=== PATIENT | male | born 1975 | race Caucasian/White ===

== ENCOUNTER 2016-12-04 21:19 | Observation (INO) | payer BC ==
[2016-12-04] MEDS ORDERED: Sodium Chloride 0.9% 1,000 ML IV ONE (21:44)
[2016-12-04 22:15] LABS: BASO % 0.3 % (0.0-2.0); EOS % 0.1 % (0.0-4.0); HEMATOCRIT 35.4 % (35.0-51.0); LYMPH # 1.4 K/uL (1.0-4.3); LYMPH % 8.7 % (20.0-40.0); MEAN CELL VOLUME 106.9 fL (80.0-94.0); MEAN CORPUSCULAR HEMOGLOBIN 36.3 pg (27.0-31.0); MEAN PLATELET VOLUME 7.5 fL (7.2-11.7); MONO # 1.3 K/uL (0.0-0.8); MONO % 7.7 % (0.0-10.0); PLATELET COUNT 269 K/uL (130-400); RED CELL DISTRIBUTION WIDTH 13.7 % (11.5-14.5); WHITE BLOOD COUNT 16.2 K/uL (4.8-10.8)
[2016-12-04 22:22] LABS: CHLORIDE 96 mmol/L (98-107)
[2016-12-04 22:23] LABS: POTASSIUM 3.8 mmol/L (3.6-5.2); SODIUM 132 mmol/L (132-148)
[2016-12-04 22:25] LABS: ALB/GLOB RATIO 1.5 (1.0-2.1); ALKALINE PHOSPHATASE 55 U/L (38-126); ALT/SGPT 31 U/L (21-72); AST/SGOT 21 U/L (17-59); BLOOD UREA NITROGEN 9 mg/dL (9-20); CARBON DIOXIDE 23 mmol/L (22-30); GFR AFRICAN-AMERICAN > 60; GLUCOSE,RANDOM 100 mg/dL (75-110); TOTAL PROTEIN 7.1 g/dL (6.3-8.3)
[2016-12-04 22:26] LABS: CALCIUM 8.9 mg/dl (8.6-10.4)
[2016-12-04 22:51] LABS: NEUTROPHIL 85 % (50-75); TOTAL CELLS COUNTED 100
[2016-12-05] MEDS: cefTRIAXone IV 1 gm in Dextros 1 GM in Dextrose 5% In Water 50 ML IVPB SCH ×2 (00:45→14:20)
--- NOTE | 2016-12-05 03:02 | C.PDOC ---
History Of Present Illness Patient is a 41 y/o male who presents to the ED with a complaint of substernal sharp CP. Patient admits to productive cough with yellow-kendal phlegm and a tactile fever. Denies nausea, vomiting, or recent travel. Patient has a PMHx of HIV and has a CD4 count > 200. Currently on Haart therapy. No other physical complaints at this time. Chief Complaint (Nursing): Chest Pain History Per: Patient History/Exam Limitations: no limitations Current Symptoms Are (Timing): Still Present Quality: Sharp Recent travel outside of the [place]: No Additional History Per: Patient Past Medical History Reviewed: Historical Data, Nursing Documentation, Vital Signs Vital Signs: Last Vital Signs Temp 99.0 F 12/05/16 04:49 Pulse 123 H 12/05/16 04:49 Resp 20 12/05/16 04:49 BP 111/66 12/05/16 04:49 Pulse Ox 95 12/05/16 04:49 - Medical History PMH: Anxiety, HIV, HTN, Hypercholesterolemia Surgical History: Appendectomy Family History: States: No Known Family Hx - Social History Hx Alcohol Use: No Hx Substance Use: No - Immunization History Hx Tetanus Toxoid Vaccination: Yes Hx Influenza Vaccination: Yes Hx Pneumococcal Vaccination: Yes Review Of Systems Constitutional: Positive for: Fever (tactile) Cardiovascular: Positive for: Chest Pain (substernal) Respiratory: Positive for: Cough (productive), Sputum (yellow-kendal) Gastrointestinal: Negative for: Nausea, Vomiting Physical Exam - Physical Exam Appears: Well, Non-toxic Skin: Normal Color, Warm, Dry Head: Atraumatic, Normacephalic Oral Mucosa: Moist Chest: Symmetrical Cardiovascular: Rhythm Regular, No Murmur Respiratory: No Rales, Rhonchi (bilateral on basees of lungs ), No Wheezing Gastrointestinal/Abdominal: Soft, No Tenderness Extremity: Normal ROM Neurological/Psych: Oriented x3, Normal Speech, Normal Cognition ED Course And Treatment - Laboratory Results Result Diagrams: 12/04/16 22:08 12/04/16 22:08 ECG: Interpreted By Me, Viewed By Me ECG Rhythm: Sinus Tachycardia, R BBB Rate From EC (bpm) O2 Sat by Pulse Oximetry: 98 - Physician Consult Information Time Consulting Physician Contacted: 02:30 Physician Contacted: Jennifer Vallecillo Outcome Of Conversation: agrees upon plan and admission of patient. Medical Decision Making Medical Decision Making: Plan: EKG, CXR, and blood work ordered. Tylenol, Zithromax, and IV fluids administered. Patient is to be admitted. Disposition - Disposition Disposition Time: 23:00 Condition: IMPROVED - Clinical Impression Clinical Impression: Pneumonia, HIV (human immunodeficiency virus infection) - Scribe Statement The provider has reviewed the documentation as recorded by the Scribe Ana Rosa Baldwin All medical record entries made by the Scribe were at my direction and personally dictated by me. I have reviewed the chart and agree that the record accurately reflects my personal performance of the history, physical exam, medical decision making, and the department course for this patient. I have also personally directed, reviewed, and agree with the discharge instructions and disposition.
[2016-12-05] MEDS ORDERED: HYDROmorphone 1 mg/ml ISec IVP PRN (06:28)
--- NOTE | 2016-12-05 08:30 | RAD ---
PROCEDURE: CHEST RADIOGRAPH, 1 VIEW HISTORY: chest pain COMPARISON: None available. FINDINGS: LUNGS: Mild venous congestion. Elevated left hemidiaphragm. Right hilar prominence. PLEURA: No pneumothorax or pleural fluid seen. CARDIOVASCULAR: Normal. OSSEOUS STRUCTURES: No significant abnormalities. VISUALIZED UPPER ABDOMEN: Normal. OTHER FINDINGS: None. IMPRESSION: Mild venous congestion. Elevated left hemidiaphragm. Right hilar prominence.
[2016-12-05] MEDS ORDERED: Pantoprazole 40 mg EC Tab PO SCH (10:00)
[2016-12-05] MEDS ORDERED: Divalproex 500 mg ER Tab PO SCH (10:00)
[2016-12-05] MEDS ORDERED: Home Med 1 UNIT (Emtricitabine/Tenofovir (Tdf) [Truvada 100 Mg-150 Mg Tablet] 1 EACH) PO SCH (10:00)
[2016-12-05] MEDS ORDERED: Multivitamin With Minerals Tab PO SCH (10:00)
[2016-12-05] MEDS ORDERED: Azithromycin 500 MG in Sodium Chloride 0.9% 250 ML IVPB SCH (10:00)
[2016-12-05] MEDS ORDERED: Venlafaxine 150 mg ER Cap PO SCH (14:30)
[2016-12-05 15:44] VITALS: RESP 20
[2016-12-05] MEDS ORDERED: Abacavir/Lamivudine/Zidovudine 300 mg-150mg- 300 mg Tab PO SCH (18:00)
[2016-12-05] MEDS ORDERED: Abacavir/Lamivudine/Zidovudine 300 mg-150mg- 300 mg Tab PO ONE (18:00)
--- NOTE | 2016-12-05 18:44 | CP.PCM.HP ---
History of Present Illness - History of Present Illness History of Present Illness: 41-year-old male with PMHanxiety, HIV, HTN and hypercholesterolemia presents to the ER with C/Ochest pain for 3 days. C/Ochest pain for 3 days, insidious in onset, progressive, sharp, right-sided, aggravated with coughing, partly relieved by oral medications. C/Ocough since 3-4 days, productive of yellowish expectoration, intermittent C/Ofever for 3-4 days, high-grade, with chills and rigors, 3-4 spikes per day. No C/Ovomiting, chest pain, palpitation, PND, orthopnea. Past Patient History - Infectious Disease Hx of Infectious Diseases: None - Past Social History Smoking Status: Heavy Smoker > 10 Cigarettes Daily - CARDIAC Hx Hypercholesterolemia: Yes Hx Hypertension: Yes - HEMATOLOGICAL/ONCOLOGICAL Hx Human Immunodeficiency Virus (HIV): Yes - MUSCULOSKELETAL/RHEUMATOLOGICAL Hx Falls: No - PSYCHIATRIC Hx Anxiety: Yes Hx Bipolar Disorder: Yes Hx Substance Use: No - SURGICAL HISTORY Hx Appendectomy: No Other/Comment: Tonsils taken out - ANESTHESIA Hx Anesthesia: Yes Hx Anesthesia Reactions: No Meds Allergies/Adverse Reactions: Allergies Allergy/AdvReac Type Severity Reaction Status Date / Time sulfamethoxazole Allergy Verified 12/04/16 21:37 [From Bactrim] trimethoprim [From Bactrim] Allergy Verified 12/04/16 21:37 Physical Exam - Constitutional Appears: Well - Head Exam Head Exam: ATRAUMATIC, NORMAL INSPECTION, NORMOCEPHALIC - Eye Exam Eye Exam: EOMI, Normal appearance, PERRL Pupil Exam: NORMAL ACCOMODATION, PERRL - ENT Exam ENT Exam: Mucous Membranes Moist, Normal Exam - Neck Exam Neck exam: Positive for: Normal Inspection - Respiratory Exam Respiratory Exam: Decreased Breath Sounds - Cardiovascular Exam Cardiovascular Exam: REGULAR RHYTHM, +S1, +S2 - GI/Abdominal Exam GI & Abdominal Exam: Diminished Bowel Sounds, Soft - Rectal Exam Rectal Exam: Deferred Results - Vital Signs Recent Vital Signs: Last Vital Signs Temp 97.9 F 12/05/16 15:41 Pulse 96 H 12/05/16 15:41 Resp 20 12/05/16 15:41 BP 111/74 12/05/16 15:41 Pulse Ox 95 12/05/16 15:41 - Labs Result Diagrams: 12/04/16 22:08 12/04/16 22:08 Labs: Laboratory Results - last 24 hr 12/04/16 12/04/16 12/04/16 22:08 22:08 23:55 WBC 16.2 H RBC 3.32 L Hgb 12.1 Hct 35.4 MCV 106.9 H MCH 36.3 H MCHC 34.0 RDW 13.7 Plt Count 269 MPV 7.5 Neut % (Auto) 83.2 H Lymph % (Auto) 8.7 L [place] % (Auto) 7.7 Eos % (Auto) 0.1 Baso % (Auto) 0.3 Neut # 13.5 H Lymph # 1.4 [place] # 1.3 H Eos # 0.0 Baso # 0.0 Neutrophils % (Manual) 85 H Band Neutrophils % 1 Lymphocytes % (Manual) 8 L Monocytes % (Manual) 6 Platelet Estimate Normal Poikilocytosis (manual Slight Anisocytosis (manual) Slight Sodium 132 Potassium 3.8 Chloride 96 L Carbon Dioxide 23 Anion Gap 16 BUN 9 Creatinine 0.7 L Est GFR ( Amer) > 60 Est GFR (Non-Af Amer) > 60 Random Glucose 100 Calcium 8.9 Total Bilirubin 1.0 AST 21 ALT 31 Alkaline Phosphatase 55 Lactate Dehydrogenase 579 Troponin I < 0.0120 Total Protein 7.1 Albumin 4.3 Globulin 2.8 Albumin/Globulin Ratio 1.5 Lipase 60
--- NOTE | 2016-12-05 19:22 | CP.PCM.CON ---
History of Present Illness - History of Present Illness History of Present Illness: Patient is a 41 y/o male who presents to the ED with a complaint of substernal sharp CP. Patient admits to productive cough with yellow-kendal phlegm and a tactile fever. Denies nausea, vomiting, or recent travel. Patient has a PMHx of HIV and has a CD4 count > 200. Currently on Haart therapy. No other physical complaints at this time. admitted for pneumonia - Medical History PMH: Anxiety, HIV, HTN, Hypercholesterolemia Surgical History: Appendectomy Family History: States: No Known Family Hx Review of Systems - Constitutional Constitutional: Chills, Fever, Malaise - EENT Eyes: absent: As Per HPI, Blind Spots, Blurred Vision, Change in Vision, Decreased Night Vision, Diplopia, Discharge, Dry Eye, Exophthalmos, Floaters, Irritation, Itchy Eyes, Loss of Peripheral Vision, Pain, Photophobia, Requires Corrective Lenses, Sees Flashes, Spots in Vision, Tunnel Vision, Other Visual Disturbances, Loss of Vision, Other Ears: absent: As Per HPI, Decreased Hearing, Ear Discharge, Ear Pain, Tinnitus, Abnormal Hearing, Disequilibrium, Dizziness, Other Nose/Mouth/Throat: absent: As Per HPI, Epistaxis, Nasal Congestion, Nasal Discharge, Nasal Obstruction, Nasal Trauma, Nose Pain, Post Nasal Drip, Sinus Pain, Sinus Pressure, Bleeding Gums, Change in Voice, Dental Pain, Dry Mouth, Dysphagia, Halitosis, Hoarsness, Lip Swelling, Mouth Lesions, Mouth Pain, Odynophagia, Sore Throat, Throat Swelling, Tongue Swelling, Facial Pain, Neck Pain, Neck Mass, Other - Cardiovascular Cardiovascular: absent: As Per HPI, Acrocyanosis, Chest Pain, Chest Pain at Rest , Chest Pain with Activity, Claudication, Diaphoresis, Dyspnea, Dyspnea on Exertion, Edema, Irregular Heart Rhythm, Pain Radiating to Arm/Neck/Jaw, Leg Edema, Leg Ulcers, Lightheadedness, Orthopnea, Palpitations, Paroxysmal Nocturnal Dyspnea, Pedal Edema, Radiating Pain, Rapid Heart Rate, Slow Heart Rate, Syncope, Other - Respiratory Respiratory: Cough, Dyspnea. absent: Hemoptysis - Gastrointestinal Gastrointestinal: absent: As Per HPI, Abdominal Pain, Belching, Bloating, Change in Bowel Habits, Change in Stool Character, Coffee Ground Emesis, Constipation, Cramping, Diarrhea, Dyspepsia, Dysphagia, Early Satiety, Excessive Flatus, Fecal Incontinence, Heartburn, Hematemesis, Hematochezia, Loose Stools, Melena, Nausea, Odynophagia, Temesmus, Vomiting, Other - Genitourinary Genitourinary: absent: As Per HPI, Change in Urinary Stream, Difficulty Urinating, Dysuria, Flank Pain, Hematuria, Pyuria, Nocturia, Urinary Incontinence, Urinary Frequency, Urinary Hesitance, Urinary Urgency, Voiding Freq/Small Amts, Freq UTI, Hx Renal/Bladder Calculi, Hx /Renal Surgery, Bladder Distension, Other - Musculoskeletal Musculoskeletal: absent: As Per HPI, Abnormal Gait, Arthralgias, Atrophy, Back Pain, Deformity, Joint Swelling, Limited Range of Motion, Loss of Height, Muscle Cramps, Muscle Weakness, Myalgias, Neck Pain, Numbness, Radiating Pain into Limb, Stiffness, Tingling, Other - Integumentary Integumentary: absent: As Per HPI, Acne, Alopecia, Bleeding Lesions, Change in Hair, Change in Nails, Change in Pigmentation, Changing Lesions, Dry Skin, Erythema, Furuncle, Hirsutism, Lesions, New Lesions, Non-Healing Lesions, Photosensitivity, Pruritus, Rash, Skin Pain, Skin Ulcer, Sores, Striae, Swelling , Unusual Bruising, Wounds, Jaundice, Other - Neurological Neurological: absent: As Per HPI, Abnormal Gait, Abnormal Hearing, Abnormal Movements, Abnormal Speech, Behavioral Changes, Burning Sensations, Confusion, Convulsions, Disequilibrium, Dizziness, Numbness, Focal Weakness, Frequent Falls , Headaches, Lack of Coordination, Loss of Vision, Memory Loss, Paresthesias, Radicular Pain, Restless Legs, Sensory Deficit, Syncope, Tingling, Tremor, Vertigo, Weakness, Other Visual Disturbances, Other - Psychiatric Psychiatric: absent: As Per HPI, Abnormal Sleep Pattern, Anhedonia, Anxiety, Auditory Hallucinations, Behavioral Changes, Change in Appetite, Change in Libido, Confusion, Depression, Difficulty Concentrating, Hallucinations, Homicidal Ideation, Hopelessness, Irritability, Memory Loss, Mood Swings, Panic Attacks, Paranoia, Suicidal Ideation, Visual Hallucinations, Tactile Hallucinations, Other - Endocrine Endocrine: absent: As Per HPI, Change in Body Appearance, Change in Libido, Cold Intolorance, Deepening of Voice, Excessive Sweating, Fatigue, Flushing, Heat Intolorance, Increase in Ring/Shoe/Hat Size, Palpitations, Polydipsia, Polyphagia, Polyuria, Other - Hematologic/Lymphatic Hematologic: absent: As Per HPI, Easy Bleeding, Easy Bruising, Lymphadenopathy, Other Past Patient History - Infectious Disease Hx of Infectious Diseases: None - Past Social History Smoking Status: Heavy Smoker > 10 Cigarettes Daily - CARDIAC Hx Hypercholesterolemia: Yes Hx Hypertension: Yes - HEMATOLOGICAL/ONCOLOGICAL Hx Human Immunodeficiency Virus (HIV): Yes - MUSCULOSKELETAL/RHEUMATOLOGICAL Hx Falls: No - PSYCHIATRIC Hx Anxiety: Yes Hx Bipolar Disorder: Yes Hx Substance Use: No - SURGICAL HISTORY Hx Appendectomy: No Other/Comment: Tonsils taken out - ANESTHESIA Hx Anesthesia: Yes Hx Anesthesia Reactions: No Meds Allergies/Adverse Reactions: Allergies Allergy/AdvReac Type Severity Reaction Status Date / Time sulfamethoxazole Allergy Verified 12/04/16 21:37 [From Bactrim] trimethoprim [From Bactrim] Allergy Verified 12/04/16 21:37 - Medications Medications: Current Medications Abacavir/Lamivudine/Zidovudine (Trizivir 300 Mg-150 Mg-300 Mg) 1 tab PO BID [facility] Last Admin: 12/05/16 18:37 Dose: 1 tab Acetaminophen (Tylenol 325mg Tab) 650 mg PO Q6 PRN PRN Reason: Fever >100.4 F Amlodipine Besylate (Norvasc) 10 mg PO DAILY [facility] Dapsone (Dapsone) 100 mg PO DAILY [facility] Dolutegravir Sodium (Tivicay) 50 mg PO BID [facility] Last Admin: 12/05/16 18:37 Dose: 50 mg Hydromorphone HCl (Dilaudid) 1 mg IVP Q8H PRN PRN Reason: Pain, moderate (4-7) Last Admin: 12/05/16 14:34 Dose: 1 mg Ceftriaxone Sodium 1 gm/ (Dextrose) 100 mls @ 50 mls/30 min IVPB Q12H [facility] Last Admin: 12/05/16 14:20 Dose: 50 mls/30 min Azithromycin 500 mg/ Sodium (Chloride) 250 mls @ 250 mls/hr IVPB DAILY [facility] Last Admin: 12/05/16 10:59 Dose: 250 mls/hr Multivitamins/Minerals (Therapeutic-M Tab) 1 tab PO DAILY [facility] Last Admin: 12/05/16 11:00 Dose: 1 tab Pantoprazole Sodium (Protonix Ec Tab) 40 mg PO DAILY [facility] Last Admin: 12/05/16 11:00 Dose: 40 mg Pneumococcal Polyvalent Vaccine (Pneumovax 23 Vaccine) 0.5 ml IM .ONCE ONE Stop: 12/07/16 10:01 Rosuvastatin Calcium (Crestor) 5 mg PO [facility] Venlafaxine HCl (Effexor Xr) 150 mg PO DAILY [facility] Last Admin: 12/05/16 16:05 Dose: 150 mg Physical Exam - Constitutional Appears: No Acute Distress, Agitated, Chronically Ill - Head Exam Head Exam: ATRAUMATIC, NORMAL INSPECTION, NORMOCEPHALIC - Eye Exam Eye Exam: PERRL. absent: Scleral icterus Pupil Exam: NORMAL ACCOMODATION - ENT Exam ENT Exam: Mucous Membranes Dry, Normal External Ear Exam, Normal Oropharynx - Neck Exam Neck exam: Negative for: Lymphadenopathy, Thyromegaly - Respiratory Exam Respiratory Exam: Decreased Breath Sounds, Rhonchi - Cardiovascular Exam Cardiovascular Exam: REGULAR RHYTHM, +S1, +S2 - GI/Abdominal Exam GI & Abdominal Exam: Diminished Bowel Sounds, Soft. absent: Tenderness - Rectal Exam Rectal Exam: Deferred - Exam Exam: NORMAL INSPECTION - Extremities Exam Extremities exam: Positive for: pedal pulses present. Negative for: calf tenderness, pedal edema, tenderness - Back Exam Back exam: absent: CVA tenderness (L), CVA tenderness (R), paraspinal tenderness - Neurological Exam Neurological exam: Alert, CN II-XII Intact, Oriented x3, Reflexes Normal - Psychiatric Exam Psychiatric exam: Normal Mood - Skin Skin Exam: Dry, Intact Results - Vital Signs Recent Vital Signs: Last Vital Signs Temp 97.9 F 12/05/16 15:41 Pulse 96 H 12/05/16 15:41 Resp 20 12/05/16 15:41 BP 111/74 12/05/16 15:41 Pulse Ox 95 12/05/16 15:41 - Labs Result Diagrams: 12/04/16 22:08 12/04/16 22:08 Labs: Laboratory Results - last 24 hr 12/04/16 12/04/16 12/04/16 22:08 22:08 23:55 WBC 16.2 H RBC 3.32 L Hgb 12.1 Hct 35.4 MCV 106.9 H MCH 36.3 H MCHC 34.0 RDW 13.7 Plt Count 269 MPV 7.5 Neut % (Auto) 83.2 H Lymph % (Auto) 8.7 L [place] % (Auto) 7.7 Eos % (Auto) 0.1 Baso % (Auto) 0.3 Neut # 13.5 H Lymph # 1.4 [place] # 1.3 H Eos # 0.0 Baso # 0.0 Neutrophils % (Manual) 85 H Band Neutrophils % 1 Lymphocytes % (Manual) 8 L Monocytes % (Manual) 6 Platelet Estimate Normal Poikilocytosis (manual Slight Anisocytosis (manual) Slight Sodium 132 Potassium 3.8 Chloride 96 L Carbon Dioxide 23 Anion Gap 16 BUN 9 Creatinine 0.7 L Est GFR ( Amer) > 60 Est GFR (Non-Af Amer) > 60 Random Glucose 100 Calcium 8.9 Total Bilirubin 1.0 AST 21 ALT 31 Alkaline Phosphatase 55 Lactate Dehydrogenase 579 Troponin I < 0.0120 Total Protein 7.1 Albumin 4.3 Globulin 2.8 Albumin/Globulin Ratio 1.5 Lipase 60 Assessment & Plan (1) HIV (human immunodeficiency virus infection) Status: Acute (2) Pneumonia Status: Acute - Assessment and Plan (Free Text) Assessment: check t cells resume haart therapy cont iv antibioitcs
--- NOTE | 2016-12-05 23:09 | CARD ---
APPROVED REPORT EKG Measurement Heart [id number] <Conclusion> Sinus tachycardia Possible Left atrial enlargement Incomplete right bundle branch block Left ventricular hypertrophy Abnormal ECG
[2016-12-05 23:34] VITALS: BP 114/70; PULSE 94; TEMP 97.4; O2SAT 96
[2016-12-06] MEDS: cefTRIAXone IV 1 gm in Dextros 1 GM in Dextrose 5% In Water 50 ML IVPB SCH (00:15)
[2016-12-07] MEDS ORDERED: Pneumococcal 23-Valent Vaccine IM ONE (10:00)
== END 2016-12-06 06:30 | disposition left against medical advice (07) ==
LOC: C.ER 21:19 → C.9E 23:00 → C.5S 12-05 07:39
PROVIDERS: ADMIT Internal Medicine Nephrology; ATTEND Internal Medicine Nephrology
DX: J18.9 Pneumonia, unspecified organism (principal); B20 Human immunodeficiency virus [HIV] disease; I10 Essential (primary) hypertension; E78.00 Pure hypercholesterolemia, unspecified; Z87.891 Personal history of nicotine dependence; F41.9 Anxiety disorder, unspecified
CPT/HCPCS: 71010; 80053; 83615; 83690; 84484; 85025; 86738; 87040; 87804; 93005; 96365; 96366; 96367; 96375; 96376; 99285; G0378; J0456; J0696; J1170; J7040; J7050

== ENCOUNTER 2017-06-28 07:55 | Emergency (ER) | payer BC ==
[2017-06-28 08:28] VITALS: BP 133/80; PULSE 108; RESP 14; TEMP 99.7; O2SAT 100
== END 2017-06-28 08:11 | disposition left against medical advice (07) ==
LOC: C.ER 07:55
DX: Z02.89 Encounter for other administrative examinations (principal); R41.82 Altered mental status, unspecified
CPT/HCPCS: 82948; LWBS0

== ENCOUNTER 2017-07-23 06:16 | Emergency (ER) | payer BC, MEDICAID ==
[2017-07-23] MEDS ORDERED: Sodium Chloride 0.9% 1,000 ML IV ONE (07:44)
--- NOTE | 2017-07-23 07:57 | C.PDOC ---
History Of Present Illness 41 y/o male with Hx of HTN and HIV presents to ED for complaints of difficulty breathing, throat pain, and mouth sores associated with fever and diarrhea that began 4 days ago. Patient also reports difficulty swallowing. Denies vomiting, current use of antibiotics, or allergies. Patient also denies taking his HTN medication. Time Seen by Provider: 07/23/17 07:18 Chief Complaint (Nursing): Fever History Per: Patient History/Exam Limitations: no limitations Onset/Duration Of Symptoms: Days (4) Current Symptoms Are (Timing): Still Present Location Of Pain: Throat Sick Contacts (Context): None Associated Symptoms: Fever, Sore Throat, Diarrhea. denies: Chills, Cough, Vomiting Ear Symptoms: Bilateral: None Recent travel outside of the [place]: No Past Medical History Reviewed: Historical Data, Nursing Documentation, Vital Signs Vital Signs: Last Vital Signs Temp 98.5 F 07/23/17 08:46 Pulse 93 H 07/23/17 08:46 Resp 18 07/23/17 10:23 BP 133/69 07/23/17 08:46 Pulse Ox 100 07/23/17 10:09 - Medical History PMH: Anxiety, Bipolar Disorder, Depression, HIV, HTN, Hypercholesterolemia, Hyperlipidemia Family History: States: Unknown Family Hx - Social History Hx Alcohol Use: No Hx Substance Use: No - Immunization History Hx Tetanus Toxoid Vaccination: Yes Hx Influenza Vaccination: Yes Hx Pneumococcal Vaccination: Yes Review Of Systems Except As Marked, All Systems Reviewed And Found Negative. Constitutional: Positive for: Fever. Negative for: Chills ENT: Positive for: Throat Pain, Other (Throat sores). Negative for: Ear Pain, Mouth Pain Respiratory: Positive for: Other (Difficulty breathing ) Gastrointestinal: Positive for: Diarrhea. Negative for: Nausea, Vomiting, Abdominal Pain Skin: Negative for: Rash Neurological: Negative for: Weakness, Numbness Physical Exam - Physical Exam Appears: No Acute Distress, Chronically Ill Skin: Normal Color, Warm, Dry, No Rash Head: Atraumatic, Normacephalic Eye(s): bilateral: Normal Inspection, PERRL, EOMI Ear(s): Bilateral: Normal Nose: Normal, No Discharge Oral Mucosa: Moist Tongue: Normal Appearing Lips: Normal Appearing Throat: Erythema, No Drooling, Other (Diffuse white flax, exudative lesions to posterior pharynx and uvula) Neck: Normal ROM, Supple Chest: Symmetrical, No Deformity, No Tenderness Cardiovascular: Rhythm Regular, No Friction Rub, No Murmur Respiratory: Normal Breath Sounds, No Decreased Breath Sounds, No Rales, No Rhonchi, No Wheezing Gastrointestinal/Abdominal: Soft, No Tenderness Back: Normal Inspection, No CVA Tenderness Extremity: Normal ROM, No Swelling Neurological/Psych: Oriented x3, Normal Speech, Normal Motor Gait: Steady ED Course And Treatment - Laboratory Results Result Diagrams: 07/23/17 07:59 07/23/17 07:59 O2 Sat by Pulse Oximetry: 100 (RA) Pulse Ox Interpretation: Normal - Other Rad CXR X-Ray: Viewed By Me, Read By Radiologist Interpretation: PROCEDURE: CHEST RADIOGRAPH, 1 VIEW. HISTORY: Shortness of breath. COMPARISON: 12/04/2016. FINDINGS: LUNGS: The lungs are well inflated and clear. PLEURA: No pneumothorax or pleural fluid seen. CARDIOVASCULAR: Normal. OSSEOUS STRUCTURES: No significant abnormalities. VISUALIZED UPPER ABDOMEN: Normal. OTHER FINDINGS: None. IMPRESSION: No active pulmonary disease. Medical Decision Making Medical Decision Making: Administered Toradol and IV fluids. Ordered BG, CXR, blood work and blood culture. The case was discussed with Dr. Aleksandra Dockery (hospitalist) agrees to admit the patient to his service. The airways are patent but patient has difficulty swallowing, will need IV antifungals. Micro called and states that the patient has a (+) Blood cultures. Patient had Signed out AMA after admission. Several calls placed to the patient without success. Disposition - Disposition Disposition: AGAINST MEDICAL ADVICE Disposition Time: 08:48 Condition: STABLE Prescriptions: Fluconazole [Diflucan] 150 mg PO DAILY 3 Days #3 tab Nystatin [Nystatin Oral Susp] 5 ml PO QID #1 bottle Forms: [employer] (Ukrainian) - POA Present On Arrival: None - Clinical Impression Clinical Impression: HIV (human immunodeficiency virus infection), Esophagitis, Thrush of mouth and esophagus - PA / MANAGER [employer] / Resident Statement MD/DO has reviewed & agrees with the documentation as recorded. - Scribe Statement The provider has reviewed the documentation as recorded by the Scribe Rolando [email or web address] All medical record entries made by the Scribe were at my direction and personally dictated by me. I have reviewed the chart and agree that the record accurately reflects my personal performance of the history, physical exam, medical decision making, and the department course for this patient. I have also personally directed, reviewed, and agree with the discharge instructions and disposition.
[2017-07-23] MEDS ORDERED: Sodium Chloride 0.9% 1,000 ML ONE (07:58)
[2017-07-23 08:04] LABS: BASO % 0.5 % (0.0-2.0); EOS % 0.4 % (0.0-4.0); HEMOGLOBIN 14.5 g/dL (12.0-18.0); LYMPH # 0.6 K/uL (1.0-4.3); LYMPH % 13.5 % (20.0-40.0); MEAN CORPUSCULAR HGB CONC 34.2 g/dL (33.0-37.0); MEAN PLATELET VOLUME 8.2 fL (7.2-11.7); MONO % 22.2 % (0.0-10.0); NEUT # 2.7 K/uL (1.8-7.0); NEUT % 63.4 % (50.0-75.0); PLATELET COUNT 337 K/uL (130-400); RBC 5.57 Mil/uL (4.40-5.90); RED CELL DISTRIBUTION WIDTH 15.3 % (11.5-14.5); WHITE BLOOD COUNT 4.3 K/uL (4.8-10.8)
[2017-07-23 08:25] LABS: VENOUS BLOOD GAS BASE EXCESS 5.5 mmol/L (0.0-2.0); VENOUS BLOOD GAS PCO2 51 mmHg (40-60); VENOUS BLOOD GAS PO2 27 mm/Hg (30-55)
[2017-07-23 08:30] LABS: ALBUMIN 4.3 g/dL (3.5-5.0); ALT/SGPT 16 U/L (21-72); AST/SGOT 30 U/L (17-59); BLOOD UREA NITROGEN 8 mg/dL (9-20); CALCIUM 9.4 mg/dl (8.6-10.4); GFR AFRICAN-AMERICAN > 60; GFR NON-AFRICAN AMERICAN > 60
[2017-07-23 08:46] VITALS: BP 133/69; PULSE 93; RESP 18; TEMP 98.5
[2017-07-23 08:49] VITALS: O2SAT 100
[2017-07-23 09:21] LABS: BANDS 9 % (0-2); EOSINOPHIL 1 % (0-4); LYMPHOCYTE 12 % (20-40); MONOCYTE 21 % (0-10); NEUTROPHIL 57 % (50-75); PLATELET ESTIMATE NORMAL (NORMAL); POIKILOCYTOSIS SLIGHT; TOTAL CELLS COUNTED 100
[2017-07-23 09:22] LABS: OVALOCYTES SLIGHT
[2017-07-23] MEDS ORDERED: Nystatin 100,000 Units/ml Oral Susp 5 ml UD PO SCH (10:00)
--- NOTE | 2017-07-23 10:04 | RAD ---
PROCEDURE: CHEST RADIOGRAPH, 1 VIEW HISTORY: Shortness of breath COMPARISON: 12/04/2016. FINDINGS: LUNGS: The lungs are well inflated and clear. PLEURA: No pneumothorax or pleural fluid seen. CARDIOVASCULAR: Normal. OSSEOUS STRUCTURES: No significant abnormalities. VISUALIZED UPPER ABDOMEN: Normal. OTHER FINDINGS: None. IMPRESSION: No active pulmonary disease.
== END 2017-07-23 10:23 | disposition left against medical advice (07) ==
LOC: C.ER 06:16 → C.9E 08:49 → UNDOADMIN 08:49 → C.9E 09:34 → C.3T 09:34 → C.9E 10:06 → C.3T 10:06
DX: B37.81 Candidal esophagitis (principal); B37.0 Candidal stomatitis; B20 Human immunodeficiency virus [HIV] disease; I10 Essential (primary) hypertension; E78.00 Pure hypercholesterolemia, unspecified; E78.5 Hyperlipidemia, unspecified; F17.210 Nicotine dependence, cigarettes, uncomplicated
CPT/HCPCS: 71045; 80053; 82803; 83615; 85025; 87040; 87205; 87206; 96361; 96374; 99284; J1885; J7030

== ENCOUNTER 2017-07-24 17:40 | Inpatient (IN) | payer MEDICAID ==
[2017-07-24] MEDS ORDERED: Sodium Chloride 0.9% 1,000 ML IV ONE (18:51)
[2017-07-24] MEDS ORDERED: Piperacillin/Tazobact 3.375 GM in Sodium Chloride 100 ML IVPB STA (18:54)
[2017-07-24] MEDS ORDERED: Piperacill/Tazo 3.375gm in Dex 3.375 GM/50 ML BAG IVPB ONE (19:00)
[2017-07-24] MEDS ORDERED: Sodium Chloride 0.9% 1,000 ML ONE (19:04)
--- NOTE | 2017-07-24 19:30 | C.PDOC ---
History Of Present Illness 41 year old male presents to the ER with a complaint of weakness and throat pain. Patient signed out AMA yesterday after being admitted for esophagitis and HIV. Patient is noncompliant with his medications and does not have a PMD. Patient reports he has had positive weight loss as well. Denies fever or cough. Time Seen by Provider: 07/24/17 18:47 Chief Complaint (Nursing): Shortness Of Breath History Per: Patient History/Exam Limitations: no limitations Onset/Duration Of Symptoms: Days Current Symptoms Are (Timing): Still Present Associated Symptoms: denies: Fever, Other ((-) cough (+) weakness, weightloss) Recent travel outside of the [place]: No Past Medical History Reviewed: Historical Data, Nursing Documentation, Vital Signs Vital Signs: Last Vital Signs Temp 98.5 F 07/24/17 18:25 Pulse 122 H 07/24/17 18:25 Resp 20 07/24/17 18:25 BP 127/91 H 07/24/17 18:25 Pulse Ox 98 07/24/17 20:28 - Medical History PMH: Anxiety, Bipolar Disorder, Depression, HIV, HTN, Hypercholesterolemia, Hyperlipidemia Family History: States: Unknown Family Hx - Social History Hx Alcohol Use: No Hx Substance Use: No - Immunization History Hx Tetanus Toxoid Vaccination: No Hx Influenza Vaccination: Yes Hx Pneumococcal Vaccination: No Review Of Systems Except As Marked, All Systems Reviewed And Found Negative. Constitutional: Positive for: Weakness, Weight loss. Negative for: Fever ENT: Positive for: Throat Pain Respiratory: Negative for: Cough Physical Exam - Physical Exam Appears: Non-toxic Skin: Normal Color, Warm, Dry Head: Atraumatic, Normacephalic Eye(s): bilateral: Normal Inspection Oral Mucosa: Moist Tongue: Other (Thrush) Neck: Normal, Supple Chest: Symmetrical, No Tenderness Cardiovascular: Rhythm Regular (Tachycardic) Respiratory: Normal Breath Sounds, No Rales, No Rhonchi, No Wheezing Gastrointestinal/Abdominal: Soft, No Tenderness Neurological/Psych: Oriented x3, Normal Speech ED Course And Treatment - Laboratory Results Result Diagrams: 07/24/17 19:29 07/24/17 19:29 ECG: Interpreted By Me, Viewed By Me ECG Rhythm: Sinus Tachycardia ECG Interpretation: Normal Interpretation Of ECG: Incomplete RBBB, LVH, ST segment depression with T wave inversions at v4, v5, v6 Rate From EC O2 Sat by Pulse Oximetry: 98 (Room air) Pulse Ox Interpretation: Normal Medical Decision Making Medical Decision Making: Plan: * EKG * Blood work * CXR * Urinalysis * Pepcid * Toradol * IV fluids * Zosyn Case discussed with Dr. Jurado who will admit patient to med/surg for hypokalemia, esophagitis, and bacteremia. Disposition Discussed With Dr.: Berry Jurado Doctor Will See Patient In The: Hospital Counseled Patient/Family Regarding: Studies Performed, Diagnosis - Disposition Disposition: HOSPITALIZED Disposition Time: 20:28 Condition: FAIR Forms: [facility] (Swedish) - Clinical Impression Clinical Impression: Hypokalemia, Esophagitis, Bacteremia - Scribe Statement Jose Pacheco All medical record entries made by the Scribe were at my direction and personally dictated by me. I have reviewed the chart and agree that the record accurately reflects my personal performance of the history, physical exam, medical decision making, and the department course for this patient. I have also personally directed, reviewed, and agree with the discharge instructions and disposition.
[2017-07-24 19:32] LABS: BASO % 0.3 % (0.0-2.0); EOS % 0.1 % (0.0-4.0); HEMOGLOBIN 14.8 g/dL (12.0-18.0); LYMPH # 0.5 K/uL (1.0-4.3); LYMPH % 12.5 % (20.0-40.0); MEAN CELL VOLUME 75.6 fL (80.0-94.0); MEAN CORPUSCULAR HEMOGLOBIN 25.7 pg (27.0-31.0); MEAN PLATELET VOLUME 8.5 fL (7.2-11.7); MONO # 0.8 K/uL (0.0-0.8); MONO % 17.5 % (0.0-10.0); NEUT # 3.1 K/uL (1.8-7.0); NEUT % 69.6 % (50.0-75.0); NRBC % 0.3 % (0.0-2.0); RBC 5.76 Mil/uL (4.40-5.90); RED CELL DISTRIBUTION WIDTH 15.4 % (11.5-14.5); WHITE BLOOD COUNT 4.4 K/uL (4.8-10.8)
[2017-07-24 19:47] LABS: ALB/GLOB RATIO 0.9 (1.0-2.1); ALBUMIN 4.1 g/dL (3.5-5.0); ALT/SGPT 23 U/L (21-72); AST/SGOT 19 U/L (17-59); BLOOD UREA NITROGEN 10 mg/dL (9-20); CALCIUM 9.1 mg/dl (8.6-10.4); GFR AFRICAN-AMERICAN > 60; GFR NON-AFRICAN AMERICAN > 60
[2017-07-24] MEDS ORDERED: Potassium Chloride 20 mEq/15 ml LIQ UD PO STA (20:00)
[2017-07-24] MEDS ORDERED: Potassium Chloride 20 mEq/15 ml LIQ UD ONE (20:08)
[2017-07-24] MEDS ORDERED: Fluconazole IV 200mg/100 ml NS 100 ML IVPB SCH (22:15)
[2017-07-24] MEDS ORDERED: Tmp-Smz 800 mg-160 mg DS Tab PO SCH (22:30)
[2017-07-24] MEDS ORDERED: Potassium Chloride 20 MEQ in Lactated Ringer's 1,000 ML IV SCH (22:30)
[2017-07-24] MEDS ORDERED: Meropenem 1 GM in Sodium Chloride 0.9% 100 ML IVPB SCH (23:00)
[2017-07-24] MEDS: Potassium Chl 20 mEq in NS 1,000 ML IV SCH (23:11)
[2017-07-24] MEDS: Meropenem 1 GM in Sodium Chloride 0.9% 100 ML IVPB SCH (23:12)
[2017-07-25] MEDS: Potassium Chl 20 mEq in NS 1,000 ML IV SCH ×4 (05:47→18:00)
[2017-07-25] MEDS: Meropenem 1 GM in Sodium Chloride 0.9% 100 ML IVPB SCH ×3 (06:02→22:42)
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
[2017-07-25 07:12] LABS: BASO % 0.4 % (0.0-2.0); EOS % 0.5 % (0.0-4.0); HEMOGLOBIN 12.7 g/dL (12.0-18.0); LYMPH # 0.5 K/uL (1.0-4.3); LYMPH % 20.6 % (20.0-40.0); MEAN CELL VOLUME 75.9 fL (80.0-94.0); MEAN CORPUSCULAR HEMOGLOBIN 25.8 pg (27.0-31.0); MEAN CORPUSCULAR HGB CONC 33.9 g/dL (33.0-37.0); MEAN PLATELET VOLUME 8.2 fL (7.2-11.7); MONO # 0.6 K/uL (0.0-0.8); MONO % 22.3 % (0.0-10.0); NEUT # 1.5 K/uL (1.8-7.0); NEUT % 56.2 % (50.0-75.0); NRBC % 0.1 % (0.0-2.0); PLATELET COUNT 289 K/uL (130-400); RBC 4.93 Mil/uL (4.40-5.90); RED CELL DISTRIBUTION WIDTH 15.1 % (11.5-14.5); WHITE BLOOD COUNT 2.6 K/uL (4.8-10.8)
[2017-07-25 07:41] LABS: ALBUMIN 3.6 g/dL (3.5-5.0); ALT/SGPT 26 U/L (21-72); AST/SGOT 17 U/L (17-59); BLOOD UREA NITROGEN 10 mg/dL (9-20); CALCIUM 8.5 mg/dl (8.6-10.4); GFR AFRICAN-AMERICAN > 60; GFR NON-AFRICAN AMERICAN > 60
--- NOTE | 2017-07-25 08:29 | RAD ---
PROCEDURE: CHEST RADIOGRAPH, 1 VIEW HISTORY: chest pain COMPARISON: Prior chest radiograph 07/23/2017. FINDINGS: LUNGS: Clear. PLEURA: No pneumothorax or pleural fluid seen. CARDIOVASCULAR: Normal. OSSEOUS STRUCTURES: No significant abnormalities. VISUALIZED UPPER ABDOMEN: Normal. OTHER FINDINGS: None. IMPRESSION: No active disease.
[2017-07-25 08:33] LABS: HEPATITIS B SURFACE AG Negative (NEGATIVE)
[2017-07-25 08:39] LABS: HEPATITIS A IGM NEGATIVE (NEGATIVE); HEPATITIS B CORE AB NEGATIVE (NEGATIVE)
[2017-07-25 08:48] LABS: BANDS 28 % (0-2); EOSINOPHIL 2 % (0-4); LYMPHOCYTE 22 % (20-40); MONOCYTE 12 % (0-10); NEUTROPHIL 36 % (50-75); PLATELET ESTIMATE NORMAL (NORMAL); TOTAL CELLS COUNTED 50
[2017-07-25 08:50] LABS: HEPATITIS C ANTIBODY NEGATIVE (NEGATIVE)
[2017-07-25] MEDS ORDERED: Pneumococcal 23-Valent Vaccine IM ONE (10:00)
--- NOTE | 2017-07-25 12:01 | CP.PCM.PN ---
<Vicky Ramirez - Last Filed: 07/25/17 15:00> Subjective - Date & Time of Evaluation Date of Evaluation: 07/25/17 Time of Evaluation: 12:01 - Subjective Subjective: Medicine progress note for Dr. Dockery Patient was seen and examined at bedside in no acute distress. Patient is requesting food and stating he is very hungry. Patient states he no longer has pain with swallowing and less inflammation. He says he feels tired and weak, and has lost 60lbs in 6 months. Patient denies chest pain, dyspnea, nausea, vomiting, fevers, headaches, abdominal pain. Objective - Vital Signs/Intake and Output Vital Signs (last 24 hours): Temp Pulse Resp BP Pulse Ox 98.1 F 90 20 105/70 98 07/25/17 07:44 07/25/17 07:44 07/25/17 07:44 07/25/17 07:44 07/25/17 07:44 Intake and Output: 07/25/17 07/25/17 06:59 18:59 Intake Total 1200 Balance 1200 - Medications Medications: Current Medications Heparin Sodium (Porcine) (Heparin) 5,000 units SC Q12 [facility] Last Admin: 07/25/17 09:36 Dose: 5,000 units Fluconazole (Diflucan Iv 100 Mg/50 Ml Ns) 50 mls @ 50 mls/hr IVPB Q24H [facility] Meropenem 1 gm/ Sodium (Chloride) 100 mls @ 100 mls/hr IVPB Q8H [facility] PRN Reason: Protocol Last Admin: 07/25/17 06:02 Dose: 100 mls/hr Potassium Chloride/Sodium Chloride (Potassium Chl 20 Meq In Ns) 1,000 mls @ 150 mls/hr IV .Q6H40M [facility] Last Admin: 07/25/17 08:20 Dose: 150 mls/hr Trimethoprim/Sulfamethoxazole (Bactrim Ds Tab) 1 tab PO Q2D [facility] PRN Reason: Protocol Last Admin: 07/24/17 23:12 Dose: 1 tab - Labs Labs: 07/25/17 07:03 07/25/17 07:03 - Constitutional Appears: No Acute Distress - Head Exam Head Exam: ATRAUMATIC, NORMAL INSPECTION - Eye Exam Eye Exam: EOMI, Normal appearance - ENT Exam ENT Exam: Mucous Membranes Moist Additional comments: Oral lesions improving; erythematous throat; poor dentition - Neck Exam Neck Exam: Normal Inspection. absent: Lymphadenopathy, Tenderness - Respiratory Exam Respiratory Exam: NORMAL BREATHING PATTERN. absent: Rales, Rhonchi, Wheezes, Respiratory Distress - Cardiovascular Exam Cardiovascular Exam: REGULAR RHYTHM, +S1, +S2 - GI/Abdominal Exam GI & Abdominal Exam: Soft, Normal Bowel Sounds. absent: Distended, Tenderness - Extremities Exam Extremities Exam: Normal Inspection. absent: Pedal Edema, Tenderness Additional comments: no axillary lymphadenopathy palpated - Neurological Exam Neurological Exam: Alert, Awake, Oriented x3 - Psychiatric Exam Psychiatric exam: Anxious - Skin Skin Exam: Dry, Intact, Normal Color, Warm Assessment and Plan - Assessment and Plan (Free Text) Plan: Esophageal candidiasis In the ED, Diflucan given Continued on Fluconazole 100 mg IVPB Q24H Nystatin Mouth Wash HIV/possible AIDS f/u CD4/CD8 Bactrim DS daily Hepatitis panel: negative Neck soft tissue CT: f/u Chest/Abdo/Pelv CT: f/u Diarrhea with reported blood Cdiff: f/u Ova and parasites: f/u Fecal leukocytes: f/u Stool occult blood: positive Monitor CBC&CMP Monitor vitals Hypokalemia, 2/2 diarrhea LR 20meq K cl Resolved Gram neg bacteremia, bandemia Merrem IVPB Q8H F/u culture Prophylaxis SCDs <Colton Dockery H - Last Filed: 07/25/17 17:17> Objective - Vital Signs/Intake and Output Vital Signs (last 24 hours): Temp Pulse Resp BP Pulse Ox 98.1 F 84 20 114/80 98 07/25/17 16:06 07/25/17 16:06 07/25/17 16:06 07/25/17 16:06 07/25/17 16:06 Intake and Output: 07/25/17 07/25/17 06:59 18:59 Intake Total 1200 1600 Balance 1200 1600 - Medications Medications: Current Medications Heparin Sodium (Porcine) (Heparin) 5,000 units SC Q12 [facility] Last Admin: 07/25/17 09:36 Dose: 5,000 units Fluconazole (Diflucan Iv 100 Mg/50 Ml Ns) 50 mls @ 50 mls/hr IVPB Q24H [facility] Meropenem 1 gm/ Sodium (Chloride) 100 mls @ 100 mls/hr IVPB Q8H [facility] PRN Reason: Protocol Last Admin: 07/25/17 14:41 Dose: 100 mls/hr Potassium Chloride/Sodium Chloride (Potassium Chl 20 Meq In Ns) 1,000 mls @ 150 mls/hr IV .Q6H40M [facility] Last Admin: 07/25/17 13:01 Dose: 150 mls/hr Nystatin (Nystatin Oral Susp) 5 ml PO QID [facility] Last Admin: 07/25/17 17:09 Dose: 5 ml Pneumococcal Polyvalent Vaccine (Pneumovax 23 Vaccine) 0.5 ml IM .ONCE ONE Stop: 07/27/17 10:01 Trimethoprim/Sulfamethoxazole (Bactrim Ds Tab) 1 tab PO DAILY [facility] PRN Reason: Protocol - Labs Labs: 07/25/17 07:03 07/25/17 07:03 Attending/Attestation - Attestation I have personally seen and examined this patient.: Yes I have fully participated in the care of the patient.: Yes I have reviewed all pertinent clinical information, including history, physical exam and plan: Yes Notes (Text): 07/25/17 17:12 Medical attending: Patient was seen and examined by me. Agree with the above note by the resident. Patient was previously here the other day but then signed out AMA at the ER. Now returned. This morning when we saw him he reported having less oral pain than previous. The patient was NPO overnight and was hungry. He felt ready to eat so we started a diet and encouraged him to eat slowly. For now continue with the IVF Because of the weightloss as well as neck/oral pain will check CT scan of the neck and chest. Most likely the pain is from oral thrush that should improve as he recived oral diflucan and IV diflucan. Will also try to get ID evaluation so he can be restarted on his [facility]RT medications. From when he left AMA, there is a gram negative bacteria that is preliminary - he was already placed on meropenom IV CD4/CD8 counts, HIV Quant as well thank you Colton Dockery 07/25/17 17:16
[2017-07-25 16:20] LABS: FECAL LEUKOCYTES POSITIVE (NEGATIVE)
[2017-07-25 16:54] LABS: C DIFF TOXIN A B NEGATIVE (NEGATIVE)
--- NOTE | 2017-07-25 17:06 | CT ---
HISTORY: Rule out lymphoma COMPARISON: No prior study available comparison TECHNIQUE: Contiguous helical/ transaxial sections of the neck without intravenous contrast. Coronal and sagittal reformats generated. Radiation dose: DLP 422.40 mGy-cm This CT exam was performed using one or more of the following dose reduction techniques: Automated exposure control, adjustment of the mA and/or kV according to patient size, and/or use of iterative reconstruction technique. Note that this examination is limited due to the lack of circulating intravenous contrast material. FINDINGS: The current study reveals multiple relatively small bilateral cervical lymph nodes are present. The largest left sided left the jugulodigastric lymph node measures approximately 7 mm and on the right approximately 10 mm. The remaining lymph nodes do not appear pathologically enlarged however followup -up CT scan of the neck with contrast is recommended to further characterize the exact size and extent of the lymph nodes. Thyroid gland is partially obscured by crossing streak and beam hardening artifact arising from dense clavicles and shoulder girdles. Parotid and submandibular glands appear unremarkable without obvious mass. Tiny calcification in the deep lobe of the left parotid gland suspect. The lingual tonsils encroach slightly into the vallecula. There is asymmetry of the left aryepiglottic fold which appears thickened and edematous compared to the right side. These changes presumably result in the asymmetry of the pyriform sinuses left-side of which is smaller than the right. Residual and/or retained secretion could conceivably contribute to the asymmetry however directives visualization is recommended to exclude possibility of a mucosal lesion angioedema. Again postcontrast CT scan of the neck is recommended. True vocal cords appear symmetric as do the arytenoid cartilages. The cervical vasculature poorly delineated. Very minor degenerative spondylosis of the cervical spine. Lung apices are clear IMPRESSION: Impression: There are a few small nonspecific lymph nodes none of which appear pathologically enlarged however evaluation is somewhat limited due to the lack of circulating intravenous contrast material. There is asymmetry of the aryepiglottic folds left-sided which appears bulky and edematous. Rule out of mucosal lesion or possibly angioedema. Mucosal secretions may contribute. Direct visualization recommended.
[2017-07-25] MEDS: Nystatin 100,000 Units/ml Oral Susp 5 ml UD PO SCH ×2 (17:09→22:42)
--- NOTE | 2017-07-25 17:11 | CT ---
PROCEDURE: CT Chest, Abdomen and Pelvis without intravenous contrast HISTORY: r/o lymphoma COMPARISON: None. TECHNIQUE: Radiation dose: Total exam DLP = 527.80 mGy-cm. This CT exam was performed using one or more of the following dose reduction techniques: Automated exposure control, adjustment of the mA and/or kV according to patient size, and/or use of iterative reconstruction technique. FINDINGS: CT CHEST WITHOUT CONTRAST: LUNGS: Clear. No nodule, mass or consolidation. MEDIASTINUM: Unremarkable. Normal caliber aorta and pulmonary arterial trunk. Normal size heart. There is fluid seen within the thoracic esophagus, of uncertain significance. This may be the result of gastroesophageal reflux or dysmotility or distal esophageal obstruction. LYMPH NODES: Unremarkable. PLEURA: Unremarkable. No pneumothorax. No pleural fluid. BONES: Unremarkable. OTHER FINDINGS: None. CT ABDOMEN AND PELVIS: LIVER: Unremarkable. No gross lesion or ductal dilatation. GALLBLADDER AND BILE DUCTS: Partially contracted. No calcified gallstones. PANCREAS: Unremarkable. No gross lesion or ductal dilatation. SPLEEN: Splenomegaly. The spleen measures 16.5 cm in greatest dimension. No focal mass. ADRENALS: Unremarkable. No mass. KIDNEYS AND URETERS: Nonobstructing 2 mm mid left renal calculus. No right renal calculus. No renal mass or hydronephrosis. VASCULATURE: Unremarkable. No aortic aneurysm. BOWEL: Unremarkable. No obstruction. No gross mural thickening. APPENDIX: Not identified. No secondary findings. PERITONEUM: Unremarkable. No free fluid. No free air. LYMPH NODES: Shotty nonspecific retroperitoneal lymph nodes, no greater than 10 mm diameter. No pelvic lymphadenopathy. No mesenteric or inguinal lymphadenopathy. BLADDER: Unremarkable. REPRODUCTIVE: Normal prostate BONES: No acute fracture. OTHER FINDINGS: None. IMPRESSION: Splenomegaly. Nonspecific shotty retroperitoneal lymphadenopathy. Nonobstructing 2 mm left renal calculus. No mediastinal or hilar lymphadenopathy. Fluid is seen within the esophageal lumen common nonspecific. See above. No additional abnormality.
--- NOTE | 2017-07-25 18:26 | CP.PCM.CON ---
History of Present Illness - History of Present Illness History of Present Illness: 41 year old male presents to the ER with a complaint of weakness and throat pain. Patient signed out AMA yesterday after being admitted for esophagitis and HIV. Patient is noncompliant with his medications and does not have a PMD. Patient reports he has had positive weight loss as well. Denies fever or cough. Is not aware of T cells Not on HAART rx refuses further questioning saying hes tired of this - Medical History PMH: Anxiety, Bipolar Disorder, Depression, HIV, HTN, Hypercholesterolemia, Hyperlipidemia Family History: States: Unknown Family Hx Review of Systems - Review of Systems All systems: reviewed and no additional remarkable complaints except - Constitutional Constitutional: As Per HPI - EENT Eyes: absent: As Per HPI, Blind Spots, Blurred Vision, Change in Vision, Decreased Night Vision, Diplopia, Discharge, Dry Eye, Exophthalmos, Floaters, Irritation, Itchy Eyes, Loss of Peripheral Vision, Pain, Photophobia, Requires Corrective Lenses, Sees Flashes, Spots in Vision, Tunnel Vision, Other Visual Disturbances, Loss of Vision, Other Ears: absent: As Per HPI, Decreased Hearing, Ear Discharge, Ear Pain, Tinnitus, Abnormal Hearing, Disequilibrium, Dizziness, Other Nose/Mouth/Throat: As Per HPI - Cardiovascular Cardiovascular: absent: As Per HPI, Acrocyanosis, Chest Pain, Chest Pain at Rest , Chest Pain with Activity, Claudication, Diaphoresis, Dyspnea, Dyspnea on Exertion, Edema, Irregular Heart Rhythm, Pain Radiating to Arm/Neck/Jaw, Leg Edema, Leg Ulcers, Lightheadedness, Orthopnea, Palpitations, Paroxysmal Nocturnal Dyspnea, Pedal Edema, Radiating Pain, Rapid Heart Rate, Slow Heart Rate, Syncope, Other - Respiratory Respiratory: absent: As Per HPI, Cough, Dyspnea, Hemoptysis, Dyspnea on Exertion , Wheezing, Snoring, Stridor, Pain on Inspiration, Chest Congestion, Excessive Mucous Production, Change in Mucous Color, Pain with Coughing, Other - Gastrointestinal Gastrointestinal: As Per HPI - Genitourinary Genitourinary: absent: As Per HPI, Change in Urinary Stream, Difficulty Urinating, Dysuria, Flank Pain, Hematuria, Pyuria, Nocturia, Urinary Incontinence, Urinary Frequency, Urinary Hesitance, Urinary Urgency, Voiding Freq/Small Amts, Freq UTI, Hx Renal/Bladder Calculi, Hx /Renal Surgery, Bladder Distension, Other - Musculoskeletal Musculoskeletal: absent: As Per HPI, Abnormal Gait, Arthralgias, Atrophy, Back Pain, Deformity, Joint Swelling, Limited Range of Motion, Loss of Height, Muscle Cramps, Muscle Weakness, Myalgias, Neck Pain, Numbness, Radiating Pain into Limb, Stiffness, Tingling, Other - Integumentary Integumentary: absent: As Per HPI, Acne, Alopecia, Bleeding Lesions, Change in Hair, Change in Nails, Change in Pigmentation, Changing Lesions, Dry Skin, Erythema, Furuncle, Hirsutism, Lesions, New Lesions, Non-Healing Lesions, Photosensitivity, Pruritus, Rash, Skin Pain, Skin Ulcer, Sores, Striae, Swelling , Unusual Bruising, Wounds, Jaundice, Other Past Patient History - Infectious Disease Hx of Infectious Diseases: None - Past Medical History & Family History Past Medical History?: Yes - Past Social History Smoking Status: Heavy Smoker > 10 Cigarettes Daily - CARDIAC Hx Hypercholesterolemia: Yes Hx Hypertension: Yes - PULMONARY Hx Respiratory Disorders: No - NEUROLOGICAL Hx Seizures: No - HEENT Hx HEENT Problems: No - RENAL Hx Chronic Kidney Disease: No - ENDOCRINE/METABOLIC Hx Endocrine Disorders: No - HEMATOLOGICAL/ONCOLOGICAL Hx Human Immunodeficiency Virus (HIV): Yes - INTEGUMENTARY Hx Dermatological Problems: No - MUSCULOSKELETAL/RHEUMATOLOGICAL Hx Musculoskeletal Disorders: No Hx Falls: No - GASTROINTESTINAL Hx Gastrointestinal Disorders: No Hx Diarrhea: Yes Hx Nausea: Yes HX Swallowing Problems: Yes - GENITOURINARY/GYNECOLOGICAL Hx Sexually Transmitted Disorders: No - PSYCHIATRIC Hx Anxiety: Yes Hx Bipolar Disorder: Yes Hx Depression: Yes Hx Substance Use: No - SURGICAL HISTORY Hx Surgeries: No Hx Appendectomy: No - ANESTHESIA Hx Anesthesia: No Hx Anesthesia Reactions: No Hx Malignant Hyperthermia: No Has any member of the family had a problem w/ anesthesia?: No Meds Allergies/Adverse Reactions: Allergies Allergy/AdvReac Type Severity Reaction Status Date / Time No Known Drug Allergies Allergy Unknown NKDA/NONE Verified 07/24/17 23:09 - Medications Medications: Current Medications Heparin Sodium (Porcine) (Heparin) 5,000 units SC Q12 [facility] Last Admin: 07/25/17 09:36 Dose: 5,000 units Fluconazole (Diflucan Iv 100 Mg/50 Ml Ns) 50 mls @ 50 mls/hr IVPB Q24H [facility] Meropenem 1 gm/ Sodium (Chloride) 100 mls @ 100 mls/hr IVPB Q8H [facility] PRN Reason: Protocol Last Admin: 07/25/17 14:41 Dose: 100 mls/hr Potassium Chloride/Sodium Chloride (Potassium Chl 20 Meq In Ns) 1,000 mls @ 150 mls/hr IV .Q6H40M [facility] Last Admin: 07/25/17 13:01 Dose: 150 mls/hr Nystatin (Nystatin Oral Susp) 5 ml PO QID [facility] Last Admin: 07/25/17 17:09 Dose: 5 ml Pneumococcal Polyvalent Vaccine (Pneumovax 23 Vaccine) 0.5 ml IM .ONCE ONE Stop: 07/27/17 10:01 Trimethoprim/Sulfamethoxazole (Bactrim Ds Tab) 1 tab PO DAILY [facility] PRN Reason: Protocol Physical Exam - Constitutional Appears: Non-toxic, Cachectic, Chronically Ill - Head Exam Head Exam: NORMOCEPHALIC - Eye Exam Eye Exam: PERRL. absent: Scleral icterus - ENT Exam ENT Exam: Mucous Membranes Dry Additional comments: + thrush - Neck Exam Neck exam: Negative for: Lymphadenopathy - Respiratory Exam Respiratory Exam: Decreased Breath Sounds, Clear to Auscultation Bilateral - Cardiovascular Exam Cardiovascular Exam: REGULAR RHYTHM, +S1, +S2 - GI/Abdominal Exam GI & Abdominal Exam: Diminished Bowel Sounds, Soft. absent: Tenderness - Rectal Exam Rectal Exam: Deferred - Exam Exam: NORMAL INSPECTION - Extremities Exam Extremities exam: Positive for: pedal pulses present. Negative for: calf tenderness, pedal edema, tenderness - Back Exam Back exam: absent: CVA tenderness (L), CVA tenderness (R) - Neurological Exam Neurological exam: Alert, CN II-XII Intact, Oriented x3, Reflexes Normal - Psychiatric Exam Psychiatric exam: Normal Mood - Skin Skin Exam: Dry, Intact Results - Vital Signs Recent Vital Signs: Last Vital Signs Temp 98.1 F 07/25/17 16:06 Pulse 84 07/25/17 16:06 Resp 20 07/25/17 16:06 BP 114/80 07/25/17 16:06 Pulse Ox 98 07/25/17 16:06 - Labs Result Diagrams: 07/25/17 07:03 07/25/17 07:03 Labs: Laboratory Results - last 24 hr 07/24/17 07/24/17 07/25/17 19:29 19:29 07:03 WBC 4.4 L RBC 5.76 Hgb 14.8 Hct 43.6 MCV 75.6 L MCH 25.7 L MCHC 34.0 RDW 15.4 H Plt Count 351 MPV 8.5 Neut % (Auto) 69.6 Lymph % (Auto) 12.5 L V[place] % (Auto) 17.5 H Eos % (Auto) 0.1 Baso % (Auto) 0.3 Neut # (Auto) 3.1 Lymph # (Auto) 0.5 L [place] # (Auto) 0.8 Eos # (Auto) 0.0 Baso # (Auto) 0.0 Neutrophils % (Manual) Band Neutrophils % Lymphocytes % (Manual) Monocytes % (Manual) Eosinophils % (Manual) Platelet Estimate Sodium 136 Potassium 2.9 L Chloride 93 L Carbon Dioxide 27 Anion Gap 19 BUN 10 Creatinine 0.7 L Est GFR ( Amer) > 60 Est GFR (Non-Af Amer) > 60 Random Glucose 99 Calcium 9.1 Phosphorus Magnesium Total Bilirubin 0.7 AST 19 ALT 23 Alkaline Phosphatase 72 Troponin I < 0.0120 Total Protein 8.5 H Albumin 4.1 Globulin 4.4 H Albumin/Globulin Ratio 0.9 L Stool Occult Blood Stool Leukocytes, Qual C. difficile Ag & Toxin Hepatitis A IgM Ab Negative Hep Bs Antigen Negative Hep B Core IgM Ab Negative Hepatitis C Antibody Negative 07/25/17 07/25/17 07/25/17 07:03 07:03 15:02 WBC 2.6 L RBC 4.93 Hgb 12.7 D Hct 37.4 MCV 75.9 L MCH 25.8 L MCHC 33.9 RDW 15.1 H Plt Count 289 MPV 8.2 Neut % (Auto) 56.2 Lymph % (Auto) 20.6 Vigo % (Auto) 22.3 H Eos % (Auto) 0.5 Baso % (Auto) 0.4 Neut # (Auto) 1.5 L Lymph # (Auto) 0.5 L [place] # (Auto) 0.6 Eos # (Auto) 0.0 Baso # (Auto) 0.0 Neutrophils % (Manual) 36 L Band Neutrophils % 28 H* Lymphocytes % (Manual) 22 Monocytes % (Manual) 12 H Eosinophils % (Manual) 2 Platelet Estimate Normal Sodium 138 Potassium 3.8 Chloride 101 Carbon Dioxide 25 Anion Gap 16 BUN 10 Creatinine 0.7 L Est GFR ( Amer) > 60 Est GFR (Non-Af Amer) > 60 Random Glucose 90 Calcium 8.5 L Phosphorus 3.1 Magnesium 1.7 Total Bilirubin 0.7 AST 17 ALT 26 Alkaline Phosphatase 57 Troponin I Total Protein 7.2 Albumin 3.6 Globulin 3.5 Albumin/Globulin Ratio 1.0 Stool Occult Blood Stool Leukocytes, Qual Positive H C. difficile Ag & Toxin Negative Hepatitis A IgM Ab Hep Bs Antigen Hep B Core IgM Ab Hepatitis C Antibody 07/25/17 15:02 WBC RBC Hgb Hct MCV MCH MCHC RDW Plt Count MPV Neut % (Auto) Lymph % (Auto) Vigo % (Auto) Eos % (Auto) Baso % (Auto) Neut # (Auto) Lymph # (Auto) Vigo # (Auto) Eos # (Auto) Baso # (Auto) Neutrophils % (Manual) Band Neutrophils % Lymphocytes % (Manual) Monocytes % (Manual) Eosinophils % (Manual) Platelet Estimate Sodium Potassium Chloride Carbon Dioxide Anion Gap BUN Creatinine Est GFR ( Amer) Est GFR (Non-Af Amer) Random Glucose Calcium Phosphorus Magnesium Total Bilirubin AST ALT Alkaline Phosphatase Troponin I Total Protein Albumin Globulin Albumin/Globulin Ratio Stool Occult Blood Positive H Stool Leukocytes, Qual C. difficile Ag & Toxin Hepatitis A IgM Ab Hep Bs Antigen Hep B Core IgM Ab Hepatitis C Antibody Assessment & Plan (1) Bacteremia Status: Acute (2) Esophagitis Status: Acute (3) HIV (human immunodeficiency virus infection) Status: Acute - Assessment and Plan (Free Text) Assessment: gram neg sepsis source unclear need GI eval check stoool c/s repeat blood c/s consider psych eval HAART rx when possible
[2017-07-25] MEDS ORDERED: Fluconazole IV 100mg/50 ml NS 50 ML IVPB SCH ×2 (22:00→23:00)
[2017-07-26] MEDS: Potassium Chl 20 mEq in NS 1,000 ML IV SCH ×4 (01:23→21:37)
[2017-07-26] MEDS: Meropenem 1 GM in Sodium Chloride 0.9% 100 ML IVPB SCH ×3 (05:31→21:42)
[2017-07-26 07:18] LABS: BASO % 0.8 % (0.0-2.0); EOS # 0.1 K/uL (0.0-0.7); EOS % 4.4 % (0.0-4.0); HEMOGLOBIN 11.5 g/dL (12.0-18.0); LYMPH # 0.5 K/uL (1.0-4.3); LYMPH % 36.1 % (20.0-40.0); MEAN CORPUSCULAR HEMOGLOBIN 25.7 pg (27.0-31.0); MEAN CORPUSCULAR HGB CONC 33.9 g/dL (33.0-37.0); MEAN PLATELET VOLUME 8.2 fL (7.2-11.7); MONO # 0.4 K/uL (0.0-0.8); MONO % 25.1 % (0.0-10.0); NEUT # 0.5 K/uL (1.8-7.0); NEUT % 33.6 % (50.0-75.0); NRBC % 0.5 % (0.0-2.0); PLATELET COUNT 261 K/uL (130-400); RBC 4.48 Mil/uL (4.40-5.90)
[2017-07-26 07:28] LABS: WHITE BLOOD COUNT 1.5 K/uL (4.8-10.8)
[2017-07-26 07:38] LABS: ALB/GLOB RATIO 0.9 (1.0-2.1); ALBUMIN 3.1 g/dL (3.5-5.0); ALT/SGPT 26 U/L (21-72); AST/SGOT 29 U/L (17-59); BLOOD UREA NITROGEN 7 mg/dL (9-20); CALCIUM 8.3 mg/dl (8.6-10.4); GFR AFRICAN-AMERICAN > 60; GFR NON-AFRICAN AMERICAN > 60
--- NOTE | 2017-07-26 08:13 | CP.PCM.PN ---
<RenettatipMomo - Last Filed: 07/26/17 08:05> Subjective - Date & Time of Evaluation Date of Evaluation: 07/26/17 Time of Evaluation: 08:05 - Subjective Subjective: PGY2 note for Dr. Dockery's service: Patient was seen and examined at bedside. Nursing denies acute events overnight. Objective - Vital Signs/Intake and Output Vital Signs (last 24 hours): Temp Pulse Resp BP Pulse Ox 98.7 F 82 20 123/79 97 07/25/17 23:36 07/25/17 23:36 07/25/17 23:36 07/25/17 23:36 07/25/17 23:36 Intake and Output: 07/26/17 07/26/17 06:59 18:59 Intake Total 3360 Output Total 700 Balance 2660 - Medications Medications: Current Medications Heparin Sodium (Porcine) (Heparin) 5,000 units SC Q12 [facility] Last Admin: 07/25/17 21:07 Dose: 5,000 units Meropenem 1 gm/ Sodium (Chloride) 100 mls @ 100 mls/hr IVPB Q8H [facility] PRN Reason: Protocol Last Admin: 07/26/17 05:31 Dose: 100 mls/hr Potassium Chloride/Sodium Chloride (Potassium Chl 20 Meq In Ns) 1,000 mls @ 150 mls/hr IV .Q6H40M [facility] Last Admin: 07/26/17 01:23 Dose: 150 mls/hr Fluconazole (Diflucan Iv 200 Mg/100 Ml Ns) 100 mls @ 100 mls/hr IVPB DAILY [facility] PRN Reason: Protocol Nystatin (Nystatin Oral Susp) 5 ml PO QID [facility] Last Admin: 07/25/17 22:42 Dose: 5 ml Pneumococcal Polyvalent Vaccine (Pneumovax 23 Vaccine) 0.5 ml IM .ONCE ONE Stop: 07/27/17 10:01 Trimethoprim/Sulfamethoxazole (Bactrim Ds Tab) 1 tab PO DAILY [facility] PRN Reason: Protocol - Labs Labs: 07/26/17 07:07 07/26/17 07:07 - Additional Findings Additional findings: - Constitutional Appears: No Acute Distress - Head Exam Head Exam: ATRAUMATIC, NORMAL INSPECTION - Eye Exam Eye Exam: EOMI, Normal appearance - ENT Exam ENT Exam: Mucous Membranes Moist Additional comments: Oral lesions improving; erythematous throat; poor dentition - Neck Exam Neck Exam: Normal Inspection. absent: Lymphadenopathy, Tenderness - Respiratory Exam Respiratory Exam: NORMAL BREATHING PATTERN. absent: Rales, Rhonchi, Wheezes, Respiratory Distress - Cardiovascular Exam Cardiovascular Exam: REGULAR RHYTHM, +S1, +S2 - GI/Abdominal Exam GI & Abdominal Exam: Soft, Normal Bowel Sounds. absent: Distended, Tenderness - Extremities Exam Extremities Exam: Normal Inspection. absent: Pedal Edema, Tenderness Additional comments: no axillary lymphadenopathy palpated - Neurological Exam Neurological Exam: Alert, Awake, Oriented x3 - Psychiatric Exam Psychiatric exam: Anxious - Skin Skin Exam: Dry, Intact, Normal Color, Warm Assessment and Plan - Assessment and Plan (Free Text) Plan: Sepsis Criteria: Temp, WBC <4 and bandemia Source: Gram neg bacteremia Blood culture (07/23/17): AEROBIC bottle positive only. Gram negative boaz Merrem IVPB Q8H GI Bleed Stool occult blood: positive GI: Dr Medina, consulted Esophageal candidiasis In the ED, Diflucan given Continued on Fluconazole 100 mg IVPB Q24H Nystatin Mouth Wash HIV/possible AIDS f/u CD4/CD8 Bactrim DS daily Hepatitis panel: negative Neck soft tissue CT: f/u Chest/Abdo/Pelv CT: f/u Leukopenia WBC 1.5 Etiology: HIV in context of sepsis Hepatitis Negative Diarrhea Cdiff: f/u Ova and parasites: f/u Fecal leukocytes: Positive Stool occult blood: positive Hypokalemia, 2/2 diarrhea LR 20meq K cl Resolved Prophylaxis SCDs <Colton Dockery H - Last Filed: 07/26/17 10:12> Objective - Vital Signs/Intake and Output Vital Signs (last 24 hours): Temp Pulse Resp BP Pulse Ox 97.8 F 71 20 123/80 99 07/26/17 07:00 07/26/17 07:00 07/26/17 07:00 07/26/17 07:00 07/26/17 07:00 Intake and Output: 07/26/17 07/26/17 06:59 18:59 Intake Total 3360 Output Total 700 Balance 2660 - Medications Medications: Current Medications Heparin Sodium (Porcine) (Heparin) 5,000 units SC Q12 [facility] Last Admin: 07/25/17 21:07 Dose: 5,000 units Meropenem 1 gm/ Sodium (Chloride) 100 mls @ 100 mls/hr IVPB Q8H [facility] PRN Reason: Protocol Last Admin: 07/26/17 05:31 Dose: 100 mls/hr Potassium Chloride/Sodium Chloride (Potassium Chl 20 Meq In Ns) 1,000 mls @ 150 mls/hr IV .Q6H40M [facility] Last Admin: 07/26/17 01:23 Dose: 150 mls/hr Fluconazole (Diflucan Iv 200 Mg/100 Ml Ns) 100 mls @ 100 mls/hr IVPB DAILY [facility] PRN Reason: Protocol Nystatin (Nystatin Oral Susp) 5 ml PO QID [facility] Last Admin: 07/25/17 22:42 Dose: 5 ml Pneumococcal Polyvalent Vaccine (Pneumovax 23 Vaccine) 0.5 ml IM .ONCE ONE Stop: 07/27/17 10:01 Trimethoprim/Sulfamethoxazole (Bactrim Ds Tab) 1 tab PO DAILY [facility] PRN Reason: Protocol - Labs Labs: 07/26/17 07:07 07/26/17 07:07 Attending/Attestation - Attestation I have personally seen and examined this patient.: Yes I have fully participated in the care of the patient.: Yes I have reviewed all pertinent clinical information, including history, physical exam and plan: Yes Notes (Text): Medical attending: Patient was seen and examined by me. Agree with the above note by the resident The patient was sleeping when I saw him. He explained that he was able to tolerate yesterday's diet however poor appetite overall. With rearguards to his blood in his stool occult sample - he denied actually seeing any blood in particular. The stool for leukocytes were positive. He reports intermittent diarrhea. With reguards to the gram negative blood cultures on 07/23 - we are still pending on finalization. Currently on IV meropenom at this time. Will repeat cultures of blood today as well as urine. With reguards to his HIV/AIDS - we are still pending HIV Qnt as wellas his CD4 and CD8 percents. At some point will restart As mentioned before the patient has been off of HAART medication for at least 6 months and came on 07/23 with CC of dysphagia and pain. He had really bad oral thrush making me think that he has a very low CD4 count. He left AMA from the ER on 07/23 but came back on 07/24/2017. He is now on oral nystatin, and IV diflucan. The blood cultures showed a gram negative boaz from 07/23. We also got CT of the neck, chest and these did not show anything acutely alarming. In the future if need to we can do that with IV contrast. Colton Dockery
[2017-07-26 09:45] LABS: BANDS 1 % (0-2); EOSINOPHIL 3 % (0-4); LYMPHOCYTE 31 % (20-40); MONOCYTE 25 % (0-10); NEUTROPHIL 40 % (50-75); TOTAL CELLS COUNTED 100
[2017-07-26 09:46] LABS: ANISOCYTOSIS SLIGHT; PLATELET ESTIMATE NORMAL (NORMAL); POIKILOCYTOSIS SLIGHT
[2017-07-26 09:47] LABS: HYPOCHROMIC SLIGHT; OVALOCYTES SLIGHT; POLYCHROMIC SLIGHT; TOXIC GRANULATION PRESENT
[2017-07-26] MEDS: Fluconazole IV 200mg/100 ml NS 100 ML IVPB SCH (10:32)
[2017-07-26] MEDS: Nystatin 100,000 Units/ml Oral Susp 5 ml UD PO SCH ×4 (10:35→21:43)
[2017-07-26] MEDS: Tmp-Smz 800 mg-160 mg DS Tab PO SCH (10:35)
[2017-07-26 17:23] LABS: % CD4 (T HELPER CELL) 2 Percent (30-61); % CD8 (SUPPRESSOR T CELL) 65 Percent (12-42); ABSOLUTE CD4 CELLS <20 Cells/mcL (490-1740); ABSOLUTE CD8 CELLS 321 Cells/mcL (180-1170); ABSOLUTE LYMPHOCYTES 497 Cells/mcL (850-3900); HELPER/SUPPRESSOR RATIO 0.03 Ratio (0.86-5.00)
[2017-07-27 07:51] LABS: BASO % 0.6 % (0.0-2.0); EOS # 0.1 K/uL (0.0-0.7); EOS % 3.1 % (0.0-4.0); HEMOGLOBIN 11.8 g/dL (12.0-18.0); LYMPH # 0.7 K/uL (1.0-4.3); MEAN CELL VOLUME 76.3 fL (80.0-94.0); MEAN CORPUSCULAR HEMOGLOBIN 26.4 pg (27.0-31.0); MEAN CORPUSCULAR HGB CONC 34.6 g/dL (33.0-37.0); MEAN PLATELET VOLUME 7.9 fL (7.2-11.7); MONO # 0.4 K/uL (0.0-0.8); NEUT # 1.5 K/uL (1.8-7.0); NEUT % 55.3 % (50.0-75.0); NRBC % 0.1 % (0.0-2.0); RBC 4.47 Mil/uL (4.40-5.90); RED CELL DISTRIBUTION WIDTH 15.4 % (11.5-14.5); WHITE BLOOD COUNT 2.7 K/uL (4.8-10.8)
[2017-07-27 08:10] LABS: ALBUMIN 3.3 g/dL (3.5-5.0); ALT/SGPT 33 U/L (21-72); AST/SGOT 30 U/L (17-59); BLOOD UREA NITROGEN 8 mg/dL (9-20); CALCIUM 8.4 mg/dl (8.6-10.4); GFR AFRICAN-AMERICAN > 60; GFR NON-AFRICAN AMERICAN > 60
--- NOTE | 2017-07-27 08:17 | CP.PCM.PN ---
<Momo Keen - Last Filed: 07/27/17 10:41> Subjective - Date & Time of Evaluation Date of Evaluation: 07/27/17 Time of Evaluation: 07:45 - Subjective Subjective: PGY2 note for Dr. Dockery's service: Patient was seen and examined at bedside. Nursing denies acute events overnight. Patient reports feeling better this AM. Had BM last night that "was formed and had no blood." Pt reports decreased pain with swallowing. Denies fever, chills, abd pain, N/V overnight. Objective - Vital Signs/Intake and Output Vital Signs (last 24 hours): Temp Pulse Resp BP Pulse Ox 98.1 F 78 20 130/83 98 07/26/17 23:56 07/26/17 23:56 07/26/17 23:56 07/26/17 23:56 07/26/17 23:56 Intake and Output: 07/27/17 07/27/17 06:59 18:59 Intake Total 650 Output Total 500 Balance 150 - Medications Medications: Current Medications Heparin Sodium (Porcine) (Heparin) 5,000 units SC Q12 [facility] Last Admin: 07/26/17 21:43 Dose: 5,000 units Fluconazole (Diflucan Iv 200 Mg/100 Ml Ns) 100 mls @ 100 mls/hr IVPB DAILY [facility] PRN Reason: Protocol Last Admin: 07/26/17 10:32 Dose: 100 mls/hr Meropenem 1 gm/ Sodium (Chloride) 50 mls @ 100 mls/hr IVPB Q8H [facility] PRN Reason: Protocol Last Admin: 07/27/17 06:10 Dose: 100 mls/hr Nystatin (Nystatin Oral Susp) 5 ml PO QID [facility] Last Admin: 07/26/17 21:43 Dose: 5 ml Pneumococcal Polyvalent Vaccine (Pneumovax 23 Vaccine) 0.5 ml IM .ONCE ONE Stop: 07/27/17 10:01 Trimethoprim/Sulfamethoxazole (Bactrim Ds Tab) 1 tab PO DAILY [facility] PRN Reason: Protocol Last Admin: 07/26/17 10:35 Dose: 1 tab - Labs Labs: 07/26/17 07:07 07/26/17 07:07 - Additional Findings Additional findings: - Constitutional Appears: No Acute Distress - Head Exam Head Exam: ATRAUMATIC, NORMAL INSPECTION - Eye Exam Eye Exam: EOMI, Normal appearance - ENT Exam ENT Exam: Mucous Membranes Moist Additional comments: Oral lesions continue to improve; erythematous throat; poor dentition - Neck Exam Neck Exam: Normal Inspection. absent: Lymphadenopathy, Tenderness - Respiratory Exam Respiratory Exam: NORMAL BREATHING PATTERN. absent: Rales, Rhonchi, Wheezes, Respiratory Distress - Cardiovascular Exam Cardiovascular Exam: REGULAR RHYTHM, +S1, +S2 - GI/Abdominal Exam GI & Abdominal Exam: Soft, Normal Bowel Sounds. absent: Distended, Tenderness - Extremities Exam Extremities Exam: Normal Inspection. absent: Pedal Edema, Tenderness - Neurological Exam Neurological Exam: Alert, Awake, Oriented x3 - Psychiatric Exam Psychiatric exam: Anxious - Skin Skin Exam: Dry, Intact, Normal Color, Warm Assessment and Plan - Assessment and Plan (Free Text) Plan: Hematochezia/Shigellosis? Source: Shigella toxin H/H stable Fecal leukocytes: Positive Stool occult blood: Positive Cdiff: negative Ova and parasites: f/u Blood culture (07/23/17): AEROBIC bottle positive only. Gram negative boaz -Blood culture repeat: Pt only consented to 1 of 2 GI: Dr Medina, consulted -f/u reccs AIDS CD4: 2%, <20 CD8 65%, 321 Bactrim DS daily Hepatitis panel: negative Neck soft tissue CT: Few, small nonspecific lymph nodes none of which appear pathologically enlarged. Asymmetry of aryepiglottic folds on left which appear bulky/edematous. Chest/Abdo/Pelv CT: Splenomegaly. Nonspecific shotty retroperitoneal lymphadenopathy. Nonobstructing 2mm left renal calculus. No mediastinal of hilar lymphadenopathy. Fluid within the esophageal lumen common nonspecific. Sepsis Resolved Criteria: Temp, WBC <4 and bandemia Source: Gram neg bacteremia (Shigella) Blood culture (07/23/17): AEROBIC bottle positive only. Gram negative boaz Merrem IVPB Q8H Esophageal candidiasis In the ED, Diflucan given Continued on Fluconazole 100 mg IVPB Q24H Nystatin Mouth Wash Leukopenia WBC 2.2 Etiology: HIV in context of sepsis Hepatitis Negative Hypokalemia, 2/2 diarrhea Resolved Prophylaxis SCDs Heparin 5000u Q12 GI not indicated Momo Keen PGY-2 D/w Dr Dockery <Colton Dockery - Last Filed: 07/27/17 12:04> Objective - Vital Signs/Intake and Output Vital Signs (last 24 hours): Temp Pulse Resp BP Pulse Ox 98.1 F 78 20 130/83 98 07/26/17 23:56 07/26/17 23:56 07/26/17 23:56 07/26/17 23:56 07/26/17 23:56 Intake and Output: 07/27/17 07/27/17 06:59 18:59 Intake Total 650 Output Total 500 Balance 150 - Medications Medications: Current Medications Heparin Sodium (Porcine) (Heparin) 5,000 units SC Q12 [facility] Last Admin: 07/27/17 09:17 Dose: 5,000 units Fluconazole (Diflucan Iv 200 Mg/100 Ml Ns) 100 mls @ 100 mls/hr IVPB DAILY [facility] PRN Reason: Protocol Last Admin: 07/27/17 09:19 Dose: 100 mls/hr Meropenem 1 gm/ Sodium (Chloride) 50 mls @ 100 mls/hr IVPB Q8H [facility] PRN Reason: Protocol Last Admin: 07/27/17 06:10 Dose: 100 mls/hr Nystatin (Nystatin Oral Susp) 5 ml PO QID [facility] Last Admin: 07/27/17 09:17 Dose: 5 ml - Labs Labs: 07/27/17 07:39 07/27/17 07:39 Attending/Attestation - Attestation I have personally seen and examined this patient.: Yes I have fully participated in the care of the patient.: Yes I have reviewed all pertinent clinical information, including history, physical exam and plan: Yes Notes (Text): 07/27/17 12:01 Medical attending: Patient was seen and examined by me. Agree with the above note by the resident The patient reported difficulty sleeping at night as he was anxious His CD4 study did return and it was very low. Pending the HIV viral load at this time. We explained to the patient that he does have bactermia + shigella on blood cultures and that he remains on IV abx. The patient still reports some watery stool, but more formed now. Pending the O + P study of the stool, he may test positive for shigella in the stool as well. With reguards to his oral thrush - on exam it is much decreased from before. thank you Colton Dockery
[2017-07-27] MEDS: Tmp-Smz 800 mg-160 mg DS Tab PO SCH (09:17)
[2017-07-27] MEDS: Nystatin 100,000 Units/ml Oral Susp 5 ml UD PO SCH ×4 (09:17→22:09)
[2017-07-27] MEDS: Fluconazole IV 200mg/100 ml NS 100 ML IVPB SCH (09:19)
[2017-07-27] MEDS ORDERED: Pneumococcal 23-Valent Vaccine IM ONE (10:00)
--- NOTE | 2017-07-27 13:29 | CP.PCM.CON ---
<Lanny Carey - Last Filed: 07/27/17 13:25> History of Present Illness - History of Present Illness History of Present Illness: GI Fellow PGY4 Consult Note This is a 41yM with pmhx of HTn and HIV/AIDs presenting with complaints of oral thrush for 5 days. He was initially admitted for esophagitis and HIV but left AMA. He now returns with the same complaints and reports bloody diarrhea for 3 days which is now improving. He had a colonoscopy many years ago and says it was normal. Pt was found to have a CD4<20 and does not take his HAART meds, has been off meds 5-6 months. Patient denies chest pain, palpitations, SOB, vomiting, nausea. GI was consulted for fecal occult positive and blood cx for shigella. ROS: A 12pt ROS was negative except as above PMH: HTN, HIV Surgeries: none Family: dad has diabetes, grandma has cervical CA Social: 1 ppd x 25 years, Etoh none, no illicit drugs Past Patient History - Infectious Disease Hx of Infectious Diseases: None - Past Medical History & Family History Past Medical History?: Yes - Past Social History Smoking Status: Heavy Smoker > 10 Cigarettes Daily - CARDIAC Hx Hypercholesterolemia: Yes Hx Hypertension: Yes - PULMONARY Hx Respiratory Disorders: No - NEUROLOGICAL Hx Seizures: No - HEENT Hx HEENT Problems: No - RENAL Hx Chronic Kidney Disease: No - ENDOCRINE/METABOLIC Hx Endocrine Disorders: No - HEMATOLOGICAL/ONCOLOGICAL Hx Human Immunodeficiency Virus (HIV): Yes - INTEGUMENTARY Hx Dermatological Problems: No - MUSCULOSKELETAL/RHEUMATOLOGICAL Hx Musculoskeletal Disorders: No Hx Falls: No - GASTROINTESTINAL Hx Gastrointestinal Disorders: No Hx Diarrhea: Yes Hx Nausea: Yes HX Swallowing Problems: Yes - GENITOURINARY/GYNECOLOGICAL Hx Sexually Transmitted Disorders: No - PSYCHIATRIC Hx Anxiety: Yes Hx Bipolar Disorder: Yes Hx Depression: Yes Hx Substance Use: No - SURGICAL HISTORY Hx Surgeries: No Hx Appendectomy: No - ANESTHESIA Hx Anesthesia: No Hx Anesthesia Reactions: No Hx Malignant Hyperthermia: No Has any member of the family had a problem w/ anesthesia?: No Meds Allergies/Adverse Reactions: Allergies Allergy/AdvReac Type Severity Reaction Status Date / Time No Known Drug Allergies Allergy Unknown NKDA/NONE Verified 07/24/17 23:09 - Medications Medications: Current Medications Heparin Sodium (Porcine) (Heparin) 5,000 units SC Q12 [facility] Last Admin: 07/27/17 09:17 Dose: 5,000 units Fluconazole (Diflucan Iv 200 Mg/100 Ml Ns) 100 mls @ 100 mls/hr IVPB DAILY [facility] PRN Reason: Protocol Last Admin: 07/27/17 09:19 Dose: 100 mls/hr Meropenem 1 gm/ Sodium (Chloride) 50 mls @ 100 mls/hr IVPB Q8H [facility] PRN Reason: Protocol Last Admin: 07/27/17 06:10 Dose: 100 mls/hr Nystatin (Nystatin Oral Susp) 5 ml PO QID [facility] Last Admin: 07/27/17 09:17 Dose: 5 ml Physical Exam - Constitutional Appears: Non-toxic, No Acute Distress - Head Exam Head Exam: ATRAUMATIC, NORMAL INSPECTION, NORMOCEPHALIC - Eye Exam Eye Exam: EOMI, Normal appearance, PERRL Pupil Exam: PERRL - ENT Exam ENT Exam: Mucous Membranes Moist, Normal Exam - Neck Exam Neck exam: Positive for: Normal Inspection - Respiratory Exam Respiratory Exam: Clear to Auscultation Bilateral, NORMAL BREATHING PATTERN - Cardiovascular Exam Cardiovascular Exam: REGULAR RHYTHM, +S1, +S2 - GI/Abdominal Exam GI & Abdominal Exam: Normal Bowel Sounds, Soft, Tenderness. absent: Distended, Organomegaly - Extremities Exam Extremities exam: Positive for: normal inspection - Back Exam Back exam: NORMAL INSPECTION - Neurological Exam Neurological exam: Alert, Oriented x3 - Psychiatric Exam Psychiatric exam: Normal Affect, Normal Mood - Skin Skin Exam: Dry, Intact, Normal Color, Warm Results - Vital Signs Recent Vital Signs: Last Vital Signs Temp 98.1 F 07/26/17 23:56 Pulse 78 07/26/17 23:56 Resp 20 07/26/17 23:56 BP 130/83 07/26/17 23:56 Pulse Ox 98 07/26/17 23:56 - Labs Result Diagrams: 07/27/17 07:39 07/27/17 07:39 Labs: Laboratory Results - last 24 hr 07/25/17 07/27/17 07/27/17 07:03 07:39 07:39 WBC 2.7 L D RBC 4.47 Hgb 11.8 L Hct 34.1 L MCV 76.3 L MCH 26.4 L MCHC 34.6 RDW 15.4 H Plt Count 327 MPV 7.9 Neut % (Auto) 55.3 Lymph % (Auto) 25.0 Coles % (Auto) 16.0 H Eos % (Auto) 3.1 Baso % (Auto) 0.6 Neut # (Auto) 1.5 L Lymph # (Auto) 0.7 L Coles # (Auto) 0.4 Eos # (Auto) 0.1 Baso # (Auto) 0.0 Sodium 143 Potassium 3.8 Chloride 106 Carbon Dioxide 25 Anion Gap 16 BUN 8 L Creatinine 0.5 L Est GFR ( Amer) > 60 Est GFR (Non-Af Amer) > 60 Random Glucose 87 Calcium 8.4 L Phosphorus 2.4 L Magnesium 1.3 L Total Bilirubin 0.4 AST 30 ALT 33 Alkaline Phosphatase 56 Total Protein 6.7 Albumin 3.3 L Globulin 3.4 Albumin/Globulin Ratio 1.0 Absolute Lymphs (Flow) 497 L % CD4 Cells 2 L Absolute CD4 Count <20 L T-Help/Suppress Ratio 0.03 L % CD8 Cells 65 H Absolute CD8 Count 321 T-Lymph Analys Comment See note Assessment & Plan - Assessment and Plan (Free Text) Assessment: This is a 41yM with hx of HIV presenting with oral thrush and bloody diarrhea for 3days. 1. Bloody diarrhea 2. Oral thrush 3. Shigella bacteremia 4. AIDs Plan: -Continue supportive care -IVF hydration -Diet as tolerated -Bloody diarrhea improving, likely from shigella infection -Stool infectious workup and cultures sent -Repeat blood cx -IV abx and antifungal per ID -Hgb stable, monitor -No plan for endoscopic evaluation at this time -Pt immunosuppressed and high risk of viral and bacterial infections -HAART therapy per ID -Please call with any questions or concerns <Beverly Choi - Last Filed: 07/27/17 16:11> Meds - Medications Medications: Current Medications Heparin Sodium (Porcine) (Heparin) 5,000 units SC Q12 [facility] Last Admin: 07/27/17 09:17 Dose: 5,000 units Fluconazole (Diflucan Iv 200 Mg/100 Ml Ns) 100 mls @ 100 mls/hr IVPB DAILY [facility] PRN Reason: Protocol Last Admin: 07/27/17 09:19 Dose: 100 mls/hr Ciprofloxacin (Cipro 400mg/200ml Dsw) 400 mg in 200 mls @ 133 mls/hr IVPB Q12H [facility] PRN Reason: Protocol Nystatin (Nystatin Oral Susp) 5 ml PO QID [facility] Last Admin: 07/27/17 13:32 Dose: 5 ml Trimethoprim/Sulfamethoxazole (Bactrim Ds Tab) 1 tab PO Q24H [facility] PRN Reason: Protocol Results - Vital Signs Recent Vital Signs: Last Vital Signs Temp 97.7 F 07/27/17 15:00 Pulse 81 07/27/17 15:00 Resp 20 07/27/17 15:00 BP 131/95 H 07/27/17 15:00 Pulse Ox 99 07/27/17 15:00 - Labs Result Diagrams: 07/27/17 07:39 07/27/17 07:39 Labs: Laboratory Results - last 24 hr 07/25/17 07/27/17 07/27/17 07:03 07:39 07:39 WBC 2.7 L D RBC 4.47 Hgb 11.8 L Hct 34.1 L MCV 76.3 L MCH 26.4 L MCHC 34.6 RDW 15.4 H Plt Count 327 MPV 7.9 Neut % (Auto) 55.3 Lymph % (Auto) 25.0 Coles % (Auto) 16.0 H Eos % (Auto) 3.1 Baso % (Auto) 0.6 Neut # (Auto) 1.5 L Lymph # (Auto) 0.7 L Coles # (Auto) 0.4 Eos # (Auto) 0.1 Baso # (Auto) 0.0 Sodium 143 Potassium 3.8 Chloride 106 Carbon Dioxide 25 Anion Gap 16 BUN 8 L Creatinine 0.5 L Est GFR ( Amer) > 60 Est GFR (Non-Af Amer) > 60 Random Glucose 87 Calcium 8.4 L Phosphorus 2.4 L Magnesium 1.3 L Total Bilirubin 0.4 AST 30 ALT 33 Alkaline Phosphatase 56 Total Protein 6.7 Albumin 3.3 L Globulin 3.4 Albumin/Globulin Ratio 1.0 Absolute Lymphs (Flow) 497 L % CD4 Cells 2 L Absolute CD4 Count <20 L T-Help/Suppress Ratio 0.03 L % CD8 Cells 65 H Absolute CD8 Count 321 T-Lymph Analys Comment See note Attending/Attestation - Attestation I have personally seen and examined this patient.: Yes I have fully participated in the care of the patient.: Yes I have reviewed all pertinent clinical information: Yes Notes (Text): 07/27/17 16:10 This is a 41 yr old M with hx of HIV presenting with oral thrush and bloody diarrhea for 3 days found to have shigella bacteremia. Agree with antibiotics as per ID. Was non compliant with HIV meds as outpatient. Continue supportive care and Diet as tolerated. Stool infectious workup and cultures sent. Pt immunosuppressed and high risk of viral and bacterial infections. HAART therapy per ID
--- NOTE | 2017-07-27 14:46 | CP.PCM.PN ---
Subjective - Date & Time of Evaluation Date of Evaluation: 07/27/17 Time of Evaluation: 09:00 - Subjective Subjective: growing shigella in blood switched to cipro needs HAART rx consider Genvoya consider adding Zithromax 1200 mg po weekly cont bactrim PCP prophylaxis Objective - Vital Signs/Intake and Output Vital Signs (last 24 hours): Temp Pulse Resp BP Pulse Ox 98.3 F 70 20 123/81 98 07/27/17 08:00 07/27/17 08:00 07/27/17 08:00 07/27/17 08:00 07/27/17 08:00 Intake and Output: 07/27/17 07/27/17 06:59 18:59 Intake Total 650 Output Total 500 Balance 150 - Medications Medications: Current Medications Heparin Sodium (Porcine) (Heparin) 5,000 units SC Q12 [facility] Last Admin: 07/27/17 09:17 Dose: 5,000 units Fluconazole (Diflucan Iv 200 Mg/100 Ml Ns) 100 mls @ 100 mls/hr IVPB DAILY [facility] PRN Reason: Protocol Last Admin: 07/27/17 09:19 Dose: 100 mls/hr Ciprofloxacin (Cipro 400mg/200ml Dsw) 400 mg in 200 mls @ 133 mls/hr IVPB Q12H [facility] PRN Reason: Protocol Nystatin (Nystatin Oral Susp) 5 ml PO QID [facility] Last Admin: 07/27/17 13:32 Dose: 5 ml - Labs Labs: 07/27/17 07:39 07/27/17 07:39 Assessment and Plan (1) Bacteremia Status: Acute (2) Esophagitis Status: Acute (3) HIV (human immunodeficiency virus infection) Status: Acute
--- NOTE | 2017-07-27 15:32 | CARD ---
APPROVED REPORT EKG Measurement Heart [id number] MS 96P [id number] <Conclusion> Sinus tachycardia with short MS Voltage criteria for left ventricular hypertrophy ST & T wave abnormality, consider lateral ischemia Abnormal ECG
[2017-07-27 15:59] VITALS: O2SAT 99
[2017-07-27] MEDS: Ciprofloxacin 400mg/200ml D5W 400 MG/200 ML BAG IVPB SCH (17:00)
[2017-07-28] MEDS: Ciprofloxacin 400mg/200ml D5W 400 MG/200 ML BAG IVPB SCH (04:05)
[2017-07-28 07:25] LABS: BASO % 0.7 % (0.0-2.0); EOS # 0.1 K/uL (0.0-0.7); EOS % 2.1 % (0.0-4.0); HEMOGLOBIN 12.3 g/dL (12.0-18.0); LYMPH # 0.4 K/uL (1.0-4.3); LYMPH % 15.8 % (20.0-40.0); MEAN CELL VOLUME 76.9 fL (80.0-94.0); MEAN CORPUSCULAR HGB CONC 33.8 g/dL (33.0-37.0); MEAN PLATELET VOLUME 8.1 fL (7.2-11.7); MONO # 0.4 K/uL (0.0-0.8); MONO % 16.8 % (0.0-10.0); NEUT # 1.6 K/uL (1.8-7.0); NEUT % 64.6 % (50.0-75.0); NRBC % 0.3 % (0.0-2.0); RBC 4.72 Mil/uL (4.40-5.90); RED CELL DISTRIBUTION WIDTH 15.4 % (11.5-14.5); WHITE BLOOD COUNT 2.5 K/uL (4.8-10.8)
[2017-07-28 07:59] LABS: ALBUMIN 3.6 g/dL (3.5-5.0); ALT/SGPT 51 U/L (21-72); AST/SGOT 54 U/L (17-59); BLOOD UREA NITROGEN 11 mg/dL (9-20); GFR AFRICAN-AMERICAN > 60; GFR NON-AFRICAN AMERICAN > 60
[2017-07-28 08:01] VITALS: BP 127/83; PULSE 84; RESP 20; TEMP 97.9
--- NOTE | 2017-07-28 09:17 | CP.PCM.PN ---
<Lanny Carey - Last Filed: 07/28/17 09:12> Subjective - Date & Time of Evaluation Date of Evaluation: 07/28/17 Time of Evaluation: 07:00 - Subjective Subjective: GI Fellow PGY4 Progress Note Pt seen and examined at bedside, no more bloody diarrhea per pt, stool is more formed now. No fevers, chills, N/V. Tolerating diet. ROS: A 12pt ROS was negative except as above. Objective - Vital Signs/Intake and Output Vital Signs (last 24 hours): Temp Pulse Resp BP Pulse Ox 97.9 F 84 20 127/83 99 07/28/17 07:57 07/28/17 07:57 07/28/17 07:57 07/28/17 07:57 07/28/17 07:57 Intake and Output: 07/28/17 07/28/17 06:59 18:59 Intake Total 950 Output Total 1300 Balance -350 - Medications Medications: Current Medications Heparin Sodium (Porcine) (Heparin) 5,000 units SC Q12 [facility] Last Admin: 07/27/17 22:09 Dose: Not Given Fluconazole (Diflucan Iv 200 Mg/100 Ml Ns) 100 mls @ 100 mls/hr IVPB DAILY [facility] PRN Reason: Protocol Last Admin: 07/27/17 09:19 Dose: 100 mls/hr Ciprofloxacin (Cipro 400mg/200ml Dsw) 400 mg in 200 mls @ 133 mls/hr IVPB Q12H [facility] PRN Reason: Protocol Last Admin: 07/28/17 04:05 Dose: 133 mls/hr Nystatin (Nystatin Oral Susp) 5 ml PO QID [facility] Last Admin: 07/27/17 22:09 Dose: Not Given Trimethoprim/Sulfamethoxazole (Bactrim Ds Tab) 1 tab PO Q24H [facility] PRN Reason: Protocol - Labs Labs: 07/28/17 07:05 07/28/17 07:05 - Constitutional Appears: Non-toxic, No Acute Distress - Head Exam Head Exam: ATRAUMATIC, NORMAL INSPECTION, NORMOCEPHALIC - Eye Exam Eye Exam: EOMI, Normal appearance, PERRL Pupil Exam: NORMAL ACCOMODATION - ENT Exam ENT Exam: Mucous Membranes Moist - Neck Exam Neck Exam: Normal Inspection - Respiratory Exam Respiratory Exam: Clear to Ausculation Bilateral, NORMAL BREATHING PATTERN - Cardiovascular Exam Cardiovascular Exam: REGULAR RHYTHM, +S1, +S2 - GI/Abdominal Exam GI & Abdominal Exam: Soft, Normal Bowel Sounds. absent: Tenderness - Rectal Exam Rectal Exam: Deferred - Extremities Exam Extremities Exam: Full ROM, Normal Inspection - Back Exam Back Exam: NORMAL INSPECTION - Neurological Exam Neurological Exam: Alert, Awake, Oriented x3 - Psychiatric Exam Psychiatric exam: Normal Affect, Normal Mood - Skin Skin Exam: Dry, Intact, Normal Color, Warm Assessment and Plan - Assessment and Plan (Free Text) Assessment: This is a 41yM with hx of HIV presenting with oral thrush and bloody diarrhea for 3days. 1. Bloody diarrhea 2. Oral thrush 3. Shigella bacteremia 4. AIDs Plan: -Continue supportive care -IVF hydration -Diet as tolerated -Bloody diarrhea improving, likely from shigella infection -Stool infectious workup and cultures sent -Repeat blood cx -IV abx and antifungal per ID -Hgb stable, monitor -No plan for endoscopic evaluation at this time -Pt immunosuppressed and high risk of viral and bacterial infections -HAART therapy per ID -Please call with any questions or concerns <Beverly Choi - Last Filed: 07/28/17 10:24> Objective - Vital Signs/Intake and Output Vital Signs (last 24 hours): Temp Pulse Resp BP Pulse Ox 97.9 F 84 20 127/83 99 07/28/17 07:57 07/28/17 07:57 07/28/17 07:57 07/28/17 07:57 07/28/17 07:57 Intake and Output: 07/28/17 07/28/17 06:59 18:59 Intake Total 950 Output Total 1300 Balance -350 - Medications Medications: Current Medications Dolutegravir Sodium (Tivicay) 50 mg PO DAILY [facility] PRN Reason: Protocol Emtricitabine/Tenofovir (Truvada 200 Mg-300 Mg) 1 tab PO DAILY [facility] PRN Reason: Protocol Heparin Sodium (Porcine) (Heparin) 5,000 units SC Q12 [facility] Last Admin: 07/28/17 09:58 Dose: 5,000 units Fluconazole (Diflucan Iv 200 Mg/100 Ml Ns) 100 mls @ 100 mls/hr IVPB DAILY [facility] PRN Reason: Protocol Last Admin: 07/28/17 10:02 Dose: Not Given Ciprofloxacin (Cipro 400mg/200ml Dsw) 400 mg in 200 mls @ 133 mls/hr IVPB Q12H [facility] PRN Reason: Protocol Last Admin: 07/28/17 04:05 Dose: 133 mls/hr Nystatin (Nystatin Oral Susp) 5 ml PO QID [facility] Last Admin: 07/28/17 09:58 Dose: 5 ml Trimethoprim/Sulfamethoxazole (Bactrim Ds Tab) 1 tab PO Q24H [facility] PRN Reason: Protocol Last Admin: 07/28/17 09:58 Dose: 1 tab - Labs Labs: 07/28/17 07:05 07/28/17 07:05 Attending/Attestation - Attestation I have personally seen and examined this patient.: Yes I have fully participated in the care of the patient.: Yes I have reviewed all pertinent clinical information, including history, physical exam and plan: Yes Notes (Text): 07/28/17 10:23 This is a 41 yr old M with hx of HIV presenting with oral thrush and bloody diarrhea for 3 days found to have shigella bacteremia. Agree with antibiotics as per ID. Was non compliant with HIV meds as outpatient. Continue supportive care and Diet as tolerated. No abdominal pain, nausea and vomiting and no s/s of SIRS or dehydration. Stool infectious workup and cultures sent. Pt immunosuppressed and high risk of viral and bacterial infections. HAART therapy per ID. To follow as outpatient with ID for further HIV meds. Will sign off. thank you for letting us participate in the care of your patient
[2017-07-28] MEDS: Nystatin 100,000 Units/ml Oral Susp 5 ml UD PO SCH ×2 (09:58→13:48)
[2017-07-28] MEDS ORDERED: Tmp-Smz 800 mg-160 mg DS Tab PO SCH (10:00)
[2017-07-28] MEDS: Fluconazole IV 200mg/100 ml NS 100 ML IVPB SCH (10:02)
[2017-07-28] MEDS ORDERED: Emtricitabine-Tenofovir 200 mg-300 mg Tab PO SCH (10:15)
--- NOTE | 2017-07-28 11:57 | CP.PCM.PN ---
Subjective - Date & Time of Evaluation Date of Evaluation: 07/28/17 Time of Evaluation: 08:00 - Subjective Subjective: CD4 < 20 restarted HAART rx would add zmax 1200mg weekly cont PCP prophylaxis and diflucan Objective - Vital Signs/Intake and Output Vital Signs (last 24 hours): Temp Pulse Resp BP Pulse Ox 97.9 F 84 20 127/83 99 07/28/17 07:57 07/28/17 07:57 07/28/17 07:57 07/28/17 07:57 07/28/17 07:57 Intake and Output: 07/28/17 07/28/17 06:59 18:59 Intake Total 950 Output Total 1300 Balance -350 - Medications Medications: Current Medications Dolutegravir Sodium (Tivicay) 50 mg PO DAILY [facility] PRN Reason: Protocol Last Admin: 07/28/17 10:50 Dose: 50 mg Emtricitabine/Tenofovir (Truvada 200 Mg-300 Mg) 1 tab PO DAILY [facility] PRN Reason: Protocol Last Admin: 07/28/17 10:50 Dose: 1 tab Heparin Sodium (Porcine) (Heparin) 5,000 units SC Q12 [facility] Last Admin: 07/28/17 09:58 Dose: 5,000 units Fluconazole (Diflucan Iv 200 Mg/100 Ml Ns) 100 mls @ 100 mls/hr IVPB DAILY [facility] PRN Reason: Protocol Last Admin: 07/28/17 10:02 Dose: Not Given Ciprofloxacin (Cipro 400mg/200ml Dsw) 400 mg in 200 mls @ 133 mls/hr IVPB Q12H [facility] PRN Reason: Protocol Last Admin: 07/28/17 04:05 Dose: 133 mls/hr Nystatin (Nystatin Oral Susp) 5 ml PO QID [facility] Last Admin: 07/28/17 09:58 Dose: 5 ml Trimethoprim/Sulfamethoxazole (Bactrim Ds Tab) 1 tab PO Q24H [facility] PRN Reason: Protocol Last Admin: 07/28/17 09:58 Dose: 1 tab - Labs Labs: 07/28/17 07:05 07/28/17 07:05 Assessment and Plan (1) Bacteremia Status: Acute (2) Esophagitis Status: Acute (3) HIV (human immunodeficiency virus infection) Status: Acute
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
[2017-07-29 08:03] LABS: % CD4 (T HELPER CELL) 2 Percent (30-61); % CD8 (SUPPRESSOR T CELL) 67 Percent (12-42); ABSOLUTE CD4 CELLS <20 Cells/mcL (490-1740); ABSOLUTE CD8 CELLS 326 Cells/mcL (180-1170); ABSOLUTE LYMPHOCYTES 486 Cells/mcL (850-3900); HELPER/SUPPRESSOR RATIO 0.02 Ratio (0.86-5.00)
== END 2017-07-28 14:47 | disposition home or self-care (01) | DRG 974 ==
LOC: C.ER 17:40 → C.9E 20:26 → C.3T 21:17
PROVIDERS: ADMIT Internal Medicine; ATTEND Internal Medicine
DX: B20 Human immunodeficiency virus [HIV] disease (principal); R65.20 Severe sepsis without septic shock; B37.81 Candidal esophagitis; B37.0 Candidal stomatitis; A03.9 Shigellosis, unspecified; E78.00 Pure hypercholesterolemia, unspecified; E87.6 Hypokalemia; F31.9 Bipolar disorder, unspecified; I10 Essential (primary) hypertension; F17.210 Nicotine dependence, cigarettes, uncomplicated; Z91.14 Patient's other noncompliance with medication regimen

== ENCOUNTER 2017-09-08 00:04 | Inpatient (IN) | payer MEDICAID ==
[2017-09-08] MEDS ORDERED: Iohexol 240 (50 ml) PO ONE (01:27)
[2017-09-08] MEDS ORDERED: Sodium Chloride 0.9% 1,000 ML IV ONE (01:27)
--- NOTE | 2017-09-08 01:42 | C.PDOC ---
History Of Present Illness 42 y/o male presents to the ER complaining of diffuse abdominal pain for 4-5 days. He states he has had episodes of vomiting and diarrhea. Patient denies any associates fever or dysuria. Time Seen by Provider: 09/08/17 01:20 Chief Complaint (Nursing): Abdominal Pain History Per: Patient History/Exam Limitations: no limitations Onset/Duration Of Symptoms: Days Current Symptoms Are (Timing): Still Present Location Of Pain/Discomfort: Diffuse Associated Symptoms: Vomiting, Other (SOB, dizziness). denies: Diarrhea Past Medical History Vital Signs: Last Vital Signs Temp 97.7 F 09/08/17 00:52 Pulse 114 H 09/08/17 00:52 Resp 20 09/08/17 00:52 BP 125/87 09/08/17 00:52 Pulse Ox 97 09/08/17 05:48 - Medical History PMH: Anxiety, Bipolar Disorder, Depression, HIV, HTN, Hypercholesterolemia, Hyperlipidemia Denies: Diabetes, Hepatitis, Chronic Kidney Disease, Seizures, Sexually Transmitted Disease Surgical History: Denies: Appendectomy Family History: States: Unknown Family Hx - Social History Hx Alcohol Use: No Hx Substance Use: No - Immunization History Hx Tetanus Toxoid Vaccination: No Hx Influenza Vaccination: Yes Hx Pneumococcal Vaccination: No Review Of Systems Except As Marked, All Systems Reviewed And Found Negative. Constitutional: Negative for: Fever Respiratory: Positive for: Shortness of Breath Gastrointestinal: Positive for: Vomiting, Abdominal Pain (Diffuse), Diarrhea Physical Exam - Physical Exam Appears: Non-toxic, No Acute Distress Skin: Normal Color, Warm, Dry Head: Atraumatic, Normacephalic Eye(s): bilateral: PERRL, EOMI Ear(s): Bilateral: Normal Nose: Normal Oral Mucosa: Moist Neck: Normal ROM, Supple Chest: Symmetrical Cardiovascular: Rhythm Regular Respiratory: Normal Breath Sounds, No Rales, No Rhonchi, No Wheezing Gastrointestinal/Abdominal: Soft, Tenderness (mid abdominal ), No Guarding, No Rebound Extremity: Normal ROM Extremity: Bilateral: Normal Color And Temperature, Normal ROM Pulses: Left Dorsalis Pedis: Normal, Right Dorsalis Pedis: Normal Neurological/Psych: Oriented x3 ED Course And Treatment - Laboratory Results Result Diagrams: 09/08/17 01:45 09/08/17 01:45 O2 Sat by Pulse Oximetry: 97 (RA) Pulse Ox Interpretation: Normal - CT Scan/US CT Abdomen/Pelvis Other Rad Studies (CT/US): Read By Radiologist, Radiology Report Reviewed CT/US Interpretation: FINDINGS: Lung bases: Unremarkable. No mass. No consolidation. ABDOMEN: Liver: Unremarkable. No mass. Gallbladder and bile ducts: Unremarkable. No calcified stones. No ductal dilation. Pancreas: Unremarkable. No mass. No ductal dilation. Spleen: Unremarkable. No splenomegaly. Adrenals: Unremarkable. No mass. Kidneys and ureters: Unremarkable. No solid mass. No hydronephrosis. Stomach and bowel: The colon is mildly distended with fluid and air. Diffuse colonic wall thickening. from the descending colon to the rectum suspicious for acute colitis. There is stranding of the. mesenteric fat in the pelvis. There is no evidence of intestinal obstruction. PELVIS: Appendix: No appendix is specifically identified. There is no evidence of fluid collections or inflammatory stranding in the right lower quadrant. Bladder: Unremarkable. No mass. Reproductive: Unremarkable as visualized. ABDOMEN and PELVIS: Intraperitoneal space: Unremarkable. No free air. No significant fluid collection. Bones/joints : No acute fracture. No dislocation. Soft tissues: Unremarkable. Vasculature: Unremarkable. No abdominal aortic aneurysm. Lymph nodes: Unremarkable. No enlarged lymph nodes. IMPRESSION: Acute colitis Medical Decision Making Medical Decision Making: Impression: 42 y/o male with diffuse abdominal pain, diarrhea and vomiting Plan: ---CT Abd/ Pelvis w/ PO & IV Contrast --CMP --Liapse --CBC --UA --Bentyl 20mg --IV Fluids Disposition Discussed With DrPatricia: Berry Jurado Doctor Will See Patient In The: Hospital Counseled Patient/Family Regarding: Diagnosis - Disposition Disposition: HOSPITALIZED Disposition Time: 05:46 Condition: STABLE - POA Present On Arrival: None - Clinical Impression Clinical Impression: Abdominal pain, Acute colitis, Hypokalemia - Scribe Statement The provider has reviewed the documentation as recorded by the Scribe (Jeanne Brooke) Provider Attestation: All medical record entries made by the Percyibbob were at my direction and personally dictated by me. I have reviewed the chart and agree that the record accurately reflects my personal performance of the history, physical exam, medical decision making, and the department course for this patient. I have also personally directed, reviewed, and agree with the discharge instructions and disposition.
[2017-09-08] MEDS ORDERED: Sodium Chloride 0.9% 1,000 ML ONE (01:45)
[2017-09-08] MEDS ORDERED: Iohexol 240 (50 ml) ONE (01:45)
[2017-09-08 01:50] LABS: BASO % 0.3 % (0.0-2.0); EOS % 0.3 % (0.0-4.0); HEMOGLOBIN 11.5 g/dL (12.0-18.0); LYMPH # 0.4 K/uL (1.0-4.3); LYMPH % 14.2 % (20.0-40.0); MEAN CELL VOLUME 77.9 fL (80.0-94.0); MEAN CORPUSCULAR HEMOGLOBIN 26.1 pg (27.0-31.0); MEAN CORPUSCULAR HGB CONC 33.5 g/dL (33.0-37.0); MONO # 0.8 K/uL (0.0-0.8); MONO % 29.4 % (0.0-10.0); NEUT # 1.5 K/uL (1.8-7.0); NEUT % 55.8 % (50.0-75.0); NRBC % 0.2 % (0.0-2.0); PLATELET COUNT 412 K/uL (130-400); RBC 4.39 Mil/uL (4.40-5.90); RED CELL DISTRIBUTION WIDTH 18.8 % (11.5-14.5); WHITE BLOOD COUNT 2.6 K/uL (4.8-10.8)
[2017-09-08 01:53] LABS: SQUAMOUS EPITHIAL < 1 /hpf (0-5); URINE BILIRUBIN NEGATIVE (NEGATIVE); URINE BLOOD NEGATIVE (NEGATIVE); URINE CLARITY Clear (Clear); URINE COLOR Yellow (YELLOW); URINE GLUCOSE (UA) NORMAL (Normal); URINE LEUKOCYTE ESTERASE NEG Leu/uL (Negative); URINE PROTEIN NEGATIVE (NEGATIVE); URINE UROBILINOGEN NORMAL mg/dL (0.2-1.0)
[2017-09-08 02:18] LABS: ALB/GLOB RATIO 1.2 (1.0-2.1); ALBUMIN 4.1 g/dL (3.5-5.0); ALT/SGPT 27 U/L (21-72); AST/SGOT 18 U/L (17-59); BLOOD UREA NITROGEN 6 mg/dL (9-20); CALCIUM 8.9 mg/dl (8.6-10.4); GFR AFRICAN-AMERICAN > 60; GFR NON-AFRICAN AMERICAN > 60; LIPASE 165 U/L (23-300)
[2017-09-08 02:43] LABS: ANISOCYTOSIS MODERATE; BANDS 6 % (0-2); BASOPHIL 1 % (0-2); EOSINOPHIL 1 % (0-4); LYMPHOCYTE 20 % (20-40); MONOCYTE 23 % (0-10); NEUTROPHIL 49 % (50-75); PLATELET ESTIMATE NORMAL (NORMAL); POIKILOCYTOSIS MODERATE; TOTAL CELLS COUNTED 100
[2017-09-08] MEDS ORDERED: Potassium Chloride 20 mEq 100 ML ONE (03:28)
[2017-09-08] MEDS ORDERED: Iodixanol 320 MG/ML 100 ML BOTTLE IV ONE (03:30)
--- NOTE | 2017-09-08 06:15 | CP.PCM.HP ---
<Raz Greene E - Last Filed: 09/08/17 07:00> History of Present Illness - History of Present Illness History of Present Illness: CC: Diarrhea HPI: Patient is a 42 year old male with past medical history of HIV ( diagnosed 23 years ago) and multiple psychiatry illness, who presents to the ED with complaints of diarrhea and abdominal pain that has been going on for 5 days. Patient states that he has been having non- bloody watery bowel movement > 20 times per day for the past 5 days. Patient reports associated symptoms of fever ( Tmax at home 100.0), chills, dizziness and generalized weakness. Patient describes his associated abdominal pain as 6-7 cramping that radiates to the sides of his abdomen. Patient admits to subjective fever, chills, nausea, dizziness. Patient's last admission 07/24/17 for esophageal candidiasis. Patient states that he has not been anti-HIV medication for the past 6 months due to lack of finances and insurance Code status: Full code PMD: None PMHx: HIV (Diagnosed 23 years ago), Bipolar, anxiety, Schizophrenia, paranoia and depression PSHx: Tonsillectomy FHx: - Father: Schizophrenia, due to complications of MVA -Mother, 59 years old, healthy -Mother's relative: Diabetes Medications: Denies Allergies: NKDA Social Hx: Lives alone. Works at [employer]. Admits to > 25 years of tobacco use (10 Cigarettes per day), Cocaine use (last use, 4 years ago), and denies ETOH use Present on Admission - Present on Admission Any Indicators Present on Admission: No Review of Systems - Constitutional Constitutional: Chills, Fever, Weakness - EENT Eyes: absent: Blurred Vision, Change in Vision Ears: Dizziness Nose/Mouth/Throat: absent: Nasal Congestion, Nasal Discharge - Cardiovascular Cardiovascular: absent: Chest Pain, Dyspnea, Lightheadedness, Palpitations - Respiratory Respiratory: absent: Dyspnea - Gastrointestinal Gastrointestinal: Abdominal Pain, Cramping, Diarrhea, Nausea. absent: Hematochezia, Vomiting - Genitourinary Genitourinary: absent: Dysuria, Hematuria, Urinary Frequency, Urinary Hesitance - Psychiatric Psychiatric: Anxiety, Depression, Paranoia - Endocrine Endocrine: Fatigue Past Patient History - Infectious Disease Hx of Infectious Diseases: None - Past Medical History & Family History Past Medical History?: Yes - Past Social History Smoking Status: Former Smoker - CARDIAC Hx Hypercholesterolemia: Yes Hx Hypertension: Yes - PULMONARY Hx Respiratory Disorders: No - NEUROLOGICAL Hx Seizures: No - HEENT Hx HEENT Problems: No - RENAL Hx Chronic Kidney Disease: No - ENDOCRINE/METABOLIC Hx Endocrine Disorders: No - HEMATOLOGICAL/ONCOLOGICAL Hx Human Immunodeficiency Virus (HIV): Yes - INTEGUMENTARY Hx Dermatological Problems: No - MUSCULOSKELETAL/RHEUMATOLOGICAL Hx Musculoskeletal Disorders: No - GASTROINTESTINAL Hx Gastrointestinal Disorders: No Hx Diarrhea: Yes Hx Nausea: Yes HX Swallowing Problems: Yes - GENITOURINARY/GYNECOLOGICAL Hx Sexually Transmitted Disorders: No - PSYCHIATRIC Hx Anxiety: Yes Hx Bipolar Disorder: Yes Hx Depression: Yes Hx Substance Use: No - SURGICAL HISTORY Hx Appendectomy: No - ANESTHESIA Hx Anesthesia: No Meds Allergies/Adverse Reactions: Allergies Allergy/AdvReac Type Severity Reaction Status Date / Time No Known Drug Allergies Allergy Unknown NKDA/NONE Verified 09/08/17 00:56 Physical Exam - Constitutional Appears: No Acute Distress - Head Exam Head Exam: ATRAUMATIC, NORMAL INSPECTION - Eye Exam Eye Exam: EOMI, Normal appearance Pupil Exam: NORMAL ACCOMODATION - ENT Exam ENT Exam: Mucous Membranes Moist - Respiratory Exam Respiratory Exam: Clear to Auscultation Bilateral, NORMAL BREATHING PATTERN. absent: Prolonged Expiratory Phase, Rhonchi, Wheezes, Respiratory Distress - Cardiovascular Exam Cardiovascular Exam: REGULAR RHYTHM, +S1, +S2 - GI/Abdominal Exam GI & Abdominal Exam: Normal Bowel Sounds, Soft, Tenderness. absent: Diminished Bowel Sounds, Distended, Guarding, Hernia - Extremities Exam Extremities exam: Positive for: normal capillary refill, normal inspection, pedal pulses present. Negative for: calf tenderness, pedal edema - Back Exam Back exam: absent: CVA tenderness (L), CVA tenderness (R) - Neurological Exam Neurological exam: Alert, Normal Gait, Oriented x3, Reflexes Normal - Psychiatric Exam Psychiatric exam: Anxious, Depressed - Skin Skin Exam: Normal Color Results - Vital Signs Recent Vital Signs: Last Vital Signs Temp 97.7 F 09/08/17 00:52 Pulse 114 H 09/08/17 00:52 Resp 20 09/08/17 00:52 BP 125/87 09/08/17 00:52 Pulse Ox 97 09/08/17 05:58 - Labs Result Diagrams: 09/08/17 01:45 07/30/18 01:45 Labs: Laboratory Results - last 24 hr 09/08/17 09/08/17 09/08/17 01:26 01:45 01:45 WBC 2.6 L RBC 4.39 L Hgb 11.5 L Hct 34.2 L MCV 77.9 L MCH 26.1 L MCHC 33.5 RDW 18.8 H Plt Count 412 H MPV 8.0 Neut % (Auto) 55.8 Lymph % (Auto) 14.2 L [place] % (Auto) 29.4 H Eos % (Auto) 0.3 Baso % (Auto) 0.3 Neut # (Auto) 1.5 L Lymph # (Auto) 0.4 L [place] # (Auto) 0.8 Eos # (Auto) 0.0 Baso # (Auto) 0.0 Neutrophils % (Manual) 49 L Band Neutrophils % 6 H Lymphocytes % (Manual) 20 Monocytes % (Manual) 23 H Eosinophils % (Manual) 1 Basophils % (Manual) 1 Platelet Estimate Normal Poikilocytosis (manual Moderate Anisocytosis (manual) Moderate Sodium 141 Potassium 2.5 L* D Chloride 96 L Carbon Dioxide 27 Anion Gap 20 BUN 6 L Creatinine 0.6 L Est GFR ( Amer) > 60 Est GFR (Non-Af Amer) > 60 Random Glucose 146 H Calcium 8.9 Total Bilirubin 0.5 AST 18 ALT 27 Alkaline Phosphatase 61 Total Protein 7.6 Albumin 4.1 Globulin 3.5 Albumin/Globulin Ratio 1.2 Lipase 165 Urine Color Yellow Urine Clarity Clear Urine pH 6.0 Ur Specific [place] 1.015 Urine Protein Negative Urine Glucose (UA) Normal Urine Ketones Negative Urine Blood Negative Urine Nitrate Negative Urine Bilirubin Negative Urine Urobilinogen Normal Ur Leukocyte Esterase Neg Urine WBC (Auto) 9 H Urine RBC (Auto) 1 Ur Squamous Epith Cells < 1 Assessment & Plan (1) Acute colitis Assessment and Plan: Imaging: CT abdomen/Pelvis with IV contrast: Acute colitis Medications/Management: * Cipro 400mg IV Q12H * Flagyl 500mg IV Q8H * Florastor 250mg PO BID Status: Acute (2) AIDS Assessment and Plan: Consultation: * GIL, Dr. Izaguirre---> Help appreciated * Last admission (07/26/17) * CD4: 2%, <20 * CD8 65%, 321 Bactrim DS 1 tab PO Q12H Status: Acute (3) Diarrhea Assessment and Plan: F/u stool culture, Ova/Parasite, leukocytes, C-diff, occult Status: Acute (4) Hypokalemia Assessment and Plan: Secondary to diarrhea On admission: * K+: 2.7 * Repleted with KCl 20 Meq IV ONCE and K-dur 80 meq once * Continue to monitor with labs Status: Acute (5) Thrush of mouth and esophagus Assessment and Plan: Nystatin 5ml PO QID Status: Acute (6) Psychiatric disorder Assessment and Plan: Hx of Bipolar, anxiety, Schizophrenia, paranoia and depression Consider psychiatric evaluation Status: Acute (7) Prophylactic measure Assessment and Plan: GI: Not indicated DVT: Ambulating, SCDs All plans and management discussed with Dr. Jurado Status: Acute <Berry Jurado P - Last Filed: 09/08/17 08:03> Results - Vital Signs Recent Vital Signs: Last Vital Signs Temp 98.9 F 09/08/17 07:28 Pulse 86 09/08/17 07:28 Resp 12 09/08/17 07:28 BP 122/78 09/08/17 07:28 Pulse Ox 99 09/08/17 07:28 - Labs Result Diagrams: 09/08/17 01:45 09/08/17 01:45 Labs: Laboratory Results - last 24 hr 09/08/17 09/08/17 09/08/17 01:26 01:45 01:45 WBC 2.6 L RBC 4.39 L Hgb 11.5 L Hct 34.2 L MCV 77.9 L MCH 26.1 L MCHC 33.5 RDW 18.8 H Plt Count 412 H MPV 8.0 Neut % (Auto) 55.8 Lymph % (Auto) 14.2 L [place] % (Auto) 29.4 H Eos % (Auto) 0.3 Baso % (Auto) 0.3 Neut # (Auto) 1.5 L Lymph # (Auto) 0.4 L [place] # (Auto) 0.8 Eos # (Auto) 0.0 Baso # (Auto) 0.0 Neutrophils % (Manual) 49 L Band Neutrophils % 6 H Lymphocytes % (Manual) 20 Monocytes % (Manual) 23 H Eosinophils % (Manual) 1 Basophils % (Manual) 1 Platelet Estimate Normal Poikilocytosis (manual Moderate Anisocytosis (manual) Moderate Sodium 141 Potassium 2.5 L* D Chloride 96 L Carbon Dioxide 27 Anion Gap 20 BUN 6 L Creatinine 0.6 L Est GFR ( Amer) > 60 Est GFR (Non-Af Amer) > 60 Random Glucose 146 H Calcium 8.9 Total Bilirubin 0.5 AST 18 ALT 27 Alkaline Phosphatase 61 Total Protein 7.6 Albumin 4.1 Globulin 3.5 Albumin/Globulin Ratio 1.2 Lipase 165 Urine Color Yellow Urine Clarity Clear Urine pH 6.0 Ur Specific [place] 1.015 Urine Protein Negative Urine Glucose (UA) Normal Urine Ketones Negative Urine Blood Negative Urine Nitrate Negative Urine Bilirubin Negative Urine Urobilinogen Normal Ur Leukocyte Esterase Neg Urine WBC (Auto) 9 H Urine RBC (Auto) 1 Ur Squamous Epith Cells < 1 Attending/Attestation - Attestation I have personally seen and examined this patient.: Yes I have fully participated in the care of the patient.: Yes I have reviewed all pertinent clinical information: Yes Notes (Text): 09/08/17 07:55 HIV AIDS, non compliance likely form his mental issues Paranoid schizophrenia, schizoaffetive disorder, not on meds H/o thrush, still has some, last admission shigella diarrhea, given cipo, also discharged on bactrim, but didn't fill meds once completed the initial amount Continued weight loss Now presentation with diarrhea, hypokalemia, on CT has colitis again. Plan IV cpro and flagyl replace potassium, check mag ID consult Psych consult Nystatin for thrush Counselled about compliance Upon discharge may get prophylaxis for pcp and SCOTT. Gi, dvt prophylaxis See orders for detail.
[2017-09-08] MEDS ORDERED: Potassium Chloride 20 mEq ER Tab PO ONE ×2 (07:13→09:13)
[2017-09-08] MEDS ORDERED: Tmp-Smz 800 mg-160 mg DS Tab PO SCH (07:15)
[2017-09-08] MEDS: Ciprofloxacin 400mg/200ml D5W 400 MG/200 ML BAG IVPB SCH ×2 (07:54→20:10)
--- NOTE | 2017-09-08 08:04 | CP.PCM.PN ---
<Kiera Garcia - Last Filed: 09/08/17 21:35> Subjective - Date & Time of Evaluation Date of Evaluation: 09/08/17 Time of Evaluation: 09:30 - Subjective Subjective: PGY-1 Kiera Garcia D.O. Medicine progress note for Dr. Holland service : Patient is seen and evaluated this morning. He is lying comfortably in bed. He has multiple nonspecific complaints, stating he feels sick. When asked for individual symptoms, the patient endorses subjective fevers, chills, weakness, weight loss (60 lb over 6 months), abdominal pain, and water diarrhea. He states the diarrhea has been present for >5 days and is completely liquid. He denies blood. Of note, the patient was admitted a few months ago and treated for Shigella. The patient also has multiple psych complaints including depressed mood, anhedonia, and anxiety. He reports he has been on multiple psych meds in the past but is not currently taking anything. He states this is a contributing factor to his noncompliance of HIV meds. Objective - Vital Signs/Intake and Output Vital Signs (last 24 hours): Temp Pulse Resp BP Pulse Ox 98.9 F 86 12 122/78 99 09/08/17 07:28 09/08/17 07:28 09/08/17 07:28 09/08/17 07:28 09/08/17 07:28 - Medications Medications: Current Medications Ciprofloxacin (Cipro 400mg/200ml Dsw) 400 mg in 200 mls @ 133 mls/hr IVPB Q12H [facility] PRN Reason: Protocol Last Admin: 09/08/17 07:54 Dose: 133 mls/hr Metronidazole (Flagyl) 500 mg in 100 mls @ 100 mls/hr IVPB Q8H [facility] PRN Reason: Protocol Nystatin (Nystatin Oral Susp) 5 ml PO QID [facility] Potassium Chloride (K-Dur 20 Meq Er Tab) 40 meq PO ONCE ONE Stop: 09/08/17 09:14 Saccharomyces Boulardii (Florastor) 250 mg PO BID [facility] Trimethoprim/Sulfamethoxazole (Bactrim Ds Tab) 1 tab PO Q12H [facility] PRN Reason: Protocol Last Admin: 09/08/17 07:54 Dose: 1 tab - Labs Labs: 09/08/17 01:45 09/08/17 01:45 - Constitutional Appears: No Acute Distress, Cachectic, Other (thin, cooperative, anxious) - Head Exam Head Exam: ATRAUMATIC, NORMAL INSPECTION, NORMOCEPHALIC - Eye Exam Eye Exam: EOMI, Normal appearance - ENT Exam ENT Exam: Mucous Membranes Moist - Neck Exam Neck Exam: Full ROM, Normal Inspection - Respiratory Exam Respiratory Exam: Clear to Ausculation Bilateral - Cardiovascular Exam Cardiovascular Exam: REGULAR RHYTHM - GI/Abdominal Exam GI & Abdominal Exam: Soft, Tenderness (diffuse). absent: Mass - Rectal Exam Rectal Exam: Deferred - Extremities Exam Extremities Exam: Full ROM, Normal Inspection - Back Exam Back Exam: NORMAL INSPECTION - Neurological Exam Neurological Exam: Alert, Awake, Oriented x3 - Psychiatric Exam Psychiatric exam: Anxious - Skin Skin Exam: Dry, Intact, Normal Color, Warm Assessment and Plan - Assessment and Plan (Free Text) Assessment: Patient is a 42 yo male with a PMH of HIV (noncompliance with meds x6 months) and multiple psych dx (dep, anx, ?bipolar, ?schizphrenia) who presented with abdominal pain and watery diarrhea x 5 days. He was previously admitted last month for esophageal candidiasis and his CD4 count was <20. He is not currently on any home meds. He has multiple somatic and psychiatric complaints. Plan: Abdominal pain and diarrhea - H/o Shigella - GI consult- full liquid diet - CT abdomen/Pelvis with IV contrast: Acute colitis - Cipro 400mg IV Q12H - Flagyl 500mg IV Q8H - Florastor 250mg PO BID - Blood Cx pending - Stool Cx pending - Stool O&P pending - C diff pending - Fecal leukocytes pending AIDS - Noncompliance with meds - CD4 <20 in 07/2017 - ID consult - HIV RNA pending - Bactrim DS 1 tab PO Q12H - Case management consult for discharge planning Hypokalemia- suspect 2/2 diarrhea - K 2.8 on admission, 2.5 today - KCl 20 mEq IV ONCE and K-dur 80 mEq ONCE - CMP in AM Thrush of mouth and esophagus - Nystatin 5ml PO QID H/o psychiatric disorder - Psych consult IVF: not indicated GI ppx: Not indicated DVT ppx: Ambulating, SCDs Code status: full code <Rachel Chaudhry - Last Filed: 09/08/17 22:16> Objective - Vital Signs/Intake and Output Vital Signs (last 24 hours): Temp Pulse Resp BP Pulse Ox 98.3 F 72 20 122/80 96 09/08/17 16:06 09/08/17 16:06 09/08/17 16:06 09/08/17 16:06 09/08/17 16:06 - Medications Medications: Current Medications Dapsone (Dapsone) 100 mg PO 1600 [facility] PRN Reason: Protocol Last Admin: 09/08/17 20:26 Dose: Not Given Ciprofloxacin (Cipro 400mg/200ml Dsw) 400 mg in 200 mls @ 133 mls/hr IVPB Q12H [facility] PRN Reason: Protocol Last Admin: 09/08/17 20:10 Dose: 133 mls/hr Metronidazole (Flagyl) 500 mg in 100 mls @ 100 mls/hr IVPB Q8H [facility] PRN Reason: Protocol Last Admin: 09/08/17 17:33 Dose: 100 mls/hr Sodium Chloride (Sodium Chloride 0.9%) 1,000 mls @ 100 mls/hr IV .Q10H [facility] Last Admin: 09/08/17 12:27 Dose: 100 mls/hr Nystatin (Nystatin Oral Susp) 5 ml PO QID [facility] Last Admin: 09/08/17 17:33 Dose: 5 ml Saccharomyces Boulardii (Florastor) 250 mg PO BID [facility] Last Admin: 09/08/17 17:33 Dose: 250 mg - Labs Labs: 09/08/17 01:45 09/08/17 12:41 Attending/Attestation - Attestation I have personally seen and examined this patient.: Yes I have fully participated in the care of the patient.: Yes I have reviewed all pertinent clinical information, including history, physical exam and plan: Yes Notes (Text): Seen and examined with the resident patient has diarrhea,denies abdominal pain 1.Diarrhea r/o infectious etiology 2.AIDS Noncompliance with medication 3.Anxiety and bipolar disorder Assessment and the plan discussed with the resident. we will follow ID,GI and psychiatry recommendation follow cultures continue cipro and flagyl started on Dapsone for PCP prophylaxis
[2017-09-08] MEDS: Saccharomyces Boulardi 250 mg Cap PO SCH ×2 (09:12→17:33)
[2017-09-08] MEDS: Nystatin 100,000 Units/ml Oral Susp 5 ml UD PO SCH ×3 (09:12→22:55)
[2017-09-08] MEDS: metroNIDAZOLE IV 500 mg/100 ml 500 MG/100 ML BAG IVPB SCH ×2 (09:16→17:33)
--- NOTE | 2017-09-08 10:15 | CP.PCM.CON ---
<RadhaSai - Last Filed: 09/08/17 10:09> History of Present Illness - History of Present Illness History of Present Illness: PGY-4 GI Fellow Initial Consult Note Mr. Schwartz is a 42 yo WM with h/o HIV/AIDS (Last CD4 <20 in 07/26/17), h/o shigella bacteremia, giardia infection presenting with complaint of diarrhea. He states over the last 4-5 days he has had worsening watery diarrhea up to 20x per day associated with lower abdominal cramping that radiates to his sides. States that prior to 4-5 days ago he was feeling welll with normal formed bowel movements. States that he was compliant with his ciprofloxacin for recent shigella bacteremia. Denies any recent travel and as far as food, states that he eats at some "shady take-out places." Reports temp of 100.0 at home, but denies any chills, CP, SOB, N/V. He does reports significant weight loss over the last several months since dropping several pant sizes. Thinks he had an EGD several years ago for unknown reason and thought it was normal. Denied any CSPY prior. 12pt ROS was negative except as above PMH: HTN, HIV/AIDS SurgHx: none Meds: Reviewed in APR, was on cipro for shigella FamHx: dad has diabetes, grandma has cervical CA Social: 0.5 ppd x 25 years, Etoh none, no illicit drugs All: NKDA Past Patient History - Infectious Disease Hx of Infectious Diseases: None - Past Medical History & Family History Past Medical History?: Yes - Past Social History Smoking Status: Former Smoker - CARDIAC Hx Hypercholesterolemia: Yes Hx Hypertension: Yes - PULMONARY Hx Respiratory Disorders: No - NEUROLOGICAL Hx Seizures: No - HEENT Hx HEENT Problems: No - RENAL Hx Chronic Kidney Disease: No - ENDOCRINE/METABOLIC Hx Endocrine Disorders: No - HEMATOLOGICAL/ONCOLOGICAL Hx Human Immunodeficiency Virus (HIV): Yes - INTEGUMENTARY Hx Dermatological Problems: No - MUSCULOSKELETAL/RHEUMATOLOGICAL Hx Musculoskeletal Disorders: No - GASTROINTESTINAL Hx Gastrointestinal Disorders: No Hx Diarrhea: Yes Hx Nausea: Yes HX Swallowing Problems: Yes - GENITOURINARY/GYNECOLOGICAL Hx Sexually Transmitted Disorders: No - PSYCHIATRIC Hx Anxiety: Yes Hx Bipolar Disorder: Yes Hx Depression: Yes Hx Substance Use: No - SURGICAL HISTORY Hx Appendectomy: No - ANESTHESIA Hx Anesthesia: No Meds Allergies/Adverse Reactions: Allergies Allergy/AdvReac Type Severity Reaction Status Date / Time No Known Drug Allergies Allergy Unknown NKDA/NONE Verified 09/08/17 00:56 - Medications Medications: Current Medications Ciprofloxacin (Cipro 400mg/200ml Dsw) 400 mg in 200 mls @ 133 mls/hr IVPB Q12H [facility] PRN Reason: Protocol Last Admin: 09/08/17 07:54 Dose: 133 mls/hr Metronidazole (Flagyl) 500 mg in 100 mls @ 100 mls/hr IVPB Q8H [facility] PRN Reason: Protocol Last Admin: 09/08/17 09:16 Dose: 100 mls/hr Nystatin (Nystatin Oral Susp) 5 ml PO QID [facility] Last Admin: 09/08/17 09:12 Dose: 5 ml Saccharomyces Boulardii (Florastor) 250 mg PO BID [facility] Last Admin: 09/08/17 09:12 Dose: 250 mg Trimethoprim/Sulfamethoxazole (Bactrim Ds Tab) 1 tab PO Q12H [facility] PRN Reason: Protocol Last Admin: 09/08/17 07:54 Dose: 1 tab Physical Exam - Constitutional Appears: Non-toxic, No Acute Distress - Head Exam Head Exam: ATRAUMATIC, NORMAL INSPECTION - Eye Exam Eye Exam: EOMI. absent: Conjunctival injection, Scleral icterus - ENT Exam ENT Exam: Mucous Membranes Dry, Normal External Ear Exam - Respiratory Exam Respiratory Exam: Clear to Auscultation Bilateral, NORMAL BREATHING PATTERN. absent: Accessory Muscle Use, Stridor - Cardiovascular Exam Cardiovascular Exam: REGULAR RHYTHM. absent: Bradycardia, Tachycardia, Systolic Murmur - GI/Abdominal Exam GI & Abdominal Exam: Normal Bowel Sounds, Soft. absent: Bruit, Diminished Bowel Sounds, Distended, Firm, Guarding, Hernia, Hyperactive Bowel Sounds, Hypoactive Bowel Sounds, Mass, Organomegaly, Pulsatile Mass, Rebound, Rigid, Tenderness - Extremities Exam Extremities exam: Positive for: normal inspection, pedal pulses present. Negative for: pedal edema - Neurological Exam Neurological exam: Alert, CN II-XII Intact, Oriented x3 - Psychiatric Exam Psychiatric exam: Normal Affect, Normal Mood - Skin Skin Exam: Normal Color, Warm Results - Vital Signs Recent Vital Signs: Last Vital Signs Temp 98.6 F 09/08/17 08:49 Pulse 85 07/30/18 08:49 Resp 18 09/08/17 08:49 BP 116/76 09/08/17 08:49 Pulse Ox 99 09/08/17 08:49 - Labs Result Diagrams: 09/08/17 01:45 09/08/17 01:45 Labs: Laboratory Results - last 24 hr 09/08/17 09/08/17 09/08/17 01:26 01:45 01:45 WBC 2.6 L RBC 4.39 L Hgb 11.5 L Hct 34.2 L MCV 77.9 L MCH 26.1 L MCHC 33.5 RDW 18.8 H Plt Count 412 H MPV 8.0 Neut % (Auto) 55.8 Lymph % (Auto) 14.2 L Davison % (Auto) 29.4 H Eos % (Auto) 0.3 Baso % (Auto) 0.3 Neut # (Auto) 1.5 L Lymph # (Auto) 0.4 L [place] # (Auto) 0.8 Eos # (Auto) 0.0 Baso # (Auto) 0.0 Neutrophils % (Manual) 49 L Band Neutrophils % 6 H Lymphocytes % (Manual) 20 Monocytes % (Manual) 23 H Eosinophils % (Manual) 1 Basophils % (Manual) 1 Platelet Estimate Normal Poikilocytosis (manual Moderate Anisocytosis (manual) Moderate Sodium 141 Potassium 2.5 L* D Chloride 96 L Carbon Dioxide 27 Anion Gap 20 BUN 6 L Creatinine 0.6 L Est GFR ( Amer) > 60 Est GFR (Non-Af Amer) > 60 Random Glucose 146 H Calcium 8.9 Magnesium 1.6 Total Bilirubin 0.5 AST 18 ALT 27 Alkaline Phosphatase 61 Total Protein 7.6 Albumin 4.1 Globulin 3.5 Albumin/Globulin Ratio 1.2 Lipase 165 Urine Color Yellow Urine Clarity Clear Urine pH 6.0 Ur Specific [place] 1.015 Urine Protein Negative Urine Glucose (UA) Normal Urine Ketones Negative Urine Blood Negative Urine Nitrate Negative Urine Bilirubin Negative Urine Urobilinogen Normal Ur Leukocyte Esterase Neg Urine WBC (Auto) 9 H Urine RBC (Auto) 1 Ur Squamous Epith Cells < 1 Assessment & Plan - Assessment and Plan (Free Text) Assessment: 42 yo WM with HIV/AIDS presenting with watery diarrhea. # Watery Diarrhea: Broad differential in pt with AIDs with last CD4 <20 on 07/26, including but not limited to crypto, cyclospora, c diff (recent abx use) or others. Plan: - Agree with ciprofloxacin, metronidazole, TMP/SMX and nystatin (recent oral thrush) - Agree with ID consult - Infectious w/u with Cdiff, Stool Cx, Cyclospora, Crypto, O&P, BCx - Full liquid diet today - Counseled pt on importance of close f/u and compliance with HAART Pt seen and examined with Dr. Duckworth <Wilbur Duckworth - Last Filed: 09/08/17 15:22> Meds - Medications Medications: Current Medications Dapsone (Dapsone) 100 mg PO 1600 [facility] PRN Reason: Protocol Ciprofloxacin (Cipro 400mg/200ml Dsw) 400 mg in 200 mls @ 133 mls/hr IVPB Q12H [facility] PRN Reason: Protocol Last Admin: 09/08/17 07:54 Dose: 133 mls/hr Metronidazole (Flagyl) 500 mg in 100 mls @ 100 mls/hr IVPB Q8H [facility] PRN Reason: Protocol Last Admin: 09/08/17 09:16 Dose: 100 mls/hr Sodium Chloride (Sodium Chloride 0.9%) 1,000 mls @ 100 mls/hr IV .Q10H [facility] Last Admin: 09/08/17 12:27 Dose: 100 mls/hr Nystatin (Nystatin Oral Susp) 5 ml PO QID [facility] Last Admin: 09/08/17 09:12 Dose: 5 ml Saccharomyces Boulardii (Florastor) 250 mg PO BID [facility] Last Admin: 09/08/17 09:12 Dose: 250 mg Results - Vital Signs Recent Vital Signs: Last Vital Signs Temp 98.6 F 09/08/17 08:49 Pulse 85 09/08/17 08:49 Resp 18 09/08/17 08:49 BP 116/76 09/08/17 08:49 Pulse Ox 99 09/08/17 08:49 - Labs Result Diagrams: 09/08/17 01:45 09/08/17 12:41 Labs: Laboratory Results - last 24 hr 09/08/17 09/08/17 09/08/17 01:26 01:45 01:45 WBC 2.6 L RBC 4.39 L Hgb 11.5 L Hct 34.2 L MCV 77.9 L MCH 26.1 L MCHC 33.5 RDW 18.8 H Plt Count 412 H MPV 8.0 Neut % (Auto) 55.8 Lymph % (Auto) 14.2 L Davison % (Auto) 29.4 H Eos % (Auto) 0.3 Baso % (Auto) 0.3 Neut # (Auto) 1.5 L Lymph # (Auto) 0.4 L [place] # (Auto) 0.8 Eos # (Auto) 0.0 Baso # (Auto) 0.0 Neutrophils % (Manual) 49 L Band Neutrophils % 6 H Lymphocytes % (Manual) 20 Monocytes % (Manual) 23 H Eosinophils % (Manual) 1 Basophils % (Manual) 1 Platelet Estimate Normal Poikilocytosis (manual Moderate Anisocytosis (manual) Moderate Sodium 141 Potassium 2.5 L* D Chloride 96 L Carbon Dioxide 27 Anion Gap 20 BUN 6 L Creatinine 0.6 L Est GFR ( Amer) > 60 Est GFR (Non-Af Amer) > 60 Random Glucose 146 H Calcium 8.9 Magnesium 1.6 Total Bilirubin 0.5 AST 18 ALT 27 Alkaline Phosphatase 61 Total Protein 7.6 Albumin 4.1 Globulin 3.5 Albumin/Globulin Ratio 1.2 Lipase 165 Urine Color Yellow Urine Clarity Clear Urine pH 6.0 Ur Specific [place] 1.015 Urine Protein Negative Urine Glucose (UA) Normal Urine Ketones Negative Urine Blood Negative Urine Nitrate Negative Urine Bilirubin Negative Urine Urobilinogen Normal Ur Leukocyte Esterase Neg Urine WBC (Auto) 9 H Urine RBC (Auto) 1 Ur Squamous Epith Cells < 1 C. difficile Ag & Toxin 09/08/17 09/08/17 12:09 12:41 WBC RBC Hgb Hct MCV MCH MCHC RDW Plt Count MPV Neut % (Auto) Lymph % (Auto) [place] % (Auto) Eos % (Auto) Baso % (Auto) Neut # (Auto) Lymph # (Auto) [place] # (Auto) Eos # (Auto) Baso # (Auto) Neutrophils % (Manual) Band Neutrophils % Lymphocytes % (Manual) Monocytes % (Manual) Eosinophils % (Manual) Basophils % (Manual) Platelet Estimate Poikilocytosis (manual Anisocytosis (manual) Sodium 139 Potassium 3.3 L Chloride 100 Carbon Dioxide 25 Anion Gap 17 BUN 5 L Creatinine 0.5 L Est GFR ( Amer) > 60 Est GFR (Non-Af Amer) > 60 Random Glucose 126 H Calcium 8.5 L Magnesium 1.7 Total Bilirubin AST ALT Alkaline Phosphatase Total Protein Albumin Globulin Albumin/Globulin Ratio Lipase Urine Color Urine Clarity Urine pH Ur Specific [place] Urine Protein Urine Glucose (UA) Urine Ketones Urine Blood Urine Nitrate Urine Bilirubin Urine Urobilinogen Ur Leukocyte Esterase Urine WBC (Auto) Urine RBC (Auto) Ur Squamous Epith Cells C. difficile Ag & Toxin Negative Attending/Attestation - Attestation I have personally seen and examined this patient.: Yes I have fully participated in the care of the patient.: Yes I have reviewed all pertinent clinical information: Yes Notes (Text): 09/08/17 15:16 I have seen and examined patient with GI fellow. Agree with above documentation with the following additions. In brief, this is a 42 year old male with history of HIV/AIDS (not on therapy), shigellosis, giardiasis, who presents to hospital with complaint of progressive diarrhea over the past 5 days. Prior to this he was in usual state of health. He describes sudden onset diarrhea with multiple (greater than 10) bowel movements per day without presence of blood in stool. He also reports bilateral lower quadrant crampy abdominal pain but denies nausea, vomiting, fever/chills, recent travel, sick contacts, or antibiotic use. He does report a significant weight loss over the past one year but cannot quantify amount. He was recently hospitalized last month for treatment of shigellosis. He had an EGD several years ago, no prior colonoscopy. HIV/AIDS Diarrhea - CT imaging reviewed by me showing distal colitis Weight loss - Liquid diet as tolerated - Obtain stool studies (culture, c-difficile, O/P, cyclospora/isospora, crypto) - Continue with antibiotic regimen as per ID - Obtain repeat blood cultures - If patient not improved with conservative management, he may benefit from endoscopic evaluation to exclude for opportunistic infections. Will continue to monitor clinical course.
[2017-09-08] MEDS: Sodium Chloride 0.9% 1,000 ML IV SCH ×2 (12:27→22:16)
--- NOTE | 2017-09-08 12:50 | CT ---
Date of service: 09/08/2017 PROCEDURE: CT Abdomen and Pelvis with contrast HISTORY: abd pain COMPARISON: CT scan of the chest, abdomen and pelvis dated 07/25/2017. TECHNIQUE: Contrast dose: 100 mL Visipaque 320 Radiation dose: Total exam DLP = 472.4 mGy-cm. This CT exam was performed using one or more of the following dose reduction techniques: Automated exposure control, adjustment of the mA and/or kV according to patient size, and/or use of iterative reconstruction technique. FINDINGS: LOWER THORAX: Unremarkable. LIVER: Unremarkable. No gross lesion or ductal dilatation. GALLBLADDER AND BILE DUCTS: Unremarkable. PANCREAS: Unremarkable. No gross lesion or ductal dilatation. SPLEEN: Unremarkable. ADRENALS: Unremarkable. No mass. KIDNEYS AND URETERS: Unremarkable. No hydronephrosis. No solid mass. VASCULATURE: Unremarkable. No aortic aneurysm. BOWEL: Mild wall thickening of the descending and rectosigmoid colon. No obstruction. No gross mural thickening. APPENDIX: No findings to suggest acute appendicitis. PERITONEUM: Unremarkable. No free fluid. No free air. LYMPH NODES: Unremarkable. No enlarged lymph nodes. BLADDER: Unremarkable. REPRODUCTIVE: Unremarkable. BONES: No acute fracture. OTHER FINDINGS: None. IMPRESSION: Infectious/ inflammatory descending/rectosigmoid colitis.
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
[2017-09-08 13:13] LABS: BLOOD UREA NITROGEN 5 mg/dL (9-20); CALCIUM 8.5 mg/dl (8.6-10.4); GFR AFRICAN-AMERICAN > 60; GFR NON-AFRICAN AMERICAN > 60
--- NOTE | 2017-09-08 14:54 | CP.PCM.CON ---
History of Present Illness - History of Present Illness History of Present Illness: dictated Past Patient History - Infectious Disease Hx of Infectious Diseases: None - Past Medical History & Family History Past Medical History?: Yes - Past Social History Smoking Status: Former Smoker - CARDIAC Hx Hypercholesterolemia: Yes Hx Hypertension: Yes - PULMONARY Hx Respiratory Disorders: No - NEUROLOGICAL Hx Seizures: No - HEENT Hx HEENT Problems: No - RENAL Hx Chronic Kidney Disease: No - ENDOCRINE/METABOLIC Hx Endocrine Disorders: No - HEMATOLOGICAL/ONCOLOGICAL Hx Blood Disorders: Yes Hx Human Immunodeficiency Virus (HIV): Yes - INTEGUMENTARY Hx Dermatological Problems: No - MUSCULOSKELETAL/RHEUMATOLOGICAL Hx Musculoskeletal Disorders: No Hx Falls: No - GASTROINTESTINAL Hx Gastrointestinal Disorders: No Hx Diarrhea: Yes Hx Nausea: Yes HX Swallowing Problems: Yes - GENITOURINARY/GYNECOLOGICAL Hx Genitourinary Disorders: No Hx Sexually Transmitted Disorders: No - PSYCHIATRIC Hx Psychophysiologic Disorder: Yes Hx Anxiety: Yes Hx Bipolar Disorder: Yes Hx Depression: Yes Hx Substance Use: No - SURGICAL HISTORY Hx Surgeries: No Hx Appendectomy: No - ANESTHESIA Hx Anesthesia: No Hx Anesthesia Reactions: No Hx Malignant Hyperthermia: No Has any member of the family had a problem w/ anesthesia?: No Meds Allergies/Adverse Reactions: Allergies Allergy/AdvReac Type Severity Reaction Status Date / Time No Known Drug Allergies Allergy Unknown NKDA/NONE Verified 09/08/17 00:56 - Medications Medications: Current Medications Dapsone (Dapsone) 100 mg PO DAILY [facility] PRN Reason: Protocol Ciprofloxacin (Cipro 400mg/200ml Dsw) 400 mg in 200 mls @ 133 mls/hr IVPB Q12H [facility] PRN Reason: Protocol Last Admin: 09/08/17 07:54 Dose: 133 mls/hr Metronidazole (Flagyl) 500 mg in 100 mls @ 100 mls/hr IVPB Q8H [facility] PRN Reason: Protocol Last Admin: 09/08/17 09:16 Dose: 100 mls/hr Sodium Chloride (Sodium Chloride 0.9%) 1,000 mls @ 100 mls/hr IV .Q10H [facility] Last Admin: 09/08/17 12:27 Dose: 100 mls/hr Nystatin (Nystatin Oral Susp) 5 ml PO QID [facility] Last Admin: 09/08/17 09:12 Dose: 5 ml Saccharomyces Boulardii (Florastor) 250 mg PO BID [facility] Last Admin: 09/08/17 09:12 Dose: 250 mg Results - Vital Signs Recent Vital Signs: Last Vital Signs Temp 98.6 F 09/08/17 08:49 Pulse 85 09/08/17 08:49 Resp 18 09/08/17 08:49 BP 116/76 09/08/17 08:49 Pulse Ox 99 09/08/17 08:49 - Labs Result Diagrams: 09/08/17 01:45 09/08/17 12:41 Labs: Laboratory Results - last 24 hr 09/08/17 09/08/17 09/08/17 01:26 01:45 01:45 WBC 2.6 L RBC 4.39 L Hgb 11.5 L Hct 34.2 L MCV 77.9 L MCH 26.1 L MCHC 33.5 RDW 18.8 H Plt Count 412 H MPV 8.0 Neut % (Auto) 55.8 Lymph % (Auto) 14.2 L [place] % (Auto) 29.4 H Eos % (Auto) 0.3 Baso % (Auto) 0.3 Neut # (Auto) 1.5 L Lymph # (Auto) 0.4 L [place] # (Auto) 0.8 Eos # (Auto) 0.0 Baso # (Auto) 0.0 Neutrophils % (Manual) 49 L Band Neutrophils % 6 H Lymphocytes % (Manual) 20 Monocytes % (Manual) 23 H Eosinophils % (Manual) 1 Basophils % (Manual) 1 Platelet Estimate Normal Poikilocytosis (manual Moderate Anisocytosis (manual) Moderate Sodium 141 Potassium 2.5 L* D Chloride 96 L Carbon Dioxide 27 Anion Gap 20 BUN 6 L Creatinine 0.6 L Est GFR ( Amer) > 60 Est GFR (Non-Af Amer) > 60 Random Glucose 146 H Calcium 8.9 Magnesium 1.6 Total Bilirubin 0.5 AST 18 ALT 27 Alkaline Phosphatase 61 Total Protein 7.6 Albumin 4.1 Globulin 3.5 Albumin/Globulin Ratio 1.2 Lipase 165 Urine Color Yellow Urine Clarity Clear Urine pH 6.0 Ur Specific [place] 1.015 Urine Protein Negative Urine Glucose (UA) Normal Urine Ketones Negative Urine Blood Negative Urine Nitrate Negative Urine Bilirubin Negative Urine Urobilinogen Normal Ur Leukocyte Esterase Neg Urine WBC (Auto) 9 H Urine RBC (Auto) 1 Ur Squamous Epith Cells < 1 09/08/17 12:41 WBC RBC Hgb Hct MCV MCH MCHC RDW Plt Count MPV Neut % (Auto) Lymph % (Auto) [place] % (Auto) Eos % (Auto) Baso % (Auto) Neut # (Auto) Lymph # (Auto) [place] # (Auto) Eos # (Auto) Baso # (Auto) Neutrophils % (Manual) Band Neutrophils % Lymphocytes % (Manual) Monocytes % (Manual) Eosinophils % (Manual) Basophils % (Manual) Platelet Estimate Poikilocytosis (manual Anisocytosis (manual) Sodium 139 Potassium 3.3 L Chloride 100 Carbon Dioxide 25 Anion Gap 17 BUN 5 L Creatinine 0.5 L Est GFR ( Amer) > 60 Est GFR (Non-Af Amer) > 60 Random Glucose 126 H Calcium 8.5 L Magnesium 1.7 Total Bilirubin AST ALT Alkaline Phosphatase Total Protein Albumin Globulin Albumin/Globulin Ratio Lipase Urine Color Urine Clarity Urine pH Ur Specific [place] Urine Protein Urine Glucose (UA) Urine Ketones Urine Blood Urine Nitrate Urine Bilirubin Urine Urobilinogen Ur Leukocyte Esterase Urine WBC (Auto) Urine RBC (Auto) Ur Squamous Epith Cells
[2017-09-09] MEDS: metroNIDAZOLE IV 500 mg/100 ml 500 MG/100 ML BAG IVPB SCH ×3 (00:56→16:22)
--- NOTE | 2017-09-09 04:12 | CON ---
DATE: 09/08/2017 INFECTIOUS DISEASE CONSULTATION REQUESTED BY: Prabhu Chaudhry MD. HISTORY OF PRESENT ILLNESS: This patient is a 42-year-old male. He has history of HIV disease, he states, almost for 23 years. For last six months, he is not on HIV medicines. He said he could not afford it. He also has psych issues. He presented with diarrhea and abdominal pain, going on for five days. It is non-bloody, watery diarrhea. He says it is greenish color and had fever of 100. Also, complains of dizziness, chills, and generalized weakness. His potassium was low. He has watery diarrhea multiple times. He says more than 20 times and has abdominal pain of 6 to 7 when he came in. He is feeling slightly better right now. He also has oral candidiasis. He was admitted on 07/24/2017 and discharged from here. He said he came for similar complaints. He has been on HIV medicines, but he says that when he was on Stribild as well as Bactrim, he developed a rash and the doctor took away both the medicines and then gave him Tivicay and another medicine and dapsone for PCP prophylaxis. So, it is not clear whether he is allergic to Bactrim or allergic to the components of Stribild. He also has history of bipolar, anxiety, schizophrenia, paranoia, and depression. PAST SURGICAL HISTORY: Significant for tonsillectomy. FAMILY HISTORY: Father, he says, had schizophrenia and due to complications of a motor vehicle accident. Mother is 59 years old and healthy. ALLERGIES: HE IS NOT ALLERGIC TO ANY MEDICINE. SOCIAL HISTORY: He says he smokes. He says he does not do any drugs; and he is homosexual, he says, but does not have a partner for last 10 years. He lives alone, works at a [employer]; and he smokes 10 cigarettes a day, half pack a day for more than 25 years. Denies any drug abuse. Denies any ETOH abuse. He used cocaine, last use was 4 years ago. REVIEW OF SYSTEMS: He denies any fever, any chills now. Complains that he did have dizziness when he came in and has been having abdominal pain, crampy diarrhea. Denies any vomiting. No blood in the diarrhea. Denies any urinary symptoms. No chest pain. No shortness of breath. No abdominal pain. He denies any recent travel. He denies any relation to any food. PHYSICAL EXAMINATION: VITAL SIGNS: I found his temperature is 98.3, pulse 72, blood pressure 122/80, respirations are 20. HEENT: Head is atraumatic and normocephalic. Pupils are reacting to light. Tongue has thrush. NECK: Supple. JVP is flat. LUNGS: Clear. No crackles or rales present. HEART: S1, S2 is regular. ABDOMEN: Soft, nontender. No guarding. No rigidity present. EXTREMITIES: No edema, clubbing, or cyanosis. I looked at his old charts and his old charts shows me that his CD4 count was less than 20 and HIV viral load was present, and he was here from 07/24/2017 to 07/28/2017 with esophagitis, and then on 06/28/2017, he was here with substance abuse. He was with pneumonia from 12/04/2016 to 12/06/2016. LABORATORY DATA: White count is 2.6, hemoglobin is 11.5, hematocrit 34.2, platelet count is 412, and monocytes are 23. Sodium is 139, potassium 3.9 today; it is still low, he came with potassium of 2.5, chloride is 100, CO2 is 25, BUN is 5, creatinine 0.5, random is 126. UA is negative and wbc is 9. He insisted that I should start him on HIV medicines today as if it is an emergency while he has been six months off antiviral. So, at this time, I told him that if no rash, first, we want to control the diarrhea. Of course, he did have rash with Bactrim. So, I would stay away from that and give him dapsone which he was taking. When he goes, it may be prudent to give him the medicines he was taking which was Tivicay and something else which needs to be found out from the pharmacy and that pharmacy is in [place], so one of the residents can call and find that out. He had a CAT scan which showed infectious inflammatory descending rectosigmoid colitis; and he has HIV with colitis at this time. We will send stool for other tests also, so that we cover for the infections that are caused by Cryptosporidium in the stool. They can look for the antigen which was already ordered and then microsporidia and Isospora. To continue Cipro and Flagyl for now. Vickie Izaguirre MD
--- NOTE | 2017-09-09 05:59 | CP.PCM.PN ---
<Kiera Garcia - Last Filed: 09/09/17 20:37> Subjective - Date & Time of Evaluation Date of Evaluation: 09/09/17 Time of Evaluation: 09:20 - Subjective Subjective: PGY-1 Kiera Garcia D.O. Medicine progress note for Dr. Holland service : Patient is seen and evaluated this morning. He is lying comfortably in bed. Overall he states he is feeling somewhat better and has been ambulating around the unit. He reports he is still having watery diarrhea 3-4x/day. He is inquiring about starting on HIV meds prior to being discharged. It is explained to the patient that it is important to find out what meds he was on previously as to attempt to avoid resistance. He provided his pharmacy, but when called, they had no record of the pt. Patient is also still complaining of depression and that being the main impetus of his noncompliance. Objective - Vital Signs/Intake and Output Vital Signs (last 24 hours): Temp Pulse Resp BP Pulse Ox 97.3 F L 67 20 111/72 96 09/08/17 23:00 09/08/17 23:00 09/08/17 23:00 09/08/17 23:00 09/08/17 23:00 Intake and Output: 09/08/17 09/09/17 18:59 06:59 Output Total 300 Balance -300 - Medications Medications: Current Medications Dapsone (Dapsone) 100 mg PO 1600 [facility] PRN Reason: Protocol Last Admin: 09/08/17 20:26 Dose: Not Given Ciprofloxacin (Cipro 400mg/200ml Dsw) 400 mg in 200 mls @ 133 mls/hr IVPB Q12H [facility] PRN Reason: Protocol Last Admin: 09/08/17 20:10 Dose: 133 mls/hr Metronidazole (Flagyl) 500 mg in 100 mls @ 100 mls/hr IVPB Q8H [facility] PRN Reason: Protocol Last Admin: 09/09/17 00:56 Dose: 100 mls/hr Sodium Chloride (Sodium Chloride 0.9%) 1,000 mls @ 100 mls/hr IV .Q10H [facility] Last Admin: 09/08/17 22:16 Dose: Not Given Nystatin (Nystatin Oral Susp) 5 ml PO QID [facility] Last Admin: 09/08/17 22:55 Dose: 5 ml Saccharomyces Boulardii (Florastor) 250 mg PO BID [facility] Last Admin: 09/08/17 17:33 Dose: 250 mg - Labs Labs: 09/08/17 01:45 09/08/17 12:41 09/09/17 06:13 09/09/17 06:13 09/08/17 12:09 Ova and Parasite Concentrate Exam - Final Rectum 09/08/17 12:41 Blood Culture - Preliminary Blood NO GROWTH AFTER 24 HOURS 09/08/17 12:09 Blood Culture - Preliminary Blood NO GROWTH AFTER 24 HOURS 09/08/17 12:09 Stool Culture - Preliminary Stool Gram Negative Reinaldo - Constitutional Appears: Well, No Acute Distress, Other (thin) - Head Exam Head Exam: ATRAUMATIC, NORMAL INSPECTION, NORMOCEPHALIC - Eye Exam Eye Exam: EOMI, Normal appearance - ENT Exam ENT Exam: Mucous Membranes Moist, Normal Exam - Neck Exam Neck Exam: Full ROM, Normal Inspection - Respiratory Exam Respiratory Exam: Clear to Ausculation Bilateral, NORMAL BREATHING PATTERN - Cardiovascular Exam Cardiovascular Exam: REGULAR RHYTHM, +S1, +S2. absent: Murmur - GI/Abdominal Exam GI & Abdominal Exam: Soft, Tenderness (diffuse), Normal Bowel Sounds. absent: Mass, Rebound - Rectal Exam Rectal Exam: Deferred - Extremities Exam Extremities Exam: Full ROM, Normal Inspection - Back Exam Back Exam: NORMAL INSPECTION. absent: paraspinal tenderness - Neurological Exam Neurological Exam: Alert, Awake, Normal Gait, Oriented x3 - Psychiatric Exam Psychiatric exam: Normal Affect, Normal Mood - Skin Skin Exam: Intact, Normal Color, Warm Assessment and Plan - Assessment and Plan (Free Text) Assessment: Patient is a 42 yo male with a PMH of HIV (noncompliance with meds x6 months) and multiple psych dx (dep, anx, ?bipolar, ?schizphrenia) who presented with abdominal pain and watery diarrhea x 5 days. He was previously admitted last month for esophageal candidiasis and his CD4 count was <20. He is not currently on any home meds. He has multiple somatic and psychiatric complaints. Plan: Abdominal pain and diarrhea - H/o Shigella - GI consult- advance to bland diet as tolerated, complete 7 day course of abx - CT abdomen/Pelvis with IV contrast IMPRESSION: Infectious/ inflammatory descending/rectosigmoid colitis. - Cipro 400mg IV Q12H - Flagyl 500mg IV Q8H - Florastor 250mg PO BID - Blood Cx prelim negative >24hrs - Stool Cx prelim GNR (pt recently hospitalized with Shigella) - Stool O&P- none - C diff- negative - Fecal leukocytes- positive AIDS - Noncompliance with meds >6 mos - CD4 <20 in 07/2017 - ID consult- attempt to obtain previous meds but pharmacy pt provided has no record of the pt filling Rx - HIV RNA 5.32 - Changed Bactrim to Dapsone 100 mg PO daily as pt previous got rash with Bactrim use - Case management consult for discharge planning for HIV clinic follow-up Leukopenia, chronic 2/2 AIDS, worsening - WBC 1.5 - Neutropenia precautions - Granix 480 mcg SC ONCE - CBC in AM Hypokalemia, acute, improving- suspect 2/2 diarrhea - KCl 20 mEq added to IVF - CMP in AM Thrush of mouth and esophagus, improved - Nystatin 5ml PO QID H/o psychiatric disorder, chronic - Psych consult- recs pending IVF: NS with KCl 20 mEq @ 100 mL/hr GI ppx: not indicated DVT ppx: Ambulating, SCDs Code status: full code <Rachel Chaudhry - Last Filed: 09/09/17 21:08> Objective - Vital Signs/Intake and Output Vital Signs (last 24 hours): Temp Pulse Resp BP Pulse Ox 97.9 F 75 18 115/75 99 09/09/17 15:35 09/09/17 15:35 09/09/17 15:35 09/09/17 15:35 09/09/17 15:35 Intake and Output: 09/09/17 09/10/17 18:59 06:59 Intake Total 1910 Balance 1910 - Medications Medications: Current Medications Dapsone (Dapsone) 100 mg PO 1600 [facility] PRN Reason: Protocol Last Admin: 09/09/17 16:22 Dose: 100 mg Enoxaparin Sodium (Lovenox) 30 mg SC DAILY [facility] Last Admin: 09/09/17 10:24 Dose: 30 mg Ciprofloxacin (Cipro 400mg/200ml Dsw) 400 mg in 200 mls @ 133 mls/hr IVPB Q12H [facility] PRN Reason: Protocol Last Admin: 09/09/17 20:01 Dose: 133 mls/hr Metronidazole (Flagyl) 500 mg in 100 mls @ 100 mls/hr IVPB Q8H [facility] PRN Reason: Protocol Last Admin: 09/09/17 16:22 Dose: 100 mls/hr Potassium Chloride 20 meq/ (Sodium Chloride) 1,010 mls @ 100 mls/hr IV .Q10H6M [facility] Last Admin: 09/09/17 17:58 Dose: 100 mls/hr Nystatin (Nystatin Oral Susp) 5 ml PO QID [facility] Last Admin: 09/09/17 17:59 Dose: 5 ml Potassium Chloride (K-Dur 20 Meq Er Tab) 40 meq PO ONCE [facility] Last Admin: 09/09/17 10:34 Dose: 40 meq Saccharomyces Boulardii (Florastor) 250 mg PO BID [facility] Last Admin: 09/09/17 17:59 Dose: 250 mg - Labs Labs: 09/09/17 06:13 09/09/17 06:13 Attending/Attestation - Attestation I have personally seen and examined this patient.: Yes I have fully participated in the care of the patient.: Yes I have reviewed all pertinent clinical information, including history, physical exam and plan: Yes Notes (Text): Seen and examined by me. C/O diarrhea,no abdominal pain on examination his abdomen is nontender,no mass 1.Diarrhea stool Gram neg rods.( s/p shigella infection) continue cipro and flagyl,follow c/s 2.AIDS noncompliance with HAART On Dapsone for PCP prophylaxis 3.Neutropenia 4.Hypokalemia d/w Resident in detail. I agree with the documentation of the assessment and the plan
[2017-09-09 06:23] LABS: EOS % 0.9 % (0.0-4.0); HEMOGLOBIN 10.6 g/dL (12.0-18.0); LYMPH # 0.5 K/uL (1.0-4.3); LYMPH % 29.6 % (20.0-40.0); MEAN CELL VOLUME 78.6 fL (80.0-94.0); MEAN CORPUSCULAR HEMOGLOBIN 26.1 pg (27.0-31.0); MEAN CORPUSCULAR HGB CONC 33.2 g/dL (33.0-37.0); MEAN PLATELET VOLUME 8.1 fL (7.2-11.7); MONO # 0.4 K/uL (0.0-0.8); MONO % 28.4 % (0.0-10.0); NEUT # 0.6 K/uL (1.8-7.0); NEUT % 40.1 % (50.0-75.0); NRBC % 0.3 % (0.0-2.0); PLATELET COUNT 359 K/uL (130-400); RBC 4.05 Mil/uL (4.40-5.90); RED CELL DISTRIBUTION WIDTH 18.9 % (11.5-14.5)
[2017-09-09] MEDS: Ciprofloxacin 400mg/200ml D5W 400 MG/200 ML BAG IVPB SCH ×2 (06:24→20:01)
[2017-09-09] MEDS: Sodium Chloride 0.9% 1,000 ML IV SCH ×2 (06:25→10:25)
[2017-09-09 06:36] LABS: WHITE BLOOD COUNT 1.5 K/uL (4.8-10.8)
--- NOTE | 2017-09-09 06:43 | CP.PCM.PN ---
<Sai Garcia - Last Filed: 09/09/17 08:48> Subjective - Date & Time of Evaluation Date of Evaluation: 09/09/17 Time of Evaluation: 07:00 - Subjective Subjective: PGY-4 GI Fellow Prog Note Pt lying in bed when seen this AM. States feels much better than day prior with only 3 loose BMs and he feels that they are starting to be more formed. Eager to advance diet. Denied f/c, sob, abd pain, n/v. 5 point ROS negative other than stated above. Objective - Vital Signs/Intake and Output Vital Signs (last 24 hours): Temp Pulse Resp BP Pulse Ox 97.3 F L 67 20 111/72 96 09/08/17 23:00 09/08/17 23:00 09/08/17 23:00 09/08/17 23:00 09/08/17 23:00 Intake and Output: 09/08/17 09/09/17 18:59 06:59 Output Total 300 Balance -300 - Medications Medications: Current Medications Dapsone (Dapsone) 100 mg PO 1600 [facility] PRN Reason: Protocol Last Admin: 09/08/17 20:26 Dose: Not Given Ciprofloxacin (Cipro 400mg/200ml Dsw) 400 mg in 200 mls @ 133 mls/hr IVPB Q12H [facility] PRN Reason: Protocol Last Admin: 09/09/17 06:24 Dose: 133 mls/hr Metronidazole (Flagyl) 500 mg in 100 mls @ 100 mls/hr IVPB Q8H [facility] PRN Reason: Protocol Last Admin: 09/09/17 00:56 Dose: 100 mls/hr Sodium Chloride (Sodium Chloride 0.9%) 1,000 mls @ 100 mls/hr IV .Q10H [facility] Last Admin: 09/09/17 06:25 Dose: 100 mls/hr Nystatin (Nystatin Oral Susp) 5 ml PO QID [facility] Last Admin: 09/08/17 22:55 Dose: 5 ml Saccharomyces Boulardii (Florastor) 250 mg PO BID [facility] Last Admin: 09/08/17 17:33 Dose: 250 mg - Labs Labs: 09/09/17 06:13 09/08/17 12:41 - Constitutional Appears: Well, Non-toxic - Eye Exam Eye Exam: EOMI. absent: Conjunctival injection, Scleral icterus - Respiratory Exam Respiratory Exam: Clear to Ausculation Bilateral, NORMAL BREATHING PATTERN. absent: Accessory Muscle Use, Respiratory Distress - Cardiovascular Exam Cardiovascular Exam: REGULAR RHYTHM. absent: Tachycardia - GI/Abdominal Exam GI & Abdominal Exam: Soft, Normal Bowel Sounds. absent: Bruit, Distended, Firm , Guarding, Rigid, Tenderness, Diminished Bowel Sounds, Hernia, Rebound - Skin Skin Exam: Dry, Intact Assessment and Plan - Assessment and Plan (Free Text) Assessment: 42 yo WM with HIV/AIDS presenting with watery diarrhea. # Watery Diarrhea: Broad differential in pt with AIDs with last CD4 <20 on 07/26, including but not limited to crypto, cyclospora, c diff (recent abx use) or others. C diff negative this admission. No signs of GI bleeding at this time. Symptomatically improved since admission. Plan: - Agree with ciprofloxacin, metronidazole, TMP/SMX and nystatin (recent oral thrush) --- To complete 7 day course of cipro + metronidazole for colitis (can be done as outpatient) - Agree with ID consult - F/u Stool Cx, Cyclospora, Crypto, O&P as outpatient - Advanced diet to Regular Vegetarian as concerned for undercooked meat in setting of immunosuppresed patient - Counseled pt on importance of close f/u with HIV doctor and compliance with HAART Thank you for the consult. Will sign off. Please page if questions. Pt seen and examined with Dr. Duckworth <Wilbur Duckworth - Last Filed: 09/09/17 09:35> Objective - Vital Signs/Intake and Output Vital Signs (last 24 hours): Temp Pulse Resp BP Pulse Ox 97.4 F L 73 20 114/71 99 09/09/17 07:00 09/09/17 07:00 09/09/17 07:00 09/09/17 07:00 09/09/17 07:00 Intake and Output: 09/09/17 09/09/17 06:59 18:59 Intake Total 800 Output Total 300 Balance 500 - Medications Medications: Current Medications Dapsone (Dapsone) 100 mg PO 1600 [facility] PRN Reason: Protocol Last Admin: 09/08/17 20:26 Dose: Not Given Enoxaparin Sodium (Lovenox) 30 mg SC DAILY [facility] Ciprofloxacin (Cipro 400mg/200ml Dsw) 400 mg in 200 mls @ 133 mls/hr IVPB Q12H [facility] PRN Reason: Protocol Last Admin: 09/09/17 06:24 Dose: 133 mls/hr Metronidazole (Flagyl) 500 mg in 100 mls @ 100 mls/hr IVPB Q8H [facility] PRN Reason: Protocol Last Admin: 09/09/17 00:56 Dose: 100 mls/hr Sodium Chloride (Sodium Chloride 0.9%) 1,000 mls @ 100 mls/hr IV .Q10H [facility] Last Admin: 09/09/17 06:25 Dose: 100 mls/hr Nystatin (Nystatin Oral Susp) 5 ml PO QID [facility] Last Admin: 09/08/17 22:55 Dose: 5 ml Saccharomyces Boulardii (Florastor) 250 mg PO BID [facility] Last Admin: 09/08/17 17:33 Dose: 250 mg - Labs Labs: 09/09/17 06:13 09/09/17 06:13 Attending/Attestation - Attestation I have personally seen and examined this patient.: Yes I have fully participated in the care of the patient.: Yes I have reviewed all pertinent clinical information, including history, physical exam and plan: Yes Notes (Text): 09/09/17 09:33 I have seen and examined patient with GI fellow. No acute events overnight, his diarrhea has significantly improved (only 3 bowel movements over past 24 hours). He denies abdominal pain, nausea, vomiting, fever/chills. He is hungry and asking for diet to be advanced. HIV / AIDS Diarrhea - colitis Weight loss - Advance to bland diet as tolerated - Continue with antibiotic therapy to complete 7 day course - Follow up ID recommendations regarding advanced AIDS - Follow up stool studies and blood culture results - No further planned GI interventions, will sign off case. Patient would benefit from outpatient follow up. Please reconsult as necessary, thank you.
[2017-09-09 07:02] LABS: ALBUMIN 3.5 g/dL (3.5-5.0); ALT/SGPT 23 U/L (21-72); AST/SGOT 19 U/L (17-59); BLOOD UREA NITROGEN 3 mg/dL (9-20); CALCIUM 8.6 mg/dl (8.6-10.4); GFR AFRICAN-AMERICAN > 60; GFR NON-AFRICAN AMERICAN > 60
[2017-09-09 08:40] LABS: BANDS 3 % (0-2); BASOPHIL 1 % (0-2); EOSINOPHIL 3 % (0-4); LYMPHOCYTE 25 % (20-40); MONOCYTE 27 % (0-10); NEUTROPHIL 41 % (50-75); PLATELET ESTIMATE NORMAL (NORMAL); TOTAL CELLS COUNTED 100
[2017-09-09 08:41] LABS: ANISOCYTOSIS SLIGHT; HYPOCHROMIC SLIGHT; OVALOCYTES SLIGHT; POIKILOCYTOSIS SLIGHT
[2017-09-09] MEDS: Enoxaparin 30 mg Syringe SC SCH (10:24)
[2017-09-09] MEDS: Saccharomyces Boulardi 250 mg Cap PO SCH ×2 (10:24→17:59)
[2017-09-09] MEDS: Nystatin 100,000 Units/ml Oral Susp 5 ml UD PO SCH ×4 (10:24→21:41)
[2017-09-09] MEDS ORDERED: Potassium Chloride 20 mEq ER Tab PO SCH (10:30)
--- NOTE | 2017-09-09 22:47 | CP.PCM.PN ---
Subjective - Date & Time of Evaluation Date of Evaluation: 09/09/17 Time of Evaluation: 02:00 - Subjective Subjective: dictated Objective - Vital Signs/Intake and Output Vital Signs (last 24 hours): Temp Pulse Resp BP Pulse Ox 97.9 F 75 18 115/75 99 09/09/17 15:35 09/09/17 15:35 09/09/17 15:35 09/09/17 15:35 09/09/17 15:35 Intake and Output: 09/09/17 09/10/17 18:59 06:59 Intake Total 1910 Balance 1910 - Medications Medications: Current Medications Dapsone (Dapsone) 100 mg PO 1600 [facility] PRN Reason: Protocol Last Admin: 09/09/17 16:22 Dose: 100 mg Enoxaparin Sodium (Lovenox) 30 mg SC DAILY [facility] Last Admin: 09/09/17 10:24 Dose: 30 mg Ciprofloxacin (Cipro 400mg/200ml Dsw) 400 mg in 200 mls @ 133 mls/hr IVPB Q12H [facility] PRN Reason: Protocol Last Admin: 09/09/17 20:01 Dose: 133 mls/hr Metronidazole (Flagyl) 500 mg in 100 mls @ 100 mls/hr IVPB Q8H [facility] PRN Reason: Protocol Last Admin: 09/09/17 16:22 Dose: 100 mls/hr Potassium Chloride 20 meq/ (Sodium Chloride) 1,010 mls @ 100 mls/hr IV .Q10H6M [facility] Last Admin: 09/09/17 17:58 Dose: 100 mls/hr Nystatin (Nystatin Oral Susp) 5 ml PO QID [facility] Last Admin: 09/09/17 21:41 Dose: 5 ml Potassium Chloride (K-Dur 20 Meq Er Tab) 40 meq PO ONCE [facility] Last Admin: 09/09/17 10:34 Dose: 40 meq Saccharomyces Boulardii (Florastor) 250 mg PO BID [facility] Last Admin: 09/09/17 17:59 Dose: 250 mg - Labs Labs: 09/09/17 06:13 09/09/17 06:13
[2017-09-10 00:13] VITALS: RESP 20
[2017-09-10] MEDS: metroNIDAZOLE IV 500 mg/100 ml 500 MG/100 ML BAG IVPB SCH ×3 (01:30→18:10)
[2017-09-10] MEDS ORDERED: guaiFENesin-Codeine 100-10mg/5ml Syrup (10ml) UD PO ONE (01:38)
--- NOTE | 2017-09-10 04:39 | PN ---
Copied To: Vickie Izaguirre MD Attending MD: Vickie Izaguirre MD DATE: 09/09/2017 SUBJECTIVE: The patient was seen today. He was feeling a little better. I did come to know that his stool was growing gram-negative bacilli, ID and sensitivity of which is pending. He was, however, feeling better. His potassium was better. He did have three loose BMs, and he was developing an appetite to eat food and advance his diet. He says his stool was formed at this time, potassium was better, so I am going to leave it as it is and follow the ID and sensitivity tomorrow. PHYSICAL EXAMINATION: VITAL SIGNS: T-max is 97.9, pulse 75, blood pressure 115/75, respirations are 18. GENERAL: He is awake, alert, and is thankful for being better. HEENT: Head is atraumatic, normocephalic. No icterus present. NECK: Supple. LUNGS: Clear. HEART: S1 and S2 are regular. ABDOMEN: Soft, nontender. No guarding, no rigidity present. EXTREMITIES: Have no edema, clubbing, or cyanosis. LABORATORY DATA: His white count today is 1.5, hemoglobin 10.6, hematocrit 31.8. Potassium is 3.3, BUN is 5, creatinine 0.5, and glucose is 126. I am told that he got a Neupogen injection today. He is HIV positive. He is on Cipro. I have put him back on Dapsone to cover for PCP prophylaxis. He is also on Flagyl at this time. Will continue both. He is getting potassium supplement, nystatin, potassium chloride, . He did get Granix (filgrastim) this morning, so should be better, and we will follow the WBC tomorrow and see if he needs another one. Labs are noted. Labs show micro-nguyen, blood cultures are negative and stool has gram-negative rods. We will wait for the ID and sensitivity of the organism. The patient came in with significant diarrhea, hypokalemia, and he has AIDS. He has been off medications, but since he is infected at this time, it is not the right time to start the HAART therapy as that may cause a syndrome called IRIS and may cause the patient to be much sicker than what he is at this time. Vickie Izaguirre MD [facility] # [id number]
--- NOTE | 2017-09-10 06:37 | CP.PCM.PN ---
Subjective - Date & Time of Evaluation Date of Evaluation: 09/10/17 Objective - Vital Signs/Intake and Output Vital Signs (last 24 hours): Temp Pulse Resp BP Pulse Ox 97.7 F 74 20 129/75 99 09/10/17 00:00 09/10/17 00:00 09/10/17 00:00 09/10/17 00:00 09/10/17 00:00 Intake and Output: 09/09/17 09/10/17 18:59 06:59 Intake Total 1910 Balance 1910 - Medications Medications: Current Medications Dapsone (Dapsone) 100 mg PO 1600 [facility] PRN Reason: Protocol Last Admin: 09/09/17 16:22 Dose: 100 mg Enoxaparin Sodium (Lovenox) 30 mg SC DAILY [facility] Last Admin: 09/09/17 10:24 Dose: 30 mg Ciprofloxacin (Cipro 400mg/200ml Dsw) 400 mg in 200 mls @ 133 mls/hr IVPB Q12H [facility] PRN Reason: Protocol Last Admin: 09/09/17 20:01 Dose: 133 mls/hr Metronidazole (Flagyl) 500 mg in 100 mls @ 100 mls/hr IVPB Q8H [facility] PRN Reason: Protocol Last Admin: 09/10/17 01:30 Dose: 100 mls/hr Potassium Chloride 20 meq/ (Sodium Chloride) 1,010 mls @ 100 mls/hr IV .Q10H6M [facility] Last Admin: 09/10/17 04:00 Dose: Not Given Nystatin (Nystatin Oral Susp) 5 ml PO QID [facility] Last Admin: 09/09/17 21:41 Dose: 5 ml Potassium Chloride (K-Dur 20 Meq Er Tab) 40 meq PO ONCE [facility] Last Admin: 09/09/17 10:34 Dose: 40 meq Saccharomyces Boulardii (Florastor) 250 mg PO BID [facility] Last Admin: 09/09/17 17:59 Dose: 250 mg - Labs Labs: 09/09/17 06:13 09/09/17 06:13
[2017-09-10] MEDS: Ciprofloxacin 400mg/200ml D5W 400 MG/200 ML BAG IVPB SCH (06:46)
[2017-09-10 07:53] VITALS: PULSE 69
[2017-09-10 08:00] LABS: BASO % 0.2 % (0.0-2.0); EOS % 0.1 % (0.0-4.0); HEMOGLOBIN 10.3 g/dL (12.0-18.0); LYMPH # 0.7 K/uL (1.0-4.3); LYMPH % 4.4 % (20.0-40.0); MEAN CELL VOLUME 78.8 fL (80.0-94.0); MEAN CORPUSCULAR HEMOGLOBIN 26.4 pg (27.0-31.0); MEAN CORPUSCULAR HGB CONC 33.5 g/dL (33.0-37.0); MEAN PLATELET VOLUME 8.3 fL (7.2-11.7); MONO # 0.8 K/uL (0.0-0.8); NEUT # 14.4 K/uL (1.8-7.0); NEUT % 90.3 % (50.0-75.0); PLATELET COUNT 357 K/uL (130-400); RBC 3.91 Mil/uL (4.40-5.90); RED CELL DISTRIBUTION WIDTH 18.9 % (11.5-14.5)
[2017-09-10 08:32] LABS: ALBUMIN 3.1 g/dL (3.5-5.0); ALT/SGPT 28 U/L (21-72); AST/SGOT 17 U/L (17-59); BLOOD UREA NITROGEN 5 mg/dL (9-20); CALCIUM 8.5 mg/dl (8.6-10.4); GFR AFRICAN-AMERICAN > 60; GFR NON-AFRICAN AMERICAN > 60
[2017-09-10 09:19] LABS: ANISOCYTOSIS SLIGHT; BANDS 5 % (0-2); HYPOCHROMIC SLIGHT; LYMPHOCYTE 1 % (20-40); MONOCYTE 1 % (0-10); NEUTROPHIL 93 % (50-75); OVALOCYTES SLIGHT; PLATELET ESTIMATE NORMAL (NORMAL); POIKILOCYTOSIS SLIGHT; TOTAL CELLS COUNTED 100
[2017-09-10 09:21] LABS: BURR CELLS SLIGHT; TARGET CELLS SLIGHT
[2017-09-10] MEDS: Magnesium Sulfate 1 gm in D5W 1 GM/100 ML BAG IVPB SCH ×2 (09:58→10:30)
[2017-09-10] MEDS ORDERED: Potassium & Sodium Phosphate PO SCH (10:00)
[2017-09-10] MEDS: Saccharomyces Boulardi 250 mg Cap PO SCH ×2 (10:01→18:38)
[2017-09-10] MEDS: Nystatin 100,000 Units/ml Oral Susp 5 ml UD PO SCH ×3 (10:01→18:38)
[2017-09-10] MEDS: Enoxaparin 30 mg Syringe SC SCH (10:01)
[2017-09-10] MEDS ORDERED: Sodium Phosphate 15 MMOLE in Sodium Chloride 0.9% 250 ML IVPB ONE (12:00)
--- NOTE | 2017-09-10 12:29 | CP.PCM.PN ---
Subjective - Date & Time of Evaluation Date of Evaluation: 09/10/17 Time of Evaluation: 11:00 - Subjective Subjective: dictated Objective - Vital Signs/Intake and Output Vital Signs (last 24 hours): Temp Pulse Resp BP Pulse Ox 97.8 F 69 20 116/81 97 09/10/17 07:00 09/10/17 07:00 09/10/17 07:00 09/10/17 07:00 09/10/17 07:00 - Medications Medications: Current Medications Dapsone (Dapsone) 100 mg PO 1600 [facility] PRN Reason: Protocol Last Admin: 09/09/17 16:22 Dose: 100 mg Enoxaparin Sodium (Lovenox) 30 mg SC DAILY [facility] Last Admin: 09/10/17 10:01 Dose: 30 mg Ciprofloxacin (Cipro 400mg/200ml Dsw) 400 mg in 200 mls @ 133 mls/hr IVPB Q12H [facility] PRN Reason: Protocol Last Admin: 09/10/17 06:46 Dose: 133 mls/hr Metronidazole (Flagyl) 500 mg in 100 mls @ 100 mls/hr IVPB Q8H [facility] PRN Reason: Protocol Last Admin: 09/10/17 10:00 Dose: 100 mls/hr Sodium Phosphate 15 mmole/ (Sodium Chloride) 255 mls @ 50 mls/hr IVPB .Q5H6M ONE Stop: 09/10/17 17:05 Nystatin (Nystatin Oral Susp) 5 ml PO QID [facility] Last Admin: 09/10/17 10:01 Dose: 5 ml Saccharomyces Boulardii (Florastor) 250 mg PO BID [facility] Last Admin: 09/10/17 10:01 Dose: 250 mg - Labs Labs: 09/10/17 07:48 09/10/17 07:48
[2017-09-10 15:12] LABS: SOURCE STOOL
[2017-09-10 15:29] VITALS: BP 122/77; TEMP 97.9; O2SAT 100
[2017-09-10] MEDS ORDERED: Potassium & Sodium Phosphate PO ONE (16:19)
[2017-09-10 18:05] LABS: SOURCE STOOL
--- NOTE | 2017-09-10 18:12 | PN ---
Copied To: Vickie Izaguirre MD Attending MD: Vickie Izaguirre MD DATE: 09/10/2017 SUBJECTIVE: The patient is feeling a little better. His phosphorus is low. They are supplementing it. He is trying to eat and he is on neutropenic precautions. PHYSICAL EXAMINATION: VITAL SIGNS: T-max is 97.8, pulse 69, blood pressure 116/81, and respirations are 20. GENERAL: He denies any abdominal pain. He says he is having fewer bowel movements and denies any vomiting. HEENT: Head is atraumatic. Tongue is moist. NECK: Supple. LUNGS: Clear. HEART: S1 and S2 are regular. ABDOMEN: Soft and nontender. No guarding. No rigidity present. EXTREMITIES: Have no edema. Stool culture came back ova and parasite negative. Culture is negative and he is improving. LABORATORY DATA: His white count is 16. He was given Neupogen yesterday and creatinine is 0.5, and I told him that he needs to improve from this acute enteritis and colitis, and then only he can get the HIV medications. He can be referred to the [facility] as he may need Neupogen also and approval for other prophylaxis, and he is on dapsone for PCP prophylaxis at this time. His last CD4 was less than 20 and and will need treatment. For now, I will continue IV Cipro. We will get labs tomorrow and if he is feeling better and electrolyte imbalance is corrected, he probably can go on Cipro and Flagyl. The stool yesterday had gram-negative and they have corrected it and there is no growth on it. Vickie Izaguirre MD
--- NOTE | 2017-09-10 19:16 | CP.PCM.DIS ---
Provider - Provider Date of Admission: 09/08/17 05:49 Attending physician: Colby Edward MD Consults: ID, GI, psych Time Spent in preparation of Discharge (in minutes): 45 Diagnosis - Discharge Diagnosis (1) Abdominal pain Status: Acute Priority: High (2) Diarrhea Status: Acute Priority: High (3) AIDS Status: Chronic Priority: High (4) Leukopenia Status: Chronic Priority: High (5) Hypokalemia Status: Resolved Priority: Medium (6) Hypophosphatemia Status: Acute Priority: Medium (7) Thrush of mouth and esophagus Status: Resolved Priority: Low (8) Psychiatric disorder Status: Chronic Priority: Low Hospital Course - Lab Results Lab Results: Micro Results 09/08/17 12:41 Blood Blood Culture - Preliminary NO GROWTH AFTER 48 HOURS 09/08/17 12:09 Blood Blood Culture - Preliminary NO GROWTH AFTER 48 HOURS 09/08/17 12:09 Stool Stool Culture - Final NO SALMONELLA, SHIGELLA OR CAMPYLOBACTER ISOLATED. 09/08/17 12:09 Rectum Ova and Parasite Concentrate Exam - Final Most Recent Lab Values WBC 16.0 K/uL (4.8-10.8) H D 09/10/17 07:48 RBC 3.91 Mil/uL (4.40-5.90) L 09/10/17 07:48 Hgb 10.3 g/dL (12.0-18.0) L 09/10/17 07:48 Hct 30.8 % (35.0-51.0) L 09/10/17 07:48 MCV 78.8 fL (80.0-94.0) L 09/10/17 07:48 MCH 26.4 pg (27.0-31.0) L 09/10/17 07:48 MCHC 33.5 g/dL (33.0-37.0) 09/10/17 07:48 RDW 18.9 % (11.5-14.5) H 09/10/17 07:48 Plt Count 357 K/uL (130-400) 09/10/17 07:48 MPV 8.3 fL (7.2-11.7) 09/10/17 07:48 Neut % (Auto) 90.3 % (50.0-75.0) H 09/10/17 07:48 Lymph % (Auto) 4.4 % (20.0-40.0) L 09/10/17 07:48 [place] % (Auto) 5.0 % (0.0-10.0) 09/10/17 07:48 Eos % (Auto) 0.1 % (0.0-4.0) 09/10/17 07:48 Baso % (Auto) 0.2 % (0.0-2.0) 09/10/17 07:48 Neut # (Auto) 14.4 K/uL (1.8-7.0) H 09/10/17 07:48 Lymph # (Auto) 0.7 K/uL (1.0-4.3) L 09/10/17 07:48 [place] # (Auto) 0.8 K/uL (0.0-0.8) 09/10/17 07:48 Eos # (Auto) 0.0 K/uL (0.0-0.7) 09/10/17 07:48 Baso # (Auto) 0.0 K/uL (0.0-0.2) 09/10/17 07:48 Neutrophils % (Manual) 93 % (50-75) H 09/10/17 07:48 Band Neutrophils % 5 % (0-2) H 09/10/17 07:48 Lymphocytes % (Manual) 1 % (20-40) L 09/10/17 07:48 Monocytes % (Manual) 1 % (0-10) 09/10/17 07:48 Eosinophils % (Manual) 3 % (0-4) 09/09/17 06:13 Basophils % (Manual) 1 % (0-2) 09/09/17 06:13 Platelet Estimate Normal (NORMAL) 09/10/17 07:48 Hypochromasia (manual) Slight 09/10/17 07:48 Poikilocytosis (manual Slight 09/10/17 07:48 Anisocytosis (manual) Slight 09/10/17 07:48 Target Cells Slight 09/10/17 07:48 Ovalocytes Slight 09/10/17 07:48 [place] Cells Slight 09/10/17 07:48 Sodium 143 mmol/L (132-148) 09/10/17 07:48 Potassium 4.4 mmol/L (3.6-5.2) 09/10/17 07:48 Chloride 107 mmol/L (98-107) 09/10/17 07:48 Carbon Dioxide 28 mmol/L (22-30) 09/10/17 07:48 Anion Gap 13 (10-20) 09/10/17 07:48 BUN 5 mg/dL (9-20) L 09/10/17 07:48 Creatinine 0.5 mg/dL (0.8-1.5) L 09/10/17 07:48 Est GFR ( Amer) > 60 09/10/17 07:48 Est GFR (Non-Af Amer) > 60 09/10/17 07:48 Random Glucose 88 mg/dL (75-110) 09/10/17 07:48 Calcium 8.5 mg/dl (8.6-10.4) L 09/10/17 07:48 Phosphorus 0.9 mg/dL (2.5-4.5) L* 09/10/17 07:48 Magnesium 1.4 mg/dL (1.6-2.3) L 09/10/17 07:48 Total Bilirubin 0.2 mg/dL (0.2-1.3) 09/10/17 07:48 AST 17 U/L (17-59) 09/10/17 07:48 ALT 28 U/L (21-72) 09/10/17 07:48 Alkaline Phosphatase 61 U/L (38-126) 09/10/17 07:48 Total Protein 6.2 g/dL (6.3-8.3) L 09/10/17 07:48 Albumin 3.1 g/dL (3.5-5.0) L 09/10/17 07:48 Globulin 3.1 gm/dL (2.2-3.9) 09/10/17 07:48 Albumin/Globulin Ratio 1.0 (1.0-2.1) 09/10/17 07:48 Lipase 165 U/L (23-300) 09/08/17 01:45 Urine Color Yellow (YELLOW) 09/08/17 01:26 Urine Clarity Clear (Clear) 09/08/17 01:26 Urine pH 6.0 (5.0-8.0) 09/08/17 01:26 Ur Specific Mckenzie 1.015 (1.003-1.030) 09/08/17 01:26 Urine Protein Negative mg/dL (NEGATIVE) 09/08/17 01:26 Urine Glucose (UA) Normal mg/dL (Normal) 09/08/17 01:26 Urine Ketones Negative mg/dL (NEGATIVE) 09/08/17 01:26 Urine Blood Negative (NEGATIVE) 09/08/17 01:26 Urine Nitrate Negative (NEGATIVE) 09/08/17 01:26 Urine Bilirubin Negative (NEGATIVE) 09/08/17 01:26 Urine Urobilinogen Normal mg/dL (0.2-1.0) 09/08/17 01:26 Ur Leukocyte Esterase Neg Carl/uL (Negative) 09/08/17 01:26 Urine WBC (Auto) 9 /hpf (0-5) H 09/08/17 01:26 Urine RBC (Auto) 1 /hpf (0-3) 09/08/17 01:26 Ur Squamous Epith Cells < 1 /hpf (0-5) 09/08/17 01:26 Stool Occult Blood Negative (NEGATIVE) 09/08/17 20:39 Stool Leukocytes, Qual Positive (NEGATIVE) H 09/08/17 12:09 Stl Cyclospora species Not detected (Not Detected) 09/08/17 20:04 Stl Cryptosporidium Ag Not detected (Not detected) 09/08/17 20:04 Stool Comments TEST NOT PERFORMED 09/08/17 20:04 C. difficile Ag & Toxin Negative (NEGATIVE) 09/08/17 12:09 Cryptosp/Giardia Source Stool 09/08/17 20:04 HIV-1 RNA Qnt (RT-PCR) 5.32 (Not Detected) H 09/08/17 10:24 Isospora Exam Not detected (Not Detected) 09/08/17 20:04 - Hospital Course Hospital Course: Patient is a 42 year old male with past medical history of HIV (diagnosed 23 years ago) and multiple psychiatry illnesses, who presents to the ED with complaints of diarrhea and abdominal pain that has been going on for 5 days. Patient states that he has been having non-bloody watery bowel movements > 20 times per day for the past 5 days. Patient reports associated symptoms of fever (Tmax at home 100.0), chills, dizziness, and generalized weakness. Patient describes his associated abdominal pain as 6-7 cramping that radiates to the sides of his abdomen. Patient admits to subjective fever, chills, nausea, dizziness. Patient's last admission 07/24/17 for esophageal candidiasis. Patient states that he has not been anti-HIV medication for the past 6 months due to lack of finances and insurance and depression. Upon admission, the patient was complaining of watery diarrhea and diffuse abdominal pain. He also endorses depressive symptoms, contributing to his noncompliant of HIV medications. The patients CD4 was <20 during his admission last month. IV Cipro and Flagyl were started as empiric therapy for the diarrhea. CT A/P demonstrated colitis. Bactrim was also started for ppx. This was changed to dapsone as patient previously had a rash with Bactrim. ID was consulted and did not want to start any antivirals at this time as they would prefer to determine what patient was on in the past and not confer resistance. Patient was unable to provide a pharmacy, so he will follow-up with ID as an outpatient and be transferred to an HIV clinic. GI was consulted and recommending continuing IV abx. They also obtained multiple stool studies, which were negative for occult blood, C diff, O&P, cryptosporidium, and cyclospora. They also recommended a bland diet and avoiding uncooked meat. Additionally, psychiatry was consulted for the patients psychiatric history and symptoms of depression. He will follow-up as an outpatient for further management. 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 When the patients WBCs were 1.5 on day 2 of admission, he received one dose of Granix and responded well. His electrolytes were also corrected during the course of his hospitalization. At the time of discharge, the frequency of diarrhea decreased to approximately 6x/day. Additionally, the patient reported his stool was more formed. He also endorsed less abdominal pain. He was tolerating both liquids and solids and had a good appetite. He was instructed to follow-up with PCP and outpatient specialists for further care. Discharge Exam - Head Exam Head Exam: ATRAUMATIC, NORMAL INSPECTION, NORMOCEPHALIC - Eye Exam Eye Exam: EOMI, Normal appearance - ENT Exam ENT Exam: Mucous Membranes Moist - Neck Exam Neck exam: Full Rom, Normal Inspection - Respiratory Exam Respiratory Exam: Clear to PA & Lateral, NORMAL BREATHING PATTERN - Cardiovascular Exam Cardiovascular Exam: REGULAR RHYTHM, +S1, +S2 - GI/Abdominal Exam GI & Abdominal Exam: Soft, Tenderness (mild diffuse) - Rectal Exam Rectal Exam: Deferred - Extremities Exam Extremities exam: full ROM, normal inspection - Back Exam Back exam: NORMAL INSPECTION. absent: paraspinal tenderness - Neurological Exam Neurological exam: Alert, CN II-XII Intact, Normal Gait, Oriented x3 - Psychiatric Exam Psychiatric exam: Normal Affect, Normal Mood - Skin Skin Exam: Dry, Normal Color, Warm Discharge Plan - Discharge Medications Prescriptions: Ciprofloxacin [Cipro] 500 mg PO BID #14 tab Dapsone 100 mg PO 1600 #30 tab Metronidazole 500 mg PO Q8 #21 tablet Phosphorus/Potassium/Sodium [Neutra-Phos] 1 pkt PO TID #15 packet - Follow Up Plan Condition: IMPROVED Disposition: HOME/ ROUTINE Patient education suggested?: Yes Instructions: Ciprofloxacin (Systemic), Dapsone (Systemic), Metronidazole ( Systemic), Potassium Phosphate and Sodium Phosphate Additional Instructions: Patient is stable for discharge home as per Dr. Edward. Patient is to follow- up with infectious disease physician Dr. Fairchild and psychiatry Dr. Leal ([facility] counseling services) within 1 week of discharge. Patient is also to follow-up with primary medical doctor. If patient does not have a primary doctor, he is to follow-up at the [facility] ([phone]) within 1 week of discharge. Patient is being discharged with prescriptions for: Dapsone 100 mg take once daily by mouth Ciprofloxacin 500 mg take twice a day by mouth Metronidazole 500 mg take three times a day by mouth Neutra-phos take 1 packet three times a day by mouth- follow instructions on packet Patient is to return to the ED if symptoms recur or are worsening. This was explained to the patient who understands and agrees. Referrals: Kendall Leal MD [Staff Provider] - Jose Fairchild MD [Staff Provider] - Pam Mena MD [Staff Provider] -
== END 2017-09-10 18:50 | disposition home or self-care (01) | DRG 714 ==
LOC: C.ER 00:04 → C.9E 05:49 → C.5S 07:36
PROVIDERS: ADMIT Internal Medicine; ATTEND Internal Medicine
DX: B20 Human immunodeficiency virus [HIV] disease (principal); E87.6 Hypokalemia; B37.81 Candidal esophagitis; B37.0 Candidal stomatitis; F20.9 Schizophrenia, unspecified; A08.8 Other specified intestinal infections; E78.5 Hyperlipidemia, unspecified; D70.9 Neutropenia, unspecified; F31.9 Bipolar disorder, unspecified; F41.9 Anxiety disorder, unspecified; I10 Essential (primary) hypertension; F17.210 Nicotine dependence, cigarettes, uncomplicated; E83.39 Other disorders of phosphorus metabolism; Z91.14 Patient's other noncompliance with medication regimen

== ENCOUNTER 2018-01-14 01:56 | Day surgery (SDC) | payer MEDICAID ==
--- NOTE | 2018-01-14 02:15 | C.PDOC ---
History Of Present Illness 42 year old male presents to the ER with a complaint of penile swelling. Patient has a Hx of using obstructing ring on penis a week ago with subsequent swelling. Denies injury, scrotal swelling, dysuria, or difficulty urinating. <Haja Jaime - Last Filed: 01/14/18 06:49> History Per: Patient History/Exam Limitations: no limitations Onset/Duration Of Symptoms: Days Current Symptoms Are (Timing): Still Present Associated Symptoms: denies: Urinary Symptoms, Other (Scrotal swelling) Alleviating Factors: None Recent travel outside of the [place]: No <Haja Jaime - Last Filed: 01/14/18 06:49> <Sandee Wyatt - Last Filed: 01/14/18 08:15> Time Seen by Provider: 01/14/18 02:14 Chief Complaint (Nursing): Male Genitourinary Past Medical History Reviewed: Historical Data, Nursing Documentation, Vital Signs Vital Signs: Last Vital Signs Temp 96.9 F L 01/14/18 02:08 Pulse 127 H 01/14/18 02:08 Resp 20 01/14/18 02:08 BP 162/112 H 01/14/18 02:08 Pulse Ox 100 01/14/18 02:08 - Medical History PMH: HIV, HTN Family History: States: Unknown Family Hx - Social History Hx Alcohol Use: No Hx Substance Use: No - Immunization History Hx Tetanus Toxoid Vaccination: No Hx Influenza Vaccination: No Hx Pneumococcal Vaccination: No <Haja Jaime - Last Filed: 01/14/18 06:49> Vital Signs: Last Vital Signs Temp 98 F 01/14/18 06:49 Pulse 91 H 01/14/18 06:49 Resp 18 01/14/18 06:49 BP 134/82 01/14/18 06:49 Pulse Ox 100 01/14/18 06:53 <Sandee Wyatt - Last Filed: 01/14/18 08:15> Review Of Systems Constitutional: Negative for: Fever, Chills Cardiovascular: Negative for: Chest Pain, Palpitations Respiratory: Negative for: Cough, Shortness of Breath Gastrointestinal: Negative for: Nausea, Vomiting Genitourinary: Positive for: Other (Penile swelling). Negative for: Dysuria, Hematuria Neurological: Negative for: Weakness, Numbness <Haja Jaime - Last Filed: 01/14/18 06:49> Physical Exam - Physical Exam Appears: Non-toxic Skin: Warm, Dry Head: Atraumatic, Normacephalic Eye(s): bilateral: Normal Inspection Oral Mucosa: Moist Neck: Normal, Supple Chest: Symmetrical, No Tenderness Cardiovascular: Rhythm Regular Respiratory: Normal Breath Sounds, No Rales, No Rhonchi, No Wheezing Gastrointestinal/Abdominal: Soft, No Tenderness Male Genital: No Scrotal Swelling, Other (Markedly swollen penis with hematoma and ecchymosis to dorsum, no sign of infection) Neurological/Psych: Oriented x3, Normal Speech <Haja Jaime - Last Filed: 01/14/18 06:49> ED Course And Treatment - Laboratory Results Result Diagrams: 01/14/18 03:05 01/14/18 03:05 O2 Sat by Pulse Oximetry: 100 (Room air) Pulse Ox Interpretation: Normal - Physician Consult Information Time Consulting Physician Contacted: 06:50 Physician Contacted: Outcome Of Conversation: Will sewe patient in ER. <Haja Jaime - Last Filed: 01/14/18 06:49> - Laboratory Results Result Diagrams: 01/14/18 03:05 01/14/18 03:05 <Sandee Wyatt - Last Filed: 01/14/18 08:15> Progress - Re-Evaluation Re-evaluation Note: 01/14/18 07:[address] JAIME PENDING UROLOGY DR SIERRA HADLEY. PS USED PENILE RING TO ENHANCE ERECTION 1 WEEK AGO, WRAPPED AROUND TWICE BASE OF PENIS/SCROTUM AND WORE FOR 4 HRS. PS ABLE TO REMOVE RING BUT SINCE THEN W PERSIST SWELLING BASE OF PENIS AND TOP OF L TESTICLE. PS NOW UNABLE TO RETRACT FORESKIN DUE TO PAIN AND SWELLING, TORE TIP OF FORESKIN DURING RETRACTION ATTEMPT. +REDNESS ALONG SHAFT, UNCH X 1 WEEK. URINATING WO DIFFICULTY, DENIES UTI SX. 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 UNCIRCUM PENIS. +SWELLING WORSE AT BASE OF SHAFT W NONPITTING EDEMA. FORESKIN REDUCED. +MARKED SWELLING AND TENDERNESS ALONG L EPIDIDYMIS AREA, CORD-LIKE. NO SCROTAL SWELL. SKIN +ABRASION TOP OF PENILE SHAFT W LOCAL ERYTHEMA, NO DC REMAINDER NEG PENDING CALLBACK DR ESQUIVEL. NPO X 1 HR 01/14/18 07:38 D/W DR ESQUIVEL AWARE OF ER AND CT FINDINGS, WILL EVAL IN ER - Data Reviewed Data Reviewed: Lab, Diagnostic imaging <Sandee Wyatt - Last Filed: 01/14/18 08:15> Disposition <Haja Jaime - Last Filed: 01/14/18 06:49> Counseled Patient/Family Regarding: Studies Performed, Diagnosis - Disposition Disposition Time: 08:07 - POA Present On Arrival: None <Sandee Wyatt - Last Filed: 01/14/18 08:15> - Disposition Disposition: HOSPITALIZED Condition: SERIOUS Forms: [facility] (Chadian) - Clinical Impression Clinical Impression: Penile swelling, Scrotal swelling - Scribe Statement The provider has reviewed the documentation as recorded by the Scribe Jose Pacheco All medical record entries made by the Scribe were at my direction and personally dictated by me. I have reviewed the chart and agree that the record accurately reflects my personal performance of the history, physical exam, medical decision making, and the department course for this patient. I have also personally directed, reviewed, and agree with the discharge instructions and disposition. <Haja Jaime - Last Filed: 01/14/18 06:49>
[2018-01-14] MEDS ORDERED: Sodium Chloride 0.9% 1,000 ML IV ONE (02:36)
[2018-01-14 03:11] LABS: BASO % 0.5 % (0.0-2.0); EOS # 0.1 K/uL (0.0-0.7); EOS % 1.3 % (0.0-4.0); HEMOGLOBIN 11.1 g/dL (12.0-18.0); LYMPH # 1.4 K/uL (1.0-4.3); MEAN CELL VOLUME 105.2 fL (80.0-94.0); MEAN CORPUSCULAR HGB CONC 34.2 g/dL (33.0-37.0); MEAN PLATELET VOLUME 6.2 fL (7.2-11.7); MONO # 0.6 K/uL (0.0-0.8); MONO % 10.6 % (0.0-10.0); NEUT # 3.4 K/uL (1.8-7.0); NEUT % 61.6 % (50.0-75.0); RBC 3.09 Mil/uL (4.40-5.90); RED CELL DISTRIBUTION WIDTH 15.3 % (11.5-14.5); WHITE BLOOD COUNT 5.5 K/uL (4.8-10.8)
[2018-01-14 03:24] LABS: ALB/GLOB RATIO 0.9 (1.0-2.1); ALBUMIN 3.8 g/dL (3.5-5.0); ALT/SGPT 16 U/L (21-72); AST/SGOT 17 U/L (17-59); BLOOD UREA NITROGEN 12 mg/dL (9-20); CALCIUM 9.1 mg/dl (8.6-10.4); GFR NON-AFRICAN AMERICAN > 60
[2018-01-14 03:30] LABS: INR 1.2; PROTHROMBIN TIME 13.4 SECONDS (9.7-12.2)
[2018-01-14 05:26] LABS: SQUAMOUS EPITHIAL < 1 /hpf (0-5); URINE BILIRUBIN NEGATIVE (NEGATIVE); URINE BLOOD NEGATIVE (NEGATIVE); URINE CLARITY Clear (Clear); URINE COLOR Yellow (YELLOW); URINE GLUCOSE (UA) NORMAL (Normal); URINE LEUKOCYTE ESTERASE TRACE Leu/uL (Negative); URINE PROTEIN NEGATIVE (NEGATIVE)
[2018-01-14 06:49] VITALS: RESP 18
--- NOTE | 2018-01-14 10:30 | US ---
Date of service: 01/14/2018 HISTORY: r/o torsion TECHNIQUE: Realtime sonography through the scrotum with color and doppler flow. COMPARISON: None Available. FINDINGS: Examination limited by patient condition/discomfort. RIGHT TESTICLE: Measures 4.8 x 3.0 x 3.9 cm. Homogeneous echotexture. Blood flow is demonstrated. RIGHT EPIDIDYMIS: Unremarkable. LEFT TESTICLE: Measures 5.4 x 2.3 x 4.0 cm. Homogeneous echotexture. Blood flow is demonstrated. LEFT EPIDIDYMIS: Unremarkable. HYDROCELE: Small bilateral hydroceles. VARICOCELE: None. OTHER FINDINGS: None. IMPRESSION: Small bilateral hydroceles.
--- NOTE | 2018-01-14 14:47 | CT ---
Date of service: 01/14/2018 PROCEDURE: CT pelvis HISTORY: Penile injury r/o penis fx bed 12 COMPARISON: Not available TECHNIQUE: Computed tomography of the pelvis was performed without intravenous contrast administration. 2.5 mm contiguous axial sections were acquired through the pelvis and penis/scrotum. Sagittal and coronal images were reformatted from the axial scan. Total exam DLP: 432.80 mGy-cm This CT exam was performed using 1 or more of the following dose reduction techniques: Automated exposure control, adjustment of the mA and/or kV according to patient size, and/or use of iterative reconstruction technique. Please note that computed tomography is not considered a reliable technique for evaluation of penile fracture. The tunica albuginea cannot be reliably assessed by noncontrast computed tomography. FINDINGS: The 2 corpora cavernosa are identified and are grossly unremarkable. The corpora spongiosum is not well visualized. There is an irregular fluid collection over the dorsal aspect of the penis possibly representing hematoma or urine collection implying urethral tear. There is no pelvic fracture. No pelvic soft tissue injury is identified. There are no abnormal bowel loops. There is no evidence of ascites or hemoperitoneum. The urinary bladder is decompressed. Prostate and seminal vesicles are unremarkable. There is no pelvic or inguinal lymphadenopathy. IMPRESSION: Fluid collection along the dorsal aspect of the penis likely reflecting hematoma or urine collection. Unable to evaluate adequately for penile fracture on the basis of this noncontrast CT examination. If there is continued clinical concern regarding penile fracture then evaluation with magnetic resonance imaging is advised. The preliminary findings for this examination were reported by [facility] Rad[facility] at 6:42 a.m. on 01/14/2018. There is concurrence of this report with the preliminary findings.
[2018-01-14] MEDS ORDERED: Iohexol 240 200 ML ONE (14:54)
[2018-01-14] MEDS ORDERED: Ciprofloxacin 400mg/200ml D5W 0 MG/0 ML BAG IVPB ONE (14:55)
[2018-01-14] MEDS ORDERED: Lidocaine 2% Jelly (Uro-Jet) ONE (14:55)
[2018-01-14] MEDS ORDERED: Midazolam 2 MG/2 ML VIAL ONE ×2 (14:58→15:06)
[2018-01-14] MEDS ORDERED: Propofol 10 mg/ml Inj (20 ML) ONE (15:07)
[2018-01-14] MEDS ORDERED: Dextrose 5%/0.45% NS 1,000 ML IV ONE (15:20)
[2018-01-14] MEDS ORDERED: HYDROmorphone 0.5 mg/0.5 ml ISec IVP PRN (15:37)
[2018-01-14 16:23] VITALS: O2SAT 99
[2018-01-14 16:44] VITALS: BP 135/98; PULSE 92; TEMP 97.7
--- NOTE | 2018-01-14 18:16 | RAD ---
Date of service: 01/14/2018 PROCEDURE: Intraoperative Fluoroscopy. HISTORY: URETERAL TRAUMA FINDINGS: Fluoroscopic assistance was provided. Fluoroscopy time = 9.1 sec. Radiation dose = 0.8796 mGy-cm.. Please refer to the operative report from [facility].
--- NOTE | 2018-01-15 00:11 | CON ---
DATE: 01/14/2018 The patient is using an apparatus to maintain erections with a ring at the base of the penis. The patient fell asleep with the ring around the base of the penis overnight, and there was appreciable amount of swelling of the penis. The question now on CAT scan whether there was any extravasation or damage to the urethra. The patient was able to void properly and did not have any hematuria. However, retrograde urethrogram was done on division with contrast and there was no evidence of extravasation. The anterior and posterior urethra were normal. The bladder appeared normal. The patient otherwise will be treated with antibiotics and pain medication, will be discharged and followed in the office. Blade Cantu MD
--- NOTE | 2018-01-15 09:00 | RAD ---
Date of service: 01/14/2018 HISTORY: URETERAL TRAUMA COMPARISON: None available. FINDINGS: BOWEL: Moderate stool retention.. No obstruction. No free air. BONES: L5 transverse processes with sacral ization features-transitional elements inferred. OTHER FINDINGS: Bilateral hip joint space narrowing with mild spurring-osteoarthrosis inferred. Right greater trochanteric apparent benign-appearing bone island Each SI joint and pubic symphyseal joints are unremarkable. 1 mm calcification just above the left inferior pelvic osseous rim.-nonspecific probable minute phlebolith. IMPRESSION: Moderate stool retention. No bowel obstruction. Other findings as above.
--- NOTE | 2018-01-23 00:51 | PROCN ---
DATE OF PROCEDURE: 01/14/2018 This is a male who had trauma to his penis using a stretching ring to enhance erections. The patient was told to remove the apparatus. There was swelling of the penile shaft. CAT scan revealed possible fracture of the urethra. A retrograde urethrogram was done. There was no evidence of any extravasation or any abnormality to the entire urethra and prostatic urethra. The patient told he was voiding well. No problem. Blade Cantu MD
== END 2018-01-14 17:15 | disposition home or self-care (01) ==
LOC: C.ER 01:56 → EDSEX 01:56 → C.ER 09:03 → MERGE 09:22 → C.SDS 09:22
PROVIDERS: ATTEND Urology
DX: N48.89 Other specified disorders of penis (principal); N43.3 Hydrocele, unspecified; I10 Essential (primary) hypertension
CPT/HCPCS: 51610; 72192; 74018; 74450; 76870; 80053; 81001; 85025; 85610; 85730; 86850; 86900; 87086; 96374; 96375; 99285; J1885; J2270; J7030; J7042; Q9966

== ENCOUNTER 2018-01-28 08:19 | Emergency (ER) | payer MEDICAID ==
[2018-01-28 08:33] VITALS: TEMP 98.3; O2SAT 99
[2018-01-28] MEDS ORDERED: cefTRIAXone IV 1 gm in Dextros 50 ML IV ONE (08:47)
--- NOTE | 2018-01-28 09:07 | C.PDOC ---
History Of Present Illness 42 y/o male,w/PMhx of HIV, presents to the ER complaining of swelling to penis which has been present for the past few weeks.Patient states that he was using ring to enhance his erection. Patient reports that he was evaluated for similar symptoms in [facility] ER 2 weeks ago. At the time, he had CT and US which was negative for fracture. He was evaluated by and transferred to the OR. He was discharged with prescription for abx, he notes that he did not take the abx. He notes that he had some penile discharge. Denies having dysuria and hematuria. Time Seen by Provider: 01/28/18 08:45 Chief Complaint (Nursing): Abnormal Skin Integrity History Per: Patient History/Exam Limitations: no limitations Onset/Duration Of Symptoms: Days Current Symptoms Are (Timing): Still Present Severity: Moderate Past Medical History Reviewed: Historical Data, Nursing Documentation, Vital Signs Vital Signs: Last Vital Signs Temp 98.3 F 01/28/18 08:25 Pulse 111 H 01/28/18 08:25 Resp 18 01/28/18 08:25 BP 153/108 H 01/28/18 08:25 Pulse Ox 99 01/28/18 08:25 - Medical History PMH: Anxiety, Bipolar Disorder, Depression, HIV, HTN, Hypercholesterolemia, Hyperlipidemia Denies: Diabetes, Hepatitis, Chronic Kidney Disease, Seizures, Sexually Transmitted Disease Surgical History: Denies: Appendectomy Family History: States: No Known Family Hx - Social History Hx Alcohol Use: No Hx Substance Use: No - Immunization History Hx Tetanus Toxoid Vaccination: Yes Hx Influenza Vaccination: Yes Hx Pneumococcal Vaccination: Yes Review Of Systems Except As Marked, All Systems Reviewed And Found Negative. Constitutional: Negative for: Fever, Chills Genitourinary: Positive for: Penile Discharge, Penile Pain. Negative for: Dysur ia, Hematuria Physical Exam - Physical Exam Appears: Non-toxic, No Acute Distress Skin: Normal Color, Warm, Dry Head: Atraumatic, Normacephalic Eye(s): bilateral: Normal Inspection Nose: Normal Oral Mucosa: Moist Neck: Supple Chest: Symmetrical Cardiovascular: Rhythm Regular Respiratory: Normal Breath Sounds, No Rales, No Rhonchi, No Wheezing Male Genital: No Circumcised, Other (tenderness to penis, swelling to penis, erythema to tip of penis, no discharge) Extremity: Normal ROM Neurological/Psych: Oriented x3, Normal Speech ED Course And Treatment O2 Sat by Pulse Oximetry: 99 (RA) Pulse Ox Interpretation: Normal Progress Note: Treated with rocephin IV. Case discussed with Dr Cantu who request antibiotics and urinalysis Reassessment Condition: Improved - Physician Consult Information Physician Contacted: Blade Cantu Outcome Of Conversation: discharge to follow up Medical Decision Making Medical Decision Making: Plan: --Rocephin IV --UA --Urine Culture Disposition Discussed With Dr.: Blade Cantu Doctor Will See Patient In The: Office Counseled Patient/Family Regarding: Diagnosis, Need For Followup, Rx Given - Disposition Referrals: Blade Cantu MD [Staff Provider] - Disposition: HOME/ ROUTINE Disposition Time: 10:00 Condition: STABLE Additional Instructions: Follow up with Dr Cantu at his office Call today for appointment Prescriptions: Cephalexin [cephalexin] 500 mg PO Q6 #28 cap Sulfamethoxazole/Trimethoprim [Bactrim DS 800 mg-160 mg] 1 tab PO BID #14 tab Instructions: Balanitis Forms: [id number] (Swedish) - POA Present On Arrival: None - Clinical Impression Clinical Impression: AIDS, Penis pain - PA / TRAILER STEERER / Resident Statement MD/DO has reviewed & agrees with the documentation as recorded. - Scribe Statement The provider has reviewed the documentation as recorded by the Percyibe Ameena Shipley Provider Attestation All medical record entries made by the Percyibbob were at my direction and pers onally dictated by me. I have reviewed the chart and agree that the record accurately reflects my personal performance of the history, physical exam, medical decision making, and the department course for this patient. I have also personally directed, reviewed, and agree with the discharge instructions and disposition.
[2018-01-28] MEDS ORDERED: cefTRIAXone 1 gm 1 GM/100 ML BAG IVPB ONE (09:10)
[2018-01-28 09:27] LABS: SQUAMOUS EPITHIAL < 1 /hpf (0-5); URINE BACTERIA RARE (<OCC); URINE BILIRUBIN NEGATIVE (NEGATIVE); URINE BLOOD NEGATIVE (NEGATIVE); URINE CLARITY Clear (Clear); URINE COLOR Yellow (YELLOW); URINE GLUCOSE (UA) NORMAL (Normal); URINE LEUKOCYTE ESTERASE TRACE Leu/uL (Negative); URINE PROTEIN NEGATIVE (NEGATIVE); URINE UROBILINOGEN NORMAL mg/dL (0.2-1.0)
[2018-01-28 10:01] VITALS: BP 146/97; PULSE 92; RESP 17
== END 2018-01-28 10:16 | disposition home or self-care (01) ==
LOC: C.ER 08:19
DX: N48.89 Other specified disorders of penis (principal); B20 Human immunodeficiency virus [HIV] disease
CPT/HCPCS: 81001; 87086; 96365; 99284; J0696

== ENCOUNTER 2018-03-25 15:05 | Emergency (ER) | payer MEDICAID ==
[2018-03-25 15:31] VITALS: BP 158/108; TEMP 98.1
[2018-03-25] MEDS ORDERED: cefTRIAXone (Rocephin) 250 mg Inj IM STA (15:49)
--- NOTE | 2018-03-25 16:12 | C.PDOC ---
History Of Present Illness 42 y/o male presents to the ED for complaints of penile swelling and discharge after using a penis ring. This is his 3rd visit to the ED for same. He was evaluated by Dr. Cantu and discharged home. Patient is now complaining of oozing discharge from a pen-sized opening from the shaft on the penis. He also has drainage from the penis itself. States his friend told him it smells like gonorrhea. Patient notes his last sexual intercourse was 6 months ago. No further trauma to area. He denies any fever, chills, nausea, or vomiting. Time Seen by Provider: 03/25/18 15:36 Chief Complaint (Nursing): Abnormal Skin Integrity History Per: Patient History/Exam Limitations: no limitations Onset/Duration Of Symptoms: Days Current Symptoms Are (Timing): Worse Quality Of Symptoms: Painful, Draining Past Medical History Reviewed: Historical Data, Nursing Documentation, Vital Signs Vital Signs: Last Vital Signs Temp 98.1 F 03/25/18 15:24 Pulse 107 H 03/25/18 15:24 Resp 20 03/25/18 15:24 BP 158/108 H 03/25/18 15:24 Pulse Ox 99 03/25/18 15:24 - Medical History PMH: Anxiety, Bipolar Disorder, Depression, HIV, HTN, Hypercholesterolemia, Hyperlipidemia Denies: Diabetes, Hepatitis, Chronic Kidney Disease, Seizures, Sexually Transmitted Disease Surgical History: Tonsillectomy Denies: Appendectomy Family History: States: Unknown Family Hx - Social History Hx Alcohol Use: Yes Hx Substance Use: No - Immunization History Hx Tetanus Toxoid Vaccination: Yes Hx Influenza Vaccination: Yes Hx Pneumococcal Vaccination: Yes Review Of Systems Except As Marked, All Systems Reviewed And Found Negative. Constitutional: Negative for: Fever, Chills Gastrointestinal: Negative for: Nausea, Vomiting, Abdominal Pain Genitourinary: Positive for: Penile Discharge. Negative for: Dysuria, Incontinence, Hematuria Musculoskeletal: Negative for: Back Pain Skin: Negative for: Rash Neurological: Negative for: Weakness, Dizziness Physical Exam - Physical Exam Appears: Non-toxic, No Acute Distress Skin: Warm, Dry Head: Atraumatic, Normacephalic Eye(s): bilateral: Normal Inspection, PERRL, EOMI Oral Mucosa: Moist Neck: Normal ROM Chest: Symmetrical Respiratory: No Accessory Muscle Use, Other (Speaking in complete sentences) Gastrointestinal/Abdominal: Soft, No Tenderness, No Distention Back: Normal Inspection Male Genital: No Circumcised, Other (Pen-sized open wound with purulent drainage oozing from dorsal aspect of the mid-shaft penis; No surrounding erythema or swelling, (+) discharge from the penis itself, No phimosis or paraphimosis, no cellulitis, no crepitus) Extremity: Bilateral: Atraumatic, Normal ROM (x 4) Pulses: Left Radial: Normal, Right Radial: Normal Neurological/Psych: Oriented x3, Normal Cranial Nerves, Normal Motor, Normal Sensation Gait: Steady ED Course And Treatment O2 Sat by Pulse Oximetry: 99 (RA) Pulse Ox Interpretation: Normal Medical Decision Making Medical Decision Making: Impression: Urethritis, Chronic draining wound Initial Plan: - Urinalysis - Urine culture - Wound culture - Chlamydia/GC swab sent Patient treated empirically with Rocephin and Zithro. Disposition Counseled Patient/Family Regarding: Studies Performed, Diagnosis, Need For Followup, Rx Given - Disposition Referrals: Brendan Frey Jr., MD [Staff Provider] - Disposition: HOME/ ROUTINE Disposition Time: 16:25 Condition: STABLE Additional Instructions: follow up with urology within 2 days call to make an appointment no sex for one week return to ER if symptoms worsens or progress Prescriptions: Sulfamethoxazole/Trimethoprim [Bactrim DS 800 mg-160 mg] 1 tab PO BID #14 tab Instructions: Urethritis, Wound Care (DC) Forms: [facility] (Slovak), General Discharge Instructions - Clinical Impression Clinical Impression: Urethritis, Visit for wound care - Scribe Statement The provider has reviewed the documentation as recorded by the Lilo Fischer Provider Attestation: All medical record entries made by the Lilo were at my direction and personally dictated by me. I have reviewed the chart and agree that the record accurately reflects my personal performance of the history, physical exam, medical decision making, and the department course for this patient. I have also personally directed, reviewed, and agree with the discharge instructions and disposition.
[2018-03-25 16:14] LABS: SQUAMOUS EPITHIAL 1 /hpf (0-5); URINE BILIRUBIN NEGATIVE (NEGATIVE); URINE BLOOD 1+ (NEGATIVE); URINE CLARITY Hazy (Clear); URINE COLOR Yellow (YELLOW); URINE GLUCOSE (UA) NORMAL (Normal); URINE LEUKOCYTE ESTERASE TRACE Leu/uL (Negative); URINE PROTEIN NEGATIVE (NEGATIVE)
[2018-03-25 16:44] VITALS: PULSE 99; RESP 18; O2SAT 100
== END 2018-03-25 16:44 | disposition home or self-care (01) ==
LOC: C.ER 15:05
DX: N34.2 Other urethritis (principal); Z48.00 Encounter for change or removal of nonsurgical wound dressing
CPT/HCPCS: 81001; 87070; 87086; 87181; 87491; 87591; 96372; 99283; J0696

== ENCOUNTER 2018-05-13 23:00 | Emergency (ER) | payer MEDICAID ==
[2018-05-14 01:22] LABS: BASO % 0.3 % (0.0-2.0); EOS % 0.2 % (0.0-4.0); LYMPH # 0.5 K/uL (1.0-4.3); LYMPH % 12.6 % (20.0-40.0); MEAN CELL VOLUME 82.1 fL (80.0-94.0); MEAN CORPUSCULAR HEMOGLOBIN 27.2 pg (27.0-31.0); MEAN CORPUSCULAR HGB CONC 33.2 g/dL (33.0-37.0); MEAN PLATELET VOLUME 8.9 fL (7.2-11.7); MONO # 0.4 K/uL (0.0-0.8); MONO % 9.4 % (0.0-10.0); NEUT # 3.1 K/uL (1.8-7.0); NEUT % 77.5 % (50.0-75.0); RBC 4.79 Mil/uL (4.40-5.90); RED CELL DISTRIBUTION WIDTH 15.3 % (11.5-14.5)
[2018-05-14 01:26] LABS: VENOUS BLOOD GAS BASE EXCESS 0.8 mmol/L (0.0-2.0); VENOUS BLOOD GAS PCO2 39 mmHg (40-60); VENOUS BLOOD GAS PO2 77 mm/Hg (30-55); VENOUS BLOOD PH 7.42 (7.32-7.43)
[2018-05-14 01:39] LABS: ALB/GLOB RATIO 1.1 (1.0-2.1); ALBUMIN 4.2 g/dL (3.5-5.0); ALT/SGPT 20 U/L (21-72); AST/SGOT 27 U/L (17-59); BLOOD UREA NITROGEN 9 mg/dL (9-20); CALCIUM 9.2 mg/dl (8.6-10.4); GFR NON-AFRICAN AMERICAN > 60
[2018-05-14 01:44] LABS: SQUAMOUS EPITHIAL < 1 /hpf (0-5); URINE BILIRUBIN NEGATIVE (NEGATIVE); URINE BLOOD 2+ (NEGATIVE); URINE CLARITY Hazy (Clear); URINE COLOR Yellow (YELLOW); URINE GLUCOSE (UA) NORMAL (Normal); URINE HYALINE CAST 0-2 /lpf (0-2); URINE LEUKOCYTE ESTERASE NEG Leu/uL (Negative); URINE PROTEIN 1+ mg/dL (NEGATIVE)
--- NOTE | 2018-05-14 01:57 | C.PDOC ---
History Of Present Illness 42 year old male, whose past medical history includes HIV (non-compliant with medications for 6 months), presents to the ED for evaluation of oral thrush which began around one week ago. Patient reports difficulty with swallowing and describes generalized discomfort in his mouth and throat. As per triage, patient also mentioned that he has been experiencing penile discharge. 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 Patient denies fever, chills, or urethral penile discharge. Time Seen by Provider: 05/14/18 00:54 Chief Complaint (Nursing): Male Genitourinary History Per: Patient History/Exam Limitations: no limitations Onset/Duration Of Symptoms: Other (one week ) Current Symptoms Are (Timing): Still Present Associated Symptoms: denies: Fever, Chills Additional History Per: Patient Past Medical History Reviewed: Historical Data, Nursing Documentation, Vital Signs Vital Signs: Last Vital Signs Temp 100.3 F H 05/13/18 23:49 Pulse 130 H 05/13/18 23:49 Resp 24 05/13/18 23:49 BP 136/92 H 05/13/18 23:49 Pulse Ox 96 05/13/18 23:49 - Medical History PMH: Anxiety, Bipolar Disorder, Depression, HIV, HTN, Hypercholesterolemia, Hyp erlipidemia Denies: Diabetes, Hepatitis, Chronic Kidney Disease, Seizures, Sexually Transmitted Disease Surgical History: Tonsillectomy Denies: Appendectomy Family History: States: Unknown Family Hx - Social History Hx Alcohol Use: Yes Hx Substance Use: No - Immunization History Hx Tetanus Toxoid Vaccination: Yes Hx Influenza Vaccination: Yes Hx Pneumococcal Vaccination: Yes Review Of Systems Constitutional: Negative for: Fever, Chills, Weakness ENT: Positive for: Other (oral thrush ). Negative for: Mouth Swelling Cardiovascular: Negative for: Chest Pain, Palpitations Respiratory: Negative for: Cough, Shortness of Breath Gastrointestinal: Negative for: Nausea, Vomiting, Abdominal Pain Genitourinary: Positive for: Other (fistula drainage ). Negative for: Dysuria, Frequency, Hematuria, Penile Discharge (urethral ), Penile Pain Skin: Negative for: Rash, Lesions, Jaundice, Bruising Neurological: Negative for: Weakness, Numbness, Dizziness Physical Exam - Physical Exam Appears: Well, Non-toxic, No Acute Distress Skin: Normal Color, Warm, No Rash Head: Atraumatic, Normacephalic Eye(s): bilateral: Normal Inspection, PERRL, EOMI Oral Mucosa: Moist Throat: Normal (no swelling or injection ), No Exudate, Other (copious thrush to pharynx and posterior tongue, airway patent, patient is able to swallow ) Neck: Normal ROM, Supple Chest: Symmetrical Respiratory: No Accessory Muscle Use, No Stridor, No Wheezing, Other (normal inspiratory effort ) Gastrointestinal/Abdominal: Soft, No Distention Male Genital: No Testicular Tenderness, No Inguinal Swelling, Other (fistula region: no induration, erythema or purulent discharge noted ) Extremity: Normal ROM Extremity: Bilateral: Atraumatic Neurological/Psych: Oriented x3, Normal Cranial Nerves (grossly intact ) ED Course And Treatment - Laboratory Results Result Diagrams: 05/14/18 01:18 05/14/18 01:18 Lab Results: pO2 77 mm/Hg (30-55) H 05/14/18 01:22 VBG pH 7.42 (7.32-7.43) 05/14/18 01:22 VBG pCO2 39 mmHg (40-60) L 05/14/18 01:22 VBG HCO3 25.5 mmol/L 05/14/18 01:22 VBG Total CO2 26.5 mmol/L (22-28) 05/14/18 01:22 VBG O2 Sat (Calc) 96.1 % (40-65) H 05/14/18 01:22 VBG Base Excess 0.8 mmol/L (0.0-2.0) 05/14/18 01:22 VBG Potassium 3.4 mmol/L (3.6-5.2) L 05/14/18 01:22 Sodium 140.0 mmol/l (132-148) 05/14/18 01:22 Chloride 106.0 mmol/L (98-107) 05/14/18 01:22 Glucose 112 mg/dl (75-110) H 05/14/18 01:22 Lactate 0.7 mmol/L (0.7-2.1) 05/14/18 01:22 Total Bilirubin 0.4 mg/dL (0.2-1.3) 05/14/18 01:18 AST 27 U/L (17-59) 05/14/18 01:18 ALT 20 U/L (21-72) L D 05/14/18 01:18 Alkaline Phosphatase 74 U/L (38-126) 05/14/18 01:18 Total Protein 8.0 g/dL (6.3-8.3) 05/14/18 01:18 Albumin 4.2 g/dL (3.5-5.0) 05/14/18 01:18 Globulin 3.8 gm/dL (2.2-3.9) 05/14/18 01:18 Albumin/Globulin Ratio 1.1 (1.0-2.1) 05/14/18 01:18 O2 Sat by Pulse Oximetry: 96 (on RA ) Pulse Ox Interpretation: Normal Medical Decision Making Medical Decision Making: Progess: Bloodwork and urinalysis ordered and reviewed. CXR ordered to rule out pneumonia. Mycelex Gelacio PO given. On reassessment, patient is resting comfortably, showing no signs of distress and is stable for discharge. Patient given Rx for antifungal lozenges and advised to f/u with PMD/clinic within 1-2 days for further evaluation. Disposition Counseled Patient/Family Regarding: Diagnosis, Need For Followup, Rx Given - Disposition Referrals: [facility] [Outside] Disposition: HOME/ ROUTINE Disposition Time: 01:55 Condition: STABLE Prescriptions: Clotrimazole [Mycelex Gelacio] 10 mg MT 5XD 14 Days kasandra Instructions: Thrush (DC) Forms: [facility] (Amharic), General Discharge Instructions - Clinical Impression Clinical Impression: Thrush of mouth and esophagus - PA / [employer]ILK [employer]ER / Resident Statement MD/DO has reviewed & agrees with the documentation as recorded. - Scribe Statement The provider has reviewed the documentation as recorded by the Scribe (Louise Vallecillo) All medical record entries made by the Scribe were at my direction and personally dictated by me. I have reviewed the chart and agree that the record accurately reflects my personal performance of the history, physical exam, medical decision making, and the department course for this patient. I have also personally directed, reviewed, and agree with the discharge instructions and disposition.
[2018-05-14 02:01] VITALS: BP 127/82; PULSE 86; RESP 18; TEMP 98.3
[2018-05-14 06:11] VITALS: O2SAT 96
--- NOTE | 2018-05-14 08:42 | RAD ---
Date of service: 05/14/2018 HISTORY: PCP PNA COMPARISON: 07/24/2017 TECHNIQUE: Chest PA and lateral views FINDINGS: LUNGS: No active pulmonary disease. PLEURA: No significant pleural effusion identified. No pneumothorax apparent. CARDIOVASCULAR: No aortic atherosclerotic calcification present. Normal cardiac size. No pulmonary vascular congestion. OSSEOUS STRUCTURES: No significant abnormalities. VISUALIZED UPPER ABDOMEN: Normal. OTHER FINDINGS: None. IMPRESSION: No active disease.
== END 2018-05-14 02:13 | disposition home or self-care (01) ==
LOC: C.ER 23:00
DX: B37.0 Candidal stomatitis (principal); B37.81 Candidal esophagitis; E78.00 Pure hypercholesterolemia, unspecified; I10 Essential (primary) hypertension

== ENCOUNTER 2018-06-13 09:53 | Inpatient (IN) | payer MEDICAID ==
[2018-06-13 09:53] VITALS: BMI 24.3
[2018-06-13] MEDS ORDERED: Sodium Chloride 0.9% 1,000 ML IV ONE (10:42)
[2018-06-13] MEDS ORDERED: Sodium Chloride 0.9% 1,000 ML ONE (10:53)
[2018-06-13 11:24] LABS: BASO % 0.2 % (0.0-2.0); HEMOGLOBIN 11.6 g/dL (12.0-18.0); LYMPH # 0.4 K/uL (1.0-4.3); LYMPH % 4.3 % (20.0-40.0); MEAN CELL VOLUME 83.2 fL (80.0-94.0); MEAN CORPUSCULAR HEMOGLOBIN 28.8 pg (27.0-31.0); MEAN CORPUSCULAR HGB CONC 34.6 g/dL (33.0-37.0); MEAN PLATELET VOLUME 7.8 fL (7.2-11.7); MONO # 0.7 K/uL (0.0-0.8); MONO % 7.5 % (0.0-10.0); NEUT # 7.9 K/uL (1.8-7.0); NRBC % 0.1 % (0.0-2.0); RBC 4.04 Mil/uL (4.40-5.90)
[2018-06-13 11:31] LABS: PLATELET COUNT 359 K/uL (130-400)
[2018-06-13 11:32] LABS: URINE BACTERIA MANY (<OCC); URINE BILIRUBIN NEGATIVE (NEGATIVE); URINE BLOOD NEGATIVE (NEGATIVE); URINE CLARITY Hazy (Clear); URINE COLOR Amber (YELLOW); URINE GLUCOSE (UA) NORMAL (Normal); URINE LEUKOCYTE ESTERASE 3+ Leu/uL (Negative); URINE PROTEIN 1+ mg/dL (NEGATIVE); URINE UROBILINOGEN NORMAL mg/dL (0.2-1.0); WBC CLUMPS OCC /hpf
[2018-06-13 11:39] LABS: BARBITURATES, UR NEGATIVE (NEGATIVE); OPIATES, UR NEGATIVE (NEGATIVE); PHENCYCLIDINE, UR NEGATIVE (NEGATIVE)
[2018-06-13 11:42] LABS: BENZODIAZEPINES, UR POSITIVE (NEGATIVE)
[2018-06-13 11:47] LABS: ALBUMIN 4.1 g/dL (3.5-5.0); ALT/SGPT 11 U/L (21-72); AST/SGOT 25 U/L (17-59); BLOOD UREA NITROGEN 18 mg/dL (9-20); CALCIUM 8.9 mg/dl (8.6-10.4); GFR NON-AFRICAN AMERICAN > 60
--- NOTE | 2018-06-13 11:49 | RAD ---
Date of service: 06/13/2018 PROCEDURE: CHEST RADIOGRAPH, 1 VIEW HISTORY: SOB COMPARISON: Comparison is made with 05/14/2018 FINDINGS: LUNGS: Clear. PLEURA: No pneumothorax or pleural fluid seen. CARDIOVASCULAR: No aortic atherosclerotic calcification present. Normal. OSSEOUS STRUCTURES: No significant abnormalities. VISUALIZED UPPER ABDOMEN: Normal. OTHER FINDINGS: None. IMPRESSION: No active disease.
[2018-06-13 12:04] LABS: LYMPHOCYTE 6 % (20-40); MONOCYTE 7 % (0-10); NEUTROPHIL 87 % (50-75); PLATELET ESTIMATE NORMAL (NORMAL); TOTAL CELLS COUNTED 100
[2018-06-13 12:05] LABS: ANISOCYTOSIS MODERATE; HYPOCHROMIC SLIGHT; POLYCHROMIC SLIGHT
[2018-06-13 12:06] LABS: OVALOCYTES SLIGHT; POIKILOCYTOSIS SLIGHT
--- NOTE | 2018-06-13 12:36 | C.PDOC ---
History Of Present Illness 42 y/o male presents to ED with chief complaint of skin abscesses. Patient states that he is HIV positive and not taking any medications. States he developed 2 small abscesses on his chest which are draining. Also complains of thrush in his mouth and has difficulty swallowing, states it is painful to swallow. Denies fever, headache, shortness of breath, cough, or other complaints. Time Seen by Provider: 06/13/18 10:30 Chief Complaint (Nursing): Wound Check History Per: Patient History/Exam Limitations: no limitations Onset/Duration Of Symptoms: Days Ago Current Symptoms Are (Timing): Still Present Past Medical History Reviewed: Historical Data, Nursing Documentation, Vital Signs Vital Signs: Last Vital Signs Temp 102.1 F H 06/13/18 11:40 Pulse 116 H 06/13/18 11:40 Resp 20 06/13/18 11:40 BP 121/80 06/13/18 11:40 Pulse Ox 98 06/13/18 11:40 Primary Care Provider: Clinic,Med Surg - Medical History PMH: Anxiety, Bipolar Disorder, Depression, HIV, HTN, Hypercholesterolemia, Hyperlipidemia Denies: Diabetes, Hepatitis, Chronic Kidney Disease, Seizures, Sexually Transmitted Disease Surgical History: Tonsillectomy Denies: Appendectomy Family History: States: No Known Family Hx - Social History Hx Tobacco Use: No Hx Alcohol Use: Yes Hx Substance Use: No - Immunization History Hx Tetanus Toxoid Vaccination: Yes Hx Influenza Vaccination: Yes Hx Pneumococcal Vaccination: Yes Review Of Systems Except As Marked, All Systems Reviewed And Found Negative. Constitutional: Negative for: Fever ENT: Positive for: Other (Rash in mouth) Cardiovascular: Negative for: Chest Pain Respiratory: Negative for: Cough, Shortness of Breath Gastrointestinal: Negative for: Vomiting Skin: Positive for: Other (small abscesses on chest) Neurological: Negative for: Headache Physical Exam - Physical Exam Appears: Non-toxic, No Acute Distress Skin: Warm, Dry Head: Atraumatic, Normacephalic Eye(s): bilateral: Normal Inspection Oral Mucosa: Moist, Other (excessive rash in tongue and mucous membrane) Neck: Supple Chest: Other (small skin abscess in left side of chest in the sternum area, draining) Cardiovascular: Rhythm Regular, No Murmur Respiratory: Normal Breath Sounds, No Rales, No Rhonchi, No Wheezing Extremity: Bilateral: Atraumatic, Normal ROM Neurological/Psych: Oriented x3, Normal Speech ED Course And Treatment - Laboratory Results Result Diagrams: 06/13/18 11:16 06/13/18 11:16 Lab Results: Total Bilirubin 0.6 mg/dL (0.2-1.3) 06/13/18 11:16 AST 25 U/L (17-59) 06/13/18 11:16 ALT 11 U/L (21-72) L D 06/13/18 11:16 Alkaline Phosphatase 70 U/L (38-126) 06/13/18 11:16 Total Protein 8.3 g/dL (6.3-8.3) 06/13/18 11:16 Albumin 4.1 g/dL (3.5-5.0) 06/13/18 11:16 Globulin 4.2 gm/dL (2.2-3.9) H 06/13/18 11:16 Albumin/Globulin Ratio 1.0 (1.0-2.1) 06/13/18 11:16 Urine Color Jane (YELLOW) 06/13/18 11:16 Urine Clarity Hazy (Clear) 06/13/18 11:16 Urine pH 5.0 (5.0-8.0) 06/13/18 11:16 Ur Specific [place] 1.023 (1.003-1.030) 06/13/18 11:16 Urine Protein 1+ mg/dL (NEGATIVE) H 06/13/18 11:16 Urine Glucose (UA) Normal mg/dL (Normal) 06/13/18 11:16 Urine Ketones Negative mg/dL (NEGATIVE) 06/13/18 11:16 Urine Blood Negative (NEGATIVE) 06/13/18 11:16 Urine Nitrate Positive (NEGATIVE) H 06/13/18 11:16 Urine Bilirubin Negative (NEGATIVE) 06/13/18 11:16 Urine Urobilinogen Normal mg/dL (0.2-1.0) 06/13/18 11:16 Ur Leukocyte Esterase 3+ Carl/uL (Negative) H 06/13/18 11:16 Urine WBC (Auto) 356 /hpf (0-5) H 06/13/18 11:16 Urine RBC (Auto) 2 /hpf (0-3) 06/13/18 11:16 Urine WBC Clumps (Auto) Occ /hpf (NONE) H 06/13/18 11:16 Urine Bacteria Many (<OCC) H 06/13/18 11:16 O2 Sat by Pulse Oximetry: 98 (RA) Pulse Ox Interpretation: Normal - Other Rad CXR X-Ray: Read By Radiologist Interpretation: FINDINGS: LUNGS: Clear. PLEURA: No pneumothorax or pleural fluid seen. CARDIOVASCULAR: No aortic atherosclerotic calcification present. Normal. OSSEOUS STRUCTURES: No significant abnormalities. VISUALIZED UPPER ABDOMEN: Normal. OTHER FINDINGS: None. IMPRESSION: No active disease. Medical Decision Making Medical Decision Making: Plan: --Labs --Chest XR --Blood Culture --UA --Rocephin --IV fluids --Tylenol --Xanax 12:[address] Audra Vallecillo, accepted patient for admission. Requested Dr. Izaguirre Disposition Counseled Patient/Family Regarding: Studies Performed, Diagnosis - Disposition Disposition: HOSPITALIZED Disposition Time: 12:27 Condition: STABLE - POA Present On Arrival: None - Clinical Impression Clinical Impression: Esophageal candidiasis, Skin abscess, UTI (urinary tract infection) - Scribe Statement The provider has reviewed the documentation as recorded by the Lilo shay Provider Attestation: All medical record entries made by the Lilo were at my direction and personally dictated by me. I have reviewed the chart and agree that the record accurately reflects my personal performance of the history, physical exam, medical decision making, and the department course for this patient. I have also personally directed, reviewed, and agree with the discharge instructions and disposition.
--- NOTE | 2018-06-13 15:25 | CP.PCM.HP ---
Past Patient History - Infectious Disease Hx of Infectious Diseases: None - Past Medical History & Family History Past Medical History?: Yes - Past Social History Smoking Status: Heavy Smoker > 10 Cigarettes Daily - CARDIAC Hx Hypercholesterolemia: Yes Hx Hypertension: Yes - PULMONARY Hx Respiratory Disorders: No - NEUROLOGICAL Hx Seizures: No - HEENT Hx HEENT Problems: No - RENAL Hx Chronic Kidney Disease: No - ENDOCRINE/METABOLIC Hx Endocrine Disorders: No - HEMATOLOGICAL/ONCOLOGICAL Hx Human Immunodeficiency Virus (HIV): Yes - INTEGUMENTARY Hx Dermatological Problems: No - MUSCULOSKELETAL/RHEUMATOLOGICAL Hx Musculoskeletal Disorders: No Hx Falls: No - GASTROINTESTINAL Hx Gastrointestinal Disorders: No Hx Diarrhea: Yes Hx Nausea: Yes HX Swallowing Problems: Yes - GENITOURINARY/GYNECOLOGICAL Hx Sexually Transmitted Disorders: No - PSYCHIATRIC Hx Anxiety: Yes Hx Bipolar Disorder: Yes Hx Depression: Yes Hx Substance Use: No - SURGICAL HISTORY Hx Appendectomy: No Hx Tonsillectomy: Yes - ANESTHESIA Hx Anesthesia: Yes Hx Anesthesia Reactions: No Hx Malignant Hyperthermia: No Meds Allergies/Adverse Reactions: Allergies Allergy/AdvReac Type Severity Reaction Status Date / Time No Known Drug Allergies Allergy Unknown NKDA/NONE Verified 06/13/18 10:08 Physical Exam - Constitutional Appears: Well - Head Exam Head Exam: ATRAUMATIC, NORMAL INSPECTION, NORMOCEPHALIC - Eye Exam Eye Exam: EOMI, Normal appearance, PERRL Pupil Exam: NORMAL ACCOMODATION, PERRL - ENT Exam ENT Exam: Mucous Membranes Moist, Normal Exam - Neck Exam Neck exam: Positive for: Normal Inspection - Respiratory Exam Respiratory Exam: Decreased Breath Sounds - Cardiovascular Exam Cardiovascular Exam: REGULAR RHYTHM, +S1, +S2 - GI/Abdominal Exam GI & Abdominal Exam: Diminished Bowel Sounds, Soft - Rectal Exam Rectal Exam: Deferred - Neurological Exam Neurological exam: Oriented x3 Results - Vital Signs Recent Vital Signs: Last Vital Signs Temp 100.5 F H 06/13/18 12:48 Pulse 111 H 06/13/18 12:48 Resp 18 06/13/18 12:51 BP 109/72 06/13/18 12:48 Pulse Ox 100 06/13/18 12:48 - Labs Result Diagrams: 06/13/18 11:16 06/13/18 11:16 Labs: Laboratory Results - last 24 hr 06/13/18 06/13/18 06/13/18 11:16 11:16 11:16 WBC 9.0 D RBC 4.04 L Hgb 11.6 L Hct 33.6 L MCV 83.2 MCH 28.8 MCHC 34.6 RDW 18.0 H Plt Count 359 D MPV 7.8 Neut % (Auto) 88.0 H Lymph % (Auto) 4.3 L Eddy % (Auto) 7.5 Eos % (Auto) 0.0 Baso % (Auto) 0.2 Neut # (Auto) 7.9 H Lymph # (Auto) 0.4 L Eddy # (Auto) 0.7 Eos # (Auto) 0.0 Baso # (Auto) 0.0 Neutrophils % (Manual) 87 H Lymphocytes % (Manual) 6 L Monocytes % (Manual) 7 Platelet Estimate Normal Polychromasia Slight Hypochromasia (manual) Slight Poikilocytosis (manual Slight Anisocytosis (manual) Moderate Ovalocytes Slight Sodium 135 Potassium 4.2 Chloride 98 Carbon Dioxide 23 Anion Gap 18 BUN 18 Creatinine 0.9 Est GFR ( Amer) > 60 Est GFR (Non-Af Amer) > 60 Random Glucose 102 Calcium 8.9 Total Bilirubin 0.6 AST 25 ALT 11 L D Alkaline Phosphatase 70 Total Protein 8.3 Albumin 4.1 Globulin 4.2 H Albumin/Globulin Ratio 1.0 Urine Color Jane Urine Clarity Hazy Urine pH 5.0 Ur Specific [place] 1.023 Urine Protein 1+ H Urine Glucose (UA) Normal Urine Ketones Negative Urine Blood Negative Urine Nitrate Positive H Urine Bilirubin Negative Urine Urobilinogen Normal Ur Leukocyte Esterase 3+ H Urine WBC (Auto) 356 H Urine RBC (Auto) 2 Urine WBC Clumps (Auto) Occ H Urine Bacteria Many H Urine Opiates Screen Urine Methadone Screen Ur Barbiturates Screen Ur Phencyclidine Scrn Ur Amphetamines Screen U Benzodiazepines Scrn U Oth Cocaine Metabols U Cannabinoids Screen 06/13/18 11:16 WBC RBC Hgb Hct MCV MCH MCHC RDW Plt Count MPV Neut % (Auto) Lymph % (Auto) Eddy % (Auto) Eos % (Auto) Baso % (Auto) Neut # (Auto) Lymph # (Auto) Eddy # (Auto) Eos # (Auto) Baso # (Auto) Neutrophils % (Manual) Lymphocytes % (Manual) Monocytes % (Manual) Platelet Estimate Polychromasia Hypochromasia (manual) Poikilocytosis (manual Anisocytosis (manual) Ovalocytes Sodium Potassium Chloride Carbon Dioxide Anion Gap BUN Creatinine Est GFR ( Amer) Est GFR (Non-Af Amer) Random Glucose Calcium Total Bilirubin AST ALT Alkaline Phosphatase Total Protein Albumin Globulin Albumin/Globulin Ratio Urine Color Urine Clarity Urine pH Ur Specific [place] Urine Protein Urine Glucose (UA) Urine Ketones Urine Blood Urine Nitrate Urine Bilirubin Urine Urobilinogen Ur Leukocyte Esterase Urine WBC (Auto) Urine RBC (Auto) Urine WBC Clumps (Auto) Urine Bacteria Urine Opiates Screen Negative Urine Methadone Screen Negative Ur Barbiturates Screen Negative Ur Phencyclidine Scrn Negative Ur Amphetamines Screen Positive H U Benzodiazepines Scrn Positive U Oth Cocaine Metabols Negative U Cannabinoids Screen Negative
[2018-06-13] MEDS: Sodium Chloride 0.9% 1,000 ML IV SCH (15:52)
[2018-06-13 17:14] VITALS: RESP 20
[2018-06-13] MEDS: Vancomycin 1 gm/NS 200 ml 1 GM/200 ML BAG IVPB SCH (17:26)
[2018-06-13] MEDS: Fluconazole IV 200mg/100 ml NS 100 ML IVPB SCH (19:12)
[2018-06-14] MEDS: Vancomycin 1 gm/NS 200 ml 1 GM/200 ML BAG IVPB SCH ×2 (05:00→16:46)
[2018-06-14] MEDS: Sodium Chloride 0.9% 1,000 ML IV SCH (05:32)
[2018-06-14] MEDS ORDERED: Iodixanol 320 MG/ML 100 ML BOTTLE IV ONE (09:24)
[2018-06-14] MEDS: Meropenem 1 GM in Sodium Chloride 0.9% 100 ML IVPB SCH ×2 (10:21→19:09)
[2018-06-14] MEDS: Enoxaparin 40 mg Syringe SC SCH (10:21)
[2018-06-14] MEDS ORDERED: Pneumococcal 23-Valent Vaccine IM ONE (11:00)
--- NOTE | 2018-06-14 13:32 | CT ---
Date of service: 06/14/2018 PROCEDURE: CT Abdomen and Pelvis with contrast HISTORY: gram negative septiciemia COMPARISON: Comparison is made with 09/08/2017 TECHNIQUE: Contrast dose: 100 mL of Visipaque 320 intravenously. Axial and reformatted coronal and sagittal CT images of the abdomen and pelvis were obtained after IV contrast administration. Radiation dose: Total exam DLP = 844.86 mGy-cm. This CT exam was performed using one or more of the following dose reduction techniques: Automated exposure control, adjustment of the mA and/or kV according to patient size, and/or use of iterative reconstruction technique. FINDINGS: LOWER THORAX: Small opacities at the lung bases may represent atelectasis. No evidence of significant pleural effusion. LIVER: Mild hepatomegaly is noted. There is periportal edema noted. The portal vein is patent. GALLBLADDER AND BILE DUCTS: The gallbladder is partially contracted. There is small amount of pericholecystic fluid noted. PANCREAS: Unremarkable. No gross lesion or ductal dilatation. SPLEEN: The spleen is prominent in size measures up to 12.7 centimeter ADRENALS: Unremarkable. No mass. KIDNEYS AND URETERS: There is patchy slightly decreased enhancement of the right kidney noted compared to the left. There is moderate right perinephric stranding and trace fluid noted. There is mild dilatation of the right kidney collecting system without evidence of obstructing stone. Findings likely represent pyelonephritis/UTI. Left kidney is grossly unremarkable. VASCULATURE: Unremarkable. No aortic aneurysm. No aortic atherosclerotic calcification or mural plaque present. BOWEL: [id number] constipation is noted. Mildly dilated small bowel loops noted without evidence of high-grade bowel obstruction. APPENDIX: The appendix is mildly enlarged without evidence of inflammatory changes around the appendix. PERITONEUM: There is a trace amount of free fluid in right abdomen. No evidence of free air. LYMPH NODES: Unremarkable. No enlarged lymph nodes. BLADDER: The urinary bladder is mildly distended. REPRODUCTIVE: The prostate is mildly enlarged. BONES: No acute fracture. Again noted is 1.1 centimeter sclerotic bony lesion at the right intertrochanteric femur likely represent benign bone island OTHER FINDINGS: None. IMPRESSION: Heterogeneous patchy enhancement of the right kidney associated with moderate perinephric stranding and trace fluid and mildly dilated collecting system. Findings are suspicious for pyelonephritis and UTI. Trace amount of free fluid in the abdomen and trace pericholecystic fluid. [id number] periportal edema. Mild hepato splenomegaly. Enlarged appendix without definite CT evidence of appendicitis. [id number] constipation.
--- NOTE | 2018-06-14 15:02 | CP.PCM.CON ---
History of Present Illness - History of Present Illness History of Present Illness: dictated Past Patient History - Infectious Disease Hx of Infectious Diseases: None - Past Medical History & Family History Past Medical History?: Yes - Past Social History Smoking Status: Heavy Smoker > 10 Cigarettes Daily - CARDIAC Hx Hypercholesterolemia: Yes Hx Hypertension: Yes - PULMONARY Hx Respiratory Disorders: No - NEUROLOGICAL Hx Seizures: No - HEENT Hx HEENT Problems: No - RENAL Hx Chronic Kidney Disease: No - ENDOCRINE/METABOLIC Hx Endocrine Disorders: No - HEMATOLOGICAL/ONCOLOGICAL Hx Human Immunodeficiency Virus (HIV): Yes - INTEGUMENTARY Hx Dermatological Problems: No - MUSCULOSKELETAL/RHEUMATOLOGICAL Hx Musculoskeletal Disorders: No Hx Falls: No - GASTROINTESTINAL Hx Gastrointestinal Disorders: No Hx Diarrhea: Yes Hx Nausea: Yes HX Swallowing Problems: Yes - GENITOURINARY/GYNECOLOGICAL Hx Sexually Transmitted Disorders: No - PSYCHIATRIC Hx Anxiety: Yes Hx Bipolar Disorder: Yes Hx Depression: Yes Hx Substance Use: No - SURGICAL HISTORY Hx Appendectomy: No Hx Tonsillectomy: Yes - ANESTHESIA Hx Anesthesia: Yes Hx Anesthesia Reactions: No Hx Malignant Hyperthermia: No Meds Allergies/Adverse Reactions: Allergies Allergy/AdvReac Type Severity Reaction Status Date / Time No Known Drug Allergies Allergy Unknown NKDA/NONE Verified 06/13/18 10:08 - Medications Medications: Current Medications Acetaminophen (Tylenol 325mg Tab) 650 mg PO Q6 PRN PRN Reason: Temperature >100 Last Admin: 06/14/18 10:52 Dose: 650 mg Alprazolam (Xanax) 0.5 mg PO BID PRN PRN Reason: Anxiety Last Admin: 06/14/18 10:56 Dose: 0.5 mg Clotrimazole (Mycelex Gelacio) 10 mg MT 5XD [facility] Last Admin: 06/14/18 10:58 Dose: Not Given Enoxaparin Sodium (Lovenox) 40 mg SC DAILY [facility] Last Admin: 06/14/18 10:21 Dose: 40 mg Sodium Chloride (Sodium Chloride 0.9%) 1,000 mls @ 80 mls/hr IV .[id number] [facility] Last Admin: 06/14/18 05:32 Dose: 80 mls/hr Fluconazole (Diflucan Iv 200 Mg/100 Ml Ns) 100 mls @ 100 mls/hr IVPB Q24H [facility]; Protocol Last Admin: 06/13/18 19:12 Dose: 100 mls/hr Vancomycin/Sodium Chloride (Vancomycin 1 Gm/Ns 200 Ml) 1 gm in 200 mls @ 133 mls/hr IVPB Q12H [facility]; Protocol Stop: 06/18/18 16:31 Last Admin: 06/14/18 05:00 Dose: 133 mls/hr Meropenem 1 gm/ Sodium (Chloride) 100 mls @ 100 mls/hr IVPB Q8H [facility]; Protocol Last Admin: 06/14/18 10:21 Dose: 100 mls/hr Results - Vital Signs Recent Vital Signs: Last Vital Signs Temp 101.6 F H 06/14/18 10:52 Pulse 106 H 06/14/18 08:43 Resp 20 06/14/18 08:43 BP 108/72 06/14/18 08:43 Pulse Ox 98 06/14/18 08:43 - Labs Result Diagrams: 06/13/18 11:16 06/13/18 11:16 Labs: Laboratory Results - last 24 hr 06/14/18 08:09 Lactate Dehydrogenase 410
--- NOTE | 2018-06-14 16:19 | CP.PCM.PN ---
Subjective - Date & Time of Evaluation Date of Evaluation: 06/14/18 - Subjective Subjective: patient examined today at bedside no fever no diarrhea no dizziness no shortness of breath no nausea no vomiting Objective - Vital Signs/Intake and Output Vital Signs (last 24 hours): Temp Pulse Resp BP Pulse Ox 101.6 F H 106 H 20 108/72 98 06/14/18 10:52 06/14/18 08:43 06/14/18 08:43 06/14/18 08:43 06/14/18 08:43 Intake and Output: 06/14/18 06/14/18 06:59 18:59 Intake Total 700 920 Output Total 800 1400 Balance -100 -480 - Medications Medications: Current Medications Acetaminophen (Tylenol 325mg Tab) 650 mg PO Q6 PRN PRN Reason: Temperature >100 Last Admin: 06/14/18 10:52 Dose: 650 mg Alprazolam (Xanax) 0.5 mg PO BID PRN PRN Reason: Anxiety Last Admin: 06/14/18 10:56 Dose: 0.5 mg Clotrimazole (Mycelex Gelacio) 10 mg MT 5XD [facility] Last Admin: 06/14/18 10:58 Dose: Not Given Enoxaparin Sodium (Lovenox) 40 mg SC DAILY [facility] Last Admin: 06/14/18 10:21 Dose: 40 mg Sodium Chloride (Sodium Chloride 0.9%) 1,000 mls @ 80 mls/hr IV .[id number] [facility] Last Admin: 06/14/18 05:32 Dose: 80 mls/hr Fluconazole (Diflucan Iv 200 Mg/100 Ml Ns) 100 mls @ 100 mls/hr IVPB Q24H [facility]; Protocol Last Admin: 06/13/18 19:12 Dose: 100 mls/hr Vancomycin/Sodium Chloride (Vancomycin 1 Gm/Ns 200 Ml) 1 gm in 200 mls @ 133 mls/hr IVPB Q12H [facility]; Protocol Stop: 06/18/18 16:31 Last Admin: 06/14/18 05:00 Dose: 133 mls/hr Meropenem 1 gm/ Sodium (Chloride) 100 mls @ 100 mls/hr IVPB Q8H [facility]; Protocol Last Admin: 06/14/18 10:21 Dose: 100 mls/hr - Labs Labs: 06/13/18 11:16 06/13/18 11:16 - Constitutional Appears: Well - Head Exam Head Exam: ATRAUMATIC, NORMAL INSPECTION, NORMOCEPHALIC - Eye Exam Eye Exam: EOMI, Normal appearance, PERRL Pupil Exam: NORMAL ACCOMODATION, PERRL - ENT Exam ENT Exam: Mucous Membranes Moist, Normal Exam - Neck Exam Neck Exam: Full ROM, Normal Inspection. absent: Lymphadenopathy - Respiratory Exam Respiratory Exam: Decreased Breath Sounds - Cardiovascular Exam Cardiovascular Exam: REGULAR RHYTHM, +S1, +S2 - GI/Abdominal Exam GI & Abdominal Exam: Soft, Diminished Bowel Sounds - Rectal Exam Rectal Exam: Deferred - Neurological Exam Neurological Exam: Oriented x3 Assessment and Plan - Assessment and Plan (Free Text) Plan: medications reviewed labs reviewed vitals reviewed diflucan lovenox meropenem mycelex gelacio sodium chloride tylenol vancomycin xanax plan discussed with patient and family moderate complexity of care
[2018-06-14] MEDS: Dextrose 5%/0.45% NS 1,000 ML IV SCH (17:43)
[2018-06-14] MEDS: Fluconazole IV 200mg/100 ml NS 100 ML IVPB SCH (18:31)
--- NOTE | 2018-06-15 00:28 | CP.PCM.CON ---
<Ravi Ribeiro - Last Filed: 06/15/18 00:23> History of Present Illness - History of Present Illness History of Present Illness: Surgery Consult Note- Dr. Buckley Reason for Consult: Skin Abscesses 42M pmhx significant for HIV (not taking meds), unknown CD4 and viral load, anxiety, bipolar presents to [facility] with fevers. Surgery was consulted for evaluation on skin abscesses on chest and left flank. Patient states he has noticed abscess on the middle of his chest and inferior left flank for 2 months. States he uses tweezers to help open and drain the abscess when he is at home. Left flank superior abscess actively draining during examination, states has been there for approx 2 weeks. During encounter patient strongly expresses that if there were to be any surgery he wants to go to the operating room. he does not want any procedure done at bedside. PMH: stated above PSH: tonsillectomy ALL: NKDA SocialHx: MSM, feels unsafe at home. 1ppd 10+ years (quit 2 weeks ago), + amphetamine use, social etoh FH: unknown Review of Systems - Review of Systems All systems: reviewed and no additional remarkable complaints except - Constitutional Constitutional: As Per HPI Past Patient History - Infectious Disease Hx of Infectious Diseases: None - Past Medical History & Family History Past Medical History?: Yes - Past Social History Smoking Status: Heavy Smoker > 10 Cigarettes Daily - CARDIAC Hx Hypercholesterolemia: Yes Hx Hypertension: Yes - PULMONARY Hx Respiratory Disorders: No - NEUROLOGICAL Hx Seizures: No - HEENT Hx HEENT Problems: No - RENAL Hx Chronic Kidney Disease: No - ENDOCRINE/METABOLIC Hx Endocrine Disorders: No - HEMATOLOGICAL/ONCOLOGICAL Hx Human Immunodeficiency Virus (HIV): Yes - INTEGUMENTARY Hx Dermatological Problems: No - MUSCULOSKELETAL/RHEUMATOLOGICAL Hx Musculoskeletal Disorders: No Hx Falls: No - GASTROINTESTINAL Hx Gastrointestinal Disorders: No Hx Diarrhea: Yes Hx Nausea: Yes HX Swallowing Problems: Yes - GENITOURINARY/GYNECOLOGICAL Hx Sexually Transmitted Disorders: No - PSYCHIATRIC Hx Anxiety: Yes Hx Bipolar Disorder: Yes Hx Depression: Yes Hx Substance Use: No - SURGICAL HISTORY Hx Appendectomy: No Hx Tonsillectomy: Yes - ANESTHESIA Hx Anesthesia: Yes Hx Anesthesia Reactions: No Hx Malignant Hyperthermia: No Meds Allergies/Adverse Reactions: Allergies Allergy/AdvReac Type Severity Reaction Status Date / Time No Known Drug Allergies Allergy Unknown NKDA/NONE Verified 06/13/18 10:08 - Medications Medications: Current Medications Acetaminophen (Tylenol 325mg Tab) 650 mg PO Q6 PRN PRN Reason: Temperature >100 Last Admin: 06/14/18 22:07 Dose: 650 mg Alprazolam (Xanax) 0.5 mg PO BID PRN PRN Reason: Anxiety Last Admin: 06/14/18 17:35 Dose: 0.5 mg Clotrimazole (Mycelex Gelacio) 10 mg MT 5XD [facility] Last Admin: 06/14/18 19:38 Dose: Not Given Enoxaparin Sodium (Lovenox) 40 mg SC DAILY [facility] Last Admin: 06/14/18 10:21 Dose: 40 mg Fluconazole (Diflucan Iv 200 Mg/100 Ml Ns) 100 mls @ 100 mls/hr IVPB Q24H [facility]; Protocol Last Admin: 06/14/18 18:31 Dose: 100 mls/hr Vancomycin/Sodium Chloride (Vancomycin 1 Gm/Ns 200 Ml) 1 gm in 200 mls @ 133 mls/hr IVPB Q12H [facility]; Protocol Stop: 06/18/18 16:31 Last Admin: 06/14/18 16:46 Dose: 133 mls/hr Meropenem 1 gm/ Sodium (Chloride) 100 mls @ 100 mls/hr IVPB Q8H [facility]; Protocol Last Admin: 06/14/18 19:09 Dose: 100 mls/hr Dextrose/Sodium Chloride (Dextrose 5%/0.45% Ns 1000 Ml) 1,000 mls @ 100 mls/hr IV .Q10H [facility] Last Admin: 06/14/18 17:43 Dose: 100 mls/hr Gentamicin Sulfate 80 mg/ (Sodium Chloride) 102 mls @ 100 mls/hr IVPB Q8H [facility]; Protocol Last Admin: 06/14/18 20:31 Dose: 100 mls/hr Physical Exam - Constitutional Appears: No Acute Distress, Chronically Ill - Head Exam Head Exam: ATRAUMATIC - Eye Exam Eye Exam: EOMI. absent: Scleral icterus - ENT Exam ENT Exam: Mucous Membranes Moist - Respiratory Exam Respiratory Exam: NORMAL BREATHING PATTERN. absent: Accessory Muscle Use, Respiratory Distress - Cardiovascular Exam Cardiovascular Exam: REGULAR RHYTHM. absent: Bradycardia, Tachycardia - GI/Abdominal Exam GI & Abdominal Exam: Soft. absent: Diminished Bowel Sounds, Distended, Firm, Guarding, Hernia, Tenderness - Neurological Exam Neurological exam: Alert, Oriented x3 - Skin Additional comments: Skin abscess x3 Middle chest: chronic, indurated, minimal area of fluctuate, eschar at tip Superior Left flank: actively draining pus. Cx taken from OR. Expressed 5cc purulent lfuid. continues to drain. Wound unable to be explored due to patient strongly refusing, screaming and crying Inferior left flank: old, well healed scar. No induration or fluctuate. Results - Vital Signs Recent Vital Signs: Last Vital Signs Temp 100.1 F H 06/14/18 22:07 Pulse 118 H 06/14/18 17:25 Resp 20 06/14/18 17:25 BP 115/71 06/14/18 17:25 Pulse Ox 97 06/14/18 20:00 - Labs Result Diagrams: 06/13/18 11:16 06/13/18 11:16 Labs: Laboratory Results - last 24 hr 06/14/18 06/14/18 08:09 17:58 Lactic Acid 0.8 Lactate Dehydrogenase 410 Assessment & Plan - Assessment and Plan (Free Text) Assessment: 42M w/ HIV, multiple fevers, w/ 3 superficial skin abscess Plan: - one actively draining, keep dressing in place - pt refusing any bedside procedures - warm compresses q2 - Abx - c/s Infectious Disease; all recs appreciated - further recs per Dr. Buckley Surgical attending [facility] PGY2 <Sharad Buckley B - Last Filed: 06/15/18 15:14> Meds - Medications Medications: Current Medications Acetaminophen (Tylenol 325mg Tab) 650 mg PO Q6 PRN PRN Reason: Temperature >100 Last Admin: 06/14/18 22:07 Dose: 650 mg Alprazolam (Xanax) 0.5 mg PO BID PRN PRN Reason: Anxiety Last Admin: 06/15/18 10:48 Dose: 0.5 mg Clotrimazole (Mycelex Gelacio) 10 mg MT 5XD [facility] Last Admin: 06/15/18 12:10 Dose: Not Given Enoxaparin Sodium (Lovenox) 40 mg SC DAILY [facility] Last Admin: 06/15/18 10:40 Dose: 40 mg Fluconazole (Diflucan Iv 200 Mg/100 Ml Ns) 100 mls @ 100 mls/hr IVPB Q24H [facility]; Protocol Last Admin: 06/14/18 18:31 Dose: 100 mls/hr Vancomycin/Sodium Chloride (Vancomycin 1 Gm/Ns 200 Ml) 1 gm in 200 mls @ 133 mls/hr IVPB Q12H [facility]; Protocol Stop: 06/18/18 16:31 Last Admin: 06/15/18 03:40 Dose: 133 mls/hr Meropenem 1 gm/ Sodium (Chloride) 100 mls @ 100 mls/hr IVPB Q8H [facility]; Protocol Last Admin: 06/15/18 10:40 Dose: 100 mls/hr Dextrose/Sodium Chloride (Dextrose 5%/0.45% Ns 1000 Ml) 1,000 mls @ 100 mls/hr IV .Q10H [facility] Last Admin: 06/15/18 03:14 Dose: Not Given Gentamicin Sulfate 80 mg/ (Sodium Chloride) 102 mls @ 100 mls/hr IVPB Q8H [facility]; Protocol Last Admin: 06/15/18 13:05 Dose: 100 mls/hr Results - Vital Signs Recent Vital Signs: Last Vital Signs Temp 98.5 F 06/15/18 07:10 Pulse 91 H 06/15/18 07:10 Resp 20 06/15/18 07:10 BP 108/74 06/15/18 07:10 Pulse Ox 96 06/15/18 07:10 - Labs Result Diagrams: 06/15/18 07:32 06/15/18 07:32 Labs: Laboratory Results - last 24 hr 06/14/18 06/15/18 06/15/18 17:58 07:32 07:32 WBC 4.1 L D RBC 3.63 L Hgb 10.2 L Hct 30.6 L MCV 84.3 MCH 28.1 MCHC 33.3 RDW 18.5 H Plt Count 310 MPV 8.1 Neut % (Auto) 81.7 H Lymph % (Auto) 9.7 L [place] % (Auto) 8.4 Eos % (Auto) 0.0 Baso % (Auto) 0.2 Neut # (Auto) 3.3 Lymph # (Auto) 0.4 L [place] # (Auto) 0.3 Eos # (Auto) 0.0 Baso # (Auto) 0.0 Neutrophils % (Manual) 81 H Band Neutrophils % 2 Lymphocytes % (Manual) 8 L Monocytes % (Manual) 9 Platelet Estimate Normal Poikilocytosis (manual Slight Anisocytosis (manual) Slight Ovalocytes Slight Sodium 137 Potassium 4.3 Chloride 101 Carbon Dioxide 23 Anion Gap 17 BUN 10 Creatinine 0.6 L Est GFR ( Amer) > 60 Est GFR (Non-Af Amer) > 60 Random Glucose 96 Lactic Acid 0.8 Calcium 8.7 Total Bilirubin 0.4 AST 24 ALT 10 L Alkaline Phosphatase 62 Total Protein 7.6 Albumin 3.6 Globulin 3.9 Albumin/Globulin Ratio 0.9 L Attending/Attestation - Attestation I have personally seen and examined this patient.: Yes I have fully participated in the care of the patient.: Yes I have reviewed all pertinent clinical information: Yes Notes (Text): Pt was seen and examined at bedside Agree with above note and assessment Pt with HIV and multiple skin abscesses All abscesses are self draining and very small Pt does not need any surgical intervention at present CT scan of Chest ID consult for low CD4 count. [email or web address] current mx Plan d.w pt in detail.
[2018-06-15] MEDS: Meropenem 1 GM in Sodium Chloride 0.9% 100 ML IVPB SCH ×3 (02:29→19:15)
[2018-06-15] MEDS: Dextrose 5%/0.45% NS 1,000 ML IV SCH (03:14)
[2018-06-15] MEDS: Vancomycin 1 gm/NS 200 ml 1 GM/200 ML BAG IVPB SCH ×2 (03:40→16:13)
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
[2018-06-15 07:53] LABS: BASO % 0.2 % (0.0-2.0); HEMOGLOBIN 10.2 g/dL (12.0-18.0); LYMPH # 0.4 K/uL (1.0-4.3); LYMPH % 9.7 % (20.0-40.0); MEAN CELL VOLUME 84.3 fL (80.0-94.0); MEAN CORPUSCULAR HEMOGLOBIN 28.1 pg (27.0-31.0); MEAN CORPUSCULAR HGB CONC 33.3 g/dL (33.0-37.0); MEAN PLATELET VOLUME 8.1 fL (7.2-11.7); MONO # 0.3 K/uL (0.0-0.8); MONO % 8.4 % (0.0-10.0); NEUT # 3.3 K/uL (1.8-7.0); NEUT % 81.7 % (50.0-75.0); PLATELET COUNT 310 K/uL (130-400); RBC 3.63 Mil/uL (4.40-5.90); RED CELL DISTRIBUTION WIDTH 18.5 % (11.5-14.5)
[2018-06-15 07:54] LABS: WHITE BLOOD COUNT 4.1 K/uL (4.8-10.8)
[2018-06-15 08:18] LABS: ALB/GLOB RATIO 0.9 (1.0-2.1); ALBUMIN 3.6 g/dL (3.5-5.0); ALT/SGPT 10 U/L (21-72); AST/SGOT 24 U/L (17-59); BLOOD UREA NITROGEN 10 mg/dL (9-20); CALCIUM 8.7 mg/dl (8.6-10.4); GFR NON-AFRICAN AMERICAN > 60
[2018-06-15 08:58] LABS: BANDS 2 % (0-2); LYMPHOCYTE 8 % (20-40); MONOCYTE 9 % (0-10); NEUTROPHIL 81 % (50-75); PLATELET ESTIMATE NORMAL (NORMAL); TOTAL CELLS COUNTED 100
[2018-06-15 08:59] LABS: ANISOCYTOSIS SLIGHT; OVALOCYTES SLIGHT; POIKILOCYTOSIS SLIGHT
[2018-06-15] MEDS: Enoxaparin 40 mg Syringe SC SCH (10:40)
[2018-06-15] MEDS ORDERED: Iodixanol 320 MG/ML 100 ML BOTTLE IV ONE (12:01)
--- NOTE | 2018-06-15 13:32 | US ---
Limited soft tissue chest and left flank HISTORY: Evaluate for abscess. COMPARISON: None available. TECHNIQUE: Limited real-time sonography was performed through the soft tissues of the chest and left flank. Findings: At the site of the palpable abnormality in the mid chest, there is a complex ovoid heterogeneous focus/collection measuring 2.2 x 0.9 x 1.9 centimeters. This is of uncertain clinical etiology and may represent an abscess collection. Additional etiologies not excluded. Further evaluation with contrast-enhanced chest CT may be helpful if clinically indicated. Additional palpable area of concern within the left upper quadrant demonstrated no gross sonographic abnormality. Impression: At the site of the palpable abnormality in the mid chest, there is a complex ovoid heterogeneous focus/collection measuring 2.2 x 0.9 x 1.9 centimeters. This is of uncertain clinical etiology and may represent an abscess collection. Additional etiologies not excluded. Further evaluation with contrast-enhanced chest CT may be helpful if clinically indicated.
--- NOTE | 2018-06-15 14:58 | CT ---
Date of service: 06/15/2018 PROCEDURE: CT Chest with contrast HISTORY: Rule out source of infection COMPARISON: Comparison made with CT scan abdomen and pelvis 06/14/2018 which imaged both lung bases as well as chest radiograph dated 06/13/2018. TECHNIQUE: Contiguous axial images were obtained through the chest with intravenous contrast enhancement. Sagittal and coronal reconstructions were performed. IV contrast: 100 cc Visipaque 320 Radiation dose: Total exam DLP = 672.89 mGy-cm. This CT exam was performed using one or more of the following dose reduction techniques: Automated exposure control, adjustment of the mA and/or kV according to patient size, and/or use of iterative reconstruction technique. FINDINGS: LUNGS: Mild bibasilar atelectasis right greater than left. Suspect trace bilateral effusions MEDIASTINUM: Heart is enlarged. No significant pericardial effusion. No aneurysm or dissection. Ascending thoracic aorta measures approximately 3.3 cm and descending thoracic aorta measures approximately 2.6 cm. Minimal aortic atherosclerotic calcification or mural plaque present. Pulmonary trunk measures approximately 3.6 cm. Suspect small approximately 18 mm elliptical shaped right hilar lymph node. Few additional small mediastinal lymph nodes are present. Trachea midline and patent with no large central endoluminal lesions. There is a small hiatal hernia PLEURA: As above. No pneumothorax. BONES: No fracture. No destructive lesion. UPPER ABDOMEN: Liver and spleen remains enlarged.. There appears to be a small amount of pericholecystic fluid. Note also made of perinephric fluid with vague infiltration changes about the right kidney. Rule out pyelonephritis. OTHER FINDINGS: Note is made of a small approximately 19 mm x 11 mm elliptical shaped low-attenuation lesion within the subcutaneous tissues at the level of the mid sternum which could represent a small subcutaneous abscess. IMPRESSION: Suspect small subcutaneous abscess mid anterior chest wall at the level of the mid sternum. Mild bibasilar atelectasis right greater than left. Suspect trace bilateral effusions. Slightly enlarged right hilar lymph node.. There is a small amount of perinephric fluid and infiltration surrounding the right kidney. Rule out pyelonephritis. Hepatosplenomegaly. Small amount of pericholecystic fluid. Cardiomegaly.
[2018-06-15] MEDS: Fluconazole IV 200mg/100 ml NS 100 ML IVPB SCH (17:56)
--- NOTE | 2018-06-15 19:29 | CP.PCM.PN ---
Subjective - Date & Time of Evaluation Date of Evaluation: 06/15/18 - Subjective Subjective: patient examined today no nausea no vomiting no dizziness no diarrhea no fever no shortness of breath Objective - Vital Signs/Intake and Output Vital Signs (last 24 hours): Temp Pulse Resp BP Pulse Ox 101.2 F H 108 H 20 112/75 98 06/15/18 15:49 06/15/18 15:49 06/15/18 15:49 06/15/18 15:49 06/15/18 15:49 Intake and Output: 06/15/18 06/16/18 18:59 06:59 Intake Total 280 Balance 280 - Medications Medications: Current Medications Acetaminophen (Tylenol 325mg Tab) 650 mg PO Q6 PRN PRN Reason: Temperature >100 Last Admin: 06/15/18 15:32 Dose: 650 mg Alprazolam (Xanax) 0.5 mg PO BID PRN PRN Reason: Anxiety Last Admin: 06/15/18 18:00 Dose: 0.5 mg Clotrimazole (Mycelex Gelacio) 10 mg MT 5XD [facility] Last Admin: 06/15/18 18:01 Dose: Not Given Enoxaparin Sodium (Lovenox) 40 mg SC DAILY [facility] Last Admin: 06/15/18 10:40 Dose: 40 mg Fluconazole (Diflucan Iv 200 Mg/100 Ml Ns) 100 mls @ 100 mls/hr IVPB Q24H [facility]; Protocol Last Admin: 06/15/18 17:56 Dose: 100 mls/hr Vancomycin/Sodium Chloride (Vancomycin 1 Gm/Ns 200 Ml) 1 gm in 200 mls @ 133 mls/hr IVPB Q12H [facility]; Protocol Stop: 06/18/18 16:31 Last Admin: 06/15/18 16:13 Dose: 133 mls/hr Meropenem 1 gm/ Sodium (Chloride) 100 mls @ 100 mls/hr IVPB Q8H [facility]; Protocol Last Admin: 06/15/18 19:15 Dose: 100 mls/hr Dextrose/Sodium Chloride (Dextrose 5%/0.45% Ns 1000 Ml) 1,000 mls @ 100 mls/hr IV .Q10H [facility] Last Admin: 06/15/18 03:14 Dose: Not Given Gentamicin Sulfate 80 mg/ (Sodium Chloride) 102 mls @ 100 mls/hr IVPB Q8H [facility]; Protocol Last Admin: 06/15/18 13:05 Dose: 100 mls/hr - Labs Labs: 06/15/18 07:32 06/15/18 07:32 - Constitutional Appears: Well - Head Exam Head Exam: ATRAUMATIC, NORMAL INSPECTION, NORMOCEPHALIC - Eye Exam Eye Exam: EOMI, Normal appearance, PERRL Pupil Exam: NORMAL ACCOMODATION, PERRL - ENT Exam ENT Exam: Mucous Membranes Moist, Normal Exam - Neck Exam Neck Exam: Full ROM, Normal Inspection. absent: Lymphadenopathy - Respiratory Exam Respiratory Exam: Decreased Breath Sounds - Cardiovascular Exam Cardiovascular Exam: REGULAR RHYTHM, +S1, +S2 - GI/Abdominal Exam GI & Abdominal Exam: Soft, Diminished Bowel Sounds, Hypoactive Bowel Sounds - Rectal Exam Rectal Exam: Deferred - Neurological Exam Neurological Exam: Oriented x3 Assessment and Plan - Assessment and Plan (Free Text) Plan: medications reviewed labs reviewed vitals reviewed dextrose gentamicin sulfate diflucan lovenox meropenem mycelex gelacio sodium chloride tylenol vancomycin xanax plan discussed with patient moderate complexity of care
--- NOTE | 2018-06-15 20:05 | CP.PCM.PN ---
Subjective - Date & Time of Evaluation Date of Evaluation: 06/15/18 Time of Evaluation: 14:40 - Subjective Subjective: dictated Objective - Vital Signs/Intake and Output Vital Signs (last 24 hours): Temp Pulse Resp BP Pulse Ox 99.5 F 108 H 20 112/75 98 06/15/18 16:32 06/15/18 15:49 06/15/18 15:49 06/15/18 15:49 06/15/18 15:49 Intake and Output: 06/15/18 06/16/18 18:59 06:59 Intake Total 280 Balance 280 - Medications Medications: Current Medications Acetaminophen (Tylenol 325mg Tab) 650 mg PO Q6 PRN PRN Reason: Temperature >100 Last Admin: 06/15/18 15:32 Dose: 650 mg Alprazolam (Xanax) 0.5 mg PO BID PRN PRN Reason: Anxiety Last Admin: 06/15/18 18:00 Dose: 0.5 mg Clotrimazole (Mycelex Gelacio) 10 mg MT 5XD ALANA Last Admin: 06/15/18 20:02 Dose: Not Given Enoxaparin Sodium (Lovenox) 40 mg SC DAILY ALANA Last Admin: 06/15/18 10:40 Dose: 40 mg Fluconazole (Diflucan Iv 200 Mg/100 Ml Ns) 100 mls @ 100 mls/hr IVPB Q24H ALANA; Protocol Last Admin: 06/15/18 17:56 Dose: 100 mls/hr Vancomycin/Sodium Chloride (Vancomycin 1 Gm/Ns 200 Ml) 1 gm in 200 mls @ 133 mls/hr IVPB Q12H ALANA; Protocol Stop: 06/18/18 16:31 Last Admin: 06/15/18 16:13 Dose: 133 mls/hr Meropenem 1 gm/ Sodium (Chloride) 100 mls @ 100 mls/hr IVPB Q8H ALANA; Protocol Last Admin: 06/15/18 19:15 Dose: 100 mls/hr Dextrose/Sodium Chloride (Dextrose 5%/0.45% Ns 1000 Ml) 1,000 mls @ 100 mls/hr IV .Q10H ALANA Last Admin: 06/15/18 03:14 Dose: Not Given Gentamicin Sulfate 80 mg/ (Sodium Chloride) 102 mls @ 100 mls/hr IVPB Q8H ALA[facility]; Protocol Last Admin: 06/15/18 20:01 Dose: 100 mls/hr - Labs Labs: 06/15/18 07:32 06/15/18 07:32
--- NOTE | 2018-06-15 21:29 | CARD ---
APPROVED REPORT Date of service: 06/15/2018 EXAM: Two-dimensional and M-mode echocardiogram with Doppler and color Doppler. INDICATION Rule out subacute bacterial endocarditis HIV (+), FEVER RISK FACTORS Hypertension Hyperlipidemia Smoking 2D DIMENSIONS IVSd0.8 (0.7-1.1cm)LVDd5.8 (3.9-5.9cm) PWd0.9 (0.7-1.1cm)LA Jintle22 (18-58mL) LVDs5.2 (2.5-4.0cm)FS (%) 10.6 % LVEF (%)25.0 (>50%)LVEF (Rowell's)31.96 % M-Mode DIMENSIONS Left Atrium (MM)4.81 (2.5-4.0cm)IVSd1.02 (0.7-1.1cm) Aortic Root4.01 (2.2-3.7cm)LVDd6.99 (4.0-5.6cm) Aortic Cusp Exc.2.72 (1.5-2.0cm)PWd1.02 (0.7-1.1cm) FS (%) 14 %LVDs5.99 (2.0-3.8cm) LVEF (%)29 (>50%) Mitral Valve MV E Ocbxkebj01.2cm/sE/A ratio0.0 TDI Lateral E' Peak V9.64cm/sMedial E' Peak V8.35cm/sE/Lateral E'8.1 E/Medial E'9.4 Tricuspid Valve TR Peak [id number]/sTR Peak Gr.[id number] LEFT VENTRICLE The left ventricle is mildly dilated. There is normal left ventricular wall thickness. The left ventricular function is markedly reduced, with diffuse hypokinesis. The left ventricular ejection fraction is 29% by Simpsons rule. No regional wall motion abnormalities noted. The left ventricular diastolic function is indeterminate. No left ventricle thrombus noted on this study. There is no ventricular septal defect visualized. There is no left ventricular aneurysm. There is no mass noted in the left ventricle. RIGHT VENTRICLE The right ventricle is mildly dlated. There is normal right ventricular wall thickness. The right ventricular systolic function is moderatelyy reduced ATRIA The left atrial volume idex is mildly dilated. The right atrium size is normal. The interatrial septum is intact with no evidence for an atrial septal defect. AORTIC VALVE The aortic valve is normal in structure and function. No aortic regurgitation is present. There is no aortic valvular stenosis. There is no aortic valvular vegetation. MITRAL VALVE The mitral valve is normal in structure and function. There is no evidence of mitral valve prolapse. There is no mitral valve stenosis. There is no mitral valve regurgitation noted. TRICUSPID VALVE The tricuspid valve is normal in structure and function. There is no tricuspid valve regurgitation noted. There is no tricuspid valve prolapse or vegetation. There is no tricuspid valve stenosis. PULMONIC VALVE The pulmonary valve is normal in structure and function. There is no pulmonic valvular regurgitation. There is no pulmonic valvular stenosis. GREAT VESSELS The aortic root is normal in size. The ascending aorta is normal in size. The pulmonary artery is normal. The IVC is mildly dilated n size and collapses <50% with inspiration. PERICARDIAL EFFUSION The pericardium appears normal. There is no pleural effusion. <Conclusion> The left ventricle is mildly dilated. The left ventricular function is markedly reduced, with diffuse hypokinesis. The right ventricle is mildly dlated. The right ventricular systolic function is modertely reduced The left atrial volume idex is mildly dilated. Normal Doppler.
[2018-06-16] MEDS: Meropenem 1 GM in Sodium Chloride 0.9% 100 ML IVPB SCH ×3 (01:37→18:00)
[2018-06-16] MEDS: Dextrose 5%/0.45% NS 1,000 ML IV SCH ×4 (01:40→20:13)
--- NOTE | 2018-06-16 04:14 | PN ---
DATE: 06/15/2018 SUBJECTIVE: The patient still had fevers today. T-max of 102 and now is 99.5. He has a very anxious personality. He is complaining of pain all over his chest. The chest lesion has already healed. He does have a lesion on the left abdomen. He did not allow the operating room surgical technician to even look at it or to open it a little bit, but it is draining. He also shows me on his penis on the shaft, he has an area, which is draining pus. He says this has been going on for a long time, and he was following with somebody in the hospital, will have to go through the old records before we proceed further. PHYSICAL EXAMINATION: VITAL SIGNS: His T-max was 102 today, also blood pressure is 112/75, respirations are 20, heart rate is 108. HEENT: Head is atraumatic. Tongue is moist. NECK: Supple. LUNGS: Clear. HEART: S1 and S2, tachycardic. ABDOMEN: Has abscess on the left abdomen. EXTREMITIES: Have no edema, clubbing or cyanosis. LABORATORY DATA: We may have to do a STD workup, which I will order. White count is 4.1 today, hemoglobin 10.2, hematocrit 30.6. Urine culture and blood culture are both gram-negative rods. ID and sensitivity is pending. ASSESSMENT AND PLAN: I have placed him on gentamicin also, and he has methicillin-resistant Staphylococcus aureus on the abscess, so he is in isolation. He also has human immunodeficiency virus disease. CD4, CD human immunodeficiency viral load is pending. He wants me to start him on human immunodeficiency virus medications. Once his infection improves, he may need a Urology evaluation also. We will follow. Vickie Izaguirre MD
[2018-06-16] MEDS: Vancomycin 1 gm/NS 200 ml 1 GM/200 ML BAG IVPB SCH (04:48)
[2018-06-16] MEDS ORDERED: Pneumococcal 23-Valent Vaccine IM ONE (10:00)
[2018-06-16] MEDS: Enoxaparin 40 mg Syringe SC SCH (10:38)
[2018-06-16] MEDS: Fluconazole IV 200mg/100 ml NS 100 ML IVPB SCH (17:00)
--- NOTE | 2018-06-16 18:38 | PN ---
DATE: 06/16/2018 SUBJECTIVE: The patient says he is feeling a lot better but feels weak. Denies any nausea or vomiting. He still has drainage from the abdominal abscess. PHYSICAL EXAMINATION: VITAL SIGNS: His T-max is 99.3 right now. Pulse is 105. Blood pressure is 115/78. Saturation is 94%. HEENT: Head is atraumatic, normocephalic. Tongue; there is no thrush now. NECK: Supple. LUNGS: Clear. HEART: S1 and S2 is regular. ABDOMEN: Soft, nontender. He has drainage from the left abdominal abscess and there is no drainage on the chest wall abscess. EXTREMITIES: Have no edema. LABORATORY DATA: White count is 4.1, hemoglobin 10.2, hematocrit 30.6, platelet count is 310. Creatinine is 0.6, BUN is 10. At this time his wound cultures came out. Blood is positive for Escherichia coli. which is ESBL positive.. ASSESSMENT AND PLAN: He is already on isolation. He is responding to meropenem as well as gentamicin at this time. Will continue the same. He also has MRSA and abscesses. He is human immunodeficiency virus positive. I have ordered sexually transmitted diseases study and will continue present antibiotics at this time. We will follow and we will get to do a vancomycin peak and trough also. The patient is to remain in isolation. Once he improves with all these bacteremia, then only will he be considered for human immunodeficiency virus medication. Vickie Izaguirre MD
--- NOTE | 2018-06-16 19:11 | CP.PCM.PN ---
Subjective - Date & Time of Evaluation Date of Evaluation: 06/16/18 - Subjective Subjective: patient examined today no nausea no vomitng no dizziness no diarrhea no fever no shortness of breath Objective - Vital Signs/Intake and Output Vital Signs (last 24 hours): Temp Pulse Resp BP Pulse Ox 97.8 F 99 H 20 105/71 97 06/16/18 15:00 06/16/18 15:00 06/16/18 15:00 06/16/18 15:00 06/16/18 15:00 - Medications Medications: Current Medications Acetaminophen (Tylenol 325mg Tab) 650 mg PO Q6 PRN PRN Reason: Temperature >100 Last Admin: 06/15/18 15:32 Dose: 650 mg Alprazolam (Xanax) 0.5 mg PO BID PRN PRN Reason: Anxiety Last Admin: 06/16/18 18:17 Dose: 0.5 mg Clotrimazole (Mycelex Gelacio) 10 mg MT 5XD ALANA Last Admin: 06/16/18 17:24 Dose: Not Given Enoxaparin Sodium (Lovenox) 40 mg SC DAILY ALANA Last Admin: 06/16/18 10:38 Dose: 40 mg Fluconazole (Diflucan Iv 200 Mg/100 Ml Ns) 100 mls @ 100 mls/hr IVPB Q24H ALANA; Protocol Last Admin: 06/16/18 17:00 Dose: 100 mls/hr Meropenem 1 gm/ Sodium (Chloride) 100 mls @ 100 mls/hr IVPB Q8H ALANA; Protocol Last Admin: 06/16/18 18:00 Dose: 100 mls/hr Dextrose/Sodium Chloride (Dextrose 5%/0.45% Ns 1000 Ml) 1,000 mls @ 100 mls/hr IV .Q10H ALANA Last Admin: 06/16/18 17:00 Dose: 100 mls/hr Gentamicin Sulfate 80 mg/ (Sodium Chloride) 102 mls @ 100 mls/hr IVPB Q8H ALANA; Protocol Last Admin: 06/16/18 12:17 Dose: 100 mls/hr Vancomycin HCl 1.4 gm/ Sodium (Chloride) 500 mls @ 250 mls/hr IVPB Q12H ALANA; Protocol - Labs Labs: 06/15/18 07:32 06/15/18 07:32 - Constitutional Appears: Well - Head Exam Head Exam: ATRAUMATIC, NORMAL INSPECTION, NORMOCEPHALIC - Eye Exam Eye Exam: EOMI, Normal appearance, PERRL Pupil Exam: NORMAL ACCOMODATION, PERRL - ENT Exam ENT Exam: Mucous Membranes Moist, Normal Exam - Neck Exam Neck Exam: Full ROM, Normal Inspection. absent: Lymphadenopathy - Respiratory Exam Respiratory Exam: Decreased Breath Sounds - Cardiovascular Exam Cardiovascular Exam: REGULAR RHYTHM, +S1, +S2 - GI/Abdominal Exam GI & Abdominal Exam: Soft, Diminished Bowel Sounds - Rectal Exam Rectal Exam: Deferred - Neurological Exam Neurological Exam: Oriented x3 Assessment and Plan - Assessment and Plan (Free Text) Plan: plan discussed with patient labs reviewed vitals reviewed medications reviewed moderate complexity of care dextrose 5% diflucan iv gentamicin sulfate lovenox meropenem mycelex gelacio tylenol vancomycin hcl sodium chloride xanax
[2018-06-16] MEDS: Vancomycin 1.4 GM in Sodium Chloride 0.9% 500 ML IVPB SCH (20:02)
[2018-06-17] MEDS: Meropenem 1 GM in Sodium Chloride 0.9% 100 ML IVPB SCH ×3 (02:30→19:18)
[2018-06-17] MEDS: Vancomycin 1.4 GM in Sodium Chloride 0.9% 500 ML IVPB SCH ×2 (06:51→20:20)
--- NOTE | 2018-06-17 07:27 | CP.PCM.PN ---
Subjective - Date & Time of Evaluation Date of Evaluation: 06/17/18 Time of Evaluation: 07:26 - Subjective Subjective: Progress note for Dr. Ahmet Vallecillo Patient was seen and examined at bedside in no acute distress. Patient reports still feeling anxious at times and states he feels nausea today. He denies dysphagia and has been tolerating diet well. He denies chest pain, dyspnea, palpitations, vomiting, fevers, headaches, abdominal pain, leg pain and swe lling, dysuria. No acute events overnight. Objective - Vital Signs/Intake and Output Vital Signs (last 24 hours): Temp Pulse Resp BP Pulse Ox 98.6 F 87 20 101/68 97 06/16/18 23:30 06/16/18 23:30 06/16/18 23:30 06/16/18 23:30 06/16/18 23:30 Intake and Output: 06/17/18 06/17/18 06:59 18:59 Intake Total 950 Output Total 700 Balance 250 - Medications Medications: Current Medications Acetaminophen (Tylenol 325mg Tab) 650 mg PO Q6 PRN PRN Reason: Temperature >100 Last Admin: 06/15/18 15:32 Dose: 650 mg Alprazolam (Xanax) 0.5 mg PO BID PRN PRN Reason: Anxiety Last Admin: 06/16/18 18:17 Dose: 0.5 mg Clotrimazole (Mycelex Gelacio) 10 mg MT 5XD ALANA Last Admin: 06/16/18 19:33 Dose: Not Given Enoxaparin Sodium (Lovenox) 40 mg SC DAILY [facility] Last Admin: 06/16/18 10:38 Dose: 40 mg Fluconazole (Diflucan Iv 200 Mg/100 Ml Ns) 100 mls @ 100 mls/hr IVPB Q24H ALANA; Protocol Last Admin: 06/16/18 17:00 Dose: 100 mls/hr Meropenem 1 gm/ Sodium (Chloride) 100 mls @ 100 mls/hr IVPB Q8H ALANA; Protocol Last Admin: 06/17/18 02:30 Dose: 100 mls/hr Dextrose/Sodium Chloride (Dextrose 5%/0.45% Ns 1000 Ml) 1,000 mls @ 100 mls/hr IV .Q10H ALANA Last Admin: 06/16/18 20:13 Dose: Not Given Gentamicin Sulfate 80 mg/ (Sodium Chloride) 102 mls @ 100 mls/hr IVPB Q8H ALANA; Protocol Last Admin: 06/17/18 06:53 Dose: 100 mls/hr Vancomycin HCl 1.4 gm/ Sodium (Chloride) 500 mls @ 250 mls/hr IVPB Q12H ALANA; Protocol Last Admin: 06/17/18 06:51 Dose: 250 mls/hr - Labs Labs: 06/15/18 07:32 06/15/18 07:32 - Constitutional Appears: No Acute Distress - Head Exam Head Exam: ATRAUMATIC, NORMAL INSPECTION - Eye Exam Eye Exam: EOMI, Normal appearance - ENT Exam ENT Exam: Mucous Membranes Dry Additional comments: no thrush noted at this time - Respiratory Exam Respiratory Exam: Clear to Ausculation Bilateral, NORMAL BREATHING PATTERN. absent: Rales, Rhonchi, Wheezes, Respiratory Distress - Cardiovascular Exam Cardiovascular Exam: REGULAR RHYTHM, +S1, +S2 - GI/Abdominal Exam GI & Abdominal Exam: Soft, Normal Bowel Sounds. absent: Distended, Firm, Guarding, Tenderness - Extremities Exam Extremities Exam: Normal Inspection. absent: Pedal Edema, Tenderness - Neurological Exam Neurological Exam: Alert, Awake, Oriented x3 - Psychiatric Exam Psychiatric exam: Anxious - Skin Skin Exam: Dry, Warm Additional comments: Healing abscess center of the chest; left chest abscess- dressing is intact, clean, and dry. Assessment and Plan - Assessment and Plan (Free Text) Plan: 42 year old male with for HIV (not taking meds), unknown CD4 and viral load, anxiety, bipolar presents to [facility] with skin abscesses, thrush, and dysphagia. Esophageal Candidiasis - Improving - Continue Clotrimazole 10mg MT 5xD and Fluconazole 200mg IV Q24h UTI - UA: kisha, hazy, 1+protein, + nitrate, 3+ LE, 356 WBC, occ WBC, Many bacteria - Urine Cx: + ecoli, +ESBL - Blood cx: + ecoli, +ESBL - Echo: no vegetations noted on report; mild dilation of LV & RV, reduced LV function w/diffuse hypokinesis, mod reduced RV systolic function; normal doppler - ID consulted, Dr. Izaguirre; help appreciated - Medications: * Gentamicin 80mg IV Q8h (active since 06/14/18) * Meropenem 1gm IV Q8h (active since 06/14/18) * Vancomycin 1.4gm IV Q12h [vanc trough was low, <5.0, on 06/16/18] (active since 06/16/18) - Imaging: * Abd/Pelv CT (06/14/18): Heterogeneous patchy enhancement of the right kidney associated with moderate perinephric stranding and trace fluid and mildly dilated collecting system. Findings are suspicious for pyelonephritis and UTI. Trace amount of free fluid in the abdomen and trace pericholecystic fluid. [id number] periportal edema. Mild hepato splenomegaly. Enlarged appendix without definite CT evidence of appendicitis. Qgal-dy-byexmaio constipation. Skin Abscess - Wound cx: +MRSA - Echo: no vegetations noted on report; mild dilation of LV & RV, reduced LV function w/diffuse hypokinesis, mod reduced RV systolic function; normal doppler - Surgery consulted, Dr. Buckley; help appreciated - Nosurgical intervention at this time; wound self draining - ID consulted, Dr. Izaguirre; help appreciated - Continue warm compresses Q2h - Medications: * Gentamicin 80mg IV Q8h (active since 06/14/18) * Meropenem 1gm IV Q8h (active since 06/14/18) * Vancomycin 1.4gm IV Q12h [vanc trough was low, <5.0, on 06/16/18] (active since 06/16/18) - Imaging: * Soft tissue US (06/15/18): At the site of the palpable abnormality in the mid chest, there is a complex ovoid heterogeneous focus/collection measuring 2.2 x 0.9 x 1.9 centimeters. This is of uncertain clinical etiology and may represent an abscess collection. * Chest CT (06/15/18): Suspect small subcutaneous abscess mid anterior chest wall at the level of the mid sternum. Mild bibasilar atelectasis right greater than left. Suspect trace bilateral effusions. Slightly enlarged right hilar lymph node. There is a small amount of perinephric fluid and infiltration surrounding the right kidney. Rule out pyelonephritis. Hepatosplenomegaly. Small amount of pericholecystic fluid. Cardiomegaly. HIV - noncompliant, not taking medications - CD4, Chlamydia, Gonorrhea, HSV, RPR ordered: f/u - Per ID, once bactermia treated, can be started on HIV medications Anxiety - Psychiatry consulted, Dr. Leal; help appreciated - Continue Xanax 0.5mg PO BID prn Substance abuse - UDS: +amphetamines Prophylaxis - GI: not indicated at this time - DVT: Lovenox 40mg SC daily, SCDs Case discussed with Dr. Ahmet Arguelles, PGY2
[2018-06-17] MEDS: Enoxaparin 40 mg Syringe SC SCH (09:28)
[2018-06-17 10:39] LABS: % CD4 (T HELPER CELL) 2 Percent (30-61); % CD8 (SUPPRESSOR T CELL) 59 Percent (12-42); ABSOLUTE CD19 CELLS 42 Cells/mcL (110-660); ABSOLUTE CD3 CELLS 315 Cells/mcL (840-3060); ABSOLUTE CD4 CELLS <20 Cells/mcL (490-1740); ABSOLUTE CD8 CELLS 279 Cells/mcL (180-1170); ABSOLUTE LYMPHOCYTES 452 Cells/mcL (850-3900); HELPER/SUPPRESSOR RATIO 0.03 Ratio (0.86-5.00)
[2018-06-17 11:54] LABS: BASO % 0.6 % (0.0-2.0); EOS % 0.8 % (0.0-4.0); HEMOGLOBIN 10.5 g/dL (12.0-18.0); LYMPH # 0.4 K/uL (1.0-4.3); LYMPH % 20.9 % (20.0-40.0); MEAN CELL VOLUME 83.6 fL (80.0-94.0); MEAN CORPUSCULAR HEMOGLOBIN 27.7 pg (27.0-31.0); MEAN CORPUSCULAR HGB CONC 33.1 g/dL (33.0-37.0); MEAN PLATELET VOLUME 8.2 fL (7.2-11.7); MONO # 0.3 K/uL (0.0-0.8); NEUT # 1.1 K/uL (1.8-7.0); NEUT % 60.7 % (50.0-75.0); NRBC % 0.2 % (0.0-2.0); RBC 3.79 Mil/uL (4.40-5.90); RED CELL DISTRIBUTION WIDTH 18.1 % (11.5-14.5)
[2018-06-17 11:59] LABS: WHITE BLOOD COUNT 1.8 K/uL (4.8-10.8)
[2018-06-17 12:09] LABS: ALB/GLOB RATIO 0.9 (1.0-2.1); ALBUMIN 3.6 g/dL (3.5-5.0); ALT/SGPT 23 U/L (21-72); AST/SGOT 40 U/L (17-59); BLOOD UREA NITROGEN 10 mg/dL (9-20); CALCIUM 9.1 mg/dl (8.6-10.4); GFR NON-AFRICAN AMERICAN > 60
[2018-06-17 17:46] LABS: RAPID PLASMA REAGIN REACTIVE (NONREACTIVE)
[2018-06-17] MEDS: Fluconazole IV 200mg/100 ml NS 100 ML IVPB SCH (17:52)
[2018-06-17] MEDS: Dextrose 5%/0.45% NS 1,000 ML IV SCH (17:55)
--- NOTE | 2018-06-17 20:55 | CP.PCM.PN ---
Subjective - Date & Time of Evaluation Date of Evaluation: 06/17/18 Time of Evaluation: 09:15 - Subjective Subjective: patient examined today no nausea no vomiting no fever no dizziness no diarrhea no shortness of breath Objective - Vital Signs/Intake and Output Vital Signs (last 24 hours): Temp Pulse Resp BP Pulse Ox 98.0 F 88 20 108/72 96 06/17/18 15:10 06/17/18 15:10 06/17/18 15:10 06/17/18 15:10 06/17/18 15:10 - Medications Medications: Current Medications Acetaminophen (Tylenol 325mg Tab) 650 mg PO Q6 PRN PRN Reason: Temperature >100 Last Admin: 06/15/18 15:32 Dose: 650 mg Alprazolam (Xanax) 0.5 mg PO BID PRN PRN Reason: Anxiety Last Admin: 06/17/18 17:55 Dose: 0.5 mg Azithromycin (Zithromax) 1,200 mg PO QWK ALANA Clotrimazole (Mycelex Gelacio) 10 mg MT 5XD ALANA Last Admin: 06/17/18 19:26 Dose: Not Given Enoxaparin Sodium (Lovenox) 40 mg SC DAILY ALANA Last Admin: 06/17/18 09:28 Dose: 40 mg Fluconazole (Diflucan Iv 200 Mg/100 Ml Ns) 100 mls @ 100 mls/hr IVPB Q24H ALANA; Protocol Last Admin: 06/17/18 17:52 Dose: 100 mls/hr Meropenem 1 gm/ Sodium (Chloride) 100 mls @ 100 mls/hr IVPB Q8H ALANA; Protocol Last Admin: 06/17/18 19:18 Dose: 100 mls/hr Vancomycin HCl 1.4 gm/ Sodium (Chloride) 500 mls @ 250 mls/hr IVPB Q12H ALANA; Protocol Last Admin: 06/17/18 20:20 Dose: 250 mls/hr Amikacin Sulfate 500 mg/ (Sodium Chloride) 102 mls @ 100 mls/hr IV Q12H ALANA; Protocol Stop: 06/20/18 15:01 Last Admin: 06/17/18 15:04 Dose: 100 mls/hr Temazepam (Restoril) 15 mg PO HS PRN PRN Reason: Insomnia Trimethoprim/Sulfamethoxazole (Bactrim Ds Tab) 1 tab PO MWF ALANA; Protocol - Labs Labs: 06/17/18 11:28 06/17/18 11:28 - Constitutional Appears: Well - Head Exam Head Exam: ATRAUMATIC, NORMAL INSPECTION, NORMOCEPHALIC - Eye Exam Eye Exam: EOMI, Normal appearance, PERRL Pupil Exam: NORMAL ACCOMODATION, PERRL - ENT Exam ENT Exam: Mucous Membranes Moist, Normal Exam - Neck Exam Neck Exam: Full ROM, Normal Inspection. absent: Lymphadenopathy - Respiratory Exam Respiratory Exam: Decreased Breath Sounds - Cardiovascular Exam Cardiovascular Exam: REGULAR RHYTHM, +S1, +S2 - GI/Abdominal Exam GI & Abdominal Exam: Soft, Diminished Bowel Sounds - Rectal Exam Rectal Exam: Deferred - Neurological Exam Neurological Exam: Oriented x3 Assessment and Plan - Assessment and Plan (Free Text) Plan: plan discussed with patient labs reviewed vitals reviewed medications reviewed moderate complexity of care amikacin sulfate bactrim ds tab diflucan iv lovenox meropenem mycelex gelacio restoril tylenol vancomycin hcl xanax zithromax
[2018-06-18] MEDS: Meropenem 1 GM in Sodium Chloride 0.9% 100 ML IVPB SCH ×3 (02:25→18:05)
[2018-06-18] MEDS: Vancomycin 1.4 GM in Sodium Chloride 0.9% 500 ML IVPB SCH ×2 (06:13→19:17)
[2018-06-18 08:28] LABS: BASO % 0.3 % (0.0-2.0); EOS % 0.8 % (0.0-4.0); HEMOGLOBIN 10.9 g/dL (12.0-18.0); LYMPH # 0.4 K/uL (1.0-4.3); LYMPH % 15.7 % (20.0-40.0); MEAN CELL VOLUME 84.7 fL (80.0-94.0); MEAN CORPUSCULAR HEMOGLOBIN 28.5 pg (27.0-31.0); MEAN CORPUSCULAR HGB CONC 33.7 g/dL (33.0-37.0); MEAN PLATELET VOLUME 7.9 fL (7.2-11.7); MONO # 0.4 K/uL (0.0-0.8); MONO % 14.9 % (0.0-10.0); NEUT # 1.6 K/uL (1.8-7.0); NEUT % 68.3 % (50.0-75.0); NRBC % 0.1 % (0.0-2.0); RBC 3.84 Mil/uL (4.40-5.90); RED CELL DISTRIBUTION WIDTH 17.9 % (11.5-14.5); WHITE BLOOD COUNT 2.4 K/uL (4.8-10.8)
[2018-06-18 08:43] LABS: ALB/GLOB RATIO 0.9 (1.0-2.1); ALBUMIN 3.7 g/dL (3.5-5.0); ALT/SGPT 32 U/L (21-72); AST/SGOT 36 U/L (17-59); BLOOD UREA NITROGEN 9 mg/dL (9-20); CALCIUM 9.2 mg/dl (8.6-10.4); GFR NON-AFRICAN AMERICAN > 60
[2018-06-18] MEDS: Enoxaparin 40 mg Syringe SC SCH (09:27)
--- NOTE | 2018-06-18 09:52 | CP.PCM.PN ---
Subjective - Date & Time of Evaluation Date of Evaluation: 06/18/18 Time of Evaluation: 09:37 - Subjective Subjective: Progress note for Dr. Ahmet Vallecillo Patient was seen and examined at bedside in no acute distress. Patient appears tearful and anxious. He states he has not talked to the psychiatrist as of yet. He has been tolerating diet well. He denies chest pain, dyspnea, palpitations, vomiting, fevers, headaches, abdominal pain, leg pain and swelling, dysuria. No acute events overnight. Objective - Vital Signs/Intake and Output Vital Signs (last 24 hours): Temp Pulse Resp BP Pulse Ox 97.6 F 86 20 104/70 98 06/18/18 08:42 06/18/18 08:42 06/18/18 08:42 06/18/18 08:42 06/18/18 08:42 Intake and Output: 06/18/18 06/18/18 06:59 18:59 Intake Total 1285 Output Total 975 Balance 310 - Medications Medications: Current Medications Acetaminophen (Tylenol 325mg Tab) 650 mg PO Q6 PRN PRN Reason: Temperature >100 Last Admin: 06/15/18 15:32 Dose: 650 mg Alprazolam (Xanax) 0.5 mg PO BID PRN PRN Reason: Anxiety Last Admin: 06/18/18 09:27 Dose: 0.5 mg Azithromycin (Zithromax) 1,200 mg PO QWK [facility] Clotrimazole (Mycelex Gelacio) 10 mg MT 5XD [facility] Last Admin: 06/17/18 19:26 Dose: Not Given Enoxaparin Sodium (Lovenox) 40 mg SC DAILY [facility] Last Admin: 06/18/18 09:27 Dose: 40 mg Fluconazole (Diflucan Iv 200 Mg/100 Ml Ns) 100 mls @ 100 mls/hr IVPB Q24H [facility]; Protocol Last Admin: 06/17/18 17:52 Dose: 100 mls/hr Meropenem 1 gm/ Sodium (Chloride) 100 mls @ 100 mls/hr IVPB Q8H [facility]; Protocol Last Admin: 06/18/18 02:25 Dose: 100 mls/hr Vancomycin HCl 1.4 gm/ Sodium (Chloride) 500 mls @ 250 mls/hr IVPB Q12H [facility]; Protocol Last Admin: 06/18/18 06:13 Dose: 250 mls/hr Amikacin Sulfate 500 mg/ (Sodium Chloride) 102 mls @ 100 mls/hr IV Q12H [facility]; Protocol Stop: 06/20/18 15:01 Last Admin: 06/18/18 03:30 Dose: 100 mls/hr Temazepam (Restoril) 15 mg PO HS PRN PRN Reason: Insomnia Last Admin: 06/17/18 21:20 Dose: 15 mg Trimethoprim/Sulfamethoxazole (Bactrim Ds Tab) 1 tab PO MWF [facility]; Protocol - Labs Labs: 06/18/18 08:15 06/18/18 08:15 - Additional Findings Additional findings: - Constitutional Appears: No Acute Distress - Head Exam Head Exam: ATRAUMATIC, NORMAL INSPECTION - Eye Exam Eye Exam: EOMI, Normal appearance - ENT Exam ENT Exam: Mucous Membranes Dry Additional comments: no thrush noted at this time - Respiratory Exam Respiratory Exam: Clear to Ausculation Bilateral, NORMAL BREATHING PATTERN. absent: Rales, Rhonchi, Wheezes, Respiratory Distress - Cardiovascular Exam Cardiovascular Exam: REGULAR RHYTHM, +S1, +S2 - GI/Abdominal Exam GI & Abdominal Exam: Soft, Normal Bowel Sounds. absent: Distended, Firm, Guarding, Tenderness - Extremities Exam Extremities Exam: Normal Inspection. absent: Pedal Edema, Tenderness - Neurological Exam Neurological Exam: Alert, Awake, Oriented x3 - Psychiatric Exam Psychiatric exam: Anxious - Skin Skin Exam: Dry, Warm Additional comments: Healing abscess center of the chest; left chest abscess- dressing is intact, clean, and dry. Assessment and Plan - Assessment and Plan (Free Text) Plan: 42 year old male with for HIV (not taking meds), unknown CD4 and viral load, anxiety, bipolar presents to [facility] with skin abscesses, thrush, and dysphagia. UTI - UA: kisha, hazy, 1+protein, + nitrate, 3+ LE, 356 WBC, occ WBC, Many bacteria - Urine Cx (06/14/18): + ecoli, +ESBL - Blood cx (06/13/18): + ecoli, +ESBL - Repeat blood cx (06/17/18): no growth x24h - Echo: no vegetations noted on report; mild dilation of LV & RV, reduced LV function w/diffuse hypokinesis, mod reduced RV systolic function; normal doppler - ID consulted, Dr. Izaguirre; help appreciated - Medications: * Discontinued Gentamicin 80mg IV Q8h (active since 06/14/18, DC on 06/17/18) * Amikacin 500mg IV Q12h (active since 06/17/18) * Meropenem 1gm IV Q8h (active since 06/14/18) * Vancomycin 1.4gm IV Q12h [vanc trough was low, <5.0, on 06/16/18] (active since 06/16/18) *PICC line ordered - Imaging: * Abd/Pelv CT (06/14/18): Heterogeneous patchy enhancement of the right kidney associated with moderate perinephric stranding and trace fluid and mildly dilated collecting system; suspicious for pyelonephritis and UTI; Trace amount of free fluid in the abdomen and trace pericholecystic fluid. [id number] periportal edema. Mild hepato splenomegaly. Enlarged appendix without definite CT evidence of appendicitis. [id number] constipation. Skin Abscess - Wound cx (06/13/18): +MRSA - Echo: no vegetations noted on report; mild dilation of LV & RV, reduced LV function w/diffuse hypokinesis, mod reduced RV systolic function; normal doppler - Surgery consulted, Dr. Buckley; help appreciated - No surgical intervention at this time; wound self draining - ID consulted, Dr. Izaguirre; help appreciated - Continue warm compresses Q2h - Medications: * Discontinued Gentamicin 80mg IV Q8h (active since 06/14/18, DC on 06/17/18) * Amikacin 500mg IV Q12h (active since 06/17/18) * Meropenem 1gm IV Q8h (active since 06/14/18) * Vancomycin 1.4gm IV Q12h [vanc trough was low, <5.0, on 06/16/18] (active since 06/16/18) - Imaging: * Soft tissue US (06/15/18): At the site of the palpable abnormality in the mid chest, there is a complex ovoid heterogeneous focus/collection measuring 2.2 x 0.9 x 1.9 centimeters. This is of uncertain clinical etiology and may represent an abscess collection. * Chest CT (06/15/18): Suspect small subcutaneous abscess mid anterior chest wall at the level of the mid sternum. Mild bibasilar atelectasis right greater than left. Suspect trace bilateral effusions. Slightly enlarged right hilar lymph node. There is a small amount of perinephric fluid and infiltration surrounding the right kidney. Rule out pyelonephritis. Hepatosplenomegaly. Small amount of pericholecystic fluid. Cardiomegaly. AIDS - noncompliant, not taking medications - CD4 <20 - HIV1 RNA Quant: 5.21H - Started prophylactic antibiotics: * Zithromax 1200mg Q7days (starting on Friday06/21/18) * Bactrim DS 1tab MWF - Ordered Chlamydia, Gonorrhea, HSV: f/u - RPR reactive, 1:8 titer - Per ID, once bactermia treated, can be started on HIV medications Syphilis - RPR reactive, 1:8 titer - Gave Bicillin 2.4million units IM today (06/18/18). Patient will need 3 treatments in total- give Bacillin 2.4mil units on 06/25/18 & 07/02/18 Leukopenia - WBC 1.8 on 06/18/18 (WBC 9.0 at admission)--> improving, will continue to monitor - likely secondary to HIV/AIDS - Neupogen 300mcg SC daily until WBC >10,000 Esophageal Candidiasis - Improving - Continue Clotrimazole 10mg MT 5xD and Fluconazole 200mg IV Q24h Anxiety - Psychiatry consulted, Dr. Bernard; help appreciated - Continue Xanax 0.5mg PO BID prn Substance abuse - UDS: +amphetamines Prophylaxis - GI: not indicated at this time - DVT: Lovenox 40mg SC daily, SCDs Case discussed with Dr. Ahmet Arguelles, PGY2
[2018-06-18] MEDS ORDERED: Penicillin G Benzathine 2.4 Mill Unit/4 ml Syr IM ONE (10:30)
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
--- NOTE | 2018-06-18 14:54 | CP.PCM.PN ---
Subjective - Date & Time of Evaluation Date of Evaluation: 06/18/18 Time of Evaluation: 14:50 - Subjective Subjective: dictated Objective - Vital Signs/Intake and Output Vital Signs (last 24 hours): Temp Pulse Resp BP Pulse Ox 97.6 F 86 20 104/70 98 06/18/18 08:42 06/18/18 08:42 06/18/18 08:42 06/18/18 08:42 06/18/18 08:42 Intake and Output: 06/18/18 06/18/18 06:59 18:59 Intake Total 1285 Output Total 975 Balance 310 - Medications Medications: Current Medications Acetaminophen (Tylenol 325mg Tab) 650 mg PO Q6 PRN PRN Reason: Temperature >100 Last Admin: 06/15/18 15:32 Dose: 650 mg Azithromycin (Zithromax) 1,200 mg PO QWK [facility] Clonazepam (Klonopin) 0.5 mg PO TID [facility] Last Admin: 06/18/18 14:29 Dose: 0.5 mg Clotrimazole (Mycelex Gelacio) 10 mg MT 5XD [facility] Last Admin: 06/17/18 19:26 Dose: Not Given Enoxaparin Sodium (Lovenox) 40 mg SC DAILY [facility] Last Admin: 06/18/18 09:27 Dose: 40 mg Fluconazole (Diflucan Iv 200 Mg/100 Ml Ns) 100 mls @ 100 mls/hr IVPB Q24H [facility]; Protocol Last Admin: 06/17/18 17:52 Dose: 100 mls/hr Meropenem 1 gm/ Sodium (Chloride) 100 mls @ 100 mls/hr IVPB Q8H [facility]; Protocol Last Admin: 06/18/18 11:16 Dose: 100 mls/hr Vancomycin HCl 1.4 gm/ Sodium (Chloride) 500 mls @ 250 mls/hr IVPB Q12H [facility]; Protocol Last Admin: 06/18/18 06:13 Dose: 250 mls/hr Amikacin Sulfate 500 mg/ (Sodium Chloride) 102 mls @ 100 mls/hr IV Q12H [facility]; Protocol Stop: 06/20/18 15:01 Last Admin: 06/18/18 14:47 Dose: 100 mls/hr Mirtazapine (Remeron) 15 mg PO HS [facility] Quetiapine Fumarate (Seroquel) 100 mg PO HS [facility] Temazepam (Restoril) 15 mg PO HS PRN PRN Reason: Insomnia Last Admin: 06/17/18 21:20 Dose: 15 mg Trimethoprim/Sulfamethoxazole (Bactrim Ds Tab) 1 tab [place] [facility] Protocol - Labs Labs: 06/18/18 08:15 06/18/18 08:15
[2018-06-18] MEDS: Fluconazole IV 200mg/100 ml NS 100 ML IVPB SCH (17:00)
--- NOTE | 2018-06-18 17:18 | RAD ---
HISTORY: verify right PICC COMPARISON: Chest x-ray performed 06/13/18 TECHNIQUE: Chest, one view. FINDINGS: Right-sided PICC extends to the expected location of the cavoatrial junction. LUNGS: Mild interstitial prominence may reflect infection or edema. No focal consolidation. Please note that chest x-ray has limited sensitivity for the detection of pulmonary masses. PLEURA: No significant pleural effusion identified. No definite pneumothorax . CARDIOVASCULAR: Borderline cardiomegaly. OSSEOUS STRUCTURES: No acute osseous abnormality identified. VISUALIZED UPPER ABDOMEN: Unremarkable. OTHER FINDINGS: None. IMPRESSION: Right-sided PICC extends to the expected location of the cavoatrial junction. Borderline cardiomegaly. Mild interstitial prominence may reflect infection or edema.
[2018-06-18] MEDS: Dextrose 5%/0.45% NS 1,000 ML IV SCH (18:00)
--- NOTE | 2018-06-18 18:48 | CP.PCM.PN ---
Subjective - Date & Time of Evaluation Date of Evaluation: 06/18/18 Time of Evaluation: 10:05 - Subjective Subjective: patient seen today no nausea no vomiting no dizziness sob presnt but better now cans peak full sentence needs picc line needs iv antibiotic for 10 days Objective - Vital Signs/Intake and Output Vital Signs (last 24 hours): Temp Pulse Resp BP Pulse Ox 97.6 F 86 20 104/70 98 06/18/18 08:42 06/18/18 08:42 06/18/18 08:42 06/18/18 08:42 06/18/18 08:42 Intake and Output: 06/18/18 06/18/18 06:59 18:59 Intake Total 1285 1040 Output Total 975 Balance 310 1040 - Medications Medications: Current Medications Acetaminophen (Tylenol 325mg Tab) 650 mg PO Q6 PRN PRN Reason: Temperature >100 Last Admin: 06/15/18 15:32 Dose: 650 mg Azithromycin (Zithromax) 1,200 mg PO QWK [facility] Clonazepam (Klonopin) 0.5 mg PO TID [facility] Last Admin: 06/18/18 17:43 Dose: 0.5 mg Clotrimazole (Mycelex Gelacio) 10 mg MT 5XD [facility] Last Admin: 06/18/18 17:44 Dose: Not Given Enoxaparin Sodium (Lovenox) 40 mg SC DAILY [facility] Last Admin: 06/18/18 09:27 Dose: 40 mg Fluconazole (Diflucan Iv 200 Mg/100 Ml Ns) 100 mls @ 100 mls/hr IVPB Q24H [facility]; Protocol Last Admin: 06/18/18 17:00 Dose: 100 mls/hr Meropenem 1 gm/ Sodium (Chloride) 100 mls @ 100 mls/hr IVPB Q8H [facility]; Protocol Last Admin: 06/18/18 18:05 Dose: 100 mls/hr Vancomycin HCl 1.4 gm/ Sodium (Chloride) 500 mls @ 250 mls/hr IVPB Q12H [facility]; Protocol Last Admin: 06/18/18 06:13 Dose: 250 mls/hr Amikacin Sulfate 500 mg/ (Sodium Chloride) 102 mls @ 100 mls/hr IV Q12H [facility]; Protocol Stop: 06/20/18 15:01 Last Admin: 06/18/18 14:47 Dose: 100 mls/hr Dextrose/Sodium Chloride (Dextrose 5%/0.45% Ns 1000 Ml) 1,000 mls @ 100 mls/hr IV .Q10H [facility] Mirtazapine (Remeron) 15 mg PO HS [facility] Quetiapine Fumarate (Seroquel) 100 mg PO HS [facility] Temazepam (Restoril) 15 mg PO HS PRN PRN Reason: Insomnia Last Admin: 06/17/18 21:20 Dose: 15 mg Trimethoprim/Sulfamethoxazole (Bactrim Ds Tab) [facility]; Protocol - Labs Labs: 06/18/18 08:15 06/18/18 08:15 - Constitutional Appears: Well - Head Exam Head Exam: ATRAUMATIC, NORMAL INSPECTION, NORMOCEPHALIC - Eye Exam Eye Exam: EOMI, Normal appearance, PERRL Pupil Exam: NORMAL ACCOMODATION, PERRL - ENT Exam ENT Exam: Mucous Membranes Moist, Normal Exam - Neck Exam Neck Exam: Full ROM, Normal Inspection. absent: Lymphadenopathy - Respiratory Exam Respiratory Exam: Decreased Breath Sounds - Cardiovascular Exam Cardiovascular Exam: REGULAR RHYTHM, +S1, +S2 - GI/Abdominal Exam GI & Abdominal Exam: Soft, Diminished Bowel Sounds - Rectal Exam Rectal Exam: Deferred - Neurological Exam Neurological Exam: Oriented x3 Assessment and Plan - Assessment and Plan (Free Text) Plan: Needs a PICC line Dr. CORDERO bedside Discussed with her at length So WBC is 2.4 hemoglobin is 10.9 creatinine is 0.5 Tylenol Zithromax Mycin EXOS Lovenox Diflucan IV Meropenem IV vancomycin IV amikacin IV fluid Remeron Seroquel Restoril Bactrim p.o. Moderate to high complexity of care. Plan of care discussed with patient &/or family & staff. Medications reviewed and reconciled. Labs reviewed. Vitals reviewed.
--- NOTE | 2018-06-18 23:59 | PN ---
DATE: 06/18/2018 SUBJECTIVE: The patient was feeling better today. First time he said he is feeling better, so that was a good sign. His blood pressure still remains on the low side. He is running out of IV sites and will need a PICC line. PHYSICAL EXAMINATION: VITAL SIGNS: T-max is 98.5, pulse 93, blood pressure 98/64, respirations are 20. HEENT: Head is atraumatic and normocephalic. NECK: Supple. LUNGS: Clear. HEART: S1 and S2 are regular. ABDOMEN: Soft and nontender. Abscess draining and he has less pain and swelling at the site of the abdominal abscess. EXTREMITIES: Remain with no edema, clubbing, or cyanosis. PSYCHIATRIC: He was also seen by the psychiatrist and we will go over his note. LABORATORY DATA: Labs are noted. His labs, RPR came out positive and the resident called me, it was 1:8 and we will start to treat it as he is HIV positive and treat it as secondary syphilis. His absolute CD4 count is less than 20. Will need treatment. ASSESSMENT AND PLAN: He did say he was on medication including Tivicay and another medicine, so we will see and figure out. He did have amphetamine positive when he came in. Vancomycin trough was less than 5. We have increased the vancomycin dose. His cultures came out Escherichia coli and this Escherichia coli was extended spectrum beta-lactamase positive and is sensitive to meropenem as well as to ertapenem and amikacin. He has been getting that. He dropped his white count to 1.8 and we have given him Neupogen to bring it up. Now, repeat culture from 06/17/2018 is negative. 24-hour culture getting better in his throat, so I will take away the Diflucan and CD4 count, I already viral loaded them, so we will start him on medication for RPR being positive. He has syphilis and he is already started on Bactrim, Friday, Friday, and Friday. Dose has been decreased because he is pancytopenic. I do not want to drop it further, and he did get one dose of Bicillin and fluconazole. We can discontinue fluconazole as thrush is better and he will be better with the Mycelex, and we will follow. Now, he came in, his cultures were positive from 06/13/2018, so he will need antibiotics, so 06/28/2018 would be the last day of his intravenous antibiotics, and we will continue both the medicines at this time and he is also on Neupogen to bring up his white blood cell count, and we will follow. 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 Vickie Izaguirre MD
[2018-06-19] MEDS: Meropenem 1 GM in Sodium Chloride 0.9% 100 ML IVPB SCH ×3 (01:35→17:31)
[2018-06-19] MEDS: Dextrose 5%/0.45% NS 1,000 ML IV SCH ×2 (04:32→23:45)
[2018-06-19] MEDS: Vancomycin 1.4 GM in Sodium Chloride 0.9% 500 ML IVPB SCH ×2 (06:05→20:00)
--- NOTE | 2018-06-19 07:40 | CP.PCM.PN ---
Subjective - Date & Time of Evaluation Date of Evaluation: 06/19/18 Time of Evaluation: 07:40 - Subjective Subjective: Progress note for Dr. Ahmet Vallecillo Patient was seen and examined at bedside in no acute distress. Patient appears tearful and anxious. He has been tolerating diet well. He denies chest pain, dyspnea, palpitations, vomiting, fevers, headaches, abdominal pain, leg pain and swelling, dysuria. No acute events overnight. Objective - Vital Signs/Intake and Output Vital Signs (last 24 hours): Temp Pulse Resp BP Pulse Ox 97.7 F 103 H 20 119/76 99 06/18/18 23:15 06/18/18 23:15 06/18/18 23:15 06/18/18 23:15 06/18/18 23:15 Intake and Output: 06/19/18 06/19/18 06:59 18:59 Intake Total 2200 Output Total 1600 Balance 600 - Medications Medications: Current Medications Acetaminophen (Tylenol 325mg Tab) 650 mg PO Q6 PRN PRN Reason: Temperature >100 Last Admin: 06/15/18 15:32 Dose: 650 mg Azithromycin (Zithromax) 1,200 mg PO QWK [facility] Clonazepam (Klonopin) 0.5 mg PO TID [facility] Last Admin: 06/18/18 17:43 Dose: 0.5 mg Clotrimazole (Mycelex Gelacio) 10 mg MT 5XD [facility] Last Admin: 06/18/18 19:18 Dose: Not Given Enoxaparin Sodium (Lovenox) 40 mg SC DAILY [facility] Last Admin: 06/18/18 09:27 Dose: 40 mg Meropenem 1 gm/ Sodium (Chloride) 100 mls @ 100 mls/hr IVPB Q8H [facility]; Protocol Last Admin: 06/19/18 01:35 Dose: 100 mls/hr Vancomycin HCl 1.4 gm/ Sodium (Chloride) 500 mls @ 250 mls/hr IVPB Q12H [facility]; Protocol Last Admin: 06/19/18 06:05 Dose: 250 mls/hr Amikacin Sulfate 500 mg/ (Sodium Chloride) 102 mls @ 100 mls/hr IV Q12H [facility]; Protocol Stop: 06/20/18 15:01 Last Admin: 06/19/18 03:22 Dose: 100 mls/hr Dextrose/Sodium Chloride (Dextrose 5%/0.45% Ns 1000 Ml) 1,000 mls @ 100 mls/hr IV .Q10H [facility] Last Admin: 06/19/18 04:32 Dose: Not Given Mirtazapine (Remeron) 15 mg PO [facility] Last Admin: 06/18/18 21:24 Dose: 15 mg Quetiapine Fumarate (Seroquel) 100 mg PO [facility] Last Admin: 06/18/18 21:23 Dose: 100 mg Temazepam (Restoril) 15 mg PO HS PRN PRN Reason: Insomnia Last Admin: 06/17/18 21:20 Dose: 15 mg Trimethoprim/Sulfamethoxazole (Bactrim Ds Tab) 1 tab PO MWF [facility]; Protocol - Labs Labs: 06/18/18 08:15 06/18/18 08:15 - Head Exam Head Exam: ATRAUMATIC, NORMAL INSPECTION - Eye Exam Eye Exam: EOMI, Normal appearance, PERRL. absent: Periorbital tenderness Pupil Exam: NORMAL ACCOMODATION, PERRL. absent: Irregular, Unequal - ENT Exam ENT Exam: Mucous Membranes Moist, Normal Oropharynx - Respiratory Exam Respiratory Exam: Clear to Ausculation Bilateral, NORMAL BREATHING PATTERN. absent: Chest Wall Tenderness, Prolonged Expiratory Phase - Cardiovascular Exam Cardiovascular Exam: REGULAR RHYTHM, +S1, +S2 - GI/Abdominal Exam GI & Abdominal Exam: Soft, Normal Bowel Sounds. absent: Hyperactive Bowel Sounds - Extremities Exam Extremities Exam: Full ROM, Normal Inspection. absent: Pedal Edema - Back Exam Back Exam: NORMAL INSPECTION. absent: CVA tenderness (R), paraspinal tenderness - Neurological Exam Neurological Exam: Alert, Awake, Oriented x3 - Psychiatric Exam Psychiatric exam: Normal Affect, Normal Mood. absent: Depressed - Skin Skin Exam: Dry, Intact Assessment and Plan - Assessment and Plan (Free Text) Plan: 42 year old male with for HIV (not taking meds), unknown CD4 and viral load, a nxiety, bipolar presents to [facility] with skin abscesses, thrush, and dysphagia. UTI - UA: kisha, hazy, 1+protein, + nitrate, 3+ LE, 356 WBC, occ WBC, Many bacteria - Urine Cx (06/14/18): + ecoli, +ESBL - Blood cx (06/13/18): + ecoli, +ESBL - Repeat blood cx (06/17/18): no growth x24h - Echo: no vegetations noted on report; mild dilation of LV & RV, reduced LV function w/diffuse hypokinesis, mod reduced RV systolic function; normal doppler - ID consulted, Dr. Izaguirre; help appreciated - Medications: Discontinued Gentamicin 80mg IV Q8h (active since 06/14/18, DC on 06/17/18) Amikacin 500mg IV Q12h (active since 06/17/18) Meropenem 1gm IV Q8h (active since 06/14/18) Vancomycin 1.4gm IV Q12h [vanc trough was low, <5.0, on 06/16/18] (active since 06/16/18) *PICC line placed 06/18/18 - Imaging: Abd/Pelv CT (06/14/18): Heterogeneous patchy enhancement of the right kidney associated with moderate perinephric stranding and trace fluid and mildly dilated collecting system; suspicious for pyelonephritis and UTI; Trace amount of free fluid in the abdomen and trace pericholecystic fluid. [id number] periportal edema. Mild hepato splenomegaly. Enlarged appendix without definite CT evidence of appendicitis. [id number] constipation. Skin Abscess - Wound cx (06/13/18): +MRSA - Echo: no vegetations noted on report; mild dilation of LV & RV, reduced LV function w/diffuse hypokinesis, mod reduced RV systolic function; normal doppler - Surgery consulted, Dr. Buckley; help appreciated - No surgical intervention at this time; wound self draining - ID consulted, Dr. Izaguirre; help appreciated - Continue warm compresses Q2h - Medications: Discontinued Gentamicin 80mg IV Q8h (active since 06/14/18, DC on 06/17/18) Amikacin 500mg IV Q12h (active since 06/17/18) Meropenem 1gm IV Q8h (active since 06/14/18) Vancomycin 1.4gm IV Q12h [vanc trough was low, <5.0, on 06/16/18] (active since 06/16/18) - Imaging: Soft tissue US (06/15/18): At the site of the palpable abnormality in the mid chest, there is a complex ovoid heterogeneous focus/collection measuring 2.2 x 0.9 x 1.9 centimeters. This is of uncertain clinical etiology and may represent an abscess collection. Chest CT (06/15/18): Suspect small subcutaneous abscess mid anterior chest wall at the level of the mid sternum. Mild bibasilar atelectasis right greater than left. Suspect trace bilateral effusions. Slightly enlarged right hilar lymph node. There is a small amount of perinephric fluid and infiltration surrounding the right kidney. Rule out pyelonephritis. Hepatosplenomegaly. Small amount of pericholecystic fluid. Cardiomegaly. AIDS - noncompliant, not taking medications - CD4 <20 - HIV1 RNA Quant: 5.21H - Started prophylactic antibiotics: Zithromax 1200mg Q7days (starting on Friday06/21/18) Bactrim DS 1tab MWF - Ordered Chlamydia, Gonorrhea, HSV: f/u - RPR reactive, 1:8 titer - Per ID, once bactermia treated, can be started on HIV medications Syphilis - RPR reactive, 1:8 titer - Bicillin 2.4million units IM given (06/18/18). Patient will need 3 treatments in total- give Bacillin 2.4mil units on 06/25/18 & 07/02/18 Leukopenia - WBC 14.5 on 06/18/18 (WBC 9.0 at admission)--> improving, will continue to monitor - likely secondary to HIV/AIDS - Neupogen 300mcg SC daily until WBC >10,000 Esophageal Candidiasis - Improving - Continue Clotrimazole 10mg MT 5xD and Fluconazole 200mg IV Q24h Anxiety - Psychiatry consulted, Dr. Bernard; help appreciated - Continue Xanax 0.5mg PO BID prn Substance abuse - UDS: +amphetamines Prophylaxis - GI: not indicated at this time - DVT: Lovenox 40mg SC daily, SCDs Case discussed with Dr. Ahmet Vallecillo Dispo: Awaiting further rec's from Infectiouis disease. Timothy Robertson, PGY-2
[2018-06-19 07:53] LABS: ALBUMIN 3.7 g/dL (3.5-5.0); ALT/SGPT 30 U/L (21-72); AST/SGOT 37 U/L (17-59); BLOOD UREA NITROGEN 11 mg/dL (9-20); CALCIUM 9.1 mg/dl (8.6-10.4); GFR NON-AFRICAN AMERICAN > 60
[2018-06-19 08:08] LABS: BASO # 0.1 K/uL (0.0-0.2); BASO % 0.5 % (0.0-2.0); EOS % 0.1 % (0.0-4.0); HEMOGLOBIN 10.5 g/dL (12.0-18.0); LYMPH # 0.4 K/uL (1.0-4.3); LYMPH % 2.8 % (20.0-40.0); MEAN CELL VOLUME 84.7 fL (80.0-94.0); MEAN CORPUSCULAR HEMOGLOBIN 27.8 pg (27.0-31.0); MEAN CORPUSCULAR HGB CONC 32.8 g/dL (33.0-37.0); MONO # 0.5 K/uL (0.0-0.8); MONO % 3.7 % (0.0-10.0); NEUT # 13.4 K/uL (1.8-7.0); NEUT % 92.9 % (50.0-75.0); PLATELET COUNT 457 K/uL (130-400); RBC 3.77 Mil/uL (4.40-5.90); RED CELL DISTRIBUTION WIDTH 18.4 % (11.5-14.5)
[2018-06-19 08:11] LABS: WHITE BLOOD COUNT 14.5 K/uL (4.8-10.8)
[2018-06-19] MEDS ORDERED: Tmp-Smz 800 mg-160 mg DS Tab PO SCH (09:00)
[2018-06-19] MEDS: Enoxaparin 40 mg Syringe SC SCH (09:37)
[2018-06-19 10:04] LABS: BANDS 10 % (0-2); LYMPHOCYTE 2 % (20-40); MONOCYTE 5 % (0-10); NEUTROPHIL 83 % (50-75); TOTAL CELLS COUNTED 100
[2018-06-19 10:05] LABS: ANISOCYTOSIS SLIGHT; HYPOCHROMIC SLIGHT; OVALOCYTES SLIGHT; PLATELET ESTIMATE SLIGHTLY INCREASED (NORMAL); POIKILOCYTOSIS SLIGHT
--- NOTE | 2018-06-19 11:29 | PCM.PYCHPN ---
Psychiatric Progress Note - Psychiatric Progress Note Patient seen today, length of contact: 16 min Patient Chief Complaint: "I am better" Problems Identified/Issues Discussed: The pt is seen, chart reviewed, case discussed with staff. The pt is compliant with medications and reports no side-effects. Symptoms are improving but needs more time to stabilize. Support given, psycho-education provided. After care discussed: VIJAY Medication Change: No Medical Record Reviewed: Yes Mental Status Examination - Cognitive Function Orientation: Person, Place, Situation, Time Memory: Intact Attention: Poor Concentration: Poor Association: WNL Fund of Knowledge: WNL - Mood Mood: Depressed, Anxious - Affect Affect: Constricted - Speech Speech: Appropriate - Formal Thought Process Formal Thought Process: No Impairment - Suicidal Ideation Suicidal Ideation: No - Homicidal Ideation Homicidal Ideation: No Goal/Treatment Plan - Goal/Treatment Plan Need for Continued Stay: Discharge may exacerbated symptoms, Severe functional impairment, Other (medical ) Progress Toward Problem(s) and Goals/Treatment Plan: Remeron for depression Klonopin for anxiety Seroquel for mood swings, insomnia Support and psychoed 34 min
[2018-06-19] MEDS ORDERED: Emtricitabine-Tenofovir 200 mg-300 mg Tab PO NR (15:15)
--- NOTE | 2018-06-19 15:28 | CP.PCM.PN ---
Subjective - Date & Time of Evaluation Date of Evaluation: 06/19/18 Time of Evaluation: 15:20 - Subjective Subjective: dictated Objective - Vital Signs/Intake and Output Vital Signs (last 24 hours): Temp Pulse Resp BP Pulse Ox 97.6 F 83 20 101/65 98 06/19/18 08:50 06/19/18 08:50 06/19/18 08:50 06/19/18 08:50 06/19/18 08:50 Intake and Output: 06/19/18 06/19/18 06:59 18:59 Intake Total 2200 Output Total 1600 Balance 600 - Medications Medications: Current Medications Acetaminophen (Tylenol 325mg Tab) 650 mg PO Q6 PRN PRN Reason: Temperature >100 Last Admin: 06/15/18 15:32 Dose: 650 mg Azithromycin (Zithromax) 1,200 mg PO QWK [facility] Clonazepam (Klonopin) 0.5 mg PO TID [facility] Last Admin: 06/19/18 13:27 Dose: 0.5 mg Clotrimazole (Mycelex Gelacio) 10 mg MT 5XD [facility] Last Admin: 06/19/18 13:17 Dose: Not Given Emtricitabine/Tenofovir (Truvada 200 Mg-300 Mg) 1 tab PO ONCE [facility]; Protocol Enoxaparin Sodium (Lovenox) 40 mg SC DAILY [facility] Last Admin: 06/19/18 09:37 Dose: 40 mg Meropenem 1 gm/ Sodium (Chloride) 100 mls @ 100 mls/hr IVPB Q8H [facility]; Protocol Last Admin: 06/19/18 13:21 Dose: 100 mls/hr Vancomycin HCl 1.4 gm/ Sodium (Chloride) 500 mls @ 250 mls/hr IVPB Q12H [facility]; Protocol Last Admin: 06/19/18 06:05 Dose: 250 mls/hr Amikacin Sulfate 500 mg/ (Sodium Chloride) 102 mls @ 100 mls/hr IV Q12H [facility]; Protocol Stop: 06/20/18 15:01 Last Admin: 06/19/18 14:54 Dose: 100 mls/hr Dextrose/Sodium Chloride (Dextrose 5%/0.45% Ns 1000 Ml) 1,000 mls @ 100 mls/hr IV .Q10H [facility] Last Admin: 06/19/18 04:32 Dose: Not Given Mirtazapine (Remeron) 15 mg PO HS [facility] Last Admin: 06/18/18 21:24 Dose: 15 mg Quetiapine Fumarate (Seroquel) 100 mg PO HS [facility] Last Admin: 06/18/18 21:23 Dose: 100 mg Raltegravir (Isentress) 400 mg PO BID [facility]; Protocol Temazepam (Restoril) 15 mg PO HS PRN PRN Reason: Insomnia Last Admin: 06/17/18 21:20 Dose: 15 mg Trimethoprim/Sulfamethoxazole (Bactrim Ds Tab) 1 tab PO [facility]; Protocol Last Admin: 06/19/18 09:37 Dose: 1 tab - Labs Labs: 06/19/18 07:56 06/19/18 07:32
[2018-06-19] MEDS: Emtricitabine-Tenofovir 200 mg-300 mg Tab PO SCH (17:00)
--- NOTE | 2018-06-19 20:02 | CP.PCM.PN ---
Subjective - Date & Time of Evaluation Date of Evaluation: 06/19/18 - Subjective Subjective: patient examined today patient denies nausea, vomiting, fever, diarrhea, dizziness, shortness of breath Objective - Vital Signs/Intake and Output Vital Signs (last 24 hours): Temp Pulse Resp BP Pulse Ox 98.4 F 107 H 20 109/71 98 06/19/18 15:05 06/19/18 15:05 06/19/18 15:05 06/19/18 15:05 06/19/18 15:05 - Medications Medications: Current Medications Acetaminophen (Tylenol 325mg Tab) 650 mg PO Q6 PRN PRN Reason: Temperature >100 Last Admin: 06/15/18 15:32 Dose: 650 mg Azithromycin (Zithromax) 1,200 mg PO QWK [facility] Clonazepam (Klonopin) 0.5 mg PO TID [facility] Last Admin: 06/19/18 17:31 Dose: 0.5 mg Clotrimazole (Mycelex Gelacio) 10 mg MT 5XD [facility] Last Admin: 06/19/18 16:00 Dose: Not Given Emtricitabine/Tenofovir (Truvada 200 Mg-300 Mg) 1 tab PO DAILY [facility]; Protocol Last Admin: 06/19/18 17:00 Dose: 1 tab Enoxaparin Sodium (Lovenox) 40 mg SC DAILY [facility] Last Admin: 06/19/18 09:37 Dose: 40 mg Meropenem 1 gm/ Sodium (Chloride) 100 mls @ 100 mls/hr IVPB Q8H [facility]; Protocol Last Admin: 06/19/18 17:31 Dose: 100 mls/hr Vancomycin HCl 1.4 gm/ Sodium (Chloride) 500 mls @ 250 mls/hr IVPB Q12H [facility]; Protocol Last Admin: 06/19/18 06:05 Dose: 250 mls/hr Amikacin Sulfate 500 mg/ (Sodium Chloride) 102 mls @ 100 mls/hr IV Q12H [facility]; Protocol Stop: 06/20/18 15:01 Last Admin: 06/19/18 14:54 Dose: 100 mls/hr Dextrose/Sodium Chloride (Dextrose 5%/0.45% Ns 1000 Ml) 1,000 mls @ 100 mls/hr IV .Q10H [facility] Last Admin: 06/19/18 04:32 Dose: Not Given Mirtazapine (Remeron) 15 mg PO HS [facility] Last Admin: 06/18/18 21:24 Dose: 15 mg Quetiapine Fumarate (Seroquel) 100 mg PO HS [facility] Last Admin: 06/18/18 21:23 Dose: 100 mg Raltegravir (Isentress) 400 mg PO BID [facility]; Protocol Last Admin: 06/19/18 17:31 Dose: 400 mg Temazepam (Restoril) 15 mg PO HS PRN PRN Reason: Insomnia Last Admin: 06/17/18 21:20 Dose: 15 mg Trimethoprim/Sulfamethoxazole (Bactrim Ds Tab) 1 tab PO MWF [facility]; Protocol Last Admin: 06/19/18 09:37 Dose: 1 tab - Labs Labs: 06/19/18 07:56 06/19/18 07:32 - Constitutional Appears: Well - Head Exam Head Exam: ATRAUMATIC, NORMAL INSPECTION, NORMOCEPHALIC - Eye Exam Eye Exam: EOMI, Normal appearance, PERRL Pupil Exam: NORMAL ACCOMODATION, PERRL - ENT Exam ENT Exam: Mucous Membranes Moist, Normal Exam - Neck Exam Neck Exam: Full ROM, Normal Inspection. absent: Lymphadenopathy - Respiratory Exam Respiratory Exam: Decreased Breath Sounds - Cardiovascular Exam Cardiovascular Exam: REGULAR RHYTHM, +S1, +S2 - GI/Abdominal Exam GI & Abdominal Exam: Soft, Diminished Bowel Sounds - Rectal Exam Rectal Exam: Deferred - Neurological Exam Neurological Exam: Oriented x3 Assessment and Plan - Assessment and Plan (Free Text) Plan: medications reviewed labs reviewed vitals reviewed plan discussed with patient and family moderate complexity of care amikacin sulfate bactrim ds dextrose 5% dextrose 50% isentress klonopin lovenox meropenem mycelex gelacio remeron restoril seroquel truvada tylenol vancomycin zithromax
[2018-06-20] MEDS: Meropenem 1 GM in Sodium Chloride 0.9% 100 ML IVPB SCH ×3 (02:00→17:31)
[2018-06-20] MEDS: Vancomycin 1.4 GM in Sodium Chloride 0.9% 500 ML IVPB SCH ×2 (06:00→20:00)
[2018-06-20 06:58] LABS: BASO # 0.1 K/uL (0.0-0.2); BASO % 0.3 % (0.0-2.0); EOS % 0.1 % (0.0-4.0); HEMOGLOBIN 10.4 g/dL (12.0-18.0); LYMPH # 0.6 K/uL (1.0-4.3); LYMPH % 2.8 % (20.0-40.0); MEAN CELL VOLUME 84.6 fL (80.0-94.0); MEAN CORPUSCULAR HEMOGLOBIN 27.3 pg (27.0-31.0); MEAN CORPUSCULAR HGB CONC 32.2 g/dL (33.0-37.0); MEAN PLATELET VOLUME 7.7 fL (7.2-11.7); MONO % 4.5 % (0.0-10.0); NEUT # 20.1 K/uL (1.8-7.0); NEUT % 92.3 % (50.0-75.0); PLATELET COUNT 481 K/uL (130-400); RBC 3.81 Mil/uL (4.40-5.90); RED CELL DISTRIBUTION WIDTH 18.5 % (11.5-14.5); WHITE BLOOD COUNT 21.8 K/uL (4.8-10.8)
[2018-06-20 07:10] LABS: ALB/GLOB RATIO 0.9 (1.0-2.1); ALBUMIN 3.6 g/dL (3.5-5.0); ALT/SGPT 49 U/L (21-72); AST/SGOT 49 U/L (17-59); BLOOD UREA NITROGEN 9 mg/dL (9-20); CALCIUM 9.2 mg/dl (8.6-10.4); GFR NON-AFRICAN AMERICAN > 60
[2018-06-20 09:18] LABS: ANISOCYTOSIS SLIGHT; BANDS 8 % (0-2); LYMPHOCYTE 3 % (20-40); MONOCYTE 4 % (0-10); NEUTROPHIL 85 % (50-75); PLATELET ESTIMATE INCREASED (NORMAL); POIKILOCYTOSIS SLIGHT; TOTAL CELLS COUNTED 100
[2018-06-20 09:19] LABS: HYPOCHROMIC SLIGHT; LARGE PLATELETS PRESENT; OVALOCYTES SLIGHT; POLYCHROMIC SLIGHT; TOXIC GRANULATION PRESENT
[2018-06-20] MEDS: Emtricitabine-Tenofovir 200 mg-300 mg Tab PO SCH (10:51)
[2018-06-20] MEDS: Dextrose 5%/0.45% NS 1,000 ML IV SCH ×2 (10:53→19:00)
[2018-06-20] MEDS: Enoxaparin 40 mg Syringe SC SCH (10:54)
--- NOTE | 2018-06-20 15:52 | CP.PCM.PN ---
Subjective - Date & Time of Evaluation Date of Evaluation: 06/20/18 - Subjective Subjective: patient examined today no nausea no vomitng no dizziness no diarrhea no shortness of breath no fever Objective - Vital Signs/Intake and Output Vital Signs (last 24 hours): Temp Pulse Resp BP Pulse Ox 97.4 F L 89 20 111/75 97 06/20/18 07:00 06/20/18 07:00 06/20/18 07:00 06/20/18 07:00 06/20/18 07:00 Intake and Output: 06/20/18 06/20/18 06:59 18:59 Intake Total 800 Output Total 5 Balance 795 - Medications Medications: Current Medications Acetaminophen (Tylenol 325mg Tab) 650 mg PO Q6 PRN PRN Reason: Temperature >100 Last Admin: 06/15/18 15:32 Dose: 650 mg Azithromycin (Zithromax) 1,200 mg PO QWK [facility] Clonazepam (Klonopin) 0.5 mg PO TID [facility] Last Admin: 06/20/18 14:01 Dose: 0.5 mg Clotrimazole (Mycelex Gelacio) 10 mg MT 5XD [facility] Last Admin: 06/20/18 14:02 Dose: 10 mg Emtricitabine/Tenofovir (Truvada 200 Mg-300 Mg) 1 tab PO DAILY [facility]; Protocol Last Admin: 06/20/18 10:51 Dose: 1 tab Enoxaparin Sodium (Lovenox) 40 mg SC DAILY [facility] Last Admin: 06/20/18 10:54 Dose: 40 mg Meropenem 1 gm/ Sodium (Chloride) 100 mls @ 100 mls/hr IVPB Q8H [facility]; Protocol Last Admin: 06/20/18 10:54 Dose: 100 mls/hr Vancomycin HCl 1.4 gm/ Sodium (Chloride) 500 mls @ 250 mls/hr IVPB Q12H [facility]; Protocol Last Admin: 06/20/18 06:00 Dose: 250 mls/hr Dextrose/Sodium Chloride (Dextrose 5%/0.45% Ns 1000 Ml) 1,000 mls @ 100 mls/hr IV .Q10H [facility] Last Admin: 06/20/18 10:53 Dose: Not Given Mirtazapine (Remeron) 15 mg PO HS [facility] Last Admin: 06/19/18 21:31 Dose: 15 mg Quetiapine Fumarate (Seroquel) 100 mg PO HS [facility] Last Admin: 06/19/18 21:31 Dose: 100 mg Raltegravir (Isentress) 400 mg PO BID [facility]; Protocol Last Admin: 06/20/18 10:52 Dose: 400 mg Temazepam (Restoril) 15 mg PO HS PRN PRN Reason: Insomnia Last Admin: 06/17/18 21:20 Dose: 15 mg - Labs Labs: 06/20/18 06:45 06/20/18 06:45 - Constitutional Appears: Well - Head Exam Head Exam: ATRAUMATIC, NORMAL INSPECTION, NORMOCEPHALIC - Eye Exam Eye Exam: EOMI, Normal appearance, PERRL Pupil Exam: NORMAL ACCOMODATION, PERRL - ENT Exam ENT Exam: Mucous Membranes Moist, Normal Exam - Neck Exam Neck Exam: Full ROM, Normal Inspection. absent: Lymphadenopathy - Respiratory Exam Respiratory Exam: Decreased Breath Sounds - Cardiovascular Exam Cardiovascular Exam: REGULAR RHYTHM, +S1, +S2 - GI/Abdominal Exam GI & Abdominal Exam: Soft, Diminished Bowel Sounds - Rectal Exam Rectal Exam: Deferred - Neurological Exam Neurological Exam: Oriented x3 Assessment and Plan - Assessment and Plan (Free Text) Plan: amikacin sulfate bactrim ds dextrose 5% dextrose 50% isentress klonopin lovenox meropenem mycelex gelacio remeron restoril seroquel truvada tylenol vancomycin zithromax medications reviewed labs reviewed vitals reviewed plan discussed with patient moderate complexity of care
--- NOTE | 2018-06-20 16:12 | CP.PCM.PN ---
Subjective - Date & Time of Evaluation Date of Evaluation: 06/20/18 Time of Evaluation: 13:15 - Subjective Subjective: dictated Objective - Vital Signs/Intake and Output Vital Signs (last 24 hours): Temp Pulse Resp BP Pulse Ox 97.4 F L 89 20 111/75 97 06/20/18 07:00 06/20/18 07:00 06/20/18 07:00 06/20/18 07:00 06/20/18 07:00 Intake and Output: 06/20/18 06/20/18 06:59 18:59 Intake Total 800 Output Total 5 Balance 795 - Medications Medications: Current Medications Acetaminophen (Tylenol 325mg Tab) 650 mg PO Q6 PRN PRN Reason: Temperature >100 Last Admin: 06/15/18 15:32 Dose: 650 mg Azithromycin (Zithromax) 1,200 mg PO QWK [facility] Clonazepam (Klonopin) 0.5 mg PO TID [facility] Last Admin: 06/20/18 14:01 Dose: 0.5 mg Clotrimazole (Mycelex Gelacio) 10 mg MT 5XD [facility] Last Admin: 06/20/18 14:02 Dose: 10 mg Emtricitabine/Tenofovir (Truvada 200 Mg-300 Mg) 1 tab PO DAILY [facility]; Protocol Last Admin: 06/20/18 10:51 Dose: 1 tab Enoxaparin Sodium (Lovenox) 40 mg SC DAILY [facility] Last Admin: 06/20/18 10:54 Dose: 40 mg Meropenem 1 gm/ Sodium (Chloride) 100 mls @ 100 mls/hr IVPB Q8H [facility]; Protocol Last Admin: 06/20/18 10:54 Dose: 100 mls/hr Vancomycin HCl 1.4 gm/ Sodium (Chloride) 500 mls @ 250 mls/hr IVPB Q12H [facility]; Protocol Last Admin: 06/20/18 06:00 Dose: 250 mls/hr Dextrose/Sodium Chloride (Dextrose 5%/0.45% Ns 1000 Ml) 1,000 mls @ 100 mls/hr IV .Q10H [facility] Last Admin: 06/20/18 10:53 Dose: Not Given Mirtazapine (Remeron) 15 mg PO HS [facility] Last Admin: 06/19/18 21:31 Dose: 15 mg Quetiapine Fumarate (Seroquel) 100 mg PO HS [facility] Last Admin: 06/19/18 21:31 Dose: 100 mg Raltegravir (Isentress) 400 mg PO BID [facility]; Protocol Last Admin: 06/20/18 10:52 Dose: 400 mg Temazepam (Restoril) 15 mg PO HS PRN PRN Reason: Insomnia Last Admin: 06/17/18 21:20 Dose: 15 mg - Labs Labs: 06/20/18 06:45 06/20/18 06:45
--- NOTE | 2018-06-20 21:17 | PN ---
DATE: 06/20/2018 SUBJECTIVE: The patient is feeling better. He has not much complaints. He is waiting for placement for IV antibiotics. PHYSICAL EXAMINATION: GENERAL: He is mostly lying in bed. I told him to get out of bed. VITAL SIGNS: T-max is 97.4, pulse is 89, blood pressure 111/75, respirations are 20. HEENT: Head is atraumatic, normocephalic NECK: Supple. LUNGS: Clear. HEART: S1, S2 are regular. ABDOMEN: Soft. His drainage is decreasing from the left abdominal skin abscess. EXTREMITIES: Have no edema, clubbing or cyanosis. LABORATORY DATA: His white count is 21.8. He was getting filgrastim G-CSF and Neupogen before which we have discontinued now and white count went up because of that, hemoglobin 10.4, hematocrit 32.2, platelet count is 481. ASSESSMENT AND PLAN: The patient started on all other medications. He still remains on vancomycin and he is on meropenem for the extended spectrum beta lactamase in the blood. He had pyelonephritis with urinary tract infection. He is also started on HIV medications at this time and we will also order a gold QuantiFeron test. But his x-rays have been negative, so I do not think I need to do that and he is old and he is HIV positive from before. So we will continue present treatment and I think vancomycin can be probably discontinued on Friday if the skin lesions look healed. Vickie Izaguirre MD
[2018-06-21] MEDS: Meropenem 1 GM in Sodium Chloride 0.9% 100 ML IVPB SCH ×3 (02:24→17:58)
[2018-06-21] MEDS: Dextrose 5%/0.45% NS 1,000 ML IV SCH ×2 (05:45→16:29)
[2018-06-21] MEDS: Vancomycin 1.4 GM in Sodium Chloride 0.9% 500 ML IVPB SCH ×2 (06:41→20:00)
[2018-06-21 08:01] LABS: BASO # 0.1 K/uL (0.0-0.2); EOS % 0.4 % (0.0-4.0); HEMOGLOBIN 10.6 g/dL (12.0-18.0); LYMPH # 0.8 K/uL (1.0-4.3); LYMPH % 6.8 % (20.0-40.0); MEAN CELL VOLUME 85.3 fL (80.0-94.0); MEAN CORPUSCULAR HEMOGLOBIN 27.5 pg (27.0-31.0); MEAN CORPUSCULAR HGB CONC 32.3 g/dL (33.0-37.0); MONO # 0.8 K/uL (0.0-0.8); MONO % 6.9 % (0.0-10.0); NEUT # 10.4 K/uL (1.8-7.0); NEUT % 84.9 % (50.0-75.0); PLATELET COUNT 470 K/uL (130-400); RBC 3.84 Mil/uL (4.40-5.90); RED CELL DISTRIBUTION WIDTH 18.8 % (11.5-14.5); WHITE BLOOD COUNT 12.2 K/uL (4.8-10.8)
[2018-06-21 08:25] LABS: ALB/GLOB RATIO 0.9 (1.0-2.1); ALBUMIN 3.7 g/dL (3.5-5.0); ALT/SGPT 59 U/L (21-72); AST/SGOT 59 U/L (17-59); BLOOD UREA NITROGEN 10 mg/dL (9-20); CALCIUM 9.2 mg/dl (8.6-10.4); GFR NON-AFRICAN AMERICAN > 60
[2018-06-21 08:53] LABS: BANDS 3 % (0-2); LYMPHOCYTE 7 % (20-40); MONOCYTE 7 % (0-10); NEUTROPHIL 83 % (50-75); NUCLEATED RED BLOOD CELL 1 % (0-0); PLATELET ESTIMATE SLIGHTLY INCREASED (NORMAL); TOTAL CELLS COUNTED 100
[2018-06-21 08:54] LABS: ANISOCYTOSIS SLIGHT; HYPOCHROMIC SLIGHT; LARGE PLATELETS PRESENT; POLYCHROMIC SLIGHT
[2018-06-21 08:56] LABS: GIANT PLATELETS PRESENT
[2018-06-21] MEDS: Enoxaparin 40 mg Syringe SC SCH (10:09)
[2018-06-21] MEDS: Emtricitabine-Tenofovir 200 mg-300 mg Tab PO SCH (10:09)
--- NOTE | 2018-06-21 11:40 | PCM.PYCHPN ---
Psychiatric Progress Note - Psychiatric Progress Note Patient seen today, length of contact: 16 min Patient Chief Complaint: "I am not sleeping well" Problems Identified/Issues Discussed: The pt is seen again, chart reviewed, and case is discussed with the team. The pt denies any side-effects from meds. Attends activities and groups, brief individual therapy provided Not ready for discharge due to ongoing symptoms and high relapse risk. After care discussed again. Medication Change: Yes (increase seroquel) Medical Record Reviewed: Yes Mental Status Examination - Cognitive Function Orientation: Person, Place, Situation, Time Memory: Intact Attention: WNL Concentration: Poor Association: WNL Fund of Knowledge: WNL - Mood Mood: Depressed, Anxious - Affect Affect: Constricted - Speech Speech: Appropriate - Formal Thought Process Formal Thought Process: No Impairment - Suicidal Ideation Suicidal Ideation: No - Homicidal Ideation Homicidal Ideation: No Goal/Treatment Plan - Goal/Treatment Plan Need for Continued Stay: Discharge may exacerbated symptoms, Severe functional impairment, Other (medical ) Progress Toward Problem(s) and Goals/Treatment Plan: Remeron for depression Klonopin for anxiety Seroquel for mood swings, insomnia - dose increased Support and psychoed
--- NOTE | 2018-06-21 15:19 | CP.PCM.PN ---
Subjective - Date & Time of Evaluation Date of Evaluation: 06/21/18 - Subjective Subjective: patient examined today no nausea no vomiting no dizziness no diarrhea no fever no shortness of breath Objective - Vital Signs/Intake and Output Vital Signs (last 24 hours): Temp Pulse Resp BP Pulse Ox 97.4 F L 76 20 109/69 97 06/20/18 23:30 06/20/18 23:30 06/20/18 23:30 06/20/18 23:30 06/20/18 23:30 - Medications Medications: Current Medications Acetaminophen (Tylenol 325mg Tab) 650 mg PO Q6 PRN PRN Reason: Temperature >100 Last Admin: 06/15/18 15:32 Dose: 650 mg Azithromycin (Zithromax) 1,200 mg PO QWK [facility] Last Admin: 06/21/18 10:07 Dose: 1,200 mg Clonazepam (Klonopin) 0.5 mg PO TID [facility] Last Admin: 06/21/18 13:52 Dose: 0.5 mg Clotrimazole (Mycelex Gelacio) 10 mg MT 5XD [facility] Last Admin: 06/21/18 13:52 Dose: 10 mg Emtricitabine/Tenofovir (Truvada 200 Mg-300 Mg) 1 tab PO DAILY [facility]; Protocol Last Admin: 06/21/18 10:09 Dose: 1 tab Meropenem 1 gm/ Sodium (Chloride) 100 mls @ 100 mls/hr IVPB Q8H [facility]; Protocol Last Admin: 06/21/18 10:11 Dose: 100 mls/hr Vancomycin HCl 1.4 gm/ Sodium (Chloride) 500 mls @ 250 mls/hr IVPB Q12H [facility]; Protocol Last Admin: 06/21/18 06:41 Dose: 250 mls/hr Dextrose/Sodium Chloride (Dextrose 5%/0.45% Ns 1000 Ml) 1,000 mls @ 100 mls/hr IV .Q10H [facility] Last Admin: 06/21/18 05:45 Dose: Not Given Mirtazapine (Remeron) 15 mg PO HS [facility] Last Admin: 06/20/18 21:12 Dose: 15 mg Quetiapine Fumarate (Seroquel) 200 mg PO HS [facility] Raltegravir (Isentress) 400 mg PO BID [facility]; Protocol Last Admin: 06/21/18 10:10 Dose: 400 mg Temazepam (Restoril) 15 mg PO HS PRN PRN Reason: Insomnia Last Admin: 06/17/18 21:20 Dose: 15 mg - Labs Labs: 06/21/18 07:54 06/21/18 07:55 - Constitutional Appears: Well - Head Exam Head Exam: ATRAUMATIC, NORMAL INSPECTION, NORMOCEPHALIC - Eye Exam Eye Exam: EOMI, Normal appearance, PERRL Pupil Exam: NORMAL ACCOMODATION, PERRL - ENT Exam ENT Exam: Mucous Membranes Moist, Normal Exam - Neck Exam Neck Exam: Full ROM, Normal Inspection. absent: Lymphadenopathy - Respiratory Exam Respiratory Exam: Decreased Breath Sounds - Cardiovascular Exam Cardiovascular Exam: REGULAR RHYTHM, +S1, +S2 - GI/Abdominal Exam GI & Abdominal Exam: Soft, Diminished Bowel Sounds - Rectal Exam Rectal Exam: Deferred - Neurological Exam Neurological Exam: Oriented x3 Assessment and Plan - Assessment and Plan (Free Text) Plan: medications reviewed labs reviewed vitals reviewed plan discussed with patient moderate complexity of care amikacin sulfate bactrim ds dextrose 5% dextrose 50% isentress klonopin lovenox meropenem mycelex gelacio remeron restoril seroquel truvada tylenol vancomycin zithromax
--- NOTE | 2018-06-21 18:59 | PN ---
DATE: 06/19/2018 SUBJECTIVE: The patient is feeling better. There is no more drainage from the left chest wall wound as well as the left abdominal wound is healing. He had MRSA on it. He got the PICC line on the right arm and feels better. He denies any pain now. He is improving. Also, I told him I replaced the HIV medication. PHYSICAL EXAMINATION: VITAL SIGNS: T-max is 97.6, pulse 83, blood pressure is 101/65, respirations are 20. HEENT: Head is atraumatic, normocephalic. NECK: Supple. LUNGS: Clear. HEART: S1 and S2 is regular. ABDOMEN: Soft, nontender. No guarding, no rigidity present. EXTREMITIES: Have no edema. Skin infections are improving and he needs to get IV antibiotics. He had E. coli ESBL-positive septicemia because of the UTI and pyelonephritis. Blood cultures are negative from 06/17/2018, so from 06/14/2018 he got 6 days of IV antibiotics here. He needs 8 more days in the rehab of meropenem and give him 3 more days of vancomycin and that can be stopped as the wound infections have improved. He is also on RPR treatment with Bicillin L-A which he received this week, I think, on Friday. So, need to be given every Friday for 2.4 million units IM injection weekly for next two weeks, that will complete his . His herpes is also positive but I am not treating him for that for now and he had thrush. We have treated him with Diflucan which has been discontinued. He has been started on Zithromax weekly every Friday 1200 mg, Friday would be the first time he would be getting it, and clotrimazole can be discontinued and amikacin can be discontinued when he is discharged. He also dropped his white count and needed Neupogen to bring it up and he is also started on Bactrim prophylaxis Friday, Friday, and Friday. Because of his low count, we could not give it anymore than that and the patient should follow with an HIV specialist or Infectious Disease as he has multiple issues. Sadhna Dmitriy, MD
[2018-06-22] MEDS: Meropenem 1 GM in Sodium Chloride 0.9% 100 ML IVPB SCH ×3 (03:21→19:30)
[2018-06-22] MEDS: Dextrose 5%/0.45% NS 1,000 ML IV SCH (03:21)
[2018-06-22 06:34] LABS: BASO % 0.3 % (0.0-2.0); EOS # 0.1 K/uL (0.0-0.7); EOS % 0.7 % (0.0-4.0); HEMOGLOBIN 10.9 g/dL (12.0-18.0); LYMPH # 0.8 K/uL (1.0-4.3); LYMPH % 9.9 % (20.0-40.0); MEAN CELL VOLUME 84.3 fL (80.0-94.0); MEAN CORPUSCULAR HEMOGLOBIN 28.1 pg (27.0-31.0); MEAN CORPUSCULAR HGB CONC 33.3 g/dL (33.0-37.0); MEAN PLATELET VOLUME 7.7 fL (7.2-11.7); MONO # 0.7 K/uL (0.0-0.8); MONO % 9.6 % (0.0-10.0); NEUT # 6.2 K/uL (1.8-7.0); NEUT % 79.5 % (50.0-75.0); NRBC % 0.1 % (0.0-2.0); PLATELET COUNT 505 K/uL (130-400); RBC 3.86 Mil/uL (4.40-5.90); RED CELL DISTRIBUTION WIDTH 18.8 % (11.5-14.5); WHITE BLOOD COUNT 7.8 K/uL (4.8-10.8)
[2018-06-22 07:02] LABS: ALT/SGPT 64 U/L (21-72); AST/SGOT 71 U/L (17-59); BLOOD UREA NITROGEN 11 mg/dL (9-20); CALCIUM 9.2 mg/dl (8.6-10.4); GFR NON-AFRICAN AMERICAN > 60
--- NOTE | 2018-06-22 08:05 | CP.PCM.PN ---
Subjective - Date & Time of Evaluation Date of Evaluation: 06/22/18 Time of Evaluation: 08:05 - Subjective Subjective: Progress note for Dr. Ahmet Vallecillo Patient was seen and examined at bedside in no acute distress. Patient appears tearful and anxious. He has been tolerating diet well. He denies chest pain, dyspnea, palpitations, vomiting, fevers, headaches, abdominal pain, leg pain and swelling, dysuria. No acute events overnight. Objective - Vital Signs/Intake and Output Vital Signs (last 24 hours): Temp Pulse Resp BP Pulse Ox 97.8 F 78 20 113/75 98 06/21/18 23:25 06/21/18 23:25 06/21/18 23:25 06/21/18 23:25 06/21/18 23:25 - Medications Medications: Current Medications Acetaminophen (Tylenol 325mg Tab) 650 mg PO Q6 PRN PRN Reason: Temperature >100 Last Admin: 06/15/18 15:32 Dose: 650 mg Azithromycin (Zithromax) 1,200 mg PO QWK [facility] Last Admin: 06/21/18 10:07 Dose: 1,200 mg Clonazepam (Klonopin) 0.5 mg PO TID [facility] Last Admin: 06/21/18 17:58 Dose: 0.5 mg Clotrimazole (Mycelex Gelacio) 10 mg MT 5XD [facility] Last Admin: 06/21/18 21:44 Dose: Not Given Emtricitabine/Tenofovir (Truvada 200 Mg-300 Mg) 1 tab PO DAILY [facility]; Protocol Last Admin: 06/21/18 10:09 Dose: 1 tab Meropenem 1 gm/ Sodium (Chloride) 100 mls @ 100 mls/hr IVPB Q8H [facility]; Protocol Last Admin: 06/22/18 03:21 Dose: 100 mls/hr Mirtazapine (Remeron) 15 mg PO HS [facility] Last Admin: 06/21/18 21:44 Dose: 15 mg Quetiapine Fumarate (Seroquel) 200 mg PO HS [facility] Last Admin: 06/21/18 21:44 Dose: 200 mg Raltegravir (Isentress) 400 mg PO BID [facility]; Protocol Last Admin: 06/21/18 17:58 Dose: 400 mg Temazepam (Restoril) 15 mg PO HS PRN PRN Reason: Insomnia Last Admin: 06/17/18 21:20 Dose: 15 mg - Labs Labs: 06/22/18 06:25 06/22/18 06:25 - Head Exam Head Exam: ATRAUMATIC, NORMAL INSPECTION - Eye Exam Eye Exam: EOMI, Normal appearance Pupil Exam: NORMAL ACCOMODATION, PERRL - ENT Exam ENT Exam: Normal Exam - Respiratory Exam Respiratory Exam: Clear to Ausculation Bilateral, NORMAL BREATHING PATTERN - Cardiovascular Exam Cardiovascular Exam: REGULAR RHYTHM, +S1, +S2. absent: RRR - GI/Abdominal Exam GI & Abdominal Exam: Soft, Normal Bowel Sounds. absent: Tenderness - Extremities Exam Extremities Exam: Normal Capillary Refill, Normal Inspection - Back Exam Back Exam: CVA tenderness (R), NORMAL INSPECTION. absent: CVA tenderness (L) - Neurological Exam Neurological Exam: Alert, Awake, CN II-XII Intact, Oriented x3 - Psychiatric Exam Psychiatric exam: Normal Affect, Normal Mood - Skin Skin Exam: Dry, Normal Color, Warm Assessment and Plan - Assessment and Plan (Free Text) Plan: 42 year old male with for HIV (not taking meds), unknown CD4 and viral load, anxiety, bipolar presents to [facility] with skin abscesses, thrush, and dysphagia. UTI - UA: kisha, hazy, 1+protein, + nitrate, 3+ LE, 356 WBC, occ WBC, Many bacteria - Urine Cx (06/14/18): + ecoli, +ESBL - Blood cx (06/13/18): + ecoli, +ESBL - Repeat blood cx (06/17/18): no growth x24h - Echo: no vegetations noted on report; mild dilation of LV & RV, reduced LV function w/diffuse hypokinesis, mod reduced RV systolic function; normal doppler - ID consulted, Dr. Izaguirre; help appreciated - Medications: Discontinued Gentamicin 80mg IV Q8h (active since 06/14/18, DC on 06/17/18) Amikacin 500mg IV Q12h (active since 06/17/18) Meropenem 1gm IV Q8h (active since 06/14/18) Vancomycin 1.4gm IV Q12h [vanc trough was low, <5.0, on 06/16/18] (active since 06/16/18) *PICC line placed 06/18/18 - Imaging: Abd/Pelv CT (06/14/18): Heterogeneous patchy enhancement of the right kidney associated with moderate perinephric stranding and trace fluid and mildly dilated collecting system; suspicious for pyelonephritis and UTI; Trace amount of free fluid in the abdomen and trace pericholecystic fluid. [id number] periportal edema. Mild hepato splenomegaly. Enlarged appendix without definite CT evidence of appendicitis. [id number] constipation. Skin Abscess - Wound cx (06/13/18): +MRSA - Echo: no vegetations noted on report; mild dilation of LV & RV, reduced LV function w/diffuse hypokinesis, mod reduced RV systolic function; normal doppler - Surgery consulted, Dr. Buckley; help appreciated - No surgical intervention at this time; wound self draining - ID consulted, Dr. Izaguirre; help appreciated - Continue warm compresses Q2h - Medications: Discontinued Gentamicin 80mg IV Q8h (active since 06/14/18, DC on 06/17/18) Amikacin 500mg IV Q12h (active since 06/17/18) Meropenem 1gm IV Q8h (active since 06/14/18) Vancomycin 1.4gm IV Q12h [vanc trough was low, <5.0, on 06/16/18] (active since 06/16/18) - Imaging: Soft tissue US (06/15/18): At the site of the palpable abnormality in the mid chest, there is a complex ovoid heterogeneous focus/collection measuring 2.2 x 0.9 x 1.9 centimeters. This is of uncertain clinical etiology and may represent an abscess collection. Chest CT (06/15/18): Suspect small subcutaneous abscess mid anterior chest wall at the level of the mid sternum. Mild bibasilar atelectasis right greater than left. Suspect trace bilateral effusions. Slightly enlarged right hilar lymph node. There is a small amount of perinephric fluid and infiltration surrounding the right kidney. Rule out pyelonephritis. Hepatosplenomegaly. Small amount of pericholecystic fluid. Cardiomegaly. AIDS - noncompliant, not taking medications - CD4 <20 - HIV1 RNA Quant: 5.21H - Started prophylactic antibiotics: Zithromax 1200mg Q7days (starting on Friday06/21/18) Bactrim DS 1tab MWF - Ordered Chlamydia, Gonorrhea, HSV: f/u - RPR reactive, 1:8 titer - Per ID, once bactermia treated, can be started on HIV medications Syphilis - RPR reactive, 1:8 titer - Bicillin 2.4million units IM given (06/18/18). Patient will need 3 treatments in total- give Bacillin 2.4mil units on 06/25/18 & 07/02/18 Leukopenia - WBC 14.5 on 06/18/18 (WBC 9.0 at admission)--> improving, will continue to monitor - likely secondary to HIV/AIDS - Neupogen 300mcg SC daily until WBC >10,000 Esophageal Candidiasis - Improving - Continue Clotrimazole 10mg MT 5xD and Fluconazole 200mg IV Q24h Anxiety - Psychiatry consulted, Dr. Bernard; help appreciated - Continue Xanax 0.5mg PO BID prn -Seroquel 200mg PO HS Substance abuse - UDS: +amphetamines Prophylaxis - GI: not indicated at this time - DVT: Lovenox 40mg SC daily, SCDs Case discussed with Dr. Ahmet Vallecillo Dispo: Awaiting approval for Estefany. Timothy Robertson, PGY-2
[2018-06-22 09:23] LABS: ANISOCYTOSIS SLIGHT; BANDS 2 % (0-2); EOSINOPHIL 1 % (0-4); HYPOCHROMIC SLIGHT; LYMPHOCYTE 7 % (20-40); MONOCYTE 10 % (0-10); NEUTROPHIL 79 % (50-75); PLATELET ESTIMATE INCREASED (NORMAL); REACTIVE LYMPHOCYTES 1 % (0-0); TOTAL CELLS COUNTED 100
[2018-06-22 09:24] LABS: OVALOCYTES SLIGHT
[2018-06-22] MEDS: Emtricitabine-Tenofovir 200 mg-300 mg Tab PO SCH (10:56)
--- NOTE | 2018-06-22 14:48 | CP.PCM.PN ---
Subjective - Date & Time of Evaluation Date of Evaluation: 06/22/18 Time of Evaluation: 14:00 - Subjective Subjective: dictated Objective - Vital Signs/Intake and Output Vital Signs (last 24 hours): Temp Pulse Resp BP Pulse Ox 97.6 F 76 20 114/78 97 06/22/18 08:16 06/22/18 08:16 06/22/18 08:16 06/22/18 08:16 06/22/18 08:16 - Medications Medications: Current Medications Acetaminophen (Tylenol 325mg Tab) 650 mg PO Q6 PRN PRN Reason: Temperature >100 Last Admin: 06/15/18 15:32 Dose: 650 mg Azithromycin (Zithromax) 1,200 mg PO QWK [facility]; Protocol Clonazepam (Klonopin) 0.5 mg PO TID [facility] Last Admin: 06/22/18 10:58 Dose: 0.5 mg Clotrimazole (Mycelex Gelacio) 10 mg MT 5XD [facility] Last Admin: 06/22/18 11:30 Dose: Not Given Emtricitabine/Tenofovir (Truvada 200 Mg-300 Mg) 1 tab PO DAILY [facility]; Protocol Last Admin: 06/22/18 10:56 Dose: 1 tab Meropenem 1 gm/ Sodium (Chloride) 100 mls @ 100 mls/hr IVPB Q8H [facility]; Protocol Last Admin: 06/22/18 10:57 Dose: 100 mls/hr Mirtazapine (Remeron) 15 mg PO HS [facility] Last Admin: 06/21/18 21:44 Dose: 15 mg Penicillin G Benzathine (Bicillin L-A Inj) 2,400,000 units IM QWK [facility]; Protocol Quetiapine Fumarate (Seroquel) 200 mg PO HS [facility] Last Admin: 06/21/18 21:44 Dose: 200 mg Raltegravir (Isentress) 400 mg PO BID [facility]; Protocol Last Admin: 06/22/18 10:56 Dose: 400 mg Temazepam (Restoril) 15 mg PO HS PRN PRN Reason: Insomnia Last Admin: 06/17/18 21:20 Dose: 15 mg Trimethoprim/Sulfamethoxazole (Bactrim Ds Tab) 1 tab PO MWF [facility]; Protocol - Labs Labs: 06/22/18 06:25 06/22/18 06:25
--- NOTE | 2018-06-22 20:22 | PN ---
DATE: 06/22/2018 INFECTIOUS DISEASE FOLLOWUP SUBJECTIVE: The patient is afebrile. He is feeling better. His abscesses have healed. There is a scab on the chest wall as well as on the lower abdominal wall. Denies any nausea, vomiting, no drainage. He understands the seriousness of his illnesses. He seems to be calm and realizing that he needs to take his medications. PHYSICAL EXAMINATION: VITAL SIGNS: T-max is 97.6, pulse 76, blood pressure 114/78. Respirations are 20. HEENT: Head is atraumatic, normocephalic. NECK: Supple. LUNGS: Clear. HEART: S1, S2 is regular. ABDOMEN: Soft, nontender, scabs formed. EXTREMITIES: Have no edema, clubbing or cyanosis. He does have a PICC line. LABORATORY DATA: Labs show white count is 7.8, hemoglobin 10.9, hematocrit 32.6, platelet count is 505. His blood culture is negative 06/17/2018. . Echocardiogram was done on 06/14/2018 and echo was unremarkable and mildly dilated, but no vegetations mentioned. ASSESSMENT AND PLAN: So at this time, the patient is being treated for E. coli septicemia. He was treated for the MRSA cellulitis and abscesses which is cleared now and E. coli was ESBL positive and he is improving. He is going to be on meropenem for the next 7 days from tomorrow and then it can be discontinued and PICC line can be discontinued. He also needs to get syphilis treatment. He got one shot last week and needs another two shots and he is going to continue on Bactrim Friday, Friday, Friday as he dropped his WBC a lot, so left it on alternate day treatment and also he needs prophylaxis and also he is to get prophylaxis with Z-Douglas 1200 mg weekly every Friday and patient to follow up with a HIV specialist once he gets out from the rehab. He has markedly improved in spite of multiple diseases that he came with. Vickie Izaguirre MD
--- NOTE | 2018-06-22 21:05 | CP.PCM.PN ---
Subjective - Date & Time of Evaluation Date of Evaluation: 06/22/18 - Subjective Subjective: patient examined today no nausea, no vomiting, no diarrhea, no dizziness, no fever, no shortness of breath Objective - Vital Signs/Intake and Output Vital Signs (last 24 hours): Temp Pulse Resp BP Pulse Ox 98.2 F 94 H 20 112/76 93 L 06/22/18 15:57 06/22/18 15:57 06/22/18 15:57 06/22/18 15:57 06/22/18 15:57 - Medications Medications: Current Medications Acetaminophen (Tylenol 325mg Tab) 650 mg PO Q6 PRN PRN Reason: Temperature >100 Last Admin: 06/15/18 15:32 Dose: 650 mg Azithromycin (Zithromax) 1,200 mg PO QWK [facility]; Protocol Clonazepam (Klonopin) 0.5 mg PO TID [facility] Last Admin: 06/22/18 17:17 Dose: 0.5 mg Clotrimazole (Mycelex Gelacio) 10 mg MT 5XD [facility] Last Admin: 06/22/18 17:18 Dose: 10 mg Emtricitabine/Tenofovir (Truvada 200 Mg-300 Mg) 1 tab PO DAILY [facility]; Protocol Last Admin: 06/22/18 10:56 Dose: 1 tab Meropenem 1 gm/ Sodium (Chloride) 100 mls @ 100 mls/hr IVPB Q8H [facility]; Protocol Last Admin: 06/22/18 19:30 Dose: 100 mls/hr Mirtazapine (Remeron) 15 mg PO HS [facility] Last Admin: 06/21/18 21:44 Dose: 15 mg Penicillin G Benzathine (Bicillin L-A Inj) 2,400,000 units IM QWK [facility]; Protocol Quetiapine Fumarate (Seroquel) 200 mg PO HS [facility] Last Admin: 06/21/18 21:44 Dose: 200 mg Raltegravir (Isentress) 400 mg PO BID [facility]; Protocol Last Admin: 06/22/18 17:17 Dose: 400 mg Temazepam (Restoril) 15 mg PO HS PRN PRN Reason: Insomnia Last Admin: 06/17/18 21:20 Dose: 15 mg Trimethoprim/Sulfamethoxazole (Bactrim Ds Tab) 1 tab PO MWF [facility]; Protocol - Labs Labs: 06/22/18 06:25 06/22/18 06:25 - Constitutional Appears: Well - Head Exam Head Exam: ATRAUMATIC, NORMAL INSPECTION, NORMOCEPHALIC - Eye Exam Eye Exam: EOMI, Normal appearance, PERRL Pupil Exam: NORMAL ACCOMODATION, PERRL - ENT Exam ENT Exam: Mucous Membranes Moist, Normal Exam - Neck Exam Neck Exam: Full ROM, Normal Inspection. absent: Lymphadenopathy - Respiratory Exam Respiratory Exam: Decreased Breath Sounds - Cardiovascular Exam Cardiovascular Exam: REGULAR RHYTHM, +S1, +S2 - GI/Abdominal Exam GI & Abdominal Exam: Soft, Diminished Bowel Sounds - Rectal Exam Rectal Exam: Deferred - Neurological Exam Neurological Exam: Oriented x3 Assessment and Plan - Assessment and Plan (Free Text) Plan: medications reviewed labs reviewed vitals reviewed plan discussed with patient moderate complexity of care bactrim ds bicillin L-A inj isentress klonopin meropenem mycelex gelacio remeron restoril seroquel truvada tylenol zithromax
[2018-06-23] MEDS: Meropenem 1 GM in Sodium Chloride 0.9% 100 ML IVPB SCH ×3 (02:30→17:46)
[2018-06-23 06:46] LABS: BASO % 0.4 % (0.0-2.0); EOS # 0.1 K/uL (0.0-0.7); HEMOGLOBIN 11.5 g/dL (12.0-18.0); LYMPH % 12.6 % (20.0-40.0); MEAN CELL VOLUME 84.9 fL (80.0-94.0); MEAN CORPUSCULAR HEMOGLOBIN 27.7 pg (27.0-31.0); MEAN CORPUSCULAR HGB CONC 32.7 g/dL (33.0-37.0); MEAN PLATELET VOLUME 7.5 fL (7.2-11.7); MONO % 12.1 % (0.0-10.0); NEUT # 5.9 K/uL (1.8-7.0); NEUT % 73.9 % (50.0-75.0); NRBC % 0.1 % (0.0-2.0); RBC 4.14 Mil/uL (4.40-5.90); RED CELL DISTRIBUTION WIDTH 18.8 % (11.5-14.5)
--- NOTE | 2018-06-23 07:18 | CP.PCM.PN ---
Subjective - Date & Time of Evaluation Date of Evaluation: 06/23/18 Time of Evaluation: 07:18 - Subjective Subjective: Progress note for Dr. Ahmet Vallecillo Patient was seen and examined at bedside in no acute distress. Patient appears tearful and anxious. He has been tolerating diet well. He denies chest pain, dyspnea, palpitations, vomiting, fevers, headaches, abdominal pain, leg pain and swelling, dysuria. No acute events overnight. Objective - Vital Signs/Intake and Output Vital Signs (last 24 hours): Temp Pulse Resp BP Pulse Ox 97.2 F L 102 H 20 129/83 95 06/23/18 01:45 06/23/18 01:45 06/23/18 01:45 06/23/18 01:45 06/23/18 01:45 Intake and Output: 06/23/18 06/23/18 06:59 18:59 Intake Total 800 Balance 800 - Medications Medications: Current Medications Acetaminophen (Tylenol 325mg Tab) 650 mg PO Q6 PRN PRN Reason: Temperature >100 Last Admin: 06/15/18 15:32 Dose: 650 mg Azithromycin (Zithromax) 1,200 mg PO QWK [facility]; Protocol Clonazepam (Klonopin) 0.5 mg PO TID [facility] Last Admin: 06/22/18 17:17 Dose: 0.5 mg Clotrimazole (Mycelex Gelacio) 10 mg MT 5XD [facility] Last Admin: 06/22/18 21:00 Dose: 10 mg Emtricitabine/Tenofovir (Truvada 200 Mg-300 Mg) 1 tab PO DAILY [facility]; Protocol Last Admin: 06/22/18 10:56 Dose: 1 tab Meropenem 1 gm/ Sodium (Chloride) 100 mls @ 100 mls/hr IVPB Q8H [facility]; Protocol Last Admin: 06/23/18 02:30 Dose: 100 mls/hr Mirtazapine (Remeron) 15 mg PO HS [facility] Last Admin: 06/22/18 22:05 Dose: 15 mg Penicillin G Benzathine (Bicillin L-A Inj) 2,400,000 units IM QWK [facility]; Protocol Quetiapine Fumarate (Seroquel) 200 mg PO HS [facility] Last Admin: 06/22/18 22:05 Dose: 200 mg Raltegravir (Isentress) 400 mg PO BID [facility]; Protocol Last Admin: 06/22/18 17:17 Dose: 400 mg Temazepam (Restoril) 15 mg PO HS PRN PRN Reason: Insomnia Last Admin: 06/17/18 21:20 Dose: 15 mg Trimethoprim/Sulfamethoxazole (Bactrim Ds Tab) 1 tab PO MWF [facility]; Protocol - Labs Labs: 06/23/18 06:40 06/22/18 06:25 - Head Exam Head Exam: ATRAUMATIC, NORMAL INSPECTION - Eye Exam Eye Exam: EOMI, Normal appearance Pupil Exam: NORMAL ACCOMODATION, PERRL - ENT Exam ENT Exam: Mucous Membranes Moist, Normal Exam - Neck Exam Neck Exam: Normal Inspection - Respiratory Exam Respiratory Exam: Clear to Ausculation Bilateral, NORMAL BREATHING PATTERN. absent: Stridor - Cardiovascular Exam Cardiovascular Exam: REGULAR RHYTHM, +S1, +S2 - GI/Abdominal Exam GI & Abdominal Exam: Soft, Normal Bowel Sounds - Neurological Exam Neurological Exam: Alert, Awake, CN II-XII Intact - Psychiatric Exam Psychiatric exam: Normal Affect, Normal Mood - Skin Skin Exam: Intact, Normal Color, Warm Assessment and Plan - Assessment and Plan (Free Text) Plan: 42 year old male with for HIV (not taking meds), unknown CD4 and viral load, anxiety, bipolar presents to [facility] with skin abscesses, thrush, and dysphagia. UTI - UA: kisha, hazy, 1+protein, + nitrate, 3+ LE, 356 WBC, occ WBC, Many bacteria - Urine Cx (06/14/18): + ecoli, +ESBL - Blood cx (06/13/18): + ecoli, +ESBL - Repeat blood cx (06/17/18): no growth x24h - Echo: no vegetations noted on report; mild dilation of LV & RV, reduced LV function w/diffuse hypokinesis, mod reduced RV systolic function; normal doppler - ID consulted, Dr. Izaguirre; help appreciated - Medications: Discontinued Gentamicin 80mg IV Q8h (active since 06/14/18, DC on 06/17/18) Amikacin 500mg IV Q12h (active since 06/17/18) Meropenem 1gm IV Q8h (active since 06/14/18) Vancomycin 1.4gm IV Q12h [vanc trough was low, <5.0, on 06/16/18] (active since 06/16/18) *PICC line placed 06/18/18 - Imaging: Abd/Pelv CT (06/14/18): Heterogeneous patchy enhancement of the right kidney associated with moderate perinephric stranding and trace fluid and mildly dilated collecting system; suspicious for pyelonephritis and UTI; Trace amount of free fluid in the abdomen and trace pericholecystic fluid. Hyfr-wn-[id number] periportal edema. Mild hepato splenomegaly. Enlarged appendix without definite CT evidence of appendicitis. [id number] constipation. Skin Abscess - Wound cx (06/13/18): +MRSA - Echo: no vegetations noted on report; mild dilation of LV & RV, reduced LV function w/diffuse hypokinesis, mod reduced RV systolic function; normal doppler - Surgery consulted, Dr. Buckley; help appreciated - No surgical intervention at this time; wound self draining - ID consulted, Dr. Izaguirre; help appreciated :. Per ID patient will need a total of 7 days of IV Merrem starting today (06/23/18). Patient will also need another 2 shots for treatment of Syphillis. Patient will also need Bactrim MWF. Patient will also need PPX treatment with Zpak 1200mg weekly (qSunday). Patient will also need to follow up with HIV speciliast q weekly. - Continue warm compresses Q2h - Medications: Discontinued Gentamicin 80mg IV Q8h (active since 06/14/18, DC on 06/17/18) Amikacin 500mg IV Q12h (active since 06/17/18) Meropenem 1gm IV Q8h (active since 06/14/18) Vancomycin 1.4gm IV Q12h [vanc trough was low, <5.0, on 06/16/18] (active since 06/16/18) - Imaging: Soft tissue US (06/15/18): At the site of the palpable abnormality in the mid chest, there is a complex ovoid heterogeneous focus/collection measuring 2.2 x 0.9 x 1.9 centimeters. This is of uncertain clinical etiology and may represent an abscess collection. Chest CT (06/15/18): Suspect small subcutaneous abscess mid anterior chest wall at the level of the mid sternum. Mild bibasilar atelectasis right greater than left. Suspect trace bilateral effusions. Slightly enlarged right hilar lymph node. There is a small amount of perinephric fluid and infiltration surrounding the right kidney. Rule out pyelonephritis. Hepatosplenomegaly. Small amount of pericholecystic fluid. Cardiomegaly. AIDS - noncompliant, not taking medications - CD4 <20 - HIV1 RNA Quant: 5.21H - Started prophylactic antibiotics: Zithromax 1200mg Q7days (starting on Friday06/21/18) Bactrim DS 1tab MWF - Ordered Chlamydia, Gonorrhea, HSV: f/u - RPR reactive, 1:8 titer - Per ID, once bactermia treated, can be started on HIV medications Syphilis - RPR reactive, 1:8 titer - Bicillin 2.4million units IM given (06/18/18). Patient will need 3 treatments in total- give Bacillin 2.4mil units on 06/25/18 & 07/02/18 Leukopenia - WBC 14.5 on 06/18/18 (WBC 9.0 at admission)--> improving, will continue to monitor - likely secondary to HIV/AIDS - Neupogen 300mcg SC daily until WBC >10,000 Esophageal Candidiasis - Improving - Continue Clotrimazole 10mg MT 5xD and Fluconazole 200mg IV Q24h Anxiety - Psychiatry consulted, Dr. Bernard; help appreciated - Continue Xanax 0.5mg PO BID prn -Seroquel 200mg PO HS Substance abuse - UDS: +amphetamines Prophylaxis - GI: not indicated at this time - DVT: Lovenox 40mg SC daily, SCDs Dispo: Awaiting approval of [facility]. Per ID patient will need a total of 7 days of IV Merrem starting today (06/23/18). Patient will also need another 2 shots for treatment of Syphillis. Patient will also need Bactrim MWF. Patient will also need PPX treatment with Zpak 1200mg weekly (qSunday). Patient will also need to follow up with HIV speciliast q weekly. Case discussed with Dr. Ahmet Robertson, PGY-2
[2018-06-23 07:40] LABS: ALBUMIN 4.1 g/dL (3.5-5.0); ALT/SGPT 62 U/L (21-72); AST/SGOT 54 U/L (17-59); BLOOD UREA NITROGEN 12 mg/dL (9-20); CALCIUM 9.2 mg/dl (8.6-10.4); GFR NON-AFRICAN AMERICAN > 60
[2018-06-23] MEDS: Emtricitabine-Tenofovir 200 mg-300 mg Tab PO SCH (11:07)
--- NOTE | 2018-06-23 19:06 | CP.PCM.PN ---
Subjective - Date & Time of Evaluation Date of Evaluation: 06/23/18 - Subjective Subjective: patient examined today no nausea no vomiting no dizziness no diarrhea no fever no shortness of breath Objective - Vital Signs/Intake and Output Vital Signs (last 24 hours): Temp Pulse Resp BP Pulse Ox 98.4 F 96 H 20 119/77 100 06/23/18 15:10 06/23/18 15:10 06/23/18 15:10 06/23/18 15:10 06/23/18 15:10 Intake and Output: 06/23/18 06/24/18 18:59 06:59 Intake Total 1100 Balance 1100 - Medications Medications: Current Medications Acetaminophen (Tylenol 325mg Tab) 650 mg PO Q6 PRN PRN Reason: Temperature >100 Last Admin: 06/15/18 15:32 Dose: 650 mg Azithromycin (Zithromax) 1,200 mg PO QWK [facility]; Protocol Clonazepam (Klonopin) 0.5 mg PO TID [facility] Last Admin: 06/23/18 17:46 Dose: 0.5 mg Clotrimazole (Mycelex Gelacio) 10 mg MT 5XD [facility] Last Admin: 06/23/18 13:37 Dose: Not Given Emtricitabine/Tenofovir (Truvada 200 Mg-300 Mg) 1 tab PO DAILY [facility]; Protocol Last Admin: 06/23/18 11:07 Dose: 1 tab Meropenem 1 gm/ Sodium (Chloride) 100 mls @ 100 mls/hr IVPB Q8H [facility]; Protocol Last Admin: 06/23/18 17:46 Dose: 100 mls/hr Mirtazapine (Remeron) 15 mg PO HS [facility] Last Admin: 06/22/18 22:05 Dose: 15 mg Penicillin G Benzathine (Bicillin L-A Inj) 2,400,000 units IM QWK [facility]; Protocol Quetiapine Fumarate (Seroquel) 200 mg PO HS [facility] Last Admin: 06/22/18 22:05 Dose: 200 mg Raltegravir (Isentress) 400 mg PO BID [facility]; Protocol Last Admin: 06/23/18 17:46 Dose: 400 mg Temazepam (Restoril) 15 mg PO HS PRN PRN Reason: Insomnia Last Admin: 06/17/18 21:20 Dose: 15 mg Trimethoprim/Sulfamethoxazole (Bactrim Ds Tab) 1 tab PO MWF [facility]; Protocol - Labs Labs: 06/23/18 06:40 06/23/18 06:40 - Constitutional Appears: Well - Head Exam Head Exam: ATRAUMATIC, NORMAL INSPECTION, NORMOCEPHALIC - Eye Exam Eye Exam: EOMI, Normal appearance, PERRL Pupil Exam: NORMAL ACCOMODATION, PERRL - ENT Exam ENT Exam: Mucous Membranes Moist, Normal Exam - Neck Exam Neck Exam: Full ROM, Normal Inspection. absent: Lymphadenopathy - Respiratory Exam Respiratory Exam: Decreased Breath Sounds - Cardiovascular Exam Cardiovascular Exam: REGULAR RHYTHM, +S1, +S2 - GI/Abdominal Exam GI & Abdominal Exam: Soft, Diminished Bowel Sounds - Rectal Exam Rectal Exam: Deferred - Neurological Exam Neurological Exam: Oriented x3 Assessment and Plan - Assessment and Plan (Free Text) Plan: bactrim ds bicillin L-A inj isentress klonopin meropenem mycelex gelacio remeron restoril seroquel truvada tylenol zithromax medications reviewed labs reviewed vitals reviewed plan discussed with patient moderate complexity of care
[2018-06-24] MEDS: Meropenem 1 GM in Sodium Chloride 0.9% 100 ML IVPB SCH ×2 (03:30→09:49)
--- NOTE | 2018-06-24 06:53 | CP.PCM.PN ---
Subjective - Date & Time of Evaluation Date of Evaluation: 06/24/18 Time of Evaluation: 06:50 - Subjective Subjective: PGY3 medicine note for Dr. Ahmet Vallecillo Patient seen and examined at bedside. Nursing reports no acute events overnight. Pt agitated this AM and is concerned about the medications he is taking and plan of care. Long discussion with patient care industrial relations representative, Tara, and patient regarding plan of care. Pt initially resistant to VIJAY, but now is willing. He denies chest pain, dyspnea, palpitations, vomiting, fevers, headaches, abdominal pain, leg pain and swelling, dysuria. Objective - Vital Signs/Intake and Output Vital Signs (last 24 hours): Temp Pulse Resp BP Pulse Ox 98.4 F 96 H 20 119/77 100 06/23/18 15:10 06/23/18 15:10 06/23/18 15:10 06/23/18 15:10 06/23/18 15:10 Intake and Output: 06/23/18 06/24/18 18:59 06:59 Intake Total 1100 Balance 1100 - Medications Medications: Current Medications Acetaminophen (Tylenol 325mg Tab) 650 mg PO Q6 PRN PRN Reason: Temperature >100 Last Admin: 06/15/18 15:32 Dose: 650 mg Azithromycin (Zithromax) 1,200 mg PO QWK [facility]; Protocol Clonazepam (Klonopin) 0.5 mg PO TID [facility] Last Admin: 06/23/18 17:46 Dose: 0.5 mg Clotrimazole (Mycelex Gelacio) 10 mg MT 5XD [facility] Last Admin: 06/23/18 20:40 Dose: Not Given Emtricitabine/Tenofovir (Truvada 200 Mg-300 Mg) 1 tab PO DAILY [facility]; Protocol Last Admin: 06/23/18 11:07 Dose: 1 tab Meropenem 1 gm/ Sodium (Chloride) 100 mls @ 100 mls/hr IVPB Q8H [facility]; Protocol Last Admin: 06/24/18 03:30 Dose: 100 mls/hr Mirtazapine (Remeron) 15 mg PO HS [facility] Last Admin: 06/23/18 22:28 Dose: 15 mg Penicillin G Benzathine (Bicillin L-A Inj) 2,400,000 units IM QWK [facility]; Protocol Quetiapine Fumarate (Seroquel) 200 mg PO HS [facility] Last Admin: 06/23/18 22:28 Dose: 200 mg Raltegravir (Isentress) 400 mg PO BID [facility]; Protocol Last Admin: 06/23/18 17:46 Dose: 400 mg Temazepam (Restoril) 15 mg PO HS PRN PRN Reason: Insomnia Last Admin: 06/17/18 21:20 Dose: 15 mg Trimethoprim/Sulfamethoxazole (Bactrim Ds Tab) 1 tab PO MWF [facility]; Protocol - Labs Labs: 06/23/18 06:40 06/23/18 06:40 - Additional Findings Additional findings: - Head Exam Head Exam: ATRAUMATIC, NORMAL INSPECTION - Eye Exam Eye Exam: EOMI, Normal appearance Pupil Exam: NORMAL ACCOMODATION, PERRL - ENT Exam ENT Exam: Mucous Membranes Moist, Normal Exam - Neck Exam Neck Exam: Normal Inspection - Respiratory Exam Respiratory Exam: Clear to Ausculation Bilateral, NORMAL BREATHING PATTERN. absent: Stridor - Cardiovascular Exam Cardiovascular Exam: REGULAR RHYTHM, +S1, +S2 - GI/Abdominal Exam GI & Abdominal Exam: Soft, Normal Bowel Sounds - Neurological Exam Neurological Exam: Alert, Awake, CN II-XII Intact - Psychiatric Exam Psychiatric exam: Normal Affect, Normal Mood - Skin Skin Exam: Intact, Normal Color, Warm Assessment and Plan - Assessment and Plan (Free Text) Plan: 42 year old male with for HIV (not taking meds), unknown CD4 and viral load, anxiety, bipolar presents to [facility] with skin abscesses, thrush, and dysphagia. UTI Status: Acute UA: kisha, hazy, 1+protein, + nitrate, 3+ LE, 356 WBC, occ WBC, Many bacteria Urine Cx (06/14/18): + ecoli, +ESBL Blood cx (06/13/18): + ecoli, +ESBL - Repeat blood cx (06/17/18): no growth x 5 days Echo: no vegetations noted on report; mild dilation of LV & RV, reduced LV function w/diffuse hypokinesis, mod reduced RV systolic function; normal doppler ID consulted, Dr. Izaguirre; help appreciated Discontinued Gentamicin 80mg IV Q8h (active since 06/14/18, DC on 06/17/18) Amikacin 500mg IV Q12h (active since 06/17/18) Meropenem 1gm IV Q8h (active since 06/14/18) *PICC line placed 06/18/18 Abd/Pelv CT (06/14/18): Heterogeneous patchy enhancement of the right kidney associated with moderate perinephric stranding and trace fluid and mildly dilated collecting system; suspicious for pyelonephritis and UTI; Trace amount of free fluid in the abdomen and trace pericholecystic fluid. Fvoy-sv-dyyanigr periportal edema. Mild hepato splenomegaly. Enlarged appendix without definite CT evidence of appendicitis. Zfyv-kh-kzuhwyyn constipation. Skin Abscess Status: Acute Wound cx (06/13/18): +MRSA Echo: no vegetations noted on report; mild dilation of LV & RV, reduced LV fun ction w/diffuse hypokinesis, mod reduced RV systolic function; normal doppler Surgery consulted, Dr. Buckley; help appreciated - No surgical intervention at this time; wound self draining ID consulted, Dr. Izaguirre; help appreciated -Per ID patient will need a total of 7 days of IV Merrem starting today (06/23/18). Patient will also need another 2 shots for treatment of Syphillis. - -Patient will also need Bactrim MWF. Patient will also need PPX treatment with Zpak 1200mg weekly (qSunday). Patient will also need to follow up with HIV specialist q weekly. - Continue warm compresses Q2h Discontinued Gentamicin 80mg IV Q8h (active since 06/14/18, DC on 06/17/18) Meropenem 1gm IV Q8h (active since 06/14/18) Soft tissue US (06/15/18): At the site of the palpable abnormality in the mid chest, there is a complex ovoid heterogeneous focus/collection measuring 2.2 x 0.9 x 1.9 centimeters. This is of uncertain clinical etiology and may represent an abscess collection. Chest CT (06/15/18): Suspect small subcutaneous abscess mid anterior chest wall at the level of the mid sternum. Mild bibasilar atelectasis right greater than left. Suspect trace bilateral effusions. Slightly enlarged right hilar lymph node. There is a small amount of perinephric fluid and infiltration surrounding the right kidney. Rule out pyelonephritis. Hepatosplenomegaly. Small amount of pericholecystic fluid. Cardiomegaly. 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 Patient will need 3 treatments in total- give Bacillin 2.4mil units on 06/25/18 & 07/02/18 Leukopenia WBC 14.5 on 06/18/18 (WBC 9.0 at admission)--> improving, will continue to monitor likely secondary to HIV/AIDS Neupogen discontinued after WBC >10,000 Esophageal Candidiasis Improving Continue Clotrimazole 10mg MT 5xD and Fluconazole 200mg IV Q24h Anxiety Psychiatry consulted, Dr. Bernard; help appreciated Continue Xanax 0.5mg PO BID prn Seroquel 200mg PO HS Substance abuse UDS: +amphetamines Prophylaxis GI: not indicated at this time DVT: Lovenox 40mg SC daily, SCDs [facility] Per ID patient will need a total of 7 days of IV Merrem starting 06/23/18 (last dose 06/29). Patient will also need another 2 shots for treatment of Syphilis. Patient will also need Bactrim MWF. Patient will also need PPX treatment with Zpak 1200mg weekly (qSunday). Patient will also need to follow up with HIV specialist q weekly. Case discussed with Dr. Ahmet Keen PGY3
[2018-06-24 08:09] LABS: BASO # 0.1 K/uL (0.0-0.2); BASO % 0.5 % (0.0-2.0); EOS % 0.1 % (0.0-4.0); HEMOGLOBIN 12.8 g/dL (12.0-18.0); LYMPH % 9.9 % (20.0-40.0); MEAN CELL VOLUME 85.4 fL (80.0-94.0); MEAN CORPUSCULAR HEMOGLOBIN 28.4 pg (27.0-31.0); MEAN CORPUSCULAR HGB CONC 33.2 g/dL (33.0-37.0); MONO # 1.1 K/uL (0.0-0.8); MONO % 10.6 % (0.0-10.0); NEUT % 78.9 % (50.0-75.0); PLATELET COUNT 579 K/uL (130-400); RED CELL DISTRIBUTION WIDTH 18.4 % (11.5-14.5); WHITE BLOOD COUNT 10.1 K/uL (4.8-10.8)
[2018-06-24 08:42] LABS: ALB/GLOB RATIO 0.9 (1.0-2.1); ALBUMIN 4.6 g/dL (3.5-5.0); ALT/SGPT 65 U/L (21-72); AST/SGOT 56 U/L (17-59); BLOOD UREA NITROGEN 16 mg/dL (9-20); GFR NON-AFRICAN AMERICAN > 60
[2018-06-24] MEDS ORDERED: Tmp-Smz 800 mg-160 mg DS Tab PO SCH (09:00)
[2018-06-24] MEDS: Emtricitabine-Tenofovir 200 mg-300 mg Tab PO SCH (09:49)
[2018-06-24 10:02] LABS: BLOOD UREA NITROGEN 17 mg/dL (9-20); CALCIUM 10.1 mg/dl (8.6-10.4); GFR NON-AFRICAN AMERICAN > 60
[2018-06-24 11:09] LABS: ANISOCYTOSIS SLIGHT; BANDS 4 % (0-2); LYMPHOCYTE 7 % (20-40); MONOCYTE 8 % (0-10); NEUTROPHIL 81 % (50-75); OVALOCYTES SLIGHT; PLATELET ESTIMATE INCREASED (NORMAL); TOTAL CELLS COUNTED 100
[2018-06-24 15:48] VITALS: BP 118/89; PULSE 118; TEMP 97.9; O2SAT 98
--- NOTE | 2018-06-24 19:20 | CP.PCM.PN ---
Subjective - Date & Time of Evaluation Date of Evaluation: 06/24/18 - Subjective Subjective: patient seen today no nausea no vomiting no diarrhea no dizziness no fever no shortness of breath Objective - Vital Signs/Intake and Output Vital Signs (last 24 hours): Temp Pulse Resp BP Pulse Ox 97.9 F 118 H 20 118/89 98 06/24/18 15:02 06/24/18 15:02 06/24/18 15:02 06/24/18 15:02 06/24/18 15:02 Intake and Output: 06/24/18 06/25/18 18:59 06:59 Intake Total 550 Balance 550 - Medications Medications: Current Medications Acetaminophen (Tylenol 325mg Tab) 650 mg PO Q6 PRN PRN Reason: Temperature >100 Last Admin: 06/15/18 15:32 Dose: 650 mg Azithromycin (Zithromax) 1,200 mg PO QWK [facility]; Protocol Clonazepam (Klonopin) 0.5 mg PO TID [facility] Last Admin: 06/24/18 18:17 Dose: 0.5 mg Clotrimazole (Mycelex Gelacio) 10 mg MT 5XD [facility] Last Admin: 06/24/18 18:17 Dose: 10 mg Emtricitabine/Tenofovir (Truvada 200 Mg-300 Mg) 1 tab PO DAILY [facility]; Protocol Last Admin: 06/24/18 09:49 Dose: 1 tab Meropenem 1 gm/ Sodium (Chloride) 100 mls @ 100 mls/hr IVPB Q8H [facility]; Protocol Last Admin: 06/24/18 09:49 Dose: 100 mls/hr Mirtazapine (Remeron) 15 mg PO HS [facility] Last Admin: 06/23/18 22:28 Dose: 15 mg Penicillin G Benzathine (Bicillin L-A Inj) 2,400,000 units IM QWK [facility]; Protocol Quetiapine Fumarate (Seroquel) 200 mg PO HS [facility] Last Admin: 06/23/18 22:28 Dose: 200 mg Raltegravir (Isentress) 400 mg PO BID [facility]; Protocol Last Admin: 06/24/18 18:17 Dose: 400 mg Temazepam (Restoril) 15 mg PO HS PRN PRN Reason: Insomnia Last Admin: 06/17/18 21:20 Dose: 15 mg Trimethoprim/Sulfamethoxazole (Bactrim Ds Tab) 1 tab PO MWF [facility]; Protocol Last Admin: 06/24/18 09:49 Dose: 1 tab - Labs Labs: 06/24/18 07:59 06/24/18 09:40 - Constitutional Appears: Well - Head Exam Head Exam: ATRAUMATIC, NORMAL INSPECTION, NORMOCEPHALIC - Eye Exam Eye Exam: EOMI, Normal appearance, PERRL Pupil Exam: NORMAL ACCOMODATION, PERRL - ENT Exam ENT Exam: Mucous Membranes Moist, Normal Exam - Neck Exam Neck Exam: Full ROM, Normal Inspection. absent: Lymphadenopathy - Respiratory Exam Respiratory Exam: Decreased Breath Sounds - Cardiovascular Exam Cardiovascular Exam: REGULAR RHYTHM, +S1, +S2 - GI/Abdominal Exam GI & Abdominal Exam: Soft, Diminished Bowel Sounds - Rectal Exam Rectal Exam: Deferred - Neurological Exam Neurological Exam: Oriented x3 Assessment and Plan - Assessment and Plan (Free Text) Plan: medications reviewed labs reviewed vitals reviewed plan discussed with patient moderate complexity of care bactrim ds bicillin L-A inj isentress klonopin meropenem mycelex gelacio remeron restoril seroquel truvada tylenol zithromax
[2018-06-29] MEDS ORDERED: Penicillin G Benzathine 2.4 Mill Unit/4 ml Syr IM SCH (10:00)
== END 2018-06-24 20:00 | DRG 710 ==
LOC: C.ER 09:53 → C.6T 12:27 → OBSVTOIN 06-15 17:04 → C.6T 06-22 11:34
PROVIDERS: ADMIT Internal Medicine Nephrology; ATTEND Internal Medicine Nephrology
PROC: 02HV33Z Insertion of Infusion Device into Superior Vena Cava, Percutaneous Approach (ICD-10-PCS; principal; 2018-06-15)
DX: A41.51 Sepsis due to Escherichia coli [E. coli] (principal); B20 Human immunodeficiency virus [HIV] disease; A53.9 Syphilis, unspecified; B37.81 Candidal esophagitis; B37.0 Candidal stomatitis; L02.211 Cutaneous abscess of abdominal wall; F15.10 Other stimulant abuse, uncomplicated; A41.01 Sepsis due to Methicillin susceptible Staphylococcus aureus; E78.5 Hyperlipidemia, unspecified; F31.30 Bipolar disorder, current episode depressed, mild or moderate severity, unspecified; F41.9 Anxiety disorder, unspecified; G47.00 Insomnia, unspecified; I10 Essential (primary) hypertension; F17.210 Nicotine dependence, cigarettes, uncomplicated; Z91.14 Patient's other noncompliance with medication regimen; F19.10 Other psychoactive substance abuse, uncomplicated

== ENCOUNTER 2018-06-25 11:20 | Emergency (ER) | payer MEDICAID ==
[2018-06-25 11:20] VITALS: BMI 24.3
[2018-06-25 11:44] VITALS: O2SAT 100
[2018-06-25] MEDS ORDERED: Penicillin G Benzathine 2.4 Mill Unit/4 ml Syr IM ONE ×2 (12:00→12:11)
--- NOTE | 2018-06-25 13:26 | C.PDOC ---
History Of Present Illness Patient is a 42 year old male, with a PMHx of HIV, esophageal CA, thrush, and syphilis, who was recently admitted to [facility] on 06/15 for multiple abscesses on left chest, on and off fevers, thrush, and difficulty swallowing. Patient was on no HIV medications. Patient was discharged from [facility] on 06/24 to subacute rehabilitation [facility] , where he was unable to obtain required services and was discharged AMA. Patient presents to the [facility] for continuation of medications. He is currently on HIV medications as well as Penicillin for syphilis, and IV antibiotics for his abscesses. In the ER, he has no current complaints and was afebrile on arrival. Patient noted to be anxious and tachycardic as he has not had his medications for anxiety either. Time Seen by Provider: 06/25/18 11:43 Chief Complaint (Nursing): Medical Clearance History Per: Patient History/Exam Limitations: no limitations Onset/Duration Of Symptoms: Days Recent travel outside of the [place]: No Additional History Per: Patient Past Medical History Reviewed: Historical Data, Nursing Documentation, Vital Signs Vital Signs: Last Vital Signs Temp 98.3 F 06/25/18 11:40 Pulse 128 H 06/25/18 11:40 Resp 20 06/25/18 11:40 BP 149/98 H 06/25/18 11:40 Pulse Ox 100 06/25/18 11:40 Primary Care Provider: FAMILY PROVIDER,NO - Medical History PMH: Anxiety, Bipolar Disorder, Depression, HIV (1998), HTN, Hypercholesterolemia, Hyperlipidemia Denies: Diabetes, Deep Vein Thrombosis, Hepatitis, Chronic Kidney Disease, Seizures, Sexually Transmitted Disease Surgical History: Tonsillectomy Denies: Appendectomy, Pacemaker - [facility] Procedures INSERTION OF INFUSION DEV INTO SUP VENA CAVA, PERC APPROACH (06/15/18) Family History: States: No Known Family Hx - Social History Hx Tobacco Use: No Hx Alcohol Use: No Hx Substance Use: Yes - Immunization History Hx Tetanus Toxoid Vaccination: Yes Hx Influenza Vaccination: Yes Hx Pneumococcal Vaccination: Yes Review Of Systems Constitutional: Negative for: Fever, Chills Cardiovascular: Positive for: Other (tachycardic) Psych: Positive for: Anxiety Physical Exam - Physical Exam Appears: Non-toxic, No Acute Distress, Other (awake alert, cooperative ) Skin: Warm, Dry Head: Atraumatic, Normacephalic Neck: Normal ROM, Supple Respiratory: No Rales, No Rhonchi, No Wheezing Gastrointestinal/Abdominal: Soft, No Tenderness, No Distention, No Guarding ED Course And Treatment O2 Sat by Pulse Oximetry: 100 Medical Decision Making Medical Decision Making: Case management/social media designer involved to see if patient can be placed for further treatment. 3:42 At this time patient awaiting authorization. Disposition - Disposition Disposition: HOME/ ROUTINE Disposition Time: 15:56 Condition: STABLE Forms: [facility] (Greek), General Discharge Instructions - POA Present On Arrival: None - Clinical Impression Clinical Impression: Thrush of mouth and esophagus, Abscess, HIV disease - Scribe Statement The provider has reviewed the documentation as recorded by the Lilo Gonzalez All medical record entries made by the Percyibbob were at my direction and personally dictated by me. I have reviewed the chart and agree that the record accurately reflects my personal performance of the history, physical exam, medical decision making, and the department course for this patient. I have also personally directed, reviewed, and agree with the discharge instructions and disposition.
[2018-06-25 14:49] VITALS: BP 121/88; PULSE 117; RESP 16; TEMP 98.5
[2018-06-25] MEDS ORDERED: Emtricitabine-Tenofovir 200 mg-300 mg Tab PO ONE (16:15)
== END 2018-06-25 16:34 | disposition home or self-care (01) ==
LOC: C.ER 11:20
DX: B37.0 Candidal stomatitis (principal); B37.81 Candidal esophagitis; L02.213 Cutaneous abscess of chest wall; B20 Human immunodeficiency virus [HIV] disease
CPT/HCPCS: 96372; 99282; J0561

== ENCOUNTER 2018-07-02 18:16 | Emergency (ER) | payer MEDICAID ==
[2018-07-02 18:17] VITALS: BMI 24.3
[2018-07-02 18:33] VITALS: BP 129/79; PULSE 124; TEMP 97.7; O2SAT 100
[2018-07-02] MEDS ORDERED: Penicillin G Benzathine 2.4 Mill Unit/4 ml Syr IM ONE ×2 (19:00→19:12)
--- NOTE | 2018-07-02 19:28 | C.PDOC ---
History Of Present Illness 42 y/o male, with history of HIV and syphilis, recently hospitalized for multiple abscess on chest, presents to ED for final penicillin shot for treatment of syphilis. Patient received shots on 06/18/18 and 06/25/18. Patient is due for his final shot today. Has no complaints at this time. Denies weakness, dizziness, chest pain, SOB, fever, or chills. Time Seen by Provider: 07/02/18 18:48 Chief Complaint (Nursing): Medical Clearance History Per: Patient History/Exam Limitations: no limitations Onset/Duration Of Symptoms: Days Current Symptoms Are (Timing): Still Present Past Medical History Reviewed: Historical Data, Nursing Documentation, Vital Signs Vital Signs: Last Vital Signs Temp 97.7 F 07/02/18 18:28 Pulse 124 H 07/02/18 18:28 Resp 17 07/02/18 18:28 BP 129/79 07/02/18 18:28 Pulse Ox 100 07/02/18 18:28 Primary Care Provider: FAMILY PROVIDER,NO - Medical History PMH: Anxiety, Bipolar Disorder, Depression, HIV, HTN, Hypercholesterolemia, Hyperlipidemia Denies: Diabetes, Deep Vein Thrombosis, Hepatitis, Chronic Kidney Disease, Seizures, Sexually Transmitted Disease Surgical History: Tonsillectomy Denies: Appendectomy, Pacemaker - [facility] Procedures INSERTION OF INFUSION DEV INTO SUP VENA CAVA, PERC APPROACH (06/15/18) Family History: States: No Known Family Hx - Social History Hx Tobacco Use: No Hx Alcohol Use: Yes Hx Substance Use: No - Immunization History Hx Tetanus Toxoid Vaccination: Yes Hx Influenza Vaccination: Yes Hx Pneumococcal Vaccination: No Review Of Systems Except As Marked, All Systems Reviewed And Found Negative. Constitutional: Negative for: Fever, Chills Cardiovascular: Negative for: Chest Pain Respiratory: Negative for: Cough, Shortness of Breath Gastrointestinal: Negative for: Nausea, Vomiting Neurological: Negative for: Weakness, Numbness, Headache, Dizziness Physical Exam - Physical Exam Appears: Non-toxic, No Acute Distress Skin: Warm, Dry Head: Normacephalic Eye(s): bilateral: Normal Inspection Oral Mucosa: Moist Cardiovascular: Rhythm Regular, No Murmur Respiratory: Normal Breath Sounds Extremity: No Tenderness, No Pedal Edema, No Swelling Neurological/Psych: Oriented x3, Normal Speech, Normal Cranial Nerves, Normal Motor, Normal Sensation ED Course And Treatment O2 Sat by Pulse Oximetry: 100 (RA) Pulse Ox Interpretation: Normal Progress Note: Penicillin injection administered, tolerated well. Disposition Counseled Patient/Family Regarding: Diagnosis, Need For Followup - Disposition Disposition: HOME/ ROUTINE Disposition Time: 19:27 Condition: GOOD Forms: [facility] (Salvadorean) - Clinical Impression Clinical Impression: Syphilis - PA / STOCK CLERK / Resident Statement MD/DO has reviewed & agrees with the documentation as recorded. - Scribe Statement The provider has reviewed the documentation as recorded by the Percyibbob Meraz All medical record entries made by the Percyibbob were at my direction and personally dictated by me. I have reviewed the chart and agree that the record accurately reflects my personal performance of the history, physical exam, medical decision making, and the department course for this patient. I have also personally directed, reviewed, and agree with the discharge instructions and disposition.
[2018-07-02 19:30] VITALS: RESP 20
== END 2018-07-02 19:29 | disposition home or self-care (01) ==
LOC: C.ER 18:16
DX: A53.9 Syphilis, unspecified (principal)
CPT/HCPCS: 96372; 99282; J0561

== ENCOUNTER 2018-07-07 14:33 | Emergency (ER) | payer MEDICAID ==
[2018-07-07 14:33] VITALS: BMI 24.3
== END 2018-07-07 15:35 | disposition left against medical advice (07) ==
LOC: C.ER 14:33
DX: Z02.89 Encounter for other administrative examinations (principal); R10.30 Lower abdominal pain, unspecified

== ENCOUNTER 2018-07-07 15:46 | Emergency (ER) | payer MEDICAID ==
[2018-07-07 15:46] VITALS: BMI 24.3
[2018-07-07 15:53] VITALS: BP 131/88; PULSE 115; RESP 18; TEMP 97.8
--- NOTE | 2018-07-07 16:22 | C.PDOC ---
History Of Present Illness 42 year old male presents to ED with complaint of chronic pain to the dorsal base of the penis. Patient has a past history of penile fracture. Patient is currently taking antibiotics and has been recently in-patient for syphilis and AIDs. Patient left long term AMA. Patient is interested in a urology follow- up. Patient has a wound to his penis. Patient denies discharge, fever, chills, or active bleeding. Time Seen by Provider: 07/07/18 16:07 Chief Complaint (Nursing): Male Genitourinary History Per: Patient History/Exam Limitations: no limitations Onset/Duration Of Symptoms: Unknown Current Symptoms Are (Timing): Still Present Quality Of Discomfort: "Pain" Associated Symptoms: Other (penile pain and wound to penis). denies: Fever, Chills, Urinary Symptoms Past Medical History Reviewed: Historical Data, Nursing Documentation, Vital Signs Vital Signs: Last Vital Signs Temp 97.8 F 07/07/18 15:50 Pulse 115 H 07/07/18 15:50 Resp 18 07/07/18 15:50 BP 131/88 07/07/18 15:50 Pulse Ox 99 07/07/18 15:50 Primary Care Provider: FAMILY PROVIDER,NO - Medical History PMH: Anxiety, Bipolar Disorder, Depression, HIV, HTN, Hypercholesterolemia, Hyperlipidemia Denies: Diabetes, Deep Vein Thrombosis, Hepatitis, Chronic Kidney Disease, Seizures, Sexually Transmitted Disease Surgical History: Tonsillectomy Denies: Appendectomy, Pacemaker - [facility] Procedures INSERTION OF INFUSION DEV INTO SUP VENA CAVA, PERC APPROACH (06/15/18) Family History: States: Unknown Family Hx - Social History Hx Tobacco Use: No Hx Alcohol Use: Yes Hx Substance Use: No - Immunization History Hx Tetanus Toxoid Vaccination: Yes Hx Influenza Vaccination: Yes Hx Pneumococcal Vaccination: No Review Of Systems Constitutional: Negative for: Fever, Chills, Weakness Genitourinary: Positive for: Penile Pain, Other (wound to the dorsal base of the penis). Negative for: Dysuria, Frequency, Hematuria Skin: Negative for: Rash, Lesions Neurological: Negative for: Weakness, Numbness Physical Exam - Physical Exam Appears: Non-toxic, No Acute Distress Skin: Normal Color, Warm, Dry Head: Atraumatic, Normacephalic Male Genital: No Testicular Swelling, No Scrotal Swelling, Other (tiny orifice with discharge, fluctuance, and tenderness; no inguinal adenopathy) Extremity: Capillary Refill (<2 seconds) Extremity: Bilateral: Atraumatic, Normal Color And Temperature, Normal ROM Neurological/Psych: Oriented x3, Normal Speech, Normal Cognition, Other (bizarre and anxious, consistant with baseline) ED Course And Treatment O2 Sat by Pulse Oximetry: 99 (in RA) Pulse Ox Interpretation: Normal Medical Decision Making Medical Decision Making: 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 Cantu per prior eval Disposition Doctor Will See Patient In The: Office Counseled Patient/Family Regarding: Studies Performed, Diagnosis - Disposition Referrals: [facility] [Outside] [facility] [place] [Outside] [facility] [Outside] [facility] [Outside] Blade Cantu MD [Staff Provider] - Disposition: HOME/ ROUTINE Disposition Time: 16:21 Condition: GOOD Additional Instructions: Please call Dr. Cantu to make a follow-up appt the wound on the penis seems to have been healed and there is no fluctuance. Continue all other meds as prescribed Forms: General Discharge Instructions, [facility] (Maltese) - Clinical Impression Clinical Impression: Penile lesion - Scribe Statement The provider has reviewed the documentation as recorded by the Scribe (Jailyn Moran) All medical record entries made by the Scribe were at my direction and personally dictated by me. I have reviewed the chart and agree that the record accurately reflects my personal performance of the history, physical exam, medical decision making, and the department course for this patient. I have also personally directed, reviewed, and agree with the discharge instructions and disposition.
[2018-07-07 17:43] VITALS: O2SAT 99
== END 2018-07-07 16:46 | disposition home or self-care (01) ==
LOC: C.ER 15:46
DX: N48.89 Other specified disorders of penis (principal); I10 Essential (primary) hypertension; E78.00 Pure hypercholesterolemia, unspecified; E78.5 Hyperlipidemia, unspecified; F31.9 Bipolar disorder, unspecified